=== PATIENT | female | born 1940 | race Caucasian/White ===

== ENCOUNTER 2019-10-03 13:39 | Inpatient (IN) | payer MEDICARE, OTHER, SELFPAY ==
--- NOTE | ~2019-10-03 | CT_ITS ---
EXAMINATION: CT brain wo con EXAM DATE: 10/03/2019 18:19 INDICATION: Hallucinations. TECHNIQUE: Spiral CT of the head was performed without contrast. Axial, coronal and sagittal images were reviewed. The dose-length product (DLP) for this examination was 605.33 mGy-cm. The exposure w as tailored according to patient size, and iterative reconstruction (ASIR) was used as additional dos e reduction technique. Comparison is made to prior examination from 09/13/2019. FINDINGS: There is no acute intraparenchymal hemorrhage. No evidence of intraparenchymal brain mass lesion. No evidence of acute infarction. Please note that initial head CT has limited sensitivity f or small or acute infarctions. There is mild to moderate periventricular and subcortical hypodensity, nonspecific but probably related to small vessel ischemic disease. There is moderate prominence of the sulci and ventricles related to cerebral atrophy. There is intracranial carotid arterioscleros is. There are no extra-axial collections. There is no mass effect or midline shift. Patient has squirse d bilateral ocular lens surgery. Soft tissue is unremarkable. The visualized sinuses and mastoid ai r cells are well aerated. There is no interval change. IMPRESSION: 1. No acute intracranial findings. 2. Chronic age related findings. Reviewed, dictated and finalized at location A. ICAL ASSISTANT PROFESSOR
--- NOTE | ~2019-10-03 | XR_ITS ---
XR chest 1V portable 10/09/2019 14:15 Indication: Worsening cough Procedure: AP portable chest Comparison: Comparison to multiple prior studies sequentially, with oldest reviewed study dated 05/06. Findings: Status post median sternotomy for CABG. Pacemaker leads are stable. Cardiomegaly. There is atherosclerosis of the aorta. Mild interstitial edema. Small pleural effusions. No pneumothorax. Jolene re degenerative changes of the glenohumeral joints. Right IJ large bore central venous catheter tip i n the right atrium. Impression: 1: Cardiomegaly with interstitial edema. Reviewed, dictated and finalized at location A. ECTION SPECIALIST Impression: 1: Cardiomegaly with interstitial edema.
--- NOTE | ~2019-10-03 | XR_ITS ---
EXAMINATION: XR chest 2V DATE: 10/03/2019 16:19 INDICATION: Shortness of breath TECHNIQUE: AP and lateral views of the chest are obtained. COMPARISON: 05/12/2019 FINDINGS: There is stable cardiomegaly. There are mild airspace opacities of the lung bases. Median s ternotomy wires and mediastinal surgical clips are seen, likely from prior coronary artery bypass gra fting. A dual-lead pacemaker of the left chest wall ends with its leads in expected positions. There is a right internal jugular dialysis catheter with its tip in the right atrium. No pleural effusion o r pneumothorax is identified. There is severe thoracic spondylosis. Advanced osteoarthritis is noted in the shoulders. IMPRESSION: 1. Minimal airspace opacities of the lung bases, likely atelectasis. 2. Cardiomegaly. Reviewed, dictated and finalized at location A. ER TUBE REAMER
--- NOTE | 2019-10-03 13:43 | ED.SOB ---
HPI - SOB/Dyspnea General Chief Complaint: Shortness of Breath/Dyspnea Stated Complaint: DIFFICULTY BREATHING Time Seen by Provider: 10/03/19 13:42 Source: patient and EMS Mode of arrival: EMS Limitations: no limitations History of Present Illness HPI Narrative: The pt is an 79 y/o female who presents to the ED, via EMS, c/o SOB onset today. Pt notes that she awoke experiencing this, and has had a productive cough and right sinus drainage for the past few days. She notes that she also has been experiencing occipital SAHNI, weakness, and her insides were jumping today. Per EMS, pt was discharged from this facility following a UTI, but she states that she has worsened since. EMS states that the pt was at [facility] dialysis today, and got 500 CCs out of the 1000 CCs she typically gets off before they stopped. EMS states that the pt does not normally wear oxygen except at [facility], where she is normally on 2 liters. EMS states that the pt had an oxygen saturation of high 80s to low 90s on 2 liters, but her SOB resolved when the oxygen was bumped up to 4 liters. Pt denies vomiting, CP, and fever. Pt notes that her presiding judge is Dr. Galindo. MD elicited complaint: shortness of breath Pertinent past history: COPD and congestive heart failure Timing: now resolved Relieving factors: oxygen Known history of: COPD and congestive heart failure Associated symptoms: cough (Productive, onset few days ago) and other (Right sinus drainage (Onset few days ago), insides were jumping, occipital SAHNI, weakness) Treatment prior to arrival: oxygen Related Data Home Medications Medication Instructions Recorded Confirmed allopurinol 100 mg PO TID 09/13/19 10/03/19 aspirin [Aspir-81] 81 mg PO DAILY 09/13/19 10/03/19 bumetanide 2 mg PO 3XW 09/13/19 10/03/19 cyanocobalamin (vitamin B-12) 1,000 mcg PO DAILY 09/13/19 10/03/19 [Vitamin B-12] diltiazem HCl [DILT-XR] 180 mg PO HS 09/13/19 10/03/19 docusate sodium [Colace] 100 mg PO DAILY 09/13/19 10/03/19 donepezil [Aricept] 10 mg PO DAILY 09/13/19 10/03/19 ferrous sulfate [Iron (ferrous 325 mg PO BIDWM 09/13/19 10/03/19 sulfate)] folic acid 1 mg PO DAILY 09/13/19 10/03/19 midodrine 10 mg PO BID 09/13/19 10/03/19 paroxetine HCl [Paxil] 40 mg PO DAILY 09/13/19 10/03/19 pravastatin [Pravachol] 40 mg PO HS 09/13/19 10/03/19 alendronate-vitamin D3 2,000 units BYMOUTH DAILY 10/03/19 10/03/19 amiodarone 100 mg PO DAILY 10/03/19 10/03/19 cholecalciferol (vitamin D3) 2,000 unit PO DAILY 10/03/19 10/03/19 levothyroxine 150 mcg PO DAILY 10/03/19 10/03/19 quetiapine 50 mg PO HS 10/03/19 10/03/19 sucroferric oxyhydroxide [Velphoro] 500 mg PO TIDWM 10/03/19 10/03/19 venlafaxine 225 mg PO DAILY 10/03/19 10/03/19 Allergies Allergy/AdvReac Type Severity Reaction Status Date / Time lisinopril AdvReac Cough Verified 10/03/19 19:04 Review of Systems Review of Systems: All systems reviewed & are unremarkable except as noted in HPI and below Constitutional: Constitutional: Denies fever(s) ENT: Reports other (Right sinus drainage (Onset few days ago)) Cardiovascular: Cardiovascular: Denies chest pain Respiratory: Respiratory: Reports cough (Productive, onset a few days ago) and Reports dyspnea (Resolved) Gastrointestinal: Gastrointestinal: Denies vomiting and Reports other ( Insides were jumping ) Neurologic: Reports headache(s) (Occipital ) and Reports weakness PMFSH Past Medical History Medical History AA (aortic aneurysm) Anemia due to chronic kidney disease, on chronic dialysis Angina at rest Anxiety Arthritis AV fistula CAD (coronary artery disease) of artery bypass graft Cataract CHF (congestive heart failure) Compression fracture of L1 lumbar vertebra COPD (chronic obstructive pulmonary disease) Depression End stage renal disease on dialysis Gout Hypercholesterolemia Hypertension Hypothyroidism Parkinson's disease Pneumonia Renal disease Urinar
--- NOTE | 2019-10-03 13:51 | ECG_ITS ---
Measurements Intervals [place] Rate: 80 P: 59 AL: 228 QRS: 144 QRSD: 166 T: 72 QT: 471 QTc: 544 Interpretive Statements ELECTRONIC ATRIAL PACEMAKER WITH INHIBITON ELECTRONIC VENTRICULAR PACEMAKER NO FURTHER INTERPRETATION IS POSSIBLE ATYPICAL ECG Electronically Signed On 10-03-2019 16:03:23 POSTAL SORTING OFFICER by Tacho Moeller D.O.
[2019-10-03 13:56] VITALS: BP 114/77; PULSE 80; RESP 18; TEMP 36.4; O2SAT 99
[2019-10-03 14:11] LABS: Base Excess ABG 6.3 mEq/l (+/-2.0); Carboxyhemoglobin 1.2 % THb (0-2.0); Fractional Inspired Oxygen 21 %; HCO3 ABG 29.2 mEq/l (22.0-26.0); Methemoglobin ABG 0.3 %THb (0-1.5); Oxygen Saturation ABG 93.3 % (95.0-100.0); Oxyhemoglobin 90.3 % THb (90.0-100.0); PCO2 ABG 35.8 mmHg (35.0-45.0); PO2 ABG 58.9 mmHg (80.0-100.0); Reduced Hemoglobin 8.2 %THb (0-5.0); Total Hemoglobin 11.8 g/dL (12.0-18.0)
[2019-10-03 14:12] LABS: pH ABG 7.529 (7.350-7.450)
[2019-10-03 14:13] LABS: Device ROOM AIR; Modified Allen's Test Pass; Site Drawn RIGHT RADIAL
[2019-10-03 14:25] LABS: Basophils Absolute Auto 0.1 K/mm3 (0.0-0.1); Basophils Percent Auto 0.9 % (0.2-1.2); Eosinophils Absolute Auto 0.2 K/mm3 (0-0.3); Eosinophils Percent Auto 2.5 % (0-4.4); Hematocrit 35.5 % (37.0-47.0); Immature Granulocyte Absolute 0.07 K/mm3 (0.00-0.031); Immature Granulocyte Percent A 0.9 % (0-0.5); Immature Platelet Fraction Pct 7.9 % (0.9-11.2); Lymphocytes Absolute Auto 0.56 K/mm3 (0.9-3.2); Lymphocytes Percent Auto 7.4 % (18.3-44.2); Mean Corpuscular Volume 103.2 fl (80-100); Mean Platelet Volume 13.2 fl (7.4-10.4); Monocytes Absolute Auto 0.7 K/mm3 (0.1-0.6); Monocytes Percent Auto 9.8 % (2.6-8.5); Neutrophils Absolute Auto 5.9 K/mm3 (1.3-6.7); Neutrophils Percent Auto 78.5 % (45.5-73.1); Platelet Count Result 74 k/mm3 (150-375); Red Blood Count 3.44 M/mm3 (4.2-5.4); Red Cell Distribution Width 17.2 % (11.5-14.5); White Blood Count 7.6 K/mm3 (4.5-10.0)
[2019-10-03 14:30] VITALS: O2SAT 96
[2019-10-03 14:32] LABS: INR 1.1; Prothrombin Time 13.7 Seconds (11.1-14.7)
[2019-10-03 14:33] LABS: Partial Thromboplastin Time 27.7 SECONDS (22.3-36.8)
[2019-10-03 14:34] LABS: Alanine Aminotransferase 38 U/L (4-35); Albumin Level 3.7 g/dL (3.5-5.1); Alkaline Phosphatase 198 U/L (38-126); Aspartate Amino Transferase 51 U/L (14-36); Bilirubin,Total 0.9 mg/dL (0.2-1.3); Blood Urea Nitrogen 23 mg/dL (7-17); Carbon Dioxide 31 mmol/L (22-30); Chloride 94 mmol/L (98-107); Estimated CRCL calculation 15 ml/min; Estimated Glomerular Filt Rate 19; Glucose 73 mg/dL (65-105); Magnesium 2.3 mg/dL (1.6-2.3); Potassium 3.5 mmol/L (3.4-5.0); Sodium 135 mmol/L (137-145)
[2019-10-03 14:59] VITALS: BP 107/76; PULSE 80; RESP 16; O2SAT 100
[2019-10-03 18:52] LABS: Add Urine Microscopic? YES; Appearance Urine Cloudy (Clear); Bacteria Urine 4+ /hpf; Bilirubin Urine 2+ (Negative); Blood Urine 1+ (Negative); Color Urine Amber (Yellow); Glucose Urine UA Negative (Negative); Hyaline Casts Urine 20-29 /lpf; Ketones Urine Negative (Negative); Leukocyte Esterase Ur 2+ LEU/UL (Negative); Mucus Urine Rare /lpf; Nitrate Urine Negative (Negative); Protein Urine 2+ mg/dL (Negative); Specific Grav Ur 1.021 (1.001-1.035); Squamous Epithelial Cell Urine Rare /hpf (Few); WBC Urine 31-50 /hpf
[2019-10-03] MEDS: ONDANSETRON HCL ODT 4 MG TABLET 8 MG PO (18:52)
[2019-10-03 19:28] VITALS: BP 129/80; PULSE 80; RESP 23; O2SAT 92
--- NOTE | 2019-10-03 19:28 | PC.NURSE ---
assumed care of patient.
--- NOTE | 2019-10-03 20:43 | ADMGEN ---
This patient, February, was admitted to Medical Room 251-01. Patient/family oriented to hospital policies and general routines including ID bracelet, bed and alarms, visiting hours, pain management, procedures, bathroom and other care routines, personal items, smoking policy, room service/diet, and visiting hours. Valuables list has been completed. Information on how to activate the Rapid Response Team has been discussed. Patient/Family are encouraged to report perceived risks to care and to ask questions if they do not understand what they are told or what they should do.
[2019-10-03 20:50] VITALS: PULSE 82
[2019-10-03 22:00] VITALS: BP 110/64; PULSE 80; RESP 16; TEMP 37.1; O2SAT 95
--- NOTE | 2019-10-03 23:22 | PCRCNOTE ---
PCS NOTIFICATION SENT TO FOR HOME CPAP. SPOKE WITH RN AMADOR SOTO. PT DOES NOT ACTUALLY HAVE A HOME CPAP BUT HAS TROUBLE BREATHING AT NIGHT. DISCUSSED WITH RN THE NEED FOR A PHYSICIAN ORDER TO INITIATE CPAP.
[2019-10-03 23:50] VITALS: BMI 24.3
[2019-10-04] VITALS (15 sets, daily range): BP systolic 107–133; BP diastolic 67–76; PULSE 78–88; RESP 16–18; TEMP 36.3–37; O2SAT 92–98
[2019-10-04] MEDS: LEVOTHYROXINE SODIUM 150 MCG TABLET PO (05:16)
[2019-10-04 05:45] LABS: Basophils Absolute Auto 0.1 K/mm3 (0.0-0.1); Basophils Percent Auto 0.5 % (0.2-1.2); Eosinophils Absolute Auto 0.1 K/mm3 (0-0.3); Eosinophils Percent Auto 1.2 % (0-4.4); Hematocrit 34.8 % (37.0-47.0); Hemoglobin 11.1 g/dL (12.0-15.0); Immature Granulocyte Absolute 0.09 K/mm3 (0.00-0.031); Immature Granulocyte Percent A 0.9 % (0-0.5); Immature Platelet Fraction Pct 8.9 % (0.9-11.2); Lymphocytes Absolute Auto 0.73 K/mm3 (0.9-3.2); Lymphocytes Percent Auto 7.5 % (18.3-44.2); Mean Corpuscular HGB Conc 31.9 g/dl (32-36); Mean Corpuscular Hemoglobin 32.4 pg (26-34); Mean Corpuscular Volume 101.5 fl (80-100); Monocytes Absolute Auto 1.2 K/mm3 (0.1-0.6); Monocytes Percent Auto 12.5 % (2.6-8.5); Neutrophils Absolute Auto 7.6 K/mm3 (1.3-6.7); Neutrophils Percent Auto 77.4 % (45.5-73.1); Platelet Count Result 73 k/mm3 (150-375); Red Blood Count 3.43 M/mm3 (4.2-5.4); Red Cell Distribution Width 17.1 % (11.5-14.5); White Blood Count 9.8 K/mm3 (4.5-10.0)
[2019-10-04 05:56] LABS: Alanine Aminotransferase 144 U/L (4-35); Albumin Level 3.6 g/dL (3.5-5.1); Alkaline Phosphatase 169 U/L (38-126); Aspartate Amino Transferase 286 U/L (14-36); Bilirubin,Total 1.2 mg/dL (0.2-1.3); Blood Urea Nitrogen 33 mg/dL (7-17); Calcium 8.9 mg/dL (8.4-10.2); Carbon Dioxide 26 mmol/L (22-30); Chloride 96 mmol/L (98-107); Estimated CRCL calculation 11 ml/min; Estimated Glomerular Filt Rate 13; Glucose 62 mg/dL (65-105); Potassium 4.3 mmol/L (3.4-5.0); Sodium 137 mmol/L (137-145)
[2019-10-04] MEDS: DONEPEZIL HCL 10 MG TABLET PO (09:16)
[2019-10-04] MEDS: BUMETANIDE 1 MG TABLET 2 MG PO (09:16)
[2019-10-04] MEDS: ASPIRIN 81 MG ENTERIC TABLET PO (09:16)
[2019-10-04] MEDS: FERROUS SULFATE 324 MG TABLET PO (09:17)
[2019-10-04] MEDS: AMIODARONE HCL 100 MG TABLET PO (09:17)
[2019-10-04] MEDS: PAROXETINE 20 MG TABLET 40 MG PO (09:17)
[2019-10-04] MEDS: VENLAFAXINE HCL XR 75 MG CAP.ER.24H 225 MG PO (09:17)
[2019-10-04] MEDS: FOLIC ACID 1 MG TABLET PO (09:17)
[2019-10-04] MEDS: CHOLECALCIFEROL 1,000 UNIT TABLET 2000 UNITS PO (09:17)
[2019-10-04] MEDS: MIDODRINE HCL 10 MG TABLET PO ×2 (09:18→12:43)
[2019-10-04] MEDS: CYANOCOBALAMIN 1,000 MCG TABLET 1000 MCG PO (09:18)
[2019-10-04] MEDS: DOCUSATE SODIUM 100 MG CAPSULE PO ×2 (09:31→17:34)
--- NOTE | 2019-10-04 10:19 | PM.IMHP ---
H&P: HPI History of Present Illness Chief complaint: weakness, UTI Narrative: Rachelle Herbert is a 79 year old female with past medical history of end-stage renal disease on hemodialysis, atrial fibrillation, hypertension patient was at the dialysis center was having dialysis and had complaint of being fatigued and tired and hypoxia patient was brought to the emergency department for further evaluation is found to have UTI, patient was seen by Dr. Arceo patient was recently started on dialysis and her blood pressure is running soft patient is on diltiazem and amiodarone Dr. Arceo recommended to hold diltiazem and monitor the patient, present patient still complains being tired and fatigue however main complaint is constipation see has not had a BM in 3 days, denies any fever or chills Review of Systems Review of Systems: All systems reviewed & are unremarkable except as noted in HPI and below PMFSH Past Medical History Medical History (Updated 10/04/19 @ 14:12 by Davian Arceo MD) AA (aortic aneurysm) Anemia due to chronic kidney disease, on chronic dialysis Angina at rest Anxiety Arthritis AV fistula CAD (coronary artery disease) of artery bypass graft Cataract CHF (congestive heart failure) Compression fracture of L1 lumbar vertebra COPD (chronic obstructive pulmonary disease) Depression End stage renal disease on dialysis Gout Hypercholesterolemia Hypertension Hypothyroidism Parkinson's disease Pneumonia Pyuria Renal disease Urinary tract infection due to ESBL Klebsiella UTI (urinary tract infection) Valvular heart disease Surgical History Surgical History H/O aortic valve replacement She thinks is mechanical. 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 She has had 5 children.She desires to be a full code. Smoking status: Never smoker Second hand tobacco smoke exposure: No Alcohol intake: never Substance use: never Additional living arrangements comments: who is hemiparesis Gender identity (if verbalized by the patient): Female Spiritual care concerns: No Agree to blood products: Yes Meds Home Medications and Allergies Home Medications Medication Instructions Recorded Confirmed Type allopurinol 100 mg PO TID 09/13/19 10/03/19 History aspirin [Aspir-81] 81 mg PO DAILY 09/13/19 10/03/19 History bumetanide 2 mg PO 3XW 09/13/19 10/03/19 History cyanocobalamin (vitamin B-12) 1,000 mcg PO DAILY 09/13/19 10/03/19 History [Vitamin B-12] diltiazem HCl [DILT-XR] 180 mg PO HS 09/13/19 10/03/19 History docusate sodium [Colace] 100 mg PO DAILY 09/13/19 10/03/19 History donepezil [Aricept] 10 mg PO DAILY 09/13/19 10/03/19 History ferrous sulfate [Iron (ferrous 325 mg PO BIDWM 09/13/19 10/03/19 History sulfate)] folic acid 1 mg PO DAILY 09/13/19 10/03/19 History midodrine 10 mg PO BID 09/13/19 10/03/19 History paroxetine HCl [Paxil] 40 mg PO DAILY 09/13/19 10/03/19 History pravastatin [Pravachol] 40 mg PO HS 09/13/19 10/03/19 History alendronate-vitamin D3 2,000 units BYMOUTH DAILY 10/03/19 10/03/19 History amiodarone 100 mg PO DAILY 10/03/19 10/03/19 History cholecalciferol (vitamin D3) 2,000 un
[2019-10-04] MEDS: polyethylene glycoL 3350 17 GM POWD.PACK PO (12:43)
--- NOTE | 2019-10-04 14:06 | PM.CNNEP ---
Assessment and Plan Assessment and plan (1) Weakness: Code(s): R53.1 - Weakness Status: Acute Assessment and Plan: The patient has been weak. She does have pyuria and so could have a bladder infection. And her white cell count is okay and her temperature is not elevated. Another possibility is over control of her blood pressure. She has noted that she is much less swollen now that she is on dialysis and so she probably needs less blood pressure medications. Her only blood pressure medication that she is on is diltiazem. She might be on that only because of rate control however she is also on amiodarone. Perhaps we can hold the diltiazem for now. She is on midodrine to help prevent problems with fluid removal on dialysis, and also gets it on non dialysis days. We can also get orthostatic blood pressure readings. (2) Pyuria: Code(s): R82.81 - Pyuria Status: Acute Assessment and Plan: The patient has pyuria. She has a history of bladder infections in the past. Cultures are pending and she is on antibiotics. (3) Atrial fibrillation: Qualifiers: Atrial fibrillation type: unspecified Qualified Code(s): I48.91 - Unspecified atrial fibrillation Code(s): I48.91 - Unspecified atrial fibrillation Status: Acute Assessment and Plan: She has a pacemaker in her pulse is regular. Heart rate is well controlled. (4) Hypertension: Qualifiers: Hypertension type: essential hypertension Qualified Code(s): I10 - Essential (primary) hypertension Code(s): I10 - Essential (primary) hypertension Status: Chronic Assessment and Plan: Blood pressure has not been a major issue lately since her fluid has been removed. We will see how she does off the diltiazem (5) CHF (congestive heart failure): Code(s): I50.9 - Heart failure, unspecified Status: Acute Assessment and Plan: She has no edema. Chest x-ray is clear. (6) End stage renal disease on dialysis: Code(s): N18.6 - End stage renal disease; Z99.2 - Dependence on renal dialysis Status: Chronic Assessment and Plan: The patient had dialysis yesterday. It was not complete however the patient's volume status looks okay and her electrolytes are fine. We will continue dialysis on Sunday History of Present Illness Reason for Consult Consult date: 10/04/19 Chief Complaint Chief complaint: weakness, UTI History of Present Illness Narrative: Rachelle is a very pleasant 79-year-old female who has multiple medical problems including end-stage renal disease on dialysis for the last 3 months, anemia, CKD MBD, coronary disease status post bypass, congestive heart failure, COPD, depression, gout, hyperlipidemia, hypertension, hypothyroidism, urinary tract infection. The patient came into the hospital because for the last couple of days she has been feeling weak and shaky. She went to dialysis yesterday and after couple of hours felt poorly and so was sent to the emergency room. The patient also had some shortness of breath, cough, sinus drainage, occipital headaches, and anxiety. The patient went to the emergency room. There she was evaluated and found to have pyuria. Her blood pressure and other vital signs were under good control. The patient says that she has been constipated as well. She takes docusate and occasional suppository but has not had very much success. Her dialysis has been going fairly well. She does not gain a lot of weight between treatments. She still makes some urine. Her blood pressure does not drop with dialysis. She does occasionally get a little dizzy when she stands up. Review of Systems Constitutional: Constitutional: Reports no additional constitutional complaints Eyes: Eyes: Reports no additional eye complaints ENT: Reports system reviewed and no additional complaints, except as documented Cardiovascular: Cardiovascular: Reports no ad
--- NOTE | 2019-10-04 15:21 | PC.NURSE ---
Patient's daughter states she can bring in patient's Velphoro from home later today to be used during hospitalization.
[2019-10-04] MEDS: QUEtiapine FUMARATE 25 MG TABLET 50 MG PO (20:35)
[2019-10-04] MEDS: PRAVASTATIN SODIUM 20 MG TABLET 40 MG PO (20:35)
[2019-10-05] VITALS (10 sets, daily range): BP systolic 97–113; BP diastolic 55–73; PULSE 79–84; RESP 16–20; TEMP 36.3–36.9; O2SAT 94–98
[2019-10-05] MEDS: LEVOTHYROXINE SODIUM 150 MCG TABLET PO (05:57)
[2019-10-05 07:46] LABS: Hematocrit 35.5 % (37.0-47.0); Hemoglobin 11.2 g/dL (12.0-15.0); Immature Platelet Fraction Pct 9.5 % (0.9-11.2); Mean Corpuscular HGB Conc 31.5 g/dl (32-36); Mean Corpuscular Hemoglobin 32.7 pg (26-34); Mean Corpuscular Volume 103.5 fl (80-100); Mean Platelet Volume 12.6 fl (7.4-10.4); Platelet Count Result 69 k/mm3 (150-375); Red Blood Count 3.43 M/mm3 (4.2-5.4); Red Cell Distribution Width 17.4 % (11.5-14.5); White Blood Count 10.9 K/mm3 (4.5-10.0)
[2019-10-05 08:12] LABS: Albumin Level 3.5 g/dL (3.5-5.1); Blood Urea Nitrogen 50 mg/dL (7-17); Calcium 9.2 mg/dL (8.4-10.2); Carbon Dioxide 25 mmol/L (22-30); Chloride 92 mmol/L (98-107); Estimated CRCL calculation 8 ml/min; Estimated Glomerular Filt Rate 9; Glucose 50 mg/dL (65-105); Phosphorus 6.3 mg/dL (2.5-4.5); Potassium 4.5 mmol/L (3.4-5.0); Sodium 134 mmol/L (137-145)
--- NOTE | 2019-10-05 08:18 | PC.NURSE ---
Patient given 4 ounces of apple juice for blood glucose of 54.
[2019-10-05 08:56] LABS: Glucose Point of Care 86 (65-105)
[2019-10-05 08:56] LABS: Glucose Point of Care 56 (65-105)
[2019-10-05] MEDS: MIDODRINE HCL 10 MG TABLET PO ×2 (10:31→12:35)
[2019-10-05] MEDS: AMIODARONE HCL 100 MG TABLET PO (10:31)
[2019-10-05] MEDS: PAROXETINE 20 MG TABLET 40 MG PO (10:31)
[2019-10-05] MEDS: CYANOCOBALAMIN 1,000 MCG TABLET 1000 MCG PO (10:32)
[2019-10-05] MEDS: FOLIC ACID 1 MG TABLET PO (10:32)
[2019-10-05] MEDS: ASPIRIN 81 MG ENTERIC TABLET PO (10:32)
[2019-10-05] MEDS: CHOLECALCIFEROL 1,000 UNIT TABLET 2000 UNITS PO (10:32)
[2019-10-05] MEDS: VENLAFAXINE HCL XR 75 MG CAP.ER.24H 225 MG PO (10:32)
[2019-10-05] MEDS: DONEPEZIL HCL 10 MG TABLET PO (10:32)
[2019-10-05] MEDS: DOCUSATE SODIUM 100 MG CAPSULE PO ×2 (10:35→10:41)
[2019-10-05] MEDS: polyethylene glycoL 3350 17 GM POWD.PACK PO (10:35)
[2019-10-05 10:50] LABS: Glucose Point of Care 116 (65-105)
[2019-10-05 10:50] LABS: Glucose Point of Care 54 (65-105)
--- NOTE | 2019-10-05 12:15 | PM.IMPN ---
Progress Note: A&P Assessment and Plan (1) Weakness: Code(s): R53.1 - Weakness Status: Acute Assessment and Plan: 10/05/19 12:15Rachelle Herbert is a 79 year old female with past medical history of end-stage renal disease on hemodialysis, atrial fibrillation, hypertension patient was at the dialysis center was having dialysis and had complaint of being fatigued and tired and hypoxia patient was brought to the emergency department for further evaluation is found to have UTI, patient was seen by Dr. Arceo patient was recently started on dialysis and her blood pressure is running soft patient is on diltiazem and amiodarone Dr. Arceo recommended to hold diltiazem and monitor the patient, present patient still complains being tired and fatigue however main complaint is constipation see has not had a BM in 3 days, most likely her weakness and multifactorial recent start of end-stage renal disease and hemodialysis, bacteriuria and UTI patient is being treated with Rocephin today patient urine culture is growing gram-negative bacilli will follow up on culture and sensitivity will have a PT OT evaluate the patient patient will benefit from going to to acute rehab (2) Pyuria: Code(s): R82.81 - Pyuria Status: Acute Assessment and Plan: Plan is above (3) Asymptomatic bacteriuria: Code(s): R82.71 - Bacteriuria Status: Acute Assessment and Plan: Patient being treated with Rocephin will follow up on culture and sensitivity (4) CHF (congestive heart failure): Code(s): I50.9 - Heart failure, unspecified Status: Acute Assessment and Plan: Patient does not appear to be volume overloaded other dry patient is on dialysis (5) End stage renal disease: Code(s): N18.6 - End stage renal disease Status: Chronic Assessment and Plan: Patient is seen by Dr. Arceo will have scheduled dialysis (6) Atrial fibrillation: Qualifiers: Atrial fibrillation type: unspecified Qualified Code(s): I48.91 - Unspecified atrial fibrillation Code(s): I48.91 - Unspecified atrial fibrillation Status: Acute Assessment and Plan: Patient being treated with diltiazem and amiodarone patient is and has a pacemaker rate is controlled, seen by Dr. Arceo and held diltiazem as patient blood pressure is running soft will continue to monitor patient is not anticoagulated (7) Hypertension: Qualifiers: Hypertension type: essential hypertension Qualified Code(s): I10 - Essential (primary) hypertension Code(s): I10 - Essential (primary) hypertension Status: Chronic Assessment and Plan: Patient is on midodrine to prevent hypotension after dialysis, diltiazem on hold as her blood pressure is soft Subjective Date/time seen: 10/05/19 12:15Rachelle Herbert is a 79 year old female with past medical history of end-stage renal disease on hemodialysis, atrial fibrillation, hypertension patient was at the dialysis center was having dialysis and had complaint of being fatigued and tired and hypoxia patient was brought to the emergency department for further evaluation is found to have UTI, patient was seen by Dr. Arceo patient was recently started on dialysis and her blood pressure is running soft patient is on diltiazem and amiodarone Dr. Arceo recommended to hold diltiazem and monitor the patient, present patient still complains being tired and fatigue however main complaint is constipation see has not had a BM in 3 days, most likely her weakness and multifactorial recent start of end-stage renal disease and hemodialysis, bacteriuria and UTI patient is being treated with Rocephin today patient urine culture is growing gram-negative bacilli will follow up on culture and sensitivity will have a PT OT evaluate the patient patient will benefit from going to to acute rehab Review of Systems Review of Systems: All systems reviewed & are unremarkable except as
[2019-10-05 12:43] LABS: Glucose Point of Care 113 (65-105)
--- NOTE | 2019-10-05 13:15 | PM.PNNEP ---
Progress Note: A&P Assessment and Plan (1) Weakness: Code(s): R53.1 - Weakness Status: Acute Assessment and Plan: The patient has been weak. The patient has a UTI. Gram-negative rods are growing. She is on antibiotics. Her blood pressure is somewhat soft. She is on midodrine. She is off diltiazem. She is on midodrine to help prevent problems with fluid removal on dialysis, and also gets it on non dialysis days. Her blood pressure does not seem to drop appreciably with standing. (2) Pyuria: Code(s): R82.81 - Pyuria Status: Acute Assessment and Plan: The patient has pyuria. Gram-negative rods present. She is on antibiotics. (3) Atrial fibrillation: Qualifiers: Atrial fibrillation type: unspecified Qualified Code(s): I48.91 - Unspecified atrial fibrillation Code(s): I48.91 - Unspecified atrial fibrillation Status: Acute Assessment and Plan: She has a pacemaker in her pulse is regular. Heart rate is well controlled. (4) Hypertension: Qualifiers: Hypertension type: essential hypertension Qualified Code(s): I10 - Essential (primary) hypertension Code(s): I10 - Essential (primary) hypertension Status: Chronic Assessment and Plan: Blood pressure is not high. (5) CHF (congestive heart failure): Code(s): I50.9 - Heart failure, unspecified Status: Acute Assessment and Plan: She has no edema. Chest x-ray is clear. (6) End stage renal disease on dialysis: Code(s): N18.6 - End stage renal disease; Z99.2 - Dependence on renal dialysis Status: Chronic Assessment and Plan: The patient is due for dialysis tomorrow. Subjective Date/time seen: 10/05/19 13:15 Interval history: The patient is feeling about the same today. She is still somewhat weak. She had MiraLax x2 and only had a very small bowel movement this morning. She has no fevers or chills. No shortness of breath. Her belly feels full because of the constipation Review of Systems Cardiovascular: Cardiovascular: Reports no additional cardiovascular complaints Respiratory: Respiratory: Reports no additional respiratory complaints Gastrointestinal: Gastrointestinal: Reports no additional gastrointestinal complaints Genitourinary: Genitourinary: Reports no additional female genitourinary complaints Exam Narrative: Exam Narrative: Well developed well-nourished in no acute distress Lungs clear Heart regular without rub Abdomen bowel sounds positive soft nontender Extremities no edema Skin no rash Objective Data Vital Signs Vital Signs: Vital Signs - 24 hr 10/04/19 14:00 10/04/19 16:00 10/04/19 20:00 Temperature 36.6 C Pulse Rate 80 80 88 Respiratory Rate 16 Blood Pressure 117/76 Pulse Oximetry 98 10/04/19 20:37 10/04/19 21:06 10/05/19 00:00 Temperature 36.3 C L Pulse Rate 80 80 80 Respiratory Rate 16 16 Blood Pressure 107/68 Pulse Oximetry 98 93 10/05/19 04:00 10/05/19 06:00 10/05/19 08:00 Temperature 36.3 C L Pulse Rate 80 84 80 Respiratory Rate 18 Blood Pressure 109/73 97/55 L Pulse Oximetry 94 10/05/19 10:31 10/05/19 12:00 Temperature Pulse Rate 80 80 Respiratory Rate Blood Pressure Pulse Oximetry Intake/Output Intake/Output: Intake & Output 10/02/19 10/03/19 10/04/19 10/05/19 23:59 23:59 23:59 23:59 Intake Total 50 1150 390 Output Total 700 250 Balance 50 450 140 Meds/Results Medications: Active Medications Generic Name Dose Route Start Last Admin Trade Name George PRN Reason Stop Dose Admin Amiodarone HCl 100 mg 10/04/19 08:00 10/05/19 10:31 Pacerone PO 100 mg DAILY@0800 [facility] Administration Aspirin 81 mg 10/04/19 09:00 10/05/19 10:32 Aspirin Ec PO 81 mg DAILY KATIE Administration Bumetanide 2 mg 10/04/19 09:00 10/04/19 09:16 Bumex Po PO 2 mg TuThSa@0900 [facility] Administration Cyanocobala
--- NOTE | 2019-10-05 14:19 | PHAR ---
The patient's home med of Sucroferric Oxyhydroxide [Velphoro] 500 MG has been verified.
[2019-10-05] MEDS: LACTULOSE 20 GM/30 ML UDC PO (14:48)
[2019-10-05 19:43] LABS: Glucose Point of Care 116 (65-105)
[2019-10-05] MEDS: PRAVASTATIN SODIUM 20 MG TABLET 40 MG PO (21:07)
[2019-10-05] MEDS: QUEtiapine FUMARATE 25 MG TABLET 50 MG PO (21:07)
[2019-10-05 23:42] LABS: Glucose Point of Care 82 (65-105)
[2019-10-06] VITALS (29 sets, daily range): BP systolic 89–151; BP diastolic 40–76; PULSE 74–97; RESP 16–20; TEMP 36.3–37.4; O2SAT 94–98; BMI 24.3
--- NOTE | 2019-10-06 05:23 | PC.NURSE ---
pt. ambulated with assistance from bed to chair
[2019-10-06 05:48] LABS: Hematocrit 34.1 % (37.0-47.0); Hemoglobin 11.1 g/dL (12.0-15.0); Immature Platelet Fraction Pct 11.1 % (0.9-11.2); Mean Corpuscular HGB Conc 32.6 g/dl (32-36); Mean Corpuscular Hemoglobin 32.5 pg (26-34); Mean Corpuscular Volume 99.7 fl (80-100); Platelet Count Result 55 k/mm3 (150-375); Red Blood Count 3.42 M/mm3 (4.2-5.4); White Blood Count 10.6 K/mm3 (4.5-10.0)
[2019-10-06] MEDS: LEVOTHYROXINE SODIUM 150 MCG TABLET PO (05:59)
--- NOTE | 2019-10-06 07:50 | PC.NURSE ---
Patient blood sugar this morning 61. She refused oral glucose gel and was given apple juice. Currently sitting up in the chair eating breakfast. Will recheck blood glucose in 15 minutes.
[2019-10-06 07:52] LABS: Albumin Level 3.5 g/dL (3.5-5.1); Blood Urea Nitrogen 60 mg/dL (7-17); Calcium 9.1 mg/dL (8.4-10.2); Carbon Dioxide 23 mmol/L (22-30); Chloride 91 mmol/L (98-107); Estimated CRCL calculation 6 ml/min; Estimated Glomerular Filt Rate 6; Glucose 61 mg/dL (65-105); Phosphorus 6.4 mg/dL (2.5-4.5); Potassium 4.6 mmol/L (3.4-5.0); Sodium 133 mmol/L (137-145)
[2019-10-06] MEDS: CHOLECALCIFEROL 1,000 UNIT TABLET 2000 UNITS PO (08:17)
[2019-10-06] MEDS: ASPIRIN 81 MG ENTERIC TABLET PO (08:18)
[2019-10-06] MEDS: MIDODRINE HCL 10 MG TABLET PO ×2 (08:18→12:52)
[2019-10-06] MEDS: AMIODARONE HCL 100 MG TABLET PO (08:18)
[2019-10-06] MEDS: CYANOCOBALAMIN 1,000 MCG TABLET 1000 MCG PO (08:18)
[2019-10-06] MEDS: DONEPEZIL HCL 10 MG TABLET PO (08:18)
[2019-10-06] MEDS: FOLIC ACID 1 MG TABLET PO (08:18)
[2019-10-06] MEDS: VENLAFAXINE HCL XR 75 MG CAP.ER.24H 225 MG PO (08:18)
[2019-10-06] MEDS: PAROXETINE 20 MG TABLET 40 MG PO (08:19)
[2019-10-06 08:31] LABS: Glucose Point of Care 61 (65-105)
[2019-10-06 08:31] LABS: Glucose Point of Care 116 (65-105)
--- NOTE | 2019-10-06 08:41 | PCHDNOTE ---
Patient to dialysis per bed. Report given to MEGAN Willis.
--- NOTE | 2019-10-06 11:00 | PM.IMPN ---
Progress Note: A&P Assessment and Plan (1) Weakness: Code(s): R53.1 - Weakness Status: Acute Assessment and Plan: 10/06/19 11:00 February Mayi Herbert is a 79 year old female with past medical history of end-stage renal disease on hemodialysis, atrial fibrillation, hypertension patient was at the dialysis center was having dialysis and had complaint of being fatigued and tired and hypoxia patient was brought to the emergency department for further evaluation is found to have UTI, patient was seen by Dr. Arceo patient was recently started on dialysis and her blood pressure is running soft patient is on diltiazem and amiodarone Dr. Arceo recommended to hold diltiazem and monitor the patient, present patient still complains being tired and fatigue however main complaint is constipation see has not had a BM in 3 days, most likely her weakness and multifactorial recent start of end-stage renal disease and hemodialysis, bacteriuria and UTI patient is being treated with Rocephin, patient urine culture is growing Klebsiella pneumonia cochran resistant patient with end-stage renal disease on hemodialysis patient's urinates 3 times a day patient denies any complaints of dysuria frequency of urination most likely patient has asymptomatic bacteriuria patient had a similar presentation on last admission was seen by Dr. esquivel and no antibiotics recommended we have consulted Dr. esquivel again for his a recommendation, patient did have a small bowel movement today, will have a PT OT evaluate the patient patient will benefit from going to to acute rehab (2) Pyuria: Code(s): R82.81 - Pyuria Status: Acute Assessment and Plan: Plan is above (3) Asymptomatic bacteriuria: Code(s): R82.71 - Bacteriuria Status: Acute Assessment and Plan: Plan is above (4) CHF (congestive heart failure): Code(s): I50.9 - Heart failure, unspecified Status: Acute Assessment and Plan: Patient does not appear to be volume overloaded other dry patient is on dialysis (5) End stage renal disease: Code(s): N18.6 - End stage renal disease Status: Chronic Assessment and Plan: Patient is seen by Dr. Arceo will have scheduled dialysis (6) Atrial fibrillation: Qualifiers: Atrial fibrillation type: unspecified Qualified Code(s): I48.91 - Unspecified atrial fibrillation Code(s): I48.91 - Unspecified atrial fibrillation Status: Acute Assessment and Plan: Patient being treated with diltiazem and amiodarone patient is and has a pacemaker rate is controlled, seen by Dr. Arceo and held diltiazem as patient blood pressure is running soft will continue to monitor patient is not anticoagulated (7) Hypertension: Qualifiers: Hypertension type: essential hypertension Qualified Code(s): I10 - Essential (primary) hypertension Code(s): I10 - Essential (primary) hypertension Status: Chronic Assessment and Plan: Patient is on midodrine to prevent hypotension after dialysis, diltiazem on hold as her blood pressure is soft Subjective Date/time seen: 10/06/19 11:00 February Mayi Herbert is a 79 year old female with past medical history of end-stage renal disease on hemodialysis, atrial fibrillation, hypertension patient was at the dialysis center was having dialysis and had complaint of being fatigued and tired and hypoxia patient was brought to the emergency department for further evaluation is found to have UTI, patient was seen by Dr. Arceo patient was recently started on dialysis and her blood pressure is running soft patient is on diltiazem and amiodarone Dr. Arceo recommended to hold diltiazem and monitor the patient, present patient still complains being tired and fatigue however main complaint is constipation see has not had a BM in 3 days, most likely her weakness and multifactorial recent start of end-stage renal disease and hemodialysis, bacteriuria and UTI patie
--- NOTE | 2019-10-06 11:44 | PCPTNOTE ---
Attempted to see patient for PT, however patient was out of room for dialysis.
--- NOTE | 2019-10-06 12:10 | PM.PNNEP ---
Progress Note: A&P Assessment and Plan (1) End stage renal disease: Code(s): N18.6 - End stage renal disease Status: Chronic Assessment and Plan: HD today and continue M/W/F schedule while hospitalized electrolytes, volume status, and clearance acceptable (2) Weakness: Code(s): R53.1 - Weakness Status: Acute Assessment and Plan: suspect multifactorial -- ESRD, age, recent hospitalizations and questionable UTI PT/OT need for rehab? (3) Atrial fibrillation: Qualifiers: Atrial fibrillation type: unspecified Qualified Code(s): I48.91 - Unspecified atrial fibrillation Code(s): I48.91 - Unspecified atrial fibrillation Status: Acute Assessment and Plan: continue rate control strategy this is complicated by her known hypotension issues on amiodarone but diltiazem on hold (4) Asymptomatic bacteriuria: Code(s): R82.71 - Bacteriuria Status: Acute Assessment and Plan: as noted on last hospitalization as well likely colonization no antibiotics at this time Will continue to follow Subjective Date/time seen: 10/06/19 12:10 Tolerating dialysis at the time of my visit (seen on HD at ~ 12:00PM); no apparent distress voiced currently; breathing/respiratory status stable; no acute issues to report this time Exam Narrative: Exam Narrative: General: WD/WN female in NAD Heart: normal S1 and S2; no rub Lungs: decreasedat bases Abdomen: soft, nontender, nondistended, positive bowel sounds Extremities: no cyanosis or clubbing; no edema Skin: warm and dry Objective Data Vital Signs Vital Signs: Vital Signs Temp Pulse Resp BP Pulse Ox 10/06/19 12:00 82 144/73 H 10/06/19 11:47 97 127/47 L 10/06/19 11:30 80 130/56 L 10/06/19 11:15 80 128/68 10/06/19 11:00 79 135/68 10/06/19 10:45 80 139/67 10/06/19 10:30 78 126/72 10/06/19 10:15 80 136/60 10/06/19 10:00 74 150/66 H 10/06/19 09:45 78 127/65 10/06/19 09:30 78 142/70 H 10/06/19 09:15 78 118/43 L 10/06/19 09:00 81 134/43 L 10/06/19 08:45 37.3 C 80 16 134/63 10/06/19 08:18 80 10/06/19 08:00 80 10/06/19 06:01 37.3 C 80 16 102/53 L 94 10/06/19 04:00 80 10/06/19 00:00 80 10/05/19 22:39 36.9 C 81 16 113/63 98 10/05/19 20:00 79 10/05/19 16:00 80 10/05/19 14:00 36.4 C 79 20 104/60 96 Intake/Output Intake/Output: Intake & Output 10/03/19 10/04/19 10/05/19 10/06/19 23:59 23:59 23:59 23:59 Intake Total 50 1150 890 100 Output Total 700 250 200 Balance 50 450 640 -100 Meds/Results Medications: Active Medications Generic Name Dose Route Start Last Admin Trade Name Freq PRN Reason Stop Dose Admin Amiodarone HCl 100 mg 10/04/19 08:00 10/06/19 08:18 Pacerone PO 100 mg DAILY@0800 KATIE Administration Aspirin 81 mg 10/04/19 09:00 10/06/19 08:18 Aspirin Ec PO 81 mg DAILY KATIE Administration Bumetanide 2 mg 10/04/19 09:00 10/04/19 09:16 Bumex Po PO 2 mg TuThSa@0900 KATIE Administration Cyanocobalamin 1,000 mcg 10/04/19 09:00 10/06/19 08:18 Vitamin B-12 Tab PO 1,000 mcg DAILY KATIE Administration Dextrose 12.5 gm 10/05/19 08:17 Dextrose 50% Syringe IV PUSH PRN PRN Hypoglycemia Protocol Docusate Sodium 100 mg 10/04/19 09:00 10/06/19 08:22 Colace Cap PO Not Given DAILY KATIE Docusate Sodium 100 mg 10/04/19 10:17 10/05/19 10:35 Colace Cap PO 100 mg Q12H PRN Administration Constipation Donepezil HCl 10 mg 10/04/19 09:00 10/06/19 08:18 Aricept PO 10 mg DAILY KATIE Administration Folic Acid 1 mg 10/04/19 09:00 10/06/19 08:18 Folic Acid PO 1 mg DAILY KATIE Administration Glucagon 1 mg 10/05/19 08:17 Glucagon For Inj IM PRN PRN Hypoglycemia Protocol Glucose 15 gm 10/05/19 08:17 Glutose 15 PO P
[2019-10-06] MEDS: HEPARIN SODIUM 1,000 UNITS/ML VIAL 1000 UNITS IV PUSH (12:42)
--- NOTE | 2019-10-06 12:50 | PC.NURSE ---
Patient return from dialysis per bed.
[2019-10-06 13:48] LABS: Glucose Point of Care 81 (65-105)
[2019-10-06 13:48] LABS: Glucose Point of Care 63 (65-105)
[2019-10-06 13:48] LABS: Glucose Point of Care 49 (65-105)
--- NOTE | 2019-10-06 16:26 | PC.NURSE ---
At approx 1315, patient blood sugar 49. Patient refused oral glucose gel and was given apple juice. Rechecked sugar and it was 61. Administered apple juice again. Blood sugar rechecked 15 minutes later and had increased to 81. Unable to nonadmin oral glucose gel on the nov.
[2019-10-06 17:05] LABS: Glucose Point of Care 105 (65-105)
[2019-10-06] MEDS: QUEtiapine FUMARATE 25 MG TABLET 50 MG PO (21:35)
[2019-10-06] MEDS: PRAVASTATIN SODIUM 20 MG TABLET 40 MG PO (21:35)
[2019-10-06 22:55] LABS: Glucose Point of Care 82 (65-105)
[2019-10-07] VITALS (11 sets, daily range): BP systolic 94–123; BP diastolic 56–72; PULSE 80–84; RESP 16–21; TEMP 36.4–36.8; O2SAT 94–100
[2019-10-07] MEDS: LEVOTHYROXINE SODIUM 150 MCG TABLET PO (06:18)
[2019-10-07 06:27] LABS: Hematocrit 31.9 % (37.0-47.0); Hemoglobin 10.7 g/dL (12.0-15.0); Mean Corpuscular HGB Conc 33.5 g/dl (32-36); Mean Corpuscular Volume 98.5 fl (80-100); Mean Platelet Volume 12.4 fl (7.4-10.4); Platelet Count Result 41 k/mm3 (150-375); Red Blood Count 3.24 M/mm3 (4.2-5.4); Red Cell Distribution Width 16.9 % (11.5-14.5); White Blood Count 8.4 K/mm3 (4.5-10.0)
[2019-10-07 06:58] LABS: Albumin Level 2.8 g/dL (3.5-5.1); Blood Urea Nitrogen 28 mg/dL (7-17); Calcium 8.3 mg/dL (8.4-10.2); Carbon Dioxide 22 mmol/L (22-30); Chloride 94 mmol/L (98-107); Estimated CRCL calculation 12 ml/min; Estimated Glomerular Filt Rate 15; Glucose 66 mg/dL (65-105); Phosphorus 3.8 mg/dL (2.5-4.5); Potassium 4.6 mmol/L (3.4-5.0); Sodium 132 mmol/L (137-145)
--- NOTE | 2019-10-07 07:50 | PCDIET ---
Patient glucose 60 at 0745. Refused the oral glucose gel. Gave patient apple juice and she is currently eating breakfast. Will recheck blood sugar in 15 minutes.
[2019-10-07] MEDS: ASPIRIN 81 MG ENTERIC TABLET PO (08:11)
[2019-10-07] MEDS: CYANOCOBALAMIN 1,000 MCG TABLET 1000 MCG PO (08:12)
[2019-10-07] MEDS: VENLAFAXINE HCL XR 75 MG CAP.ER.24H 225 MG PO (08:12)
[2019-10-07] MEDS: MIDODRINE HCL 10 MG TABLET PO ×2 (08:12→12:45)
[2019-10-07] MEDS: PAROXETINE 20 MG TABLET 40 MG PO (08:13)
[2019-10-07] MEDS: AMIODARONE HCL 100 MG TABLET PO (08:13)
[2019-10-07] MEDS: FOLIC ACID 1 MG TABLET PO (08:15)
[2019-10-07] MEDS: BUMETANIDE 1 MG TABLET 2 MG PO (08:15)
[2019-10-07] MEDS: CHOLECALCIFEROL 1,000 UNIT TABLET 2000 UNITS PO (08:15)
[2019-10-07] MEDS: DONEPEZIL HCL 10 MG TABLET PO (08:15)
--- NOTE | 2019-10-07 08:22 | PC.NURSE ---
Patient blood sugar this morning was 61. She refused the oral glucose gel and I gave her apple juice. She is sitting up eating breakfast at this time. Rechecked her sugar approx 15-20 minutes later and glucose has increased to 85.
[2019-10-07 09:11] LABS: Glucose Point of Care 85 (65-105)
[2019-10-07 09:11] LABS: Glucose Point of Care 60 (65-105)
--- NOTE | 2019-10-07 10:23 | PM.PNNEP ---
Progress Note: A&P Assessment and Plan (1) End stage renal disease: Code(s): N18.6 - End stage renal disease Status: Chronic Assessment and Plan: HD tomorrow and continue M/W/F schedule while hospitalized electrolytes, volume status, and clearance acceptable (2) Weakness: Code(s): R53.1 - Weakness Status: Acute Assessment and Plan: suspect multifactorial -- ESRD, age, recent hospitalizations and questionable UTI PT/OT needfor rehab/SNF? case management working on this (3) Atrial fibrillation: Qualifiers: Atrial fibrillation type: unspecified Qualified Code(s): I48.91 - Unspecified atrial fibrillation Code(s): I48.91 - Unspecified atrial fibrillation Status: Acute Assessment and Plan: continue rate control strategy this is complicated by her known hypotension issues on amiodarone but diltiazem on hold (4) Asymptomatic bacteriuria: Code(s): R82.71 - Bacteriuria Status: Acute Assessment and Plan: as noted on last hospitalization as well likely colonization on IV ceftriaxone - HOWEVER, no antibiotics recommended by Infectious Disease on last hospitalization Will continue to follow Subjective Date/time seen: 10/07/19 10:23 Tolerated dialysis yesterday without any issue or problems; no other acute issues or problems noted; hypoglycemic this AM but improved with apple juice and eating breakfast; no apparent distress voiced other than generalized weakness. Exam Narrative: Exam Narrative: General: WD/WN female in NAD Heart: normal S1 and S2; no rub Lungs: decreasedat bases Abdomen: soft, nontender, nondistended, positive bowel sounds Extremities: no cyanosis or clubbing; no edema Skin: warm and intact Objective Data Vital Signs Vital Signs: Vital Signs Temp Pulse Resp BP Pulse Ox 10/07/19 08:13 84 10/07/19 06:00 36.6 C 80 21 H 108/58 L 100 10/07/19 04:00 81 10/07/19 00:00 80 10/06/19 22:00 37.4 C 81 20 118/71 98 10/06/19 20:00 80 10/06/19 16:10 90/40 L 10/06/19 16:05 89/70 L 10/06/19 16:00 82 107/63 10/06/19 14:00 36.3 C L 80 20 106/63 94 10/06/19 12:35 37.2 C 81 16 150/50 H 10/06/19 12:30 79 133/68 10/06/19 12:15 78 151/76 H 10/06/19 12:00 80 144/73 H 10/06/19 11:47 97 127/47 L 10/06/19 11:30 80 130/56 L 10/06/19 11:15 80 128/68 10/06/19 11:00 79 135/68 10/06/19 10:45 80 139/67 10/06/19 10:30 78 126/72 Intake/Output Intake/Output: Intake & Output 10/04/19 10/05/19 10/06/19 10/07/19 23:59 23:59 23:59 23:59 Intake Total 1150 890 930 420 Output Total 700 250 200 Balance 450 640 730 420 Meds/Results Medications: Active Medications Generic Name Dose Route Start Last Admin Trade Name Freq PRN Reason Stop Dose Admin Amiodarone HCl 100 mg 10/04/19 08:00 10/07/19 08:13 Pacerone PO 100 mg DAILY@0800 KATIE Administration Aspirin 81 mg 10/04/19 09:00 10/07/19 08:11 Aspirin Ec PO 81 mg DAILY KATIE Administration Bumetanide 2 mg 10/04/19 09:00 10/07/19 08:15 Bumex Po PO 2 mg TuThSa@0900 KATIE Administration Cyanocobalamin 1,000 mcg 10/04/19 09:00 10/07/19 08:12 Vitamin B-12 Tab PO 1,000 mcg DAILY KATIE Administration Dextrose 12.5 gm 10/05/19 08:17 Dextrose 50% Syringe IV PUSH PRN PRN Hypoglycemia Protocol Docusate Sodium 100 mg 10/04/19 09:00 10/07/19 08:16 Colace Cap PO Not Given DAILY KATIE Docusate Sodium 100 mg 10/04/19 10:17 10/05/19 10:35 Colace Cap PO 100 mg Q12H PRN Administration Constipation Donepezil HCl 10 mg 10/04/19 09:00 10/07/19 08:15 Aricept PO 10 mg DAILY KATIE Administration Folic Acid 1 mg 10/04/19 09:00 10/07/19 08:15 Folic Acid PO 1 mg DAILY KATIE Administration Glucagon 1 mg 10/05/19 08:17 Glucagon For Inj IM PRN PRN
--- NOTE | 2019-10-07 10:48 | PM.IMPN ---
Progress Note: A&P Assessment and Plan (1) Weakness: Code(s): R53.1 - Weakness Status: Acute Assessment and Plan: Pt is still very weak, lives alone. Pt is currently treated for Klebsiella pneumonia cochran resistant UTI with iv rocephin, pt has been having hypoglycemia today. low blood sugars. ? secondary to infection and lack of appetite. Pt to continue PT/OT may need Rehab for immobility. (2) Pyuria: Code(s): R82.81 - Pyuria Status: Acute Assessment and Plan: Plan is above (3) Asymptomatic bacteriuria: Code(s): R82.71 - Bacteriuria Status: Acute Assessment and Plan: Plan is above (4) CHF (congestive heart failure): Code(s): I50.9 - Heart failure, unspecified Status: Acute Assessment and Plan: Patient does not appear to be volume overloaded other dry patient is on dialysis (5) End stage renal disease: Code(s): N18.6 - End stage renal disease Status: Chronic Assessment and Plan: Patient is seen by Dr. Arceo will have scheduled dialysis (6) Atrial fibrillation: Qualifiers: Atrial fibrillation type: unspecified Qualified Code(s): I48.91 - Unspecified atrial fibrillation Code(s): I48.91 - Unspecified atrial fibrillation Status: Acute Assessment and Plan: Patient being treated with diltiazem and amiodarone patient is and has a pacemaker rate is controlled, seen by Dr. Arceo. Bp is soft continue to watch. (7) Hypertension: Qualifiers: Hypertension type: essential hypertension Qualified Code(s): I10 - Essential (primary) hypertension Code(s): I10 - Essential (primary) hypertension Status: Chronic Assessment and Plan: Patient is on midodrine to prevent hypotension after dialysis, diltiazem on hold as her blood pressure is soft (8) Hypoglycemia: Code(s): E16.2 - Hypoglycemia, unspecified Status: Acute Assessment and Plan: Pt is not eating much also is being treated for infection order rpt UC and BC. Treat hypoglycemia with D51/2 ns slow infusion. Pt to have further PT/OT today. May benefit from rehab placement. Subjective Date/time seen: 10/07/19 10:48 Interval history: February Piedad is a 79 year old female with past medical history of end-stage renal disease on hemodialysis, atrial fibrillation, hypertension patient was at the dialysis center was having dialysis and had complaint of being fatigued and tired and hypoxia patient was brought to the emergency department for further evaluation is found to have UTI, patient was seen by Dr. Arceo patient was recently started on dialysis and her blood pressure is running soft patient is on diltiazem and amiodarone Dr. Arceo recommended to hold diltiazem and monitor the patient, present patient still complains being tired and fatigue however main complaint is constipation see has not had a BM in 3 days, most likely her weakness and multifactorial recent start of end-stage renal disease and hemodialysis, bacteriuria and UTI patient is being treated with Rocephin, patient urine culture is growing Klebsiella pneumonia cochran resistant patient with end-stage renal disease on hemodialysis patient's urinates 3 times a day patient denies any complaints of dysuria frequency of urination most likely patient has asymptomatic bacteriuria patient had a similar presentation on last admission was seen by Dr. Covarrubias and no antibiotics recommended we have consulted Dr. Covarrubias again for his a recommendation.As per previous note. Pt is still very weak, lives alone. Pt is currently treated for Klebsiella pneumonia cochran resistant UTI with iv rocephin, pt has been having hypoglycemia today. low blood sugars. ? secondary to infection and lack of appetite. Pt to continue PT/OT may need Rehab for immobility. Review of Systems Review of Systems: All systems reviewed & are unremarkable except as noted in HPI and below Exam Narrative
[2019-10-07] MEDS: DEXTROSE 5%/0.45% SOD CHL 1,000 ML 50 ML IV CONT (11:31)
[2019-10-07 12:14] LABS: Glucose Point of Care 90 (65-105)
--- NOTE | 2019-10-07 15:24 | PC.NURSE ---
Set of blood cultures ordered by Dr. Lindsay. Phlebotomists unable to obtain blood cultures d/t patient condition. Notified TEXTILE CONVERTERMEGAN Mathis. She was able to obtain 1 set of blood cultures from patient. Called and notified Dr. Lindsay. No new orders received.
[2019-10-07 16:38] LABS: Glucose Point of Care 107 (65-105)
[2019-10-07] MEDS: QUEtiapine FUMARATE 25 MG TABLET 50 MG PO (20:32)
[2019-10-07] MEDS: PRAVASTATIN SODIUM 20 MG TABLET 40 MG PO (20:32)
[2019-10-07 20:38] LABS: Glucose Point of Care 101 (65-105)
[2019-10-08] VITALS (28 sets, daily range): BP systolic 99–125; BP diastolic 45–78; PULSE 78–83; RESP 16–20; TEMP 36–37.2; O2SAT 93–100
[2019-10-08] MEDS: LEVOTHYROXINE SODIUM 150 MCG TABLET PO (05:16)
[2019-10-08] MEDS: DEXTROSE 5%/0.45% SOD CHL 1,000 ML 50 ML IV CONT (05:16)
[2019-10-08 05:40] LABS: Hematocrit 33.9 % (37.0-47.0); Hemoglobin 10.8 g/dL (12.0-15.0); Immature Platelet Fraction Pct 11.3 % (0.9-11.2); Mean Corpuscular HGB Conc 31.9 g/dl (32-36); Mean Corpuscular Hemoglobin 32.2 pg (26-34); Mean Corpuscular Volume 101.2 fl (80-100); Platelet Count Result 35 k/mm3 (150-375); Red Blood Count 3.35 M/mm3 (4.2-5.4); Red Cell Distribution Width 17.4 % (11.5-14.5); White Blood Count 6.3 K/mm3 (4.5-10.0)
[2019-10-08 05:57] LABS: Blood Urea Nitrogen 40 mg/dL (7-17); Calcium 8.3 mg/dL (8.4-10.2); Carbon Dioxide 29 mmol/L (22-30); Chloride 91 mmol/L (98-107); Estimated CRCL calculation 8 ml/min; Estimated Glomerular Filt Rate 10; Glucose 75 mg/dL (65-105); Phosphorus 3.4 mg/dL (2.5-4.5); Potassium 3.8 mmol/L (3.4-5.0); Sodium 132 mmol/L (137-145)
[2019-10-08 06:22] LABS: Glucose Point of Care 82 (65-105)
[2019-10-08 08:11] LABS: Glucose Point of Care 72 (65-105)
[2019-10-08 08:12] LABS: Glucose Point of Care 68 (65-105)
--- NOTE | 2019-10-08 11:39 | PM.IMPN ---
Progress Note: A&P Assessment and Plan (1) Weakness: Code(s): R53.1 - Weakness Status: Acute Assessment and Plan: Pt is still very weak, lives alone. Pt is currently treated for Klebsiella pneumonia/ESBL with iv rocephin. Pt to continue PT/OT may need Rehab for immobility. (2) Pyuria: Code(s): R82.81 - Pyuria Status: Acute Assessment and Plan: Plan is above (3) Asymptomatic bacteriuria: Code(s): R82.71 - Bacteriuria Status: Acute Assessment and Plan: Plan is above (4) CHF (congestive heart failure): Code(s): I50.9 - Heart failure, unspecified Status: Acute Assessment and Plan: Patient does not appear to be volume overloaded other dry patient is on dialysis (5) End stage renal disease: Code(s): N18.6 - End stage renal disease Status: Chronic Assessment and Plan: Patient is seen by Dr. Arceo will have scheduled dialysis (6) Atrial fibrillation: Qualifiers: Atrial fibrillation type: unspecified Qualified Code(s): I48.91 - Unspecified atrial fibrillation Code(s): I48.91 - Unspecified atrial fibrillation Status: Acute Assessment and Plan: Patient being treated with diltiazem and amiodarone patient is and has a pacemaker rate is controlled, seen by Dr. Arceo. Bp is soft continue to watch. (7) Hypertension: Qualifiers: Hypertension type: essential hypertension Qualified Code(s): I10 - Essential (primary) hypertension Code(s): I10 - Essential (primary) hypertension Status: Chronic Assessment and Plan: Patient is on midodrine to prevent hypotension after dialysis, diltiazem on hold as her blood pressure is soft (8) Hypoglycemia: Code(s): E16.2 - Hypoglycemia, unspecified Status: Resolved Assessment and Plan: Pt is not eating much also, encourage diet, add dietary supplements. Pt to have further PT/OT today. May benefit from rehab placement. Subjective Date/time seen: 10/08/19 11:39 Interval history: Rachelle Mayi Herbert is a 79 year old female with past medical history of end-stage renal disease on hemodialysis, atrial fibrillation, hypertension patient was at the dialysis center was having dialysis and had complaint of being fatigued and tired and hypoxia patient was brought to the emergency department for further evaluation is found to have UTI, patient was seen by Dr. Arceo patient was recently started on dialysis and her blood pressure is running soft patient is on diltiazem and amiodarone Dr. Arceo recommended to hold diltiazem and monitor the patient, present patient still complains being tired and fatigue however main complaint is constipation see has not had a BM in 3 days, most likely her weakness and multifactorial recent start of end-stage renal disease and hemodialysis, bacteriuria and UTI patient is being treated with Rocephin, patient urine culture is growing Klebsiella pneumonia cochran resistant patient with end-stage renal disease on hemodialysis patient's urinates 3 times a day patient denies any complaints of dysuria frequency of urination most likely patient has asymptomatic bacteriuria patient had a similar presentation on last admission was seen by Dr. Covarrubias and no antibiotics recommended we have consulted Dr. Covarrubias again for his a recommendation.As per previous note. Pt is still very weak, lives alone. Pt is currently treated for Klebsiella pneumonia /ESBL UTI with iv rocephin, pt is feeling more stronger today. Rpt BC and UC is pending. Pt to continue PT/OT may need Rehab for immobility. Continue to treat, hopeful discharge tomorrow. Review of Systems Review of Systems: All systems reviewed & are unremarkable except as noted in HPI and below Exam Narrative: Exam Narrative: Patient is elderly frail Const: General: no acute distress and uncomfortable HENMT: General nose exam: Normal nares present Mouth: Yes moist mucous membr
--- NOTE | 2019-10-08 12:20 | PM.PNNEP ---
Progress Note: A&P Assessment and Plan (1) End stage renal disease: Code(s): N18.6 - End stage renal disease Status: Chronic Assessment and Plan: HD today and continue M/W/F schedule while hospitalized electrolytes, volume status, and clearance acceptable (2) Weakness: Code(s): R53.1 - Weakness Status: Acute Assessment and Plan: suspect multifactorial -- ESRD, age, recent hospitalizations and questionable UTI PT/OT need for rehab/SNF? case management working on this (3) Atrial fibrillation: Qualifiers: Atrial fibrillation type: unspecified Qualified Code(s): I48.91 - Unspecified atrial fibrillation Code(s): I48.91 - Unspecified atrial fibrillation Status: Acute Assessment and Plan: continue rate control strategy this is complicated by her known hypotension issues on amiodarone but diltiazem on hold (4) Asymptomatic bacteriuria: Code(s): R82.71 - Bacteriuria Status: Acute Assessment and Plan: as noted on last hospitalization as well likely colonization on IV ceftriaxone - HOWEVER, no antibiotics recommended by Infectious Disease on last hospitalization Will continue to follow Subjective Date/time seen: 10/08/19 12:20 Tolerating dialysis at the time of my visit (seen on HD at ~ 12:10PM); no acute complaints voiced; no issues or problems overnight; issues with hypoglycemia noted (presumably due to poor oral intake?); no apparent distress at this time. Exam Narrative: Exam Narrative: General: WD/WN female in NAD Heart: normal S1 and S2; no rub Lungs: decreased at bases Abdomen: soft, nontender, nondistended, positive bowel sounds Extremities: no cyanosis or clubbing; no edema Skin: warm and intact Objective Data Vital Signs Vital Signs: Vital Signs Temp Pulse Resp BP Pulse Ox 10/08/19 12:00 82 10/08/19 11:45 80 110/62 10/08/19 11:30 80 107/64 10/08/19 11:15 80 125/73 10/08/19 11:00 81 114/78 10/08/19 10:45 78 115/67 10/08/19 10:30 80 120/45 L 10/08/19 10:15 80 111/71 10/08/19 10:00 80 104/72 10/08/19 09:45 80 105/62 10/08/19 09:30 81 114/66 10/08/19 09:09 36.6 C 80 16 99/62 L 10/08/19 08:05 110/60 10/08/19 08:02 101/60 10/08/19 08:00 83 16 105/64 97 10/08/19 07:14 78 109/68 10/08/19 06:26 36.8 C 83 16 108/65 97 10/08/19 04:00 80 10/08/19 00:00 80 10/07/19 22:16 36.8 C 80 16 123/72 100 10/07/19 20:00 80 10/07/19 19:08 94 10/07/19 16:00 80 94/56 L 10/07/19 14:00 36.4 C 82 16 115/61 96 Intake/Output Intake/Output: Intake & Output 10/05/19 10/06/19 10/07/19 10/08/19 23:59 23:59 23:59 23:59 Intake Total 567 394 7268 1270 Output Total 250 200 300 200 Balance 640 349 628 1503 Meds/Results Medications: Active Medications Generic Name Dose Route Start Last Admin Trade Name Freq PRN Reason Stop Dose Admin Amiodarone HCl 100 mg 10/04/19 08:00 10/07/19 08:13 Pacerone PO 100 mg DAILY@0800 KATIE Administration Aspirin 81 mg 10/04/19 09:00 10/07/19 08:11 Aspirin Ec PO 81 mg DAILY KATIE Administration Bumetanide 2 mg 10/04/19 09:00 10/07/19 08:15 Bumex Po PO 2 mg TuThSa@0900 KATIE Administration Cyanocobalamin 1,000 mcg 10/04/19 09:00 10/07/19 08:12 Vitamin B-12 Tab PO 1,000 mcg DAILY KATIE Administration Dextrose 12.5 gm 10/05/19 08:17 Dextrose 50% Syringe IV PUSH PRN PRN Hypoglycemia Protocol Diltiazem HCl 180 mg 10/09/19 09:00 Cardizem Cd PO QAM KATIE Docusate Sodium 100 mg 10/04/19 09:00 10/07/19 08:16 Colace Cap PO Not Given DAILY KATIE Docusate Sodium 100 mg 10/04/19 10:17 01/26/20 10:35 Colace Cap PO 100 mg Q12H PRN Administration Constipation Donepezil HCl 10 mg 10/04/19 09:00 10/07/19 08:15 Aricept PO 10 mg DAILY SC
[2019-10-08] MEDS: AMIODARONE HCL 100 MG TABLET PO (13:40)
[2019-10-08] MEDS: VENLAFAXINE HCL XR 75 MG CAP.ER.24H 225 MG PO (13:41)
[2019-10-08] MEDS: CHOLECALCIFEROL 1,000 UNIT TABLET 2000 UNITS PO (13:41)
[2019-10-08] MEDS: DONEPEZIL HCL 10 MG TABLET PO (13:42)
[2019-10-08] MEDS: CYANOCOBALAMIN 1,000 MCG TABLET 1000 MCG PO (13:42)
[2019-10-08] MEDS: PAROXETINE 20 MG TABLET 40 MG PO (13:42)
[2019-10-08] MEDS: FOLIC ACID 1 MG TABLET PO (13:42)
[2019-10-08] MEDS: ASPIRIN 81 MG ENTERIC TABLET PO (13:42)
--- NOTE | 2019-10-08 13:42 | WPDCDIQUERY2 ---
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 -Pyyria and bacteriuria both documented on problem list as well as, found to have UTI in the subjective portion of progress note. Please clarify if UTI has been ruled in or ruled out.
[2019-10-08] MEDS: MIDODRINE HCL 10 MG TABLET PO (13:44)
[2019-10-08] MEDS: DOCUSATE SODIUM 100 MG CAPSULE PO (13:51)
[2019-10-08 13:59] LABS: Glucose Point of Care 91 (65-105)
[2019-10-08 13:59] LABS: Glucose Point of Care 56 (65-105)
[2019-10-08 17:03] LABS: Glucose Point of Care 112 (65-105)
[2019-10-08] MEDS: PRAVASTATIN SODIUM 20 MG TABLET 40 MG PO (20:50)
[2019-10-08] MEDS: QUEtiapine FUMARATE 25 MG TABLET 50 MG PO (20:50)
[2019-10-08 22:01] LABS: Glucose Point of Care 102 (65-105)
[2019-10-09] VITALS (12 sets, daily range): BP systolic 102–115; BP diastolic 65–76; PULSE 75–82; RESP 16–18; TEMP 36–36.7; O2SAT 96–100
[2019-10-09 05:59] LABS: Hematocrit 34.3 % (37.0-47.0); Hemoglobin 10.9 g/dL (12.0-15.0); Immature Platelet Fraction Pct 12.7 % (0.9-11.2); Mean Corpuscular HGB Conc 31.8 g/dl (32-36); Mean Corpuscular Hemoglobin 32.3 pg (26-34); Mean Corpuscular Volume 101.8 fl (80-100); Platelet Count Result 33 k/mm3 (150-375); Red Blood Count 3.37 M/mm3 (4.2-5.4); Red Cell Distribution Width 17.5 % (11.5-14.5); White Blood Count 7.2 K/mm3 (4.5-10.0)
[2019-10-09 06:06] LABS: Albumin Level 3.1 g/dL (3.5-5.1); Blood Urea Nitrogen 28 mg/dL (7-17); Calcium 8.3 mg/dL (8.4-10.2); Carbon Dioxide 26 mmol/L (22-30); Chloride 96 mmol/L (98-107); Estimated CRCL calculation 11 ml/min; Estimated Glomerular Filt Rate 13; Glucose 71 mg/dL (65-105); Potassium 4.1 mmol/L (3.4-5.0); Sodium 134 mmol/L (137-145)
[2019-10-09] MEDS: LEVOTHYROXINE SODIUM 150 MCG TABLET PO (06:24)
[2019-10-09 07:53] LABS: Glucose Point of Care 55 (65-105)
[2019-10-09] MEDS: GLUCOSE ORAL GEL 15 GM OF GLUCSE IN 37.5 GM TUBE PO ×2 (07:53→11:57)
[2019-10-09] MEDS: CHOLECALCIFEROL 1,000 UNIT TABLET 2000 UNITS PO (08:10)
[2019-10-09] MEDS: ASPIRIN 81 MG ENTERIC TABLET PO (08:10)
[2019-10-09] MEDS: PAROXETINE 20 MG TABLET 40 MG PO (08:10)
[2019-10-09] MEDS: BUMETANIDE 1 MG TABLET 2 MG PO (08:10)
[2019-10-09] MEDS: CYANOCOBALAMIN 1,000 MCG TABLET 1000 MCG PO (08:11)
[2019-10-09] MEDS: VENLAFAXINE HCL XR 75 MG CAP.ER.24H 225 MG PO (08:11)
[2019-10-09] MEDS: DONEPEZIL HCL 10 MG TABLET PO (08:11)
[2019-10-09] MEDS: FOLIC ACID 1 MG TABLET PO (08:11)
[2019-10-09] MEDS: MIDODRINE HCL 10 MG TABLET PO ×2 (08:11→12:02)
[2019-10-09] MEDS: AMIODARONE HCL 100 MG TABLET PO (08:15)
[2019-10-09] MEDS: DOCUSATE SODIUM 100 MG CAPSULE PO (08:19)
[2019-10-09 08:29] LABS: Glucose Point of Care 102 (65-105)
[2019-10-09 11:57] LABS: Glucose Point of Care 58 (65-105)
[2019-10-09 12:38] LABS: Glucose Point of Care 188 (65-105)
--- NOTE | 2019-10-09 13:44 | PM.IMPN ---
Progress Note: A&P Assessment and Plan (1) Weakness: Code(s): R53.1 - Weakness Status: Acute Assessment and Plan: Pt is still very weak, lives alone. Pt is currently treated for Klebsiella pneumonia/ESBL with iv rocephin. Nephrology rounding, will continue ID for ongoing Klebsiella pneumonia UTI. Pt to continue PT/OT may need Rehab for immobility. (2) Pyuria: Code(s): R82.81 - Pyuria Status: Acute Assessment and Plan: Plan is above (3) Asymptomatic bacteriuria: Code(s): R82.71 - Bacteriuria Status: Acute Assessment and Plan: Plan is above (4) CHF (congestive heart failure): Code(s): I50.9 - Heart failure, unspecified Status: Acute Assessment and Plan: Patient does not appear to be volume overloaded other dry patient is on dialysis (5) End stage renal disease: Code(s): N18.6 - End stage renal disease Status: Chronic Assessment and Plan: Patient is seen by Dr. Arceo will have scheduled dialysis (6) Atrial fibrillation: Qualifiers: Atrial fibrillation type: unspecified Qualified Code(s): I48.91 - Unspecified atrial fibrillation Code(s): I48.91 - Unspecified atrial fibrillation Status: Acute Assessment and Plan: Patient being treated with diltiazem and amiodarone patient is and has a pacemaker rate is controlled, seen by Dr. Arceo. Bp is soft continue to watch. (7) Hypertension: Qualifiers: Hypertension type: essential hypertension Qualified Code(s): I10 - Essential (primary) hypertension Code(s): I10 - Essential (primary) hypertension Status: Chronic Assessment and Plan: Patient is on midodrine to prevent hypotension after dialysis, diltiazem on hold as her blood pressure is soft (8) Hypoglycemia: Code(s): E16.2 - Hypoglycemia, unspecified Status: Resolved Assessment and Plan: Pt is not eating much also, encourage diet, add dietary supplements. Pt to have further PT/OT today. May benefit from rehab placement. Subjective Date/time seen: 10/09/19 13:44 Interval history: Rachelle Herbert is a 79 year old female with past medical history of end-stage renal disease on hemodialysis, atrial fibrillation, hypertension patient was at the dialysis center was having dialysis and had complaint of being fatigued and tired and hypoxia patient was brought to the emergency department for further evaluation is found to have UTI, patient was seen by Dr. Arceo patient was recently started on dialysis and her blood pressure is running soft patient is on diltiazem and amiodarone Dr. Arceo recommended to hold diltiazem and monitor the patient, present patient still complains being tired and fatigue however main complaint is constipation see has not had a BM in 3 days, most likely her weakness and multifactorial recent start of end-stage renal disease and hemodialysis, bacteriuria and UTI patient is being treated with Rocephin, patient urine culture is growing Klebsiella pneumonia cocrhan resistant patient with end-stage renal disease on hemodialysis patient's urinates 3 times a day patient denies any complaints of dysuria frequency of urination most likely patient has asymptomatic bacteriuria patient had a similar presentation on last admission was seen by Dr. Covarrubias and no antibiotics recommended we have consulted Dr. Covarrubias again for his a recommendation.As per previous note. Pt is still very weak, lives alone. Pt is currently treated for Klebsiella UTI with iv rocephin, pt is feeling more stronger today. Pt to continue PT/OT may need Rehab for immobility. Continue to treat, hopeful discharge tomorrow. I may consult ID again to get recommendations Pt still running low with hypoglycemia as she is not eating much Review of Systems Review of Systems: All systems reviewed & are unremarkable except as noted in HPI and below Exam Narrative: Exam Narrative: Patient is e
--- NOTE | 2019-10-09 15:48 | PM.PNNEP ---
Progress Note: A&P Assessment and Plan (1) End stage renal disease: Code(s): N18.6 - End stage renal disease Status: Chronic Assessment and Plan: HD tomorrow and continue M/W/F schedule while hospitalized electrolytes, volume status, and clearance acceptable (2) Weakness: Code(s): R53.1 - Weakness Status: Acute Assessment and Plan: suspect multifactorial -- ESRD, age, recent hospitalizations and questionable UTI PT/OT need for rehab/SNF case management working on this (3) Atrial fibrillation: Qualifiers: Atrial fibrillation type: unspecified Qualified Code(s): I48.91 - Unspecified atrial fibrillation Code(s): I48.91 - Unspecified atrial fibrillation Status: Acute Assessment and Plan: continue rate control strategy this is complicated by her known hypotension issues on amiodarone but diltiazem on hold (4) Asymptomatic bacteriuria: Code(s): R82.71 - Bacteriuria Status: Acute Assessment and Plan: as noted on last hospitalization as well on IV ceftriaxone - HOWEVER, no antibiotics recommended by Infectious Disease on last hospitalization - re-consult Infectious Disease? Will continue to follow Subjective Date/time seen: 10/09/19 15:48 Tolerated dialysis yesterday without any issues or problems; feels reasonably well; no events overnight or this AM; no apparent distress voiced at the time of my visit. Exam Narrative: Exam Narrative: General: WD/WN female in NAD Heart: normal S1 and S2; no rub Lungs: decreased at bases Abdomen: soft, nontender, nondistended, positive bowel sounds Extremities: no cyanosis or clubbing; no edema Skin: No rash Objective Data Vital Signs Vital Signs: Vital Signs Temp Pulse Resp BP Pulse Ox 10/09/19 14:00 36.7 C 75 18 115/68 100 10/09/19 12:00 81 10/09/19 11:08 102/68 10/09/19 08:15 81 10/09/19 08:03 112/67 10/09/19 08:00 79 110/76 10/09/19 06:12 36.2 C L 81 16 103/65 96 10/09/19 04:00 80 10/09/19 00:00 80 10/08/19 22:03 36.3 C L 80 16 118/72 93 10/08/19 20:00 80 10/08/19 16:00 80 Intake/Output Intake/Output: Intake & Output 10/06/19 10/07/19 10/08/19 10/09/19 23:59 23:59 23:59 23:59 Intake Total 930 1200 2020 760 Output Total 848 935 7351 300 Balance 730 900 719 460 Meds/Results Medications: Active Medications Generic Name Dose Route Start Last Admin Trade Name Freq PRN Reason Stop Dose Admin Amiodarone HCl 100 mg 10/04/19 08:00 10/09/19 08:15 Pacerone PO 100 mg DAILY@0800 KATIE Administration Aspirin 81 mg 10/04/19 09:00 10/09/19 08:10 Aspirin Ec PO 81 mg DAILY KATIE Administration Bumetanide 2 mg 10/04/19 09:00 10/09/19 08:10 Bumex Po PO 2 mg TuThSa@0900 KATIE Administration Cyanocobalamin 1,000 mcg 10/04/19 09:00 10/09/19 08:11 Vitamin B-12 Tab PO 1,000 mcg DAILY KATIE Administration Dextrose 12.5 gm 10/05/19 08:17 Dextrose 50% Syringe IV PUSH PRN PRN Hypoglycemia Protocol Diltiazem HCl 180 mg 10/09/19 09:00 10/09/19 09:52 Cardizem Cd PO 180 mg QAM KATIE Administration Docusate Sodium 100 mg 10/04/19 09:00 10/09/19 08:19 Colace Cap PO 100 mg DAILY KATIE Administration Docusate Sodium 100 mg 10/04/19 10:17 10/05/19 10:35 Colace Cap PO 100 mg Q12H PRN Administration Constipation Donepezil HCl 10 mg 10/04/19 09:00 10/09/19 08:11 Aricept PO 10 mg DAILY KATIE Administration Folic Acid 1 mg 10/04/19 09:00 10/09/19 08:11 Folic Acid PO 1 mg DAILY KATIE Administration Glucagon 1 mg 10/05/19 08:17 Glucagon For Inj IM PRN PRN Hypoglycemia Protocol Glucose 15 gm 10/05/19 08:17 10/09/19 11:57 Glutose 15 PO 15 gm PRN PRN Administration Hypoglycemia Protocol Guaifenesin 600 mg 10/08/19 21:00 10/09/19 08:09
[2019-10-09 17:38] LABS: Glucose Point of Care 104 (65-105)
[2019-10-09] MEDS: QUEtiapine FUMARATE 25 MG TABLET 50 MG PO (20:27)
[2019-10-09] MEDS: PRAVASTATIN SODIUM 20 MG TABLET 40 MG PO (20:27)
[2019-10-10] VITALS (28 sets, daily range): BP systolic 99–129; BP diastolic 52–76; PULSE 63–100; RESP 16–20; TEMP 36–37; O2SAT 92–100
[2019-10-10 02:48] LABS: Glucose Point of Care 85 (65-105)
[2019-10-10] MEDS: LEVOTHYROXINE SODIUM 150 MCG TABLET PO (06:52)
[2019-10-10 07:36] LABS: Glucose Point of Care 65 (65-105)
[2019-10-10 07:49] LABS: Hematocrit 33.2 % (37.0-47.0); Hemoglobin 10.9 g/dL (12.0-15.0); Immature Platelet Fraction Pct 11.8 % (0.9-11.2); Mean Corpuscular HGB Conc 32.8 g/dl (32-36); Mean Corpuscular Hemoglobin 32.7 pg (26-34); Mean Corpuscular Volume 99.7 fl (80-100); Platelet Count Result 33 k/mm3 (150-375); Red Blood Count 3.33 M/mm3 (4.2-5.4); Red Cell Distribution Width 17.7 % (11.5-14.5); White Blood Count 7.8 K/mm3 (4.5-10.0)
[2019-10-10] MEDS: GLUCOSE ORAL GEL 15 GM OF GLUCSE IN 37.5 GM TUBE PO (08:07)
[2019-10-10 08:24] LABS: Blood Urea Nitrogen 42 mg/dL (7-17); Calcium 8.6 mg/dL (8.4-10.2); Carbon Dioxide 24 mmol/L (22-30); Chloride 98 mmol/L (98-107); Estimated CRCL calculation 9 ml/min; Estimated Glomerular Filt Rate 10; Glucose 65 mg/dL (65-105); Phosphorus 3.2 mg/dL (2.5-4.5); Potassium 4.2 mmol/L (3.4-5.0); Sodium 135 mmol/L (137-145)
[2019-10-10 08:37] LABS: Glucose Point of Care 68 (65-105)
[2019-10-10 08:37] LABS: Glucose Point of Care 60 (65-105)
[2019-10-10 08:37] LABS: Glucose Point of Care 142 (65-105)
[2019-10-10] MEDS: VENLAFAXINE HCL XR 75 MG CAP.ER.24H 225 MG PO (09:21)
[2019-10-10] MEDS: CYANOCOBALAMIN 1,000 MCG TABLET 1000 MCG PO (09:21)
[2019-10-10] MEDS: DONEPEZIL HCL 10 MG TABLET PO (09:21)
[2019-10-10] MEDS: FOLIC ACID 1 MG TABLET PO (09:21)
[2019-10-10] MEDS: ASPIRIN 81 MG ENTERIC TABLET PO (09:22)
[2019-10-10] MEDS: MIDODRINE HCL 10 MG TABLET PO ×2 (09:22→12:25)
[2019-10-10] MEDS: CHOLECALCIFEROL 1,000 UNIT TABLET 2000 UNITS PO (09:22)
[2019-10-10] MEDS: PAROXETINE 20 MG TABLET 40 MG PO (09:22)
[2019-10-10] MEDS: AMIODARONE HCL 100 MG TABLET PO (09:23)
[2019-10-10] MEDS: DOCUSATE SODIUM 100 MG CAPSULE PO (09:32)
--- NOTE | 2019-10-10 11:44 | PCNFU ---
Nutrition Follow-Up Complete: Inadequate Oral Intake as related to UTI as evidenced by reported poor po intake. Adequate Intake of at least 75% of meals/supplements Goal:prgressing towards goal. Pt current nutrition is Renal Dialysis. Nutrition recommendation: Agree Last recorded weight is 70.6 kg. Bowel Motility:+BM 10/09 Labs Reviewed:BUN 42,Cr 4.3,GFR 10,Na 135 Meds Noted:Synthyroid,VitB12,Bumex Additional Notes: State 2 PU noted on coccyx. Patient is also receiving Nepro Shakes BID for an additional 425 kcals and 19 gms protein. Appetite has been poor, 10,25,25%. I encouraged PO intake. Monitoring: RD will monitor every 5 days.
[2019-10-10 12:30] LABS: Glucose Point of Care 53 (65-105)
[2019-10-10 12:30] LABS: Glucose Point of Care 75 (65-105)
[2019-10-10] MEDS: DEXTROSE 5%/0.45% SOD CHL 1,000 ML 50 ML IV CONT (12:30)
--- NOTE | 2019-10-10 13:19 | WPDINFPN2 ---
Progress Note: A&P Assessment and Plan (1) Asymptomatic bacteriuria: Code(s): R82.71 - Bacteriuria Status: Acute Assessment and Plan: 1. ASB 2. Non infectious weakness (her CC) , consider instead hypoglycemia 3. Chronic cough REC No further rx. Call if Qs Subjective Date/time seen: 10/10/19 13:19 Objective Data Vital Signs Vital Signs: Vital Signs - 24 hr 10/09/19 14:00 10/09/19 16:00 10/09/19 20:00 Temperature 36.7 C Pulse Rate 75 82 80 Respiratory Rate 18 Blood Pressure 115/68 Pulse Oximetry 100 10/09/19 22:00 10/10/19 00:00 10/10/19 04:00 Temperature 36.0 C L Pulse Rate 80 79 82 Respiratory Rate 16 Blood Pressure 115/70 Pulse Oximetry 100 10/10/19 06:00 10/10/19 08:00 10/10/19 08:02 Temperature 36.0 C L Pulse Rate 74 80 Respiratory Rate 16 Blood Pressure 99/55 L 101/65 104/65 Pulse Oximetry 100 92 10/10/19 08:05 10/10/19 09:23 10/10/19 10:04 Temperature Pulse Rate 63 Respiratory Rate Blood Pressure 110/60 Pulse Oximetry 92 10/10/19 12:00 Temperature Pulse Rate 80 Respiratory Rate Blood Pressure Pulse Oximetry Intake/Output Intake/Output: Intake & Output 10/07/19 10/08/19 10/09/19 10/10/19 23:59 23:59 23:59 23:59 Intake Total 1200 2020 1390 220 Output Total 300 1301 300 Balance 557 031 6637 220 Meds/Results Medications: Active Medications Generic Name Dose Route Start Last Admin Trade Name Freq PRN Reason Stop Dose Admin Amiodarone HCl 100 mg 10/04/19 08:00 10/10/19 09:23 Pacerone PO 100 mg DAILY@0800 KATIE Administration Aspirin 81 mg 10/04/19 09:00 10/10/19 09:22 Aspirin Ec PO 81 mg DAILY KATIE Administration Bumetanide 2 mg 10/04/19 09:00 10/09/19 08:10 Bumex Po PO 2 mg TuThSa@0900 KATIE Administration Cyanocobalamin 1,000 mcg 10/04/19 09:00 01/31/20 09:21 Vitamin B-12 Tab PO 1,000 mcg DAILY KATIE Administration Dextrose 12.5 gm 10/05/19 08:17 Dextrose 50% Syringe IV PUSH PRN PRN Hypoglycemia Protocol Diltiazem HCl 180 mg 10/09/19 09:00 10/10/19 09:24 Cardizem Cd PO 180 mg QAM KATIE Administration Docusate Sodium 100 mg 10/04/19 09:00 10/10/19 09:32 Colace Cap PO 100 mg DAILY KATIE Administration Docusate Sodium 100 mg 10/04/19 10:17 10/05/19 10:35 Colace Cap PO 100 mg Q12H PRN Administration Constipation Donepezil HCl 10 mg 10/04/19 09:00 10/10/19 09:21 Aricept PO 10 mg DAILY KATIE Administration Folic Acid 1 mg 10/04/19 09:00 10/10/19 09:21 Folic Acid PO 1 mg DAILY KATIE Administration Glucagon 1 mg 10/05/19 08:17 Glucagon For Inj IM PRN PRN Hypoglycemia Protocol Glucose 15 gm 10/05/19 08:17 10/10/19 08:07 Glutose 15 PO 15 gm PRN PRN Administration Hypoglycemia Protocol Guaifenesin 600 mg 10/08/19 21:00 10/10/19 09:22 Mucinex 12 Hr Tab PO 600 mg Q12HR KATIE Administration Dextrose 1,000 mls @ 100 mls/hr 10/05/19 08:17 Dextrose 5% 1,000 Ml IVPB PRN PRN Hypoglycemia Protocol Albumin Human 50 mls @ 999 mls/hr 10/08/19 07:14 Albutein IVPB 11/07/19 07:15 Q10M PRN HYPOTENSION Dextrose/Sodium Chloride 1,000 mls @ 50 mls/hr 10/10/19 12:15 Dextrose 5% Sodium Chloride 0.45% IV CONT .Q20H KATIE Levothyroxine Sodium 150 mcg 10/04/19 06:30 10/10/19 06:52 Synthroid PO 150 mcg DAILY@0630 KATIE Administration Miconazole Nitrate 1 applic 10/06/19 21:00 10/10/19 07:48 Aloe Capron TOPICAL 1 applic Q12HR KATIE Administration Midodrine 10 mg 10/04/19 09:00 10/10/19 12:25 Midodrine Hcl PO 10 mg 0900,1300 KATIE Administration Paroxetine HCl 40 mg 10/04/19 09:00 10/10/19 09:22 Paxil PO 40 mg DAILY KATIE Administration Polyethylene Glycol 17 gm 10/04/19 10:17 10/05/19 10:35 Miralax PO 17 gm QAM PRN Administration Constipation Pravastatin Sod
--- NOTE | 2019-10-10 13:37 | PM.IMPN ---
Progress Note: A&P Assessment and Plan (1) Weakness: Code(s): R53.1 - Weakness Status: Acute Assessment and Plan: Pt is still very weak, lives alone. Pt is currently treated for Klebsiella pneumonia/ESBL with iv rocephin. Nephrology rounding, will continue ID for ongoing uti, asymptomatc bactermia, no need for further abx Pt to continue PT/OT may need Rehab for immobility. (2) Pyuria: Code(s): R82.81 - Pyuria Status: Acute Assessment and Plan: Plan is above (3) Asymptomatic bacteriuria: Code(s): R82.71 - Bacteriuria Status: Acute Assessment and Plan: Plan is above (4) CHF (congestive heart failure): Code(s): I50.9 - Heart failure, unspecified Status: Acute Assessment and Plan: Patient does not appear to be volume overloaded other dry patient is on dialysis (5) End stage renal disease: Code(s): N18.6 - End stage renal disease Status: Chronic Assessment and Plan: Patient is seen by Dr. Arceo will have scheduled dialysis (6) Atrial fibrillation: Qualifiers: Atrial fibrillation type: unspecified Qualified Code(s): I48.91 - Unspecified atrial fibrillation Code(s): I48.91 - Unspecified atrial fibrillation Status: Acute Assessment and Plan: Patient being treated with diltiazem and amiodarone patient is and has a pacemaker rate is controlled, seen by Dr. Arceo. Bp is soft continue to watch. (7) Hypertension: Qualifiers: Hypertension type: essential hypertension Qualified Code(s): I10 - Essential (primary) hypertension Code(s): I10 - Essential (primary) hypertension Status: Chronic Assessment and Plan: Patient is on midodrine to prevent hypotension after dialysis, diltiazem on hold as her blood pressure is soft (8) Hypoglycemia: Code(s): E16.2 - Hypoglycemia, unspecified Status: Resolved Assessment and Plan: Pt is not eating much also, encourage diet, add dietary supplements. pt started on d51/2 ns for hypoglycemia. ? recurrent hypoglycemia unsure why will need to see endocrinology later. will order cpeptide, hbaic Subjective Date/time seen: 10/10/19 13:37 Interval history: February Piedad is a 79 year old female with past medical history of end-stage renal disease on hemodialysis, atrial fibrillation, hypertension patient was at the dialysis center was having dialysis and had complaint of being fatigued and tired and hypoxia patient was brought to the emergency department for further evaluation is found to have UTI, patient was seen by Dr. Arceo patient was recently started on dialysis and her blood pressure is running soft patient is on diltiazem and amiodarone Dr. Arceo recommended to hold diltiazem and monitor the patient, present patient still complains being tired and fatigue however main complaint is constipation see has not had a BM in 3 days, most likely her weakness and multifactorial recent start of end-stage renal disease and hemodialysis, bacteriuria and UTI patient is being treated with Rocephin, patient urine culture is growing Klebsiella pneumonia cochran resistant patient with end-stage renal disease on hemodialysis patient's urinates 3 times a day patient denies any complaints of dysuria frequency of urination most likely patient has asymptomatic bacteriuria patient had a similar presentation on last admission was seen by Dr. Covarrubias and no antibiotics recommended we have consulted Dr. Covarrubias again for his a recommendation.As per previous note. Pt is still very weak, lives alone. Pt is currently treated for Klebsiella UTI with iv rocephin, pt is feeling more stronger today. Pt to continue PT/OT may need Rehab for immobility. ID states no need for antibiotics. Pt still running low with hypoglycemia as she is not eating much Review of Systems Review of Systems: All systems reviewed & are unremarkable except as noted in HPI and below
[2019-10-10 13:50] LABS: Glucose Point of Care 110 (65-105)
--- NOTE | 2019-10-10 15:07 | P.PNNP_ITS ---
Progress Note: A&P Assessment and Plan (1) End stage renal disease: Code(s): N18.6 - End stage renal disease Status: Chronic Assessment and Plan: * HD today and continue M/W/F schedule while hospitalized * electrolytes, volume status, and clearance acceptable (2) Weakness: Code(s): R53.1 - Weakness Status: Acute Assessment and Plan: * suspect multifactorial -- ESRD, age, recent hospitalizations and possibly recurrent hypoglycemia * PT/OT * need for rehab/SNF * case management working on this (3) Atrial fibrillation: Qualifiers: Atrial fibrillation type: unspecified Qualified Code(s): I48.91 - Unspecified atrial fibrillation Code(s): I48.91 - Unspecified atrial fibrillation Status: Acute Assessment and Plan: * continue rate control strategy * this is complicated by her known hypotension issues * on amiodarone but diltiazem on hold (4) Hypoglycemia: Code(s): E16.2 - Hypoglycemia, unspecified Status: Resolved Assessment and Plan: * due to poor oral intake? * on D5 IVF to help maintain blood sugars * follow for now (5) Asymptomatic bacteriuria: Code(s): R82.71 - Bacteriuria Status: Acute Assessment and Plan: * as noted on last hospitalization as well * no antibiotics as recommended by Infectious Disease Will continue to follow Subjective Date/time seen: 10/10/19 15:07 Tolerating dialysis at the time of my visit (seen on HD at ~ 2:50PM); ongoing issues and problems with hypoglycemia requiring D5 IVFs to maintain blood sugars; still with poor appetite (reason of hypoglycemia?); no apparent distress. Exam Narrative: Exam Narrative: General: WD/WN female in NAD Heart: normal S1 and S2; no rub Lungs: decreased at bases Abdomen: soft, nontender, nondistended, positive bowel sounds Extremities: no cyanosis or clubbing; no edema Skin: No nodules Objective Data Vital Signs Vital Signs: Vital Signs Temp Pulse Resp BP Pulse Ox 10/10/19 12:00 80 10/10/19 10:04 92 10/10/19 09:23 63 10/10/19 08:05 110/60 10/10/19 08:02 104/65 10/10/19 08:00 80 101/65 92 10/10/19 06:00 36.0 C L 74 16 99/55 L 100 10/10/19 04:00 82 10/10/19 00:00 79 10/09/19 22:00 36.0 C L 80 16 115/70 100 10/09/19 20:00 80 10/09/19 16:00 82 Intake/Output Intake/Output: Intake & Output 10/07/19 10/08/19 10/09/19 10/10/19 23:59 23:59 23:59 23:59 Intake Total 1200 2020 1390 220 Output Total 300 1301 300 Balance 481 080 5452 220 Meds/Results Medications: Active Medications Generic Name Dose Route Start Last Admin Trade Name Freq PRN Reason Stop Dose Admin Amiodarone HCl 100 mg 10/04/19 08:00 10/10/19 09:23 Pacerone PO 100 mg DAILY@0800 [facility] Administration Aspirin 81 mg 10/04/19 09:00 10/10/19 09:22 Aspirin Ec PO 81 mg DAILY [facility] Administration Bumetanide 2 mg 10/04/19 09:00 10/09/19 08:10 Bumex Po PO 2 mg TuThSa@0900 [facility] Administration Cyanocobalamin 1,000 mcg 10/04/19 09:00 10/10/19 09:21 Vitamin B-12 Tab PO 1,000 mcg DAILY [facility]
--- NOTE | 2019-10-10 15:07 | PM.PNNEP ---
Progress Note: A&P Assessment and Plan (1) End stage renal disease: Code(s): N18.6 - End stage renal disease Status: Chronic Assessment and Plan: HD today and continue M/W/F schedule while hospitalized electrolytes, volume status, and clearance acceptable (2) Weakness: Code(s): R53.1 - Weakness Status: Acute Assessment and Plan: suspect multifactorial -- ESRD, age, recent hospitalizations and possibly recurrent hypoglycemia PT/OT need for rehab/SNF case management working on this (3) Atrial fibrillation: Qualifiers: Atrial fibrillation type: unspecified Qualified Code(s): I48.91 - Unspecified atrial fibrillation Code(s): I48.91 - Unspecified atrial fibrillation Status: Acute Assessment and Plan: continue rate control strategy this is complicated by her known hypotension issues on amiodarone but diltiazem on hold (4) Hypoglycemia: Code(s): E16.2 - Hypoglycemia, unspecified Status: Resolved Assessment and Plan: due to poor oral intake? on D5 IVF to help maintain blood sugars follow for now (5) Asymptomatic bacteriuria: Code(s): R82.71 - Bacteriuria Status: Acute Assessment and Plan: as noted on last hospitalization as well no antibiotics as recommended by Infectious Disease Will continue to follow Subjective Date/time seen: 10/10/19 15:07 Tolerating dialysis at the time of my visit (seen on HD at ~ 2:50PM); ongoing issues and problems with hypoglycemia requiring D5 IVFs to maintain blood sugars; still with poor appetite (reason of hypoglycemia?); no apparent distress. Exam Narrative: Exam Narrative: General: WD/WN female in NAD Heart: normal S1 and S2; no rub Lungs: decreased at bases Abdomen: soft, nontender, nondistended, positive bowel sounds Extremities: no cyanosis or clubbing; no edema Skin: No nodules Objective Data Vital Signs Vital Signs: Vital Signs Temp Pulse Resp BP Pulse Ox 10/10/19 12:00 80 10/10/19 10:04 92 10/10/19 09:23 63 10/10/19 08:05 110/60 10/10/19 08:02 104/65 10/10/19 08:00 80 101/65 92 10/10/19 06:00 36.0 C L 74 16 99/55 L 100 10/10/19 04:00 82 10/10/19 00:00 79 10/09/19 22:00 36.0 C L 80 16 115/70 100 10/09/19 20:00 80 10/09/19 16:00 82 Intake/Output Intake/Output: Intake & Output 10/07/19 10/08/19 10/09/19 10/10/19 23:59 23:59 23:59 23:59 Intake Total 1200 2020 1390 220 Output Total 300 1301 300 Balance 309 519 2842 220 Meds/Results Medications: Active Medications Generic Name Dose Route Start Last Admin Trade Name Freq PRN Reason Stop Dose Admin Amiodarone HCl 100 mg 10/04/19 08:00 10/10/19 09:23 Pacerone PO 100 mg DAILY@0800 KATIE Administration Aspirin 81 mg 10/04/19 09:00 10/10/19 09:22 Aspirin Ec PO 81 mg DAILY KATIE Administration Bumetanide 2 mg 10/04/19 09:00 10/09/19 08:10 Bumex Po PO 2 mg TuThSa@0900 KATIE Administration Cyanocobalamin 1,000 mcg 10/04/19 09:00 10/10/19 09:21 Vitamin B-12 Tab PO 1,000 mcg DAILY KATIE Administration Dextrose 12.5 gm 10/05/19 08:17 Dextrose 50% Syringe IV PUSH PRN PRN Hypoglycemia Protocol Diltiazem HCl 180 mg 10/09/19 09:00 10/10/19 09:24 Cardizem Cd PO 180 mg QAM KATIE Administration Docusate Sodium 100 mg 10/04/19 09:00 10/10/19 09:32 Colace Cap PO 100 mg DAILY KATIE Administration Docusate Sodium 100 mg 10/04/19 10:17 10/05/19 10:35 Colace Cap PO 100 mg Q12H PRN Administration Constipation Donepezil HCl 10 mg 10/04/19 09:00 10/10/19 09:21 Aricept PO 10 mg DAILY KATIE Administration Folic Acid 1 mg 10/04/19 09:00 10/10/19 09:21 Folic Acid PO 1 mg DAILY KATIE Administration Glucagon 1 mg 10/05/19 08:17 Glucagon For Inj IM PRN PRN Hypoglycemia Protocol Glucose
[2019-10-10 16:11] LABS: Hemoglobin A1C 4.7 % (<5.7)
[2019-10-10 17:45] LABS: Hepatitis B Surface Antigen Negative (Negative)
[2019-10-10 17:50] LABS: Hepatitis B Core IgM Result Negative (Negative)
[2019-10-10 18:03] LABS: Hepatitis B Surface Anti Res Negative
--- NOTE | 2019-10-10 18:41 | CONS_ITS ---
DATE OF CONSULTATION: 10/10/2019 REASON FOR CONSULTATION: Abnormal UA. HISTORY OF PRESENT ILLNESS: The patient is an 79-year-old female with chronic renal failure on dialysis. She has known asymptomatic bacteriuria. She presented to the hospital on October 03 with generalized weakness, chronic cough, headache and dyspnea. She reportedly was at dialysis at the time of evaluation. She had no voiding difficulties whatsoever. For undocumented reasons, urinalysis was obtained on admission. The patient was started on ceftriaxone. Six days later, consultation was requested on my end. The patient has no complaints today other than weakness. She has not yet had dialysis today. ALLERGIES: SEE RECORD. HABITS: Never smoked. No alcohol. PRESENT MEDICATIONS: Ceftriaxone. No immunosuppressants. PAST MEDICAL HISTORY: Aortic valve, cataract extractions, cardiac cath, hysterectomy, left knee arthroplasty, CABG, tonsillectomy, aneurysm repair, past pneumonia, Parkinson's, hypothyroidism, hypertension, hyperlipidemia, previous gout, depression, COPD, L1 compression fracture, fistula in the arm, anemia of chronic inflammation, aneurysm. REVIEW OF SYSTEMS: 14-point review otherwise negative. FAMILY HISTORY: Not pertinent to her present illness. SOCIAL HISTORY: She is retired. Lives locally. Five children. No one is at bedside currently. PHYSICAL EXAMINATION: GENERAL: This is an elderly female, who appears her actual age, in no distress. VITAL SIGNS: Afebrile since arrival, 110/60, 63, 92%. SKIN: Multiple ecchymoses and skin tears. Warm and dry. No rashes. EENT: Conjunctivae are normal. Pupils minimally reactive and arcus senilis is present. The oropharynx and oral mucosa normal. NECK: No masses. No thyromegaly. LUNGS: Clear to auscultation and percussion. CARDIAC: Regular rate and rhythm. No murmurs or gallops. ABDOMEN: Protuberant, but not distended. Normal bowel sounds. No organomegaly. No masses. EXTREMITIES: Muscle wasting. No clubbing, cyanosis, or edema. LABORATORY DATA: Urine culture from the and again from the , Klebsiella pneumoniae. Blood cultures, no growth so far. White count consistently normal. Hemoglobin 10.9, platelets are 33. No differential done today. She has a BUN 42, creatinine 4.3. She has persistent hypoglycemia intermittently. Albumin 3.0. Urinalysis reviewed. RADIOLOGY: Chest x-ray from yesterday, cardiomegaly and interstitial edema. ASSESSMENT: 1. Asymptomatic bacteriuria. 2. Weakness due to hypoglycemia or other noninfectious etiologies. 3. Chronic cough, perhaps due to fluid overload versus other causes. She has no respiratory tract infection. RECOMMENDATIONS: 1. No further antibiotics. 2. no further evaluation and treatment. Thank you very much for asking me to see her. NEGRO CHILDERS M.D. BUSINESS EXECUTIVE BUSINESS EXECUTIVE D I MT: Miriam MONTEIRO
[2019-10-10 19:59] LABS: Glucose Point of Care 97 (65-105)
[2019-10-10] MEDS: PRAVASTATIN SODIUM 20 MG TABLET 40 MG PO (21:43)
[2019-10-10] MEDS: QUEtiapine FUMARATE 25 MG TABLET 50 MG PO (21:44)
[2019-10-10 21:50] LABS: Glucose Point of Care 119 (65-105)
[2019-10-11] VITALS (12 sets, daily range): BP systolic 97–114; BP diastolic 59–66; PULSE 80–103; RESP 18–20; TEMP 36.1–36.5; O2SAT 92–100
[2019-10-11] MEDS: LEVOTHYROXINE SODIUM 150 MCG TABLET PO (05:36)
[2019-10-11 06:05] LABS: Glucose Point of Care 75 (65-105)
[2019-10-11 06:09] LABS: Hematocrit 35.1 % (37.0-47.0); Hemoglobin 10.7 g/dL (12.0-15.0); Immature Platelet Fraction Pct 4.6 % (0.9-11.2); Mean Corpuscular HGB Conc 30.5 g/dl (32-36); Mean Corpuscular Volume 108.3 fl (80-100); Platelet Count Result 50 k/mm3 (150-375); Red Blood Count 3.24 M/mm3 (4.2-5.4); Red Cell Distribution Width 19.3 % (11.5-14.5); White Blood Count 7.1 K/mm3 (4.5-10.0)
[2019-10-11] MEDS: DEXTROSE 5%/0.45% SOD CHL 1,000 ML 50 ML IV CONT (06:16)
[2019-10-11 07:06] LABS: Blood Urea Nitrogen 26 mg/dL (7-17); Calcium 8.2 mg/dL (8.4-10.2); Carbon Dioxide 21 mmol/L (22-30); Chloride 100 mmol/L (98-107); Estimated CRCL calculation 14 ml/min; Estimated Glomerular Filt Rate 17; Glucose 62 mg/dL (65-105); Potassium 4.7 mmol/L (3.4-5.0); Sodium 134 mmol/L (137-145)
[2019-10-11 07:43] LABS: Glucose Point of Care 70 (65-105)
--- NOTE | 2019-10-11 07:53 | PC.NURSE ---
Blood glucose check 70. Patient denies symptoms of hypoglycemia. Gave apple juice x 1. Breakfast has been ordered. Will monitor.
[2019-10-11 07:59] LABS: Phosphorus 2.9 mg/dL (2.5-4.5)
[2019-10-11] MEDS: VENLAFAXINE HCL XR 75 MG CAP.ER.24H 225 MG PO (08:38)
[2019-10-11] MEDS: AMIODARONE HCL 100 MG TABLET PO (08:38)
[2019-10-11] MEDS: BUMETANIDE 1 MG TABLET 2 MG PO (08:39)
[2019-10-11] MEDS: ASPIRIN 81 MG ENTERIC TABLET PO (08:39)
[2019-10-11] MEDS: DOCUSATE SODIUM 100 MG CAPSULE PO (08:40)
[2019-10-11] MEDS: CYANOCOBALAMIN 1,000 MCG TABLET 1000 MCG PO (08:40)
[2019-10-11] MEDS: CHOLECALCIFEROL 1,000 UNIT TABLET 2000 UNITS PO (08:40)
[2019-10-11] MEDS: DONEPEZIL HCL 10 MG TABLET PO (08:40)
[2019-10-11] MEDS: MIDODRINE HCL 10 MG TABLET PO ×2 (08:41→12:27)
[2019-10-11] MEDS: FOLIC ACID 1 MG TABLET PO (08:41)
[2019-10-11] MEDS: PAROXETINE 20 MG TABLET 40 MG PO (08:41)
--- NOTE | 2019-10-11 08:47 | PM.DS ---
DS: Diagnosis Admitting Diagnosis Admitting Diagnosis: Weakness Discharge Diagnosis (1) Weakness: Code(s): R53.1 - Weakness Status: Acute Assessment and Plan: Pt is still very weak, lives alone. Pt is currently treated for Klebsiella pneumonia/ESBL with iv rocephin. Nephrology rounding, will continue ID for ongoing uti, asymptomatc bactermia, no need for further abx Pt to continue PT/OT, safe to discharge to [facility] unit. (2) Pyuria: Code(s): R82.81 - Pyuria Status: Acute Assessment and Plan: Plan is above (3) Asymptomatic bacteriuria: Code(s): R82.71 - Bacteriuria Status: Acute Assessment and Plan: Plan is above (4) CHF (congestive heart failure): Code(s): I50.9 - Heart failure, unspecified Status: Acute Assessment and Plan: Patient does not appear to be volume overloaded other dry patient is on dialysis (5) End stage renal disease: Code(s): N18.6 - End stage renal disease Status: Chronic Assessment and Plan: Patient is seen by Dr. Arceo will have scheduled dialysis (6) Atrial fibrillation: Qualifiers: Atrial fibrillation type: unspecified Qualified Code(s): I48.91 - Unspecified atrial fibrillation Code(s): I48.91 - Unspecified atrial fibrillation Status: Acute Assessment and Plan: Patient being treated with diltiazem and amiodarone patient is and has a pacemaker rate is controlled, seen by Dr. Arceo. Bp is soft continue to watch. (7) Hypertension: Qualifiers: Hypertension type: essential hypertension Qualified Code(s): I10 - Essential (primary) hypertension Code(s): I10 - Essential (primary) hypertension Status: Chronic Assessment and Plan: Patient is on midodrine to prevent hypotension after dialysis, diltiazem on hold as her blood pressure is soft (8) Hypoglycemia: Code(s): E16.2 - Hypoglycemia, unspecified Status: Resolved Assessment and Plan: Pt is not eating much also, encourage diet, add dietary neupogen supplements. Started on regular diet Hypoglycemia may be related to her ESRD, but she can follow with air vice marshal on discharge. ? recurrent hypoglycemia unsure why will need to see endocrinology later. will order cpeptide, hbaic DS: Summary Time Spent with Patient Time attestation: Total time spent providing and/or coordinating discharge services:40 minutes on day of discharge Exam Narrative: Exam Narrative: Patient is elderly frail Const: General: no acute distress and uncomfortable HENMT: General nose exam: Normal nares present Mouth: Yes moist mucous membranes Eyes: General: appearance normal, both eyes and all related structures Sclera: sclerae normal Neck: Neck: supple Resp: Effort & Inspection: normal respiratory effort Auscultation: clear to auscultation bilaterally Cardio: Rate: regular rate Rhythm: regular rhythm Skin: General skin exam: normal color and no rashes or lesions noted Neuro: Speech: normal speech Sensory Exam: normal sensation Extrem: General: normal to inspection Psych: Affect: Anxious affect present DS: Data Data Completed and Pending Labs on day of discharge: Labs from last 24 hours 10/11/19 10/11/19 10/11/19 07:40 05:33 05:30 WBC RBC Hgb Hct MCV MCH MCHC RDW Plt Count MPV % Immature Plt Fraction Sodium Cancelled Potassium Cancelled Chloride Cancelled Carbon Dioxide Cancelled BUN Cancelled Creatinine Cancelled Estim Creat Clear Calc Cancelled Estimated GFR Cancelled Glucose Cancelled POC Capillary Glucose 70 75 Hemoglobin A1c C-Peptide Calcium Cancelled Phosphorus Albumin TSH Random Cortisol Hep Bs Antigen Hep Bs Antibody Hep B Core IgM Ab 10/11/19 10/11/19 10/11/19 05:30 05:30 05:30 WBC 7.1 RBC 3.24 L Hgb 10.7 L Hct 35.1 L MCV
[2019-10-11 12:35] LABS: Glucose Point of Care 75 (65-105)
--- NOTE | 2019-10-11 14:22 | PCOTNOTE ---
The patient treatment was not completed on this date d/t nursing suggestion based on [facility] at [facility].
[2019-10-15 04:58] LABS: C-Peptide 5.96 ng/mL (0.80-3.85)
== END 2019-10-11 14:45 | DRG 640 ==
LOC: ANHED 20:00 → ANH2MED 20:23
PROVIDERS: Family Medicine; Internal Medicine Nephrology; Admitting Provider Internal Medicine; Emergency Provider General Practice; PCP Internal Medicine; Visit Provider Family Medicine
DX: E16.2 Hypoglycemia, unspecified (principal); N18.6 End stage renal disease; I13.2 Hypertensive heart and chronic kidney disease with heart failure and with stage 5 chronic kidney disease, or end stage renal disease; I38 Endocarditis, valve unspecified; Z99.2 Dependence on renal dialysis; I48.91 Unspecified atrial fibrillation; R09.02 Hypoxemia; I50.9 Heart failure, unspecified; Z95.0 Presence of cardiac pacemaker; J44.9 Chronic obstructive pulmonary disease, unspecified; R82.71 Bacteriuria; I71.9 Aortic aneurysm of unspecified site, without rupture; D63.1 Anemia in chronic kidney disease; F41.8 Other specified anxiety disorders; M19.90 Unspecified osteoarthritis, unspecified site; Z98.41 Cataract extraction status, right eye; Z98.42 Cataract extraction status, left eye; M10.9 Gout, unspecified; E78.00 Pure hypercholesterolemia, unspecified; E03.9 Hypothyroidism, unspecified; G20 Parkinson's disease; Z90.710 Acquired absence of both cervix and uterus; Z96.652 Presence of left artificial knee joint; K59.00 Constipation, unspecified
CPT/HCPCS: 36415; 36600; 51701; 70450; 71045; 71046; 80048; 80053; 80069; 81001; 82040; 82375; 82533; 82805; 83036; 83050; 83735; 84100; 84443; 84681; 85025; 85027; 85055; 85610; 85730; 86705; 86706; 87040; 87077; 87086; 87088; 87186; 87340; 93005; 94762; 96365; 97110; 97116; 97162; 97165; 97530; 97535; 99285; A9270; G0257; G0378; J0131; J0696; J1644; J7030

== ENCOUNTER 2019-10-11 14:51 | IRF | payer MEDICARE, OTHER, SELFPAY ==
--- NOTE | ~2019-10-11 | XR_ITS ---
XR chest 1V portable DATE: 10/19/2019 13:42 INDICATION: Shortness of breath. History of congestive heart failure. TECHNIQUE: Portable upright AP view on 10/19/2019 at 1334 hours COMPARISON: 10/09/2019 portable AP chest FINDINGS: A large bore right internal jugular central venous catheter tip overlies the right atrium. Left-sided pacemaker device with leads overlying right atrium and right ventricle. Cardiac megaly. Aortic calcification and unfolding. There is diminished pulmonary vascular congestion and redistribution compared to 10/09/2019. No pulmon olga consolidation. There is mild discoid atelectasis or scarring in the left midlung field. There is minimal if any right pleural effusion. No left pleural effusion. No pneumothorax is evident. Diffuse osteopenia. Prominent osteoarthritic change at the glenohumeral joints. IMPRESSION: Virtual resolution of congestive changes since 10/09/2019 Reviewed, dictated and finalized at location A. LIFTER BACON
--- NOTE | ~2019-10-11 | XR_ITS ---
EXAMINATION: XR chest 2V DATE: 10/22/2019 08:57 INDICATION: Lethargy. Confusion. TECHNIQUE: Frontal and lateral views of the chest were obtained. COMPARISON: Chest single view 10/19/2019, chest CT 04/27/2019 FINDINGS: There is a diffuse interstitial pattern in the lungs. There are mild airspace opacities in right lower lung zone and left midlung zone. There are small pleural effusions. No pneumothorax. Card iomegaly is noted. Median sternotomy wires and mediastinal surgical clips are seen, likely from prior coronary artery bypass grafting. There is a left chest wall pacer with leads in the right atrium and right ventricle. A right internal jugular central venous catheter is seen with tip in the right atri um. IMPRESSION: 1. Worsened diffuse lung disease, likely mild pulmonary edema and atelectasis. Pneumonia cannot be ex cluded. 2. Small pleural effusions. 3. Cardiomegaly. Reviewed, dictated and finalized at location A. K MACHINE OPERATOR IMPRESSION: 1. Worsened diffuse lung disease, likely mild pulmonary edema and atelectasis. Pneumonia cannot be excluded. 2. Small pleural effusions. 3. Cardiomegaly.
--- NOTE | 2019-10-11 14:59 | ADMGEN ---
This patient, February, was admitted to [facility] Room 219-01. Patient/family oriented to hospital policies and general routines including ID bracelet, bed and alarms, visiting hours, pain management, procedures, bathroom and other care routines, personal items, smoking policy, room service/diet, and visiting hours. Valuables list has been completed. Information on how to activate the Rapid Response Team has been discussed. Patient/Family are encouraged to report perceived risks to care and to ask questions if they do not understand what they are told or what they should do.
[2019-10-11 15:16] VITALS: BP 114/66; PULSE 79; RESP 22; TEMP 36.6; O2SAT 100; BMI 25.4
[2019-10-11 17:13] LABS: Glucose Point of Care 113 (65-105)
[2019-10-11] MEDS: MIDODRINE HCL 10 MG TABLET PO (17:46)
[2019-10-11] MEDS: allopurinoL 100 MG TABLET PO (17:58)
[2019-10-11] MEDS: QUEtiapine FUMARATE 25 MG TABLET 50 MG PO (20:39)
[2019-10-11] MEDS: PRAVASTATIN SODIUM 20 MG TABLET 40 MG PO (20:39)
[2019-10-11 20:40] LABS: Glucose Point of Care 111 (65-105)
[2019-10-11 22:00] VITALS: BP 141/61; PULSE 60; RESP 18; TEMP 36.4; O2SAT 93
[2019-10-12 04:41] LABS: Basophils Absolute Auto 0.1 K/mm3 (0.0-0.1); Basophils Percent Auto 0.7 % (0.2-1.2); Eosinophils Absolute Auto 0.2 K/mm3 (0-0.3); Hematocrit 32.6 % (37.0-47.0); Hemoglobin 10.2 g/dL (12.0-15.0); Immature Granulocyte Absolute 0.06 K/mm3 (0.00-0.031); Immature Granulocyte Percent A 0.9 % (0-0.5); Lymphocytes Absolute Auto 0.57 K/mm3 (0.9-3.2); Lymphocytes Percent Auto 8.3 % (18.3-44.2); Mean Corpuscular HGB Conc 31.3 g/dl (32-36); Mean Corpuscular Hemoglobin 32.1 pg (26-34); Mean Corpuscular Volume 102.5 fl (80-100); Mean Platelet Volume 12.8 fl (7.4-10.4); Monocytes Absolute Auto 0.8 K/mm3 (0.1-0.6); Neutrophils Absolute Auto 5.2 K/mm3 (1.3-6.7); Neutrophils Percent Auto 76.1 % (45.5-73.1); Platelet Count Result 30 k/mm3 (150-375); Red Blood Count 3.18 M/mm3 (4.2-5.4); White Blood Count 6.9 K/mm3 (4.5-10.0)
[2019-10-12 05:04] LABS: Blood Urea Nitrogen 37 mg/dL (7-17); Calcium 8.2 mg/dL (8.4-10.2); Carbon Dioxide 23 mmol/L (22-30); Chloride 99 mmol/L (98-107); Estimated CRCL calculation 11 ml/min; Estimated Glomerular Filt Rate 13; Glucose 55 mg/dL (65-105); Potassium 3.8 mmol/L (3.4-5.0); Sodium 136 mmol/L (137-145)
[2019-10-12 05:06] LABS: Platelet Estimate Decreased (Adequate)
[2019-10-12 05:07] LABS: Hemoglobin A1C 4.8 % (<5.7); Macrocytosis 1+ (NORMAL)
[2019-10-12 05:08] LABS: Ovalocytes 1+ (NORMAL)
[2019-10-12] MEDS: LEVOTHYROXINE SODIUM 150 MCG TABLET PO (05:16)
[2019-10-12 06:00] VITALS: BP 108/60; PULSE 73; RESP 18; TEMP 36.7; O2SAT 90
[2019-10-12 06:37] LABS: Glucose Point of Care 101 (65-105)
[2019-10-12] MEDS: allopurinoL 100 MG TABLET PO ×3 (08:31→17:30)
[2019-10-12] MEDS: PAROXETINE 20 MG TABLET 40 MG PO (08:32)
[2019-10-12 08:33] VITALS: PULSE 73
[2019-10-12] MEDS: CYANOCOBALAMIN 1,000 MCG TABLET 1000 MCG PO (08:33)
[2019-10-12] MEDS: ASPIRIN 81 MG ENTERIC TABLET PO (08:33)
[2019-10-12] MEDS: AMIODARONE HCL 100 MG TABLET PO (08:33)
[2019-10-12] MEDS: DOCUSATE SODIUM 100 MG CAPSULE PO (08:33)
[2019-10-12] MEDS: CHOLECALCIFEROL 1,000 UNIT TABLET 2000 UNITS PO (08:33)
[2019-10-12] MEDS: VENLAFAXINE HCL XR 75 MG CAP.ER.24H 225 MG PO (08:34)
[2019-10-12] MEDS: polyethylene glycoL 3350 17 GM POWD.PACK PO (08:34)
[2019-10-12] MEDS: MIDODRINE HCL 10 MG TABLET PO ×2 (08:34→17:31)
[2019-10-12] MEDS: DONEPEZIL HCL 10 MG TABLET PO (08:34)
[2019-10-12] MEDS: FOLIC ACID 1 MG TABLET PO (08:34)
[2019-10-12 12:11] LABS: Glucose Point of Care 68 (65-105)
[2019-10-12 14:00] VITALS: BP 99/66; PULSE 80; RESP 20; TEMP 36.5; O2SAT 99
[2019-10-12 17:07] LABS: Glucose Point of Care 107 (65-105)
--- NOTE | 2019-10-12 18:00 | REHAB_ITS ---
DATE OF SERVICE: 10/12/2019 The patient was examined [id number] on 10/12/2019 at 11:30 a.m. The primary's rehab impairment category is cardiac with etiological diagnosis of atrial fibrillation. HISTORY OF PRESENT ILLNESS: The patient is an 79-year-old female presented to [facility] on 10/04/2019, with hypoxia and fatigue from her dialysis center. She has a past medical history of: 1. New ESRD, on dialysis. 2. Atrial fibrillation. 3. Hypertension. The patient is on midodrine to prevent hypotension after dialysis. Nephrology was consulted in the emergency room due to the patient's soft blood pressure and recommended to hold her diltiazem and monitor the patient. UA revealed Klebsiella pneumoniae, cochran-resistant UTI and she is currently being treated with IV Rocephin. Head CT scan revealed no acute intracranial finding. Chest x-ray revealed minimal airspace opacities of the lung bases, likely atelectasis and cardiomegaly. The patient has been having hypoglycemia, which is noted secondary to infection and lack of appetite. Her diltiazem was restarted, 10/09/2019. She was treated with D5 and half-normal saline infusion for hypoglycemia and now it is given as needed. She receives hemodialysis on Sunday, Sunday, and Sunday. She is awake, alert, and oriented x3. Medical complications include infection, hypoglycemia, hypotension, anemia, thrombocytopenia, hyponatremia, hypocalcemia, and hypoalbuminemia. Electrolytes have normalized. White blood cells are within normal limit at 7.8. She is currently normotensive and blood glucose levels are also stable. Therapy was initiated at the acute care facility and the patient was transferred to us from [facility] on 10/11/2019. The patient has no major surgeries in the last 100 days prior to admission. They had no falls in the past year and had no fall with the injury in the last year as well. PAST MEDICAL HISTORY: Anemia, AA, angina, anxiety, arthritis, AV fistula, coronary artery disease, cataract, congestive heart failure, L1 compression fracture, COPD, depression, ESRD on dialysis, gout, hyperlipidemia, hypertension, hypothyroidism, Parkinson's disease, pneumonia, pyuria, UTI, valvular heart disease, and frequent falls. PAST SURGICAL HISTORY: Aortic valve replacement, bilateral cataract extraction, cardiac catheterization, hysterectomy, left knee replacement, CABG, tonsillectomy, aneurysm repair, dialysis catheter insertion. SOCIAL HISTORY: The patient lives with and is the primary caregiver for her . They live in a single-level home with ramp at baseline. She is independent with ADLs and uses a Rollator for mobility. Family assists with cooking, cleaning, laundry, shopping, and transportation. FAMILY HISTORY: Father is and had history of CVA. Mother is and had history of CVA and hypertension. Sibling had acute myocardial infarction and CVA. PRIOR LEVEL OF FUNCTION: Independent for eating, oral care, toileting, shower, bathing, upper body, lower body, footwear, rolling left and right, sit to lying, lying to sitting, sit to stand, bed to chair, transfer, toilet transfer, the patient was previously ambulating 350 feet with a walker and she was able to complete 4 stairs independently. CURRENT LEVEL OF FUNCTION: Eating is setup or cleanup periodontal assistant. Oral care supervision or touching assistance. Toileting hygiene is substantial maximal assistance. Shower, bathing substantial maximal assistance. Upper body is partial moderate assistance. Lower body substantial maximal assistance. Footwear is substantial maximal assistance. Rolling left and right partial moderate assistance. Sit to lying partial moderate assistance. Lying to sitting partial and moderate assistance. Sit to stand partial moderate assistance
[2019-10-12] MEDS: PRAVASTATIN SODIUM 20 MG TABLET 40 MG PO (20:15)
[2019-10-12] MEDS: QUEtiapine FUMARATE 25 MG TABLET 50 MG PO (20:15)
[2019-10-12 21:25] LABS: Glucose Point of Care 105 (65-105)
[2019-10-12 22:00] VITALS: BP 106/67; PULSE 83; RESP 18; TEMP 36.6; O2SAT 93
[2019-10-13] VITALS (19 sets, daily range): BP systolic 102–169; BP diastolic 54–90; PULSE 78–95; RESP 16–18; TEMP 36–36.6; O2SAT 91–100; BMI 25.4
[2019-10-13] MEDS: LEVOTHYROXINE SODIUM 150 MCG TABLET PO (06:39)
[2019-10-13 07:42] LABS: Glucose Point of Care 49 (65-105)
[2019-10-13] MEDS: allopurinoL 100 MG TABLET PO ×3 (08:31→19:18)
[2019-10-13] MEDS: ASPIRIN 81 MG ENTERIC TABLET PO (08:32)
[2019-10-13] MEDS: CHOLECALCIFEROL 1,000 UNIT TABLET 2000 UNITS PO (08:32)
[2019-10-13] MEDS: DOCUSATE SODIUM 100 MG CAPSULE PO (08:32)
[2019-10-13] MEDS: CYANOCOBALAMIN 1,000 MCG TABLET 1000 MCG PO (08:32)
[2019-10-13] MEDS: PAROXETINE 20 MG TABLET 40 MG PO (08:33)
[2019-10-13] MEDS: MIDODRINE HCL 10 MG TABLET PO ×2 (08:33→19:19)
[2019-10-13] MEDS: polyethylene glycoL 3350 17 GM POWD.PACK PO (08:33)
[2019-10-13] MEDS: VENLAFAXINE HCL XR 75 MG CAP.ER.24H 225 MG PO (08:33)
[2019-10-13] MEDS: FOLIC ACID 1 MG TABLET PO (08:33)
[2019-10-13] MEDS: DONEPEZIL HCL 10 MG TABLET PO (08:33)
[2019-10-13] MEDS: AMIODARONE HCL 100 MG TABLET PO (08:35)
[2019-10-13 09:24] LABS: Glucose Point of Care 90 (65-105)
[2019-10-13 12:24] LABS: Glucose Point of Care 73 (65-105)
--- NOTE | 2019-10-13 13:19 | RPD ---
INDIVIDUALIZED PLAN OF CARE FOR Rachelle Herbert Brief Synthesis of Pre-Admission Screen, Post-Admission Evaluation and Therapy Evaluations: The patient presents to rehab with atrial fibrillation. Comorbidities include Pyuria, bacteriuria, CHF, ESRD on dialysis, a-fib, HTN, cardiomegaly, hypoxia, constipation, s/p pacemaker, Klebsiella pnemoniae cochran resistant UTI, anxiety, arthritis, hyponatremia, anemia, pain. The patient needs physician monitoring and treatment of hypoglycemia, hypotension, anemia, thrombocytopenia, hyponatremia, hypocalcemia, hypoalbuminemia, hemodialysis, monitoring for adverse reactions to new medications, monitoring of infection, and pain control. The patient requires nursing services for frequent neuro checks, medication management and education, pressure relief and skin care management, monitoring of labs, bowel and bladder training, IV administration, and fall/safety precautions. Deficits include:ADLs, Balance, Cognition, Endurance, Mobility, Pain Management, ROM, Safety, Strength, Transfers Salmon Troll Fisher/Case Management for: Discharge Planning and Patient/Family Counseling Physical Therapy: 5 days per week for 90 minutes. Treatments may include: Therapeutic Exercise, Gait Training, Neuromuscular Re-education, Transfer Training, Community Reintegration, Bed Mobility, Patient/Family Education, Wheelchair Mobility Group Therapy/Concurrent Therapy Rationales: -Improve attention span during functional activities in a distracted environment. -Enhance problem solving and/or adequate judgment skills during functional activities in a distracted environment. -Promote increased safety awareness in a distracted environment to reduce fall risk with functional tasks, transfers, and ambulation to allow a more safe, self-sufficient return to the home environment. -Improve dynamic balance skills to promote safety and independence with functional activities in a distracted environment for maximum gain. Occupational Therapy: 5 days per week for 90 minutes. Treatments may include: Therapeutic Exercise, Therapeutic Activity, Cognitive Training, Self-Care Transfer Training, Community Reintegration, Home Management, Patient/Family Education, Wheelchair Mobility Training, Energy Conservation Training Group Therapy/Concurrent Therapy Rationales: -Allow therapist to observe and teach generalization and carry-over of skills learned in individual therapy. -Enhance problem solving and sequencing skills during therapeutic activities in a distracted environment. -Promote increased safety awareness in a realistic setting to reduce fall risk with functional tasks due to visual and verbal distractions. -Increase functional level with ADLs, ADL transfers and use of adaptive equipment through therapeutic activities with others while promoting safety to allow a more safe, self-sufficient return home. Medical Prognosis: Good Anticipated Length of Stay: 10 days Rehab Goals: Eating Goal: 06-Independent Oral Hygiene Goal: 06-Independent Toileting Hygiene Goal: 06-Independent Shower/Bathe Self Goal: 06-Independent Upper Body Dressing Goal: 06-Independent Lower Body Dressing Goal: 06-Independent Putting On/Taking Off Footwear Goal: 06-Independent Rolling Left and Right Goal: 06-Independent Sit to Lying Goal: 06-Independent Lying to Sitting on Side of Bed Goal: 06-Independent Sit to Stand Goal: 06-Independent Chair/[id number] Transfer Goal: 06-Independent Toilet Transfer Goal: 06-Independent Car Transfer Goal: 06-Independent Walk 10' Goal: 06-Independent Walk 50' with Two Turns Goal: 06-Independent Walk 150' Goal: 06-Independent Walk 10' on Uneven Surface Goal: 06-Independent 1 Step (Curb) Goal: 04-Supervision or Touching Assistance 4 Steps Goal: 04-Supervision or Touching Assistance 12 Steps Goal Score: 04-Supervision or Touching Assistance Picking Up Object Goal: 06-Independent Anticipated discharge destination: Home
[2019-10-13] MEDS: HEPARIN SODIUM 1,000 UNITS/ML VIAL 1000 UNITS IV PUSH (15:00)
--- NOTE | 2019-10-13 16:10 | PM.PNNEP ---
Progress Note: A&P Assessment and Plan (1) End stage renal disease on dialysis: Code(s): N18.6 - End stage renal disease; Z99.2 - Dependence on renal dialysis Status: Chronic Assessment and Plan: Getting dialysis now. Subjective Date/time seen: 10/13/19 16:10 Interval history: Alert and feels better. Stronger. Patient is on hemodialysis. We are removing some fluid. She was seen at 3:45 p.m. Review of Systems Cardiovascular: Cardiovascular: Reports no additional cardiovascular complaints Respiratory: Respiratory: Reports no additional respiratory complaints Gastrointestinal: Gastrointestinal: Reports no additional gastrointestinal complaints Genitourinary: Genitourinary: Reports no additional female genitourinary complaints Exam Narrative: Exam Narrative: Well developed well-nourished in no acute distress Lungs clear Heart regular without rub Abdomen bowel sounds positive soft nontender Extremities no edema Skin no rash Objective Data Vital Signs Vital Signs: Vital Signs - 24 hr 10/12/19 22:00 10/13/19 06:00 10/13/19 08:35 Temperature 36.6 C 36.6 C Pulse Rate 83 85 85 Pulse Rate [Apical] Respiratory Rate 18 18 Blood Pressure 106/67 111/68 Pulse Oximetry 93 95 10/13/19 14:00 10/13/19 14:51 10/13/19 15:00 Temperature 36.4 C 36.4 C Pulse Rate 95 84 Pulse Rate [Apical] 84 Respiratory Rate 18 Blood Pressure 116/74 148/84 H Pulse Oximetry 91 100 10/13/19 15:15 10/13/19 15:30 10/13/19 15:45 Temperature Pulse Rate 81 84 80 Pulse Rate [Apical] Respiratory Rate Blood Pressure 147/87 H 124/68 139/85 Pulse Oximetry 10/13/19 16:00 Temperature Pulse Rate 80 Pulse Rate [Apical] Respiratory Rate Blood Pressure 126/68 Pulse Oximetry Intake/Output Intake/Output: Intake & Output 10/10/19 10/11/19 10/12/19 10/13/19 23:59 23:59 23:59 23:59 Intake Total 500 480 Balance 500 480 Meds/Results Medications: Active Medications Generic Name Dose Route Start Last Admin Trade Name Freq PRN Reason Stop Dose Admin Allopurinol 100 mg 10/11/19 17:00 10/13/19 12:48 Zyloprim PO 100 mg TID KATIE Administration Amiodarone HCl 100 mg 10/12/19 09:00 10/13/19 08:35 Pacerone PO 100 mg DAILY KATIE Administration Aspirin 81 mg 10/12/19 09:00 10/13/19 08:32 Aspirin Ec PO 81 mg DAILY KATIE Administration Bumetanide 2 mg 10/14/19 09:00 Bumex Po PO TuThSa@0900 [facility] Cyanocobalamin 1,000 mcg 10/12/19 09:00 10/13/19 08:32 Vitamin B-12 Tab PO 1,000 mcg DAILY KATIE Administration Dextrose 12.5 gm 10/11/19 15:20 Dextrose 50% Syringe IV PUSH PRN PRN Hypoglycemia Protocol Diltiazem HCl 180 mg 10/12/19 09:00 10/13/19 08:32 Cardizem Cd PO 180 mg QAM KATIE Administration Docusate Sodium 100 mg 10/12/19 09:00 10/13/19 08:32 Colace Capsule PO 100 mg DAILY KATIE Administration Docusate Sodium 100 mg 10/11/19 16:00 Colace Capsule PO Q12H PRN Constipation Donepezil HCl 10 mg 10/12/19 09:00 10/13/19 08:33 Aricept PO 10 mg DAILY KATIE Administration Folic Acid 1 mg 10/12/19 09:00 10/13/19 08:33 Folic Acid PO 1 mg DAILY KATIE Administration Glucagon 1 mg 10/11/19 15:20 Glucagon For Inj IM PRN PRN Hypoglycemia Protocol Glucose 15 gm 10/11/19 15:20 Glutose 15 PO PRN PRN Hypoglycemia Protocol Dextrose 1,000 mls @ 100 mls/hr 10/11/19 15:20 Dextrose 5% 1,000 Ml IVPB PRN PRN Hypoglycemia Protocol Albumin Human 50 mls @ 999 mls/hr 10/13/19 07:50 Albutein IVPB 10/14/19 07:51 Q10M PRN HYPOTENSION Levothyroxine Sodium 150 mcg 10/12/19 06:30 10/13/19 06:39 Synthroid PO 150 mcg DAILY@0630 KATIE Administration Miconazole Nitrate 1 applic 10/11/19 21:00 10/13/19 08:45 Aloe Henderson TOPICAL 1 applic Q12HR KATIE Administration Midodrine 10 mg 02
[2019-10-13] MEDS: EPOETIN ALFA 10,000 UNITS/ML VIAL 10000 UNITS IV PUSH (17:08)
[2019-10-13 19:23] LABS: Glucose Point of Care 83 (65-105)
[2019-10-13] MEDS: PRAVASTATIN SODIUM 20 MG TABLET 40 MG PO (20:44)
[2019-10-13] MEDS: QUEtiapine FUMARATE 25 MG TABLET 50 MG PO (20:44)
[2019-10-13 21:26] LABS: Glucose Point of Care 100 (65-105)
[2019-10-14] VITALS (8 sets, daily range): BP systolic 107–119; BP diastolic 67–72; PULSE 79–87; RESP 18–20; TEMP 36.3–36.6; O2SAT 87–100
[2019-10-14] MEDS: LEVOTHYROXINE SODIUM 150 MCG TABLET PO (05:45)
[2019-10-14 07:07] LABS: Glucose Point of Care 70 (65-105)
[2019-10-14] MEDS: ASPIRIN 81 MG ENTERIC TABLET PO (07:54)
[2019-10-14] MEDS: allopurinoL 100 MG TABLET PO ×3 (07:54→17:28)
[2019-10-14] MEDS: CHOLECALCIFEROL 1,000 UNIT TABLET 2000 UNITS PO (07:55)
[2019-10-14] MEDS: BUMETANIDE 1 MG TABLET 2 MG PO (07:55)
[2019-10-14] MEDS: MIDODRINE HCL 10 MG TABLET PO ×2 (07:56→17:27)
[2019-10-14] MEDS: FOLIC ACID 1 MG TABLET PO (07:56)
[2019-10-14] MEDS: CYANOCOBALAMIN 1,000 MCG TABLET 1000 MCG PO (07:56)
[2019-10-14] MEDS: DONEPEZIL HCL 10 MG TABLET PO (07:56)
[2019-10-14] MEDS: DOCUSATE SODIUM 100 MG CAPSULE PO (07:56)
[2019-10-14] MEDS: VENLAFAXINE HCL XR 75 MG CAP.ER.24H 225 MG PO (07:57)
[2019-10-14] MEDS: PAROXETINE 20 MG TABLET 40 MG PO (07:57)
[2019-10-14] MEDS: AMIODARONE HCL 100 MG TABLET PO (07:59)
[2019-10-14] MEDS: polyethylene glycoL 3350 17 GM POWD.PACK PO (10:43)
--- NOTE | 2019-10-14 12:16 | WPDNEURORHBP ---
Subjective Date/time seen: 10/14/19 12:16 Interval history: this is a dialysis patient will is on the acute rehab because of debility decreased endurance and generalized weakness she was present in the team conference without any new specific complaints she has skin tears over the right forearm which is being addressed with Mepitel. Patient has some wheezing issues and she would benefit from nebulizer treatment along with Mucinex Review of Systems Constitutional: Constitutional: Reports no additional constitutional complaints Eyes: Eyes: Reports no additional eye complaints ENT: Reports system reviewed and no additional complaints, except as documented Cardiovascular: Cardiovascular: Reports no additional cardiovascular complaints Respiratory: Respiratory: Reports no additional respiratory complaints Gastrointestinal: Gastrointestinal: Reports no additional gastrointestinal complaints Genitourinary: Genitourinary: Reports no additional female genitourinary complaints Musculoskeletal: Musculoskeletal: Reports no additional musculoskeletal complaints Integumentary/Breasts: Skin/Breast: Reports system reviewed and no additional complaints, except as docu Neurologic: Reports system reviewed and no additional complaints, except as documented Psychiatric: Psychiatric: Reports no additional psychiatric complaints Functional Status Ambulation Ability Ability to Ambulate 10 Feet: Minimum Assistance X 1 Ambulation Assistive Devices: Walker, Rollator Transfers Ability Ability to Transfer In/Out of Chair: Minimum Assistance X 1 Exam Const: General: comfortable and no acute distress HENMT: General nose exam: Normal nares present Mouth: Yes moist mucous membranes Eyes: General: appearance normal, both eyes and all related structures Neck: Neck: no JVD Carotids: bruit Resp: Effort & Inspection: normal respiratory effort Other: patient has bilateral rhonchi Cardio: Rate: regular rate Rhythm: regular rhythm GI: GI Palp: Yes Soft to palpation Auscultation: normal bowel sounds Skin: Other: skin tears to the right forearm Neuro: Other: patient has mild memory deficit otherwise decent mental status examination likewise cranial nerve examination is also fairly decent she has generalized weakness of both upper lower extremities with decreased endurance and performance of the activities of daily living are affected The reflexes are diminished and there is a mild sensory deficit in the lower extremities Extrem: Other: right forearm is addressed with map it and bandage around it the AV fistula for dialysis is working fairly well Psych: Mental Status: mental status grossly normal Objective Data Vital Signs Vital Signs: Vital Signs - 24 hr 10/13/19 14:00 10/13/19 14:51 10/13/19 15:00 Temperature 36.4 C 36.4 C Pulse Rate 95 84 Pulse Rate [Apical] 84 Respiratory Rate 18 Blood Pressure 116/74 148/84 H Pulse Oximetry 91 100 10/13/19 15:15 10/13/19 15:30 10/13/19 15:45 Temperature Pulse Rate 81 84 80 Pulse Rate [Apical] Respiratory Rate Blood Pressure 147/87 H 124/68 139/85 Pulse Oximetry 10/13/19 16:00 10/13/19 16:15 10/13/19 16:30 Temperature Pulse Rate 80 78 80 Pulse Rate [Apical] Respiratory Rate Blood Pressure 126/68 143/54 H 137/82 Pulse Oximetry 10/13/19 16:45 10/13/19 17:00 10/13/19 17:15 Temperature Pulse Rate 79 80 83 Pulse Rate [Apical] Respiratory Rate Blood Pressure 169/88 H 141/83 H 169/88 H Pulse Oximetry 10/13/19 17:30 10/13/19 17:45 10/13/19 18:36 Temperature Pulse Rate 81 80 80 Pulse Rate [Apical] Respiratory Rate Blood Pressure 130/74 149/88 H 133/90 Pulse Oximetry 10/13/19 18:42 10/13/19 20:18 10/14/19 06:00 Temperature 36.6 C 36.0 C L 36.6 C Pulse Rate 80 80 Pulse Rate [Apical] 80 Respiratory Rate 16 17 20 Blood Pressure 102/62 107/67 Pulse Oximetry 99 97 10/14/19 07:59 10/14/19 08:53 Tem
[2019-10-14 12:47] LABS: Glucose Point of Care 122 (65-105)
[2019-10-14 17:47] LABS: Glucose Point of Care 99 (65-105)
[2019-10-14] MEDS: ALBUTEROL SULFATE NEB 2.5 MG/0.5 ML INH INHALATION (17:55)
[2019-10-14] MEDS: QUEtiapine FUMARATE 25 MG TABLET 50 MG PO (20:53)
[2019-10-14] MEDS: PRAVASTATIN SODIUM 20 MG TABLET 40 MG PO (20:53)
[2019-10-14 21:12] LABS: Glucose Point of Care 132 (65-105)
[2019-10-15] VITALS (25 sets, daily range): BP systolic 92–129; BP diastolic 56–74; PULSE 64–89; RESP 16–18; TEMP 36.1–37; O2SAT 96–100
[2019-10-15] MEDS: LEVOTHYROXINE SODIUM 150 MCG TABLET PO (05:14)
[2019-10-15 05:52] LABS: Glucose Point of Care 96 (65-105)
--- NOTE | 2019-10-15 08:08 | PCPTNOTE ---
Patient will require use of rollator at d/c for ambulation. Patient is utilizing her own rollator here on rehab.
--- NOTE | 2019-10-15 08:10 | PCPTNOTE ---
ANTHONY KENNEDY completed an inpatient rehab wheelchair evaluation on February on 10/15/2019. The patient is unable to safely and independently ambulate household distances due to their current impairments. Their diagnosis is debility and their impairments include decreased strength, decreased endurance,decreased balance, lower extremity weakness. weight bearing status is weight-bearing as tolerated on the bilateral lower legs. The patient demonstrates significant functional mobility limitations that impair their ability to participate in mobility-related activities of daily living (MRADLs), including toileting, feeding, dressing, grooming, and bathing in the customary locations in the home. These limitations cannot be sufficiently resolved by the use of an appropriately fitted cane or walker. It is recommended that the patient utilize a wheelchair for functional mobility within the home in order to facilitate optimal safety, independence and participation in all MRADL's and adequately access their home environment on a regular basis. The patient's home provides adequate access between rooms, maneuvering space, and surfaces to accommodate the recommended wheelchair. The use of a wheelchair for functional mobility is strongly recommended and the patient is receptive to using the wheelchair. The use of this wheelchair will significantly improve the patient's ability to participate in MRADLS and the patient will use it on a regular basis in the home. This will facilitate optimal safety, independence, and participation. The patient has demonstrated sufficient physical and mental capabilities needed to safely propel a manual wheelchair that is provided in the home during a typical day. Recommended Wheelchair Size: 18 by 18 Wheelchair Leg Recommendations: elevating removable leg rests. Elevating legrests are recommended because the patient has a musculoskeletal condition or the presence of a cast or brace which prevents 90 degree flexion at the knee. Elevating legrests are recommended because the patient has significant edema of the lower extremities that requires an elevating legrest. Elevating legrests are recommended is recommended because the patient's wheelchair is also recommended to have a reclining back. Evaluating Therapist Date I agree with and certify that the above recommendation is medically necessary. Referring Physician Date I agree with and certify that the above recommendation is medically necessary. Referring Physician Date
[2019-10-15] MEDS: VENLAFAXINE HCL XR 75 MG CAP.ER.24H 225 MG PO (08:16)
[2019-10-15] MEDS: AMIODARONE HCL 100 MG TABLET PO (08:17)
[2019-10-15] MEDS: DOCUSATE SODIUM 100 MG CAPSULE PO (08:19)
[2019-10-15] MEDS: CHOLECALCIFEROL 1,000 UNIT TABLET 2000 UNITS PO (08:19)
[2019-10-15] MEDS: CYANOCOBALAMIN 1,000 MCG TABLET 1000 MCG PO (08:19)
[2019-10-15] MEDS: DONEPEZIL HCL 10 MG TABLET PO (08:20)
[2019-10-15] MEDS: MIDODRINE HCL 10 MG TABLET PO ×2 (08:20→19:07)
[2019-10-15] MEDS: PAROXETINE 20 MG TABLET 40 MG PO (08:20)
[2019-10-15] MEDS: allopurinoL 100 MG TABLET PO ×3 (08:20→19:07)
[2019-10-15] MEDS: polyethylene glycoL 3350 17 GM POWD.PACK PO (08:21)
[2019-10-15] MEDS: ASPIRIN 81 MG ENTERIC TABLET PO (08:21)
[2019-10-15] MEDS: FOLIC ACID 1 MG TABLET PO (08:21)
--- NOTE | 2019-10-15 10:00 | WPDNEURORHBP ---
Subjective Date/time seen: 10/15/19 11:44 Interval history: This patient is here for debility and weakness with multiple medical issues which has been summarized in my history and physical examination Today the patient in fact does not have much of complaints however the physical therapist mentioned that she has been having coughing however the patient is comfortable she does drop oxygen doing therapy but was back on its own Review of Systems Constitutional: Constitutional: Reports no additional constitutional complaints Eyes: Eyes: Reports no additional eye complaints ENT: Reports system reviewed and no additional complaints, except as documented Cardiovascular: Cardiovascular: Reports no additional cardiovascular complaints Respiratory: Respiratory: Reports no additional respiratory complaints Gastrointestinal: Gastrointestinal: Reports no additional gastrointestinal complaints Genitourinary: Genitourinary: Reports no additional female genitourinary complaints Musculoskeletal: Musculoskeletal: Reports no additional musculoskeletal complaints Integumentary/Breasts: Skin/Breast: Reports system reviewed and no additional complaints, except as docu Neurologic: Reports system reviewed and no additional complaints, except as documented Functional Status Ambulation Ability Ability to Ambulate 10 Feet: Minimum Assistance X 1 Ability to Ambulate 50 Feet With 2 Turns: Minimum Assistance X 1 Ambulation Assistive Devices: Walker, Wheeled Transfers Ability Ability to Transfer In/Out of Chair: Moderate Assistance X 1 Exam Const: General: comfortable and no acute distress HENMT: General nose exam: Normal nares present Mouth: Yes moist mucous membranes Eyes: General: appearance normal, both eyes and all related structures Neck: Neck: supple and no JVD Resp: Other: patient does have some decreased breath sounds at the bases and also some rales which has been present throughout during the course of hospitalization Cardio: Rate: regular rate Rhythm: regular rhythm GI: GI Palp: Yes Soft to palpation Auscultation: normal bowel sounds Skin: Other: patient has some bruising in both upper lower extremities which has been present for some time it is most likely related to skin fragility as she is a dialysis patient Neuro: Other: patient is awake and alert oriented x3 follow simple commands the cranial nerve exam shows normal she is generally weak and fatigued and has upper extremity and lower extremity weakness in the range of 4+ over 5 reflexes remain depressed about 1+ with some decrement of sensation in the lower extremities this is long-standing finding Extrem: Other: patient has some bruising on both upper lower extremities the site for the dialysis in the right upper chest is clean and healthy no significant drainage or sign of infection is noted Psych: Mental Status: mental status grossly normal Objective Data Vital Signs Vital Signs: Vital Signs - 24 hr 10/14/19 14:00 10/14/19 17:55 10/14/19 18:04 Temperature 36.3 C L Pulse Rate 80 79 84 Respiratory Rate 18 18 18 Blood Pressure 112/70 Pulse Oximetry 100 10/14/19 22:00 10/14/19 23:20 10/15/19 06:00 Temperature 36.3 C L 36.8 C Pulse Rate 79 79 79 Respiratory Rate 20 20 18 Blood Pressure 119/72 98/60 L Pulse Oximetry 96 96 99 10/15/19 08:17 Temperature Pulse Rate 81 Respiratory Rate Blood Pressure Pulse Oximetry Intake/Output Intake/Output: Intake & Output 10/12/19 10/13/19 10/14/19 10/15/19 23:59 23:59 23:59 23:59 Intake Total 500 480 700 340 Balance 500 480 700 340 Meds/Results Medications: Active Medications Generic Name Dose Route Start Last Admin Trade Name Freq PRN Reason Stop Dose Admin Albuterol 2.5 mg 10/14/19 08:22 10/14/19 17:55 Albuterol Sulf Neb 2.5mg/0.5ml INHALATION 2.5 mg Q6HRT PRN Administration Shortness Of Breath Allopurinol 100 mg 10/11/19 17:00 10/15/19 08:20 Zyloprim PO
[2019-10-15 11:54] LABS: Glucose Point of Care 82 (65-105)
[2019-10-15] MEDS: HEPARIN SODIUM 1,000 UNITS/ML VIAL 6000 UNITS (18:30)
[2019-10-15 19:30] LABS: Glucose Point of Care 60 (65-105)
[2019-10-15] MEDS: PRAVASTATIN SODIUM 20 MG TABLET 40 MG PO (20:46)
[2019-10-15] MEDS: QUEtiapine FUMARATE 25 MG TABLET 50 MG PO (20:46)
[2019-10-15] MEDS: HYDROCORTISONE ACETATE 25 MG SUPPOSITORY RECTAL (20:49)
[2019-10-15 20:54] LABS: Glucose Point of Care 104 (65-105)
[2019-10-15] MEDS: ALBUTEROL SULFATE NEB 2.5 MG/0.5 ML INH INHALATION (23:29)
[2019-10-16 02:21] LABS: Glucose Point of Care 105 (65-105)
[2019-10-16 06:00] VITALS: BP 120/69; PULSE 81; RESP 18; TEMP 36.3; O2SAT 96
[2019-10-16] MEDS: LEVOTHYROXINE SODIUM 150 MCG TABLET PO (06:19)
[2019-10-16 06:58] LABS: Glucose Point of Care 70 (65-105)
[2019-10-16 08:23] VITALS: PULSE 81
[2019-10-16] MEDS: AMIODARONE HCL 100 MG TABLET PO (08:23)
[2019-10-16] MEDS: allopurinoL 100 MG TABLET PO ×3 (08:23→17:26)
[2019-10-16] MEDS: CHOLECALCIFEROL 1,000 UNIT TABLET 2000 UNITS PO (08:24)
[2019-10-16] MEDS: BUMETANIDE 1 MG TABLET 2 MG PO (08:24)
[2019-10-16] MEDS: CYANOCOBALAMIN 1,000 MCG TABLET 1000 MCG PO (08:24)
[2019-10-16] MEDS: ASPIRIN 81 MG ENTERIC TABLET PO (08:24)
[2019-10-16] MEDS: DONEPEZIL HCL 10 MG TABLET PO (08:25)
[2019-10-16] MEDS: DOCUSATE SODIUM 100 MG CAPSULE PO (08:25)
[2019-10-16] MEDS: FOLIC ACID 1 MG TABLET PO (08:25)
[2019-10-16] MEDS: polyethylene glycoL 3350 17 GM POWD.PACK PO (08:26)
[2019-10-16] MEDS: PAROXETINE 20 MG TABLET 40 MG PO (08:26)
[2019-10-16] MEDS: VENLAFAXINE HCL XR 75 MG CAP.ER.24H 225 MG PO (08:26)
[2019-10-16] MEDS: HYDROCORTISONE ACETATE 25 MG SUPPOSITORY RECTAL ×2 (08:26→20:10)
[2019-10-16] MEDS: MIDODRINE HCL 10 MG TABLET PO ×2 (08:26→17:27)
--- NOTE | 2019-10-16 10:33 | WPDNEURORHBP ---
Subjective Date/time seen: 10/16/19 10:33 Interval history: this patient is here because of debility generalize weakness and decreased endurance due to multiple medical issues including the end-stage renal disease and being on dialysis She had a dialysis done yesterday and doing fairly well she denies any headache chest pain shortness of breath nausea vomiting and feel comfortable in engaging therapy Review of Systems Constitutional: Constitutional: Reports no additional constitutional complaints Eyes: Eyes: Reports no additional eye complaints ENT: Reports system reviewed and no additional complaints, except as documented Cardiovascular: Cardiovascular: Reports no additional cardiovascular complaints Respiratory: Respiratory: Reports no additional respiratory complaints Gastrointestinal: Gastrointestinal: Reports no additional gastrointestinal complaints Genitourinary: Genitourinary: Reports no additional female genitourinary complaints Musculoskeletal: Musculoskeletal: Reports no additional musculoskeletal complaints Integumentary/Breasts: Skin/Breast: Reports system reviewed and no additional complaints, except as docu Neurologic: Reports system reviewed and no additional complaints, except as documented Psychiatric: Psychiatric: Reports no additional psychiatric complaints Functional Status Ambulation Ability Ability to Ambulate 10 Feet: Minimum Assistance X 1 Ability to Ambulate 50 Feet With 2 Turns: Minimum Assistance X 1 Ambulation Assistive Devices: Walker, Wheeled Transfers Ability Ability to Transfer In/Out of Chair: Moderate Assistance X 1 Exam Const: General: comfortable and no acute distress HENMT: General nose exam: Normal nares present Mouth: Yes moist mucous membranes Eyes: General: appearance normal, both eyes and all related structures Neck: Neck: supple and no JVD Resp: Effort & Inspection: normal respiratory effort Auscultation: clear to auscultation bilaterally Cardio: Rate: regular rate Rhythm: regular rhythm GI: GI Palp: Yes Soft to palpation Auscultation: normal bowel sounds Skin: Other: bruising and multiple sites due to fragility of the skin otherwise no problem with the dialysis catheter which is placed at her upper right chest Neuro: Other: she is well oriented time place and person with normal cranial examination and no lateralizing focal motor deficit however she does have generalized weakness of both upper lower extremities needing assistance in the activities of daily living along with the sensory deficit in the lower extremities more so than the upper extremities Patient however is progressing in over rehab Extrem: General: normal to inspection Objective Data Vital Signs Vital Signs: Vital Signs - 24 hr 10/15/19 14:00 10/15/19 14:48 10/15/19 15:01 Temperature 36.1 C L 36.3 C L Pulse Rate 82 81 81 Respiratory Rate 18 18 Blood Pressure 129/69 97/68 L 110/74 Pulse Oximetry 96 10/15/19 15:05 10/15/19 15:15 10/15/19 15:30 Temperature Pulse Rate 81 88 80 Respiratory Rate Blood Pressure 109/69 92/68 L 110/56 L Pulse Oximetry 10/15/19 15:45 10/15/19 16:00 10/15/19 16:15 Temperature Pulse Rate 80 80 80 Respiratory Rate Blood Pressure 114/72 123/63 120/71 Pulse Oximetry 10/15/19 16:30 10/15/19 16:45 10/15/19 17:00 Temperature Pulse Rate 81 85 89 Respiratory Rate Blood Pressure 95/66 L 116/59 L 125/60 Pulse Oximetry 10/15/19 17:15 10/15/19 17:30 10/15/19 17:49 Temperature Pulse Rate 80 80 80 Respiratory Rate Blood Pressure 114/67 118/69 110/67 Pulse Oximetry 10/15/19 18:00 10/15/19 18:08 10/15/19 18:20 Temperature 36.2 C L Pulse Rate 81 79 80 Respiratory Rate 16 Blood Pressure 121/64 106/65 114/63 Pulse Oximetry 10/15/19 21:25 10/15/19 23:29 10/15/19 23:38 Temperature 36.4 C L Pulse Rate 79 80 88 Respiratory Rate 18 18 Blood Pressure 116/68 Pulse Oximetry 100
[2019-10-16 11:01] VITALS: PULSE 77; O2SAT 94
[2019-10-16 11:49] LABS: Glucose Point of Care 116 (65-105)
[2019-10-16 12:12] LABS: Basophils Absolute Auto 0.1 K/mm3 (0.0-0.1); Basophils Percent Auto 0.6 % (0.2-1.2); Eosinophils Absolute Auto 0.1 K/mm3 (0-0.3); Hematocrit 34.4 % (37.0-47.0); Hemoglobin 10.6 g/dL (12.0-15.0); Immature Granulocyte Absolute 0.06 K/mm3 (0.00-0.031); Immature Granulocyte Percent A 0.7 % (0-0.5); Lymphocytes Absolute Auto 0.58 K/mm3 (0.9-3.2); Lymphocytes Percent Auto 6.7 % (18.3-44.2); Mean Corpuscular HGB Conc 30.8 g/dl (32-36); Mean Corpuscular Hemoglobin 32.2 pg (26-34); Mean Corpuscular Volume 104.6 fl (80-100); Monocytes Absolute Auto 0.9 K/mm3 (0.1-0.6); Monocytes Percent Auto 9.9 % (2.6-8.5); Neutrophils Percent Auto 81.1 % (45.5-73.1); Nucleated Red Blood Cells Perc 0.2 % (0.0-0.2); Platelet Count Result 91 k/mm3 (150-375); Red Blood Count 3.29 M/mm3 (4.2-5.4); Red Cell Distribution Width 18.3 % (11.5-14.5); White Blood Count 8.6 K/mm3 (4.5-10.0)
[2019-10-16 14:00] VITALS: BP 98/59; PULSE 80; RESP 16; TEMP 36.6; O2SAT 97
--- NOTE | 2019-10-16 14:58 | PCDIET ---
Nutrition Follow-Up Complete: Nutrition Diagnosis: Suboptimal oral intake related to decreased appetite as evidenced by patient statements, intake records. Nutrition Goals: Intakes greater than 50%, supplement acceptance. Goal not entirely met. Intakes average 58% of meals since 10/14/19 on regular diet. Patient is taking Ensure Compact which is being provided with meals TID. Last recorded weight is 68.1 kg. Bowel Motility: +BM on 10/15/19. Labs Reviewed: Glu (70) Meds Noted: Albuterol, Bumex, Vitamin B12, Colace, Folic Acid, Midodrine, Vitamin D, Miralax Additional Notes: Right arm skin tear. Buttocks macerated. Recommend continuing regular diet with Ensure Compact TID. Recommend obtaining BMP. Will continue to monitor with same goals. Nutrition Monitoring and Evaluation: Follow up in 5 days.
[2019-10-16 17:46] LABS: Glucose Point of Care 107 (65-105)
[2019-10-16] MEDS: PRAVASTATIN SODIUM 20 MG TABLET 40 MG PO (20:09)
[2019-10-16] MEDS: QUEtiapine FUMARATE 25 MG TABLET 50 MG PO (20:09)
[2019-10-16 20:14] LABS: Glucose Point of Care 92 (65-105)
[2019-10-16 22:00] VITALS: BP 109/69; PULSE 86; RESP 18; TEMP 36.4; O2SAT 92
[2019-10-17] VITALS (24 sets, daily range): BP systolic 100–129; BP diastolic 56–80; PULSE 60–84; RESP 16–18; TEMP 36.1–37; O2SAT 86–98
[2019-10-17] MEDS: LEVOTHYROXINE SODIUM 150 MCG TABLET PO (05:47)
[2019-10-17 07:09] LABS: Glucose Point of Care 68 (65-105)
[2019-10-17 08:59] LABS: Glucose Point of Care 71 (65-105)
[2019-10-17] MEDS: CHOLECALCIFEROL 1,000 UNIT TABLET 2000 UNITS PO (09:09)
[2019-10-17] MEDS: VENLAFAXINE HCL XR 75 MG CAP.ER.24H 225 MG PO (09:09)
[2019-10-17] MEDS: ASPIRIN 81 MG ENTERIC TABLET PO (09:09)
[2019-10-17] MEDS: allopurinoL 100 MG TABLET PO ×3 (09:10→20:54)
[2019-10-17] MEDS: PAROXETINE 20 MG TABLET 40 MG PO (09:10)
[2019-10-17] MEDS: CYANOCOBALAMIN 1,000 MCG TABLET 1000 MCG PO (09:10)
[2019-10-17] MEDS: MIDODRINE HCL 10 MG TABLET PO ×2 (09:10→20:53)
[2019-10-17] MEDS: FOLIC ACID 1 MG TABLET PO (09:10)
[2019-10-17] MEDS: DOCUSATE SODIUM 100 MG CAPSULE PO (09:11)
[2019-10-17] MEDS: DONEPEZIL HCL 10 MG TABLET PO (09:11)
[2019-10-17] MEDS: HYDROCORTISONE ACETATE 25 MG SUPPOSITORY RECTAL ×2 (09:12→20:53)
--- NOTE | 2019-10-17 10:52 | PCPTNOTE ---
Rachelle Herbert was evaluated for a wheeled walker on 10/17/2019 by this physical therapist pest controller assistant. The wheeled walker will resolve patient's mobility limitations and will be used for ADL's within the home. The patient can safely use the wheeled walker. ?The wheeled walker will resolve the patient?s mobility deficits, including decreased endurance, decreased dynamic standing balance and decreased lower extremity strength.
--- NOTE | 2019-10-17 11:22 | PM.PNNEP ---
Progress Note: A&P Assessment and Plan (1) End stage renal disease on dialysis: Code(s): N18.6 - End stage renal disease; Z99.2 - Dependence on renal dialysis Status: Chronic Assessment and Plan: Due for dialysis later today. Orders have been written. She will get some blood work done today. (2) CHF (congestive heart failure): Code(s): I50.9 - Heart failure, unspecified Status: Acute Assessment and Plan: The patient has right-sided heart failure with a severely enlarged right ventricle. Her LV is okay. Her swelling is not too bad. Her blood pressure is somewhat soft to times and she is a bit dizzy. We will not take any fluid off with dialysis today. (3) Hypertension: Qualifiers: Hypertension type: essential hypertension Qualified Code(s): I10 - Essential (primary) hypertension Code(s): I10 - Essential (primary) hypertension Status: Chronic Assessment and Plan: The patient is only on diltiazem. This is mostly for rate control I think. We can cut the dose down to 120 Subjective Date/time seen: 10/17/19 11:22 Interval history: Alert and feels better. Stronger. She is in physical therapy. She feels a little bit dizzy. Review of Systems Cardiovascular: Cardiovascular: Reports no additional cardiovascular complaints Respiratory: Respiratory: Reports no additional respiratory complaints Gastrointestinal: Gastrointestinal: Reports no additional gastrointestinal complaints Genitourinary: Genitourinary: Reports no additional female genitourinary complaints Exam Narrative: Exam Narrative: Well developed well-nourished in no acute distress Lungs clear Heart regular without rub Abdomen bowel sounds positive soft nontender Extremities no edema Skin no rash Objective Data Vital Signs Vital Signs: Vital Signs - 24 hr 10/16/19 14:00 10/16/19 22:00 10/17/19 06:00 Temperature 36.6 C 36.4 C 36.3 C L Pulse Rate 80 86 80 Respiratory Rate 16 18 18 Blood Pressure 98/59 L 109/69 110/72 Pulse Oximetry 97 92 98 10/17/19 08:00 Temperature Pulse Rate 80 Respiratory Rate 18 Blood Pressure Pulse Oximetry 98 Intake/Output Intake/Output: Intake & Output 10/14/19 10/15/19 10/16/19 10/17/19 23:59 23:59 23:59 23:59 Intake Total 700 560 840 Output Total 1000 Balance 700 -440 840 Meds/Results Medications: Active Medications Generic Name Dose Route Start Last Admin Trade Name Freq PRN Reason Stop Dose Admin Albuterol 2.5 mg 10/14/19 08:22 10/15/19 23:29 Albuterol Sulf Neb 2.5mg/0.5ml INHALATION 2.5 mg Q6HRT PRN Administration Shortness Of Breath Allopurinol 100 mg 10/11/19 17:00 10/17/19 09:10 Zyloprim PO 100 mg TID KATIE Administration Amiodarone HCl 100 mg 10/12/19 09:00 10/16/19 08:23 Pacerone PO 100 mg DAILY KATIE Administration Aspirin 81 mg 10/12/19 09:00 10/17/19 09:09 Aspirin Ec PO 81 mg DAILY KATIE Administration Bumetanide 2 mg 10/14/19 09:00 10/16/19 08:24 Bumex Po PO 2 mg TuThSa@0900 KATIE Administration Cyanocobalamin 1,000 mcg 10/12/19 09:00 10/17/19 09:10 Vitamin B-12 Tab PO 1,000 mcg DAILY KATIE Administration Dextrose 12.5 gm 10/11/19 15:20 Dextrose 50% Syringe IV PUSH PRN PRN Hypoglycemia Protocol Diltiazem HCl 180 mg 10/12/19 09:00 10/17/19 09:09 Cardizem Cd PO 180 mg QAM KATIE Administration Docusate Sodium 100 mg 10/12/19 09:00 10/17/19 09:11 Colace Capsule PO 100 mg DAILY KATIE Administration Docusate Sodium 100 mg 10/11/19 16:00 Colace Capsule PO Q12H PRN Constipation Donepezil HCl 10 mg 10/12/19 09:00 10/17/19 09:11 Aricept PO 10 mg DAILY KATIE Administration Folic Acid 1 mg 10/12/19 09:00 10/17/19 09:10 Folic Acid PO 1 mg DAILY KATIE Administration Glucagon 1 mg 10/11/19 15:20 Glucagon For Inj IM PRN PRN Hypoglycemia Protoco
--- NOTE | 2019-10-17 11:51 | WPDNEURORHBP ---
Subjective Date/time seen: 10/17/19 11:51 Interval history: patient is feeling better today and after the therapy will be going for dialysis her platelet count has come up to 91 K overall she is doing better engage in therapy motivated no chest pain no shortness of breath no fevers no extraordinary bruising no abdominal discomfort and diarrhea vomiting or chills or sore throat Review of Systems Constitutional: Constitutional: Reports no additional constitutional complaints Eyes: Eyes: Reports no additional eye complaints ENT: Reports system reviewed and no additional complaints, except as documented Cardiovascular: Cardiovascular: Reports no additional cardiovascular complaints Respiratory: Respiratory: Reports no additional respiratory complaints Gastrointestinal: Gastrointestinal: Reports no additional gastrointestinal complaints Genitourinary: Genitourinary: Reports no additional female genitourinary complaints Musculoskeletal: Musculoskeletal: Reports no additional musculoskeletal complaints Integumentary/Breasts: Skin/Breast: Reports system reviewed and no additional complaints, except as docu Neurologic: Reports system reviewed and no additional complaints, except as documented Psychiatric: Psychiatric: Reports no additional psychiatric complaints Functional Status Ambulation Ability Ability to Ambulate 10 Feet: Minimum Assistance X 1 Ability to Ambulate 50 Feet With 2 Turns: Minimum Assistance X 1 Ambulation Assistive Devices: Walker, Wheeled Transfers Ability Ability to Transfer In/Out of Chair: Minimum Assistance X 1 Exam Const: General: comfortable and no acute distress HENMT: General nose exam: Normal nares present Mouth: Yes moist mucous membranes Eyes: General: appearance normal, both eyes and all related structures Neck: Neck: no JVD Carotids: bruit Resp: Effort & Inspection: normal respiratory effort Auscultation: clear to auscultation bilaterally Cardio: Rate: regular rate Rhythm: regular rhythm GI: GI Palp: Yes Soft to palpation Auscultation: normal bowel sounds Skin: General skin exam: normal color and no rashes or lesions noted Neuro: Other: patient's strength is improving endurance is improving she does not have any neurological issues apart from generalized weakness and mild cognitive dysfunction Objective Data Vital Signs Vital Signs: Vital Signs - 24 hr 10/16/19 14:00 10/16/19 22:00 10/17/19 06:00 Temperature 36.6 C 36.4 C 36.3 C L Pulse Rate 80 86 80 Respiratory Rate 16 18 18 Blood Pressure 98/59 L 109/69 110/72 Pulse Oximetry 97 92 98 10/17/19 08:00 Temperature Pulse Rate 80 Respiratory Rate 18 Blood Pressure Pulse Oximetry 98 Intake/Output Intake/Output: Intake & Output 10/14/19 10/15/19 10/16/19 10/17/19 23:59 23:59 23:59 23:59 Intake Total 700 560 840 Output Total 1000 Balance 700 -440 840 Meds/Results Medications: Active Medications Generic Name Dose Route Start Last Admin Trade Name Freq PRN Reason Stop Dose Admin Albuterol 2.5 mg 10/14/19 08:22 10/15/19 23:29 Albuterol Sulf Neb 2.5mg/0.5ml INHALATION 2.5 mg Q6HRT PRN Administration Shortness Of Breath Allopurinol 100 mg 10/11/19 17:00 10/17/19 09:10 Zyloprim PO 100 mg TID KATIE Administration Amiodarone HCl 100 mg 10/12/19 09:00 10/16/19 08:23 Pacerone PO 100 mg DAILY KATIE Administration Aspirin 81 mg 10/12/19 09:00 10/17/19 09:09 Aspirin Ec PO 81 mg DAILY KATIE Administration Bumetanide 2 mg 10/14/19 09:00 10/16/19 08:24 Bumex Po PO 2 mg TuThSa@0900 KATIE Administration Cyanocobalamin 1,000 mcg 10/12/19 09:00 10/17/19 09:10 Vitamin B-12 Tab PO 1,000 mcg DAILY KATIE Administration Dextrose 12.5 gm 10/11/19 15:20 Dextrose 50% Syringe IV PUSH PRN PRN Hypoglycemia Protocol Diltiazem HCl 120 mg 10/18/19 09:00 Cardizem Cd PO QAM KATIE Docusate Sodium 100 mg 10/12/19 09:00 0
[2019-10-17 12:14] LABS: Glucose Point of Care 84 (65-105)
[2019-10-17] MEDS: polyethylene glycoL 3350 17 GM POWD.PACK PO (13:02)
[2019-10-17] MEDS: AMIODARONE HCL 100 MG TABLET PO (13:02)
[2019-10-17 13:38] LABS: Albumin Level 3.1 g/dL (3.5-5.1); Blood Urea Nitrogen 41 mg/dL (7-17); Calcium 8.6 mg/dL (8.4-10.2); Carbon Dioxide 26 mmol/L (22-30); Chloride 99 mmol/L (98-107); Estimated CRCL calculation 9 ml/min; Estimated Glomerular Filt Rate 11; Glucose 92 mg/dL (65-105); Phosphorus 3.8 mg/dL (2.5-4.5); Potassium 4.3 mmol/L (3.4-5.0); Sodium 140 mmol/L (137-145)
[2019-10-17 15:11] LABS: Folic Acid > 20.0 ng/mL (2.76->20); Vitamin B12 > 1000.0 pg/mL (239-931)
[2019-10-17] MEDS: HEPARIN SODIUM 1,000 UNITS/ML VIAL 6000 UNITS (19:05)
[2019-10-17] MEDS: PRAVASTATIN SODIUM 20 MG TABLET 40 MG PO (20:53)
[2019-10-17] MEDS: QUEtiapine FUMARATE 25 MG TABLET 50 MG PO (20:55)
[2019-10-17 22:19] LABS: Glucose Point of Care 85 (65-105)
[2019-10-17] MEDS: MELATONIN 3 MG TABLET PO (23:02)
[2019-10-18 06:00] VITALS: BP 107/67; PULSE 80; RESP 18; TEMP 36.4; O2SAT 96
[2019-10-18] MEDS: LEVOTHYROXINE SODIUM 150 MCG TABLET PO (06:13)
[2019-10-18 06:40] LABS: Glucose Point of Care 67 (65-105)
[2019-10-18 06:40] LABS: Glucose Point of Care 86 (65-105)
[2019-10-18] MEDS: allopurinoL 100 MG TABLET PO ×2 (08:52→12:47)
[2019-10-18] MEDS: AMIODARONE HCL 100 MG TABLET PO (08:53)
[2019-10-18] MEDS: DOCUSATE SODIUM 100 MG CAPSULE PO (08:53)
[2019-10-18] MEDS: ASPIRIN 81 MG ENTERIC TABLET PO (08:53)
[2019-10-18] MEDS: CYANOCOBALAMIN 1,000 MCG TABLET 1000 MCG PO (08:53)
[2019-10-18] MEDS: DONEPEZIL HCL 10 MG TABLET PO (08:54)
[2019-10-18] MEDS: VENLAFAXINE HCL XR 75 MG CAP.ER.24H 225 MG PO (08:54)
[2019-10-18] MEDS: FOLIC ACID 1 MG TABLET PO (08:54)
[2019-10-18] MEDS: PAROXETINE 20 MG TABLET 40 MG PO (08:54)
[2019-10-18] MEDS: BUMETANIDE 1 MG TABLET 2 MG PO (08:54)
[2019-10-18] MEDS: CHOLECALCIFEROL 1,000 UNIT TABLET 2000 UNITS PO (08:54)
[2019-10-18] MEDS: MIDODRINE HCL 10 MG TABLET PO ×2 (08:56→17:40)
[2019-10-18] MEDS: polyethylene glycoL 3350 17 GM POWD.PACK PO (08:56)
[2019-10-18 11:51] LABS: Glucose Point of Care 94 (65-105)
[2019-10-18 14:00] VITALS: BP 123/76; PULSE 84; RESP 18; TEMP 36.3; O2SAT 97
[2019-10-18 17:25] LABS: Glucose Point of Care 74 (65-105)
[2019-10-18 18:11] VITALS: PULSE 88; RESP 18
[2019-10-18] MEDS: ALBUTEROL SULFATE NEB 2.5 MG/0.5 ML INH INHALATION (18:11)
[2019-10-18 18:20] VITALS: PULSE 88; RESP 18
[2019-10-18 19:48] LABS: Glucose Point of Care 147 (65-105)
[2019-10-18] MEDS: QUEtiapine FUMARATE 25 MG TABLET 50 MG PO (19:54)
[2019-10-18] MEDS: HYDROCORTISONE ACETATE 25 MG SUPPOSITORY RECTAL (19:54)
[2019-10-18] MEDS: PRAVASTATIN SODIUM 20 MG TABLET 40 MG PO (19:56)
[2019-10-18] MEDS: MELATONIN 3 MG TABLET PO (19:59)
[2019-10-18 22:00] VITALS: BP 111/64; PULSE 78; RESP 18; TEMP 36.3; O2SAT 98
[2019-10-19] VITALS (13 sets, daily range): BP systolic 93–167; BP diastolic 57–84; PULSE 80–100; RESP 16–20; TEMP 36–36.6; O2SAT 96–100
[2019-10-19 05:14] LABS: Basophils Absolute Auto 0.1 K/mm3 (0.0-0.1); Basophils Percent Auto 0.6 % (0.2-1.2); Eosinophils Absolute Auto 0.1 K/mm3 (0-0.3); Eosinophils Percent Auto 1.4 % (0-4.4); Hematocrit 33.1 % (37.0-47.0); Hemoglobin 10.6 g/dL (12.0-15.0); Immature Granulocyte Percent A 1.1 % (0-0.5); Lymphocytes Absolute Auto 0.71 K/mm3 (0.9-3.2); Lymphocytes Percent Auto 8.2 % (18.3-44.2); Mean Corpuscular Hemoglobin 32.2 pg (26-34); Mean Corpuscular Volume 100.6 fl (80-100); Monocytes Absolute Auto 0.8 K/mm3 (0.1-0.6); Monocytes Percent Auto 9.2 % (2.6-8.5); Neutrophils Absolute Auto 6.9 K/mm3 (1.3-6.7); Neutrophils Percent Auto 79.5 % (45.5-73.1); Platelet Count Result 104 k/mm3 (150-375); Red Blood Count 3.29 M/mm3 (4.2-5.4); Red Cell Distribution Width 17.5 % (11.5-14.5); White Blood Count 8.7 K/mm3 (4.5-10.0)
[2019-10-19 05:27] LABS: Blood Urea Nitrogen 31 mg/dL (7-17); Calcium 8.6 mg/dL (8.4-10.2); Carbon Dioxide 31 mmol/L (22-30); Chloride 93 mmol/L (98-107); Estimated CRCL calculation 11 ml/min; Estimated Glomerular Filt Rate 13; Glucose 61 mg/dL (65-105); Potassium 4.1 mmol/L (3.4-5.0); Sodium 138 mmol/L (137-145)
[2019-10-19 06:55] LABS: Glucose Point of Care 65 (65-105)
[2019-10-19 07:16] LABS: Glucose Point of Care 111 (65-105)
[2019-10-19] MEDS: DOCUSATE SODIUM 100 MG CAPSULE PO (09:09)
[2019-10-19] MEDS: PAROXETINE 20 MG TABLET 40 MG PO (09:09)
[2019-10-19] MEDS: CYANOCOBALAMIN 1,000 MCG TABLET 1000 MCG PO (09:10)
[2019-10-19] MEDS: DONEPEZIL HCL 10 MG TABLET PO (09:10)
[2019-10-19] MEDS: CHOLECALCIFEROL 1,000 UNIT TABLET 2000 UNITS PO (09:10)
[2019-10-19] MEDS: MIDODRINE HCL 10 MG TABLET PO ×2 (09:10→16:43)
[2019-10-19] MEDS: VENLAFAXINE HCL XR 75 MG CAP.ER.24H 225 MG PO (09:10)
[2019-10-19] MEDS: FOLIC ACID 1 MG TABLET PO (09:10)
[2019-10-19 11:51] LABS: Glucose Point of Care 76 (65-105)
[2019-10-19] MEDS: allopurinoL 100 MG TABLET PO ×2 (11:55→16:43)
[2019-10-19] MEDS: ASPIRIN 81 MG ENTERIC TABLET PO (11:55)
[2019-10-19] MEDS: AMIODARONE HCL 100 MG TABLET PO (11:56)
[2019-10-19] MEDS: ALBUTEROL SULFATE NEB 2.5 MG/0.5 ML INH INHALATION ×3 (13:21→21:02)
--- NOTE | 2019-10-19 13:46 | WPDNEURORHBP ---
Subjective Date/time seen: 10/19/19 13:46 Interval history: this is a dialysis patient which is here for significant debility and weakness related to underlying multiple medical issues she really does not have much of complaints however the occupational therapist has noted that she is pocketing the food in her mouth and also the nursing personnel tells me that she has a skin tear on the left lower extremity which has been addressed with Tegaderm and active bleeding is not there person herself does not have any complaints denies any chest pain shortness of breath however does cough with the food and we will get the modified barium swallow Review of Systems Constitutional: Constitutional: Reports no additional constitutional complaints Eyes: Eyes: Reports no additional eye complaints ENT: Reports system reviewed and no additional complaints, except as documented Cardiovascular: Cardiovascular: Reports no additional cardiovascular complaints Respiratory: Respiratory: Reports no additional respiratory complaints Gastrointestinal: Gastrointestinal: Reports no additional gastrointestinal complaints Genitourinary: Genitourinary: Reports no additional female genitourinary complaints Musculoskeletal: Musculoskeletal: Reports no additional musculoskeletal complaints Integumentary/Breasts: Skin/Breast: Reports system reviewed and no additional complaints, except as docu Neurologic: Reports system reviewed and no additional complaints, except as documented Psychiatric: Psychiatric: Reports no additional psychiatric complaints Functional Status Ambulation Ability Ability to Ambulate 10 Feet: Contact Guard Ability to Ambulate 50 Feet With 2 Turns: Minimum Assistance X 1 Ambulation Assistive Devices: Walker, Wheeled Transfers Ability Ability to Transfer In/Out of Chair: Minimum Assistance X 1 Exam Const: General: comfortable and no acute distress HENMT: General nose exam: Normal nares present Mouth: Yes moist mucous membranes Eyes: General: appearance normal, both eyes and all related structures Neck: Neck: supple and no JVD Resp: Effort & Inspection: normal respiratory effort Auscultation: clear to auscultation bilaterally Cardio: Rate: regular rate Rhythm: regular rhythm GI: GI Palp: Yes Soft to palpation Auscultation: normal bowel sounds Skin: Other: patient has very fragile skin has bruising in both upper lower extremities and now fresh skin tear at the left tafoya which is dressed with Tegaderm and no active bleeding is noted Neuro: Other: apart from generalized weakness and debility she has a nonfocal examination particularly the speech and language functions are fairly decent and intact and no facial asymmetry is noted Extrem: Other: skin tear over the left leg along with the bruising of upper and lower extremities Psych: Mental Status: mental status grossly normal Objective Data Vital Signs Vital Signs: Vital Signs - 24 hr 10/18/19 14:00 10/18/19 18:11 10/18/19 18:20 Temperature 36.3 C L Pulse Rate 84 88 88 Respiratory Rate 18 18 18 Blood Pressure 123/76 Pulse Oximetry 97 10/18/19 22:00 10/19/19 06:00 10/19/19 09:00 Temperature 36.3 C L 36.3 C L Pulse Rate 78 100 83 Respiratory Rate 18 18 Blood Pressure 111/64 167/84 H 100/57 L Pulse Oximetry 98 98 10/19/19 13:22 10/19/19 13:32 Temperature Pulse Rate 80 85 Respiratory Rate 20 20 Blood Pressure Pulse Oximetry Intake/Output Intake/Output: Intake & Output 10/16/19 10/17/19 10/18/19 10/19/19 23:59 23:59 23:59 23:59 Intake Total 840 480 960 290 Output Total 0 Balance 840 480 960 290 Meds/Results Medications: Active Medications Generic Name Dose Route Start Last Admin Trade Name Freq PRN Reason Stop Dose Admin Albuterol 2.5 mg 10/19/19 20:00 Albuterol Sulf Neb 2.5mg/0.5ml INHALATION Q6HRT [facility] Allopurinol 100 mg 10/11/19 17:00 10/19/19 11:55 Zyloprim PO 100 mg TID [facility] Administra
--- NOTE | 2019-10-19 15:43 | PCPTNOTE ---
The patient treatment was not able to be completed on 10-19-2019. R.N advised not to see patient for therapy for the remainder of day due to change of medical status. Patient short 56 minutes of PT. Will plan to continue treatment per plan of care.
[2019-10-19] MEDS: IPRATROPIUM BR 0.02% INH SOLN 0.5 MG/2.5 ML VIAL INHALATION ×2 (16:06→21:02)
[2019-10-19] MEDS: PROMETHAZINE HCL 25 MG TABLET PO (16:18)
[2019-10-19 16:40] LABS: Influenza Control Positive
--- NOTE | 2019-10-19 17:06 | PM.IMCN ---
Assessment and Plan Assessment and plan (1) Shortness of breath: Code(s): R06.02 - Shortness of breath Status: Acute (2) End stage renal disease: Code(s): N18.6 - End stage renal disease Status: Chronic Assessment and Plan: Rachelle Herbert is a 79 year old female with history of CHF COPD end-stage renal disease on hemodialysis patient was recently admitted to the hospital with shortness breath and treated patient was transferred to [facility] for rehab today in the [facility] patient had developed shortness of breath chest x-ray was done patient essentially normal does not show any sign infiltrate and her pulmonary edema has resolved, currently patient is clinically stable speaks in full sentences her O2 saturation with 2 L and 96%, patient denies any fever or chills, see does complaint of indigestion feel like the foot is sitting on her chest is been going on for some time his speech evaluation is scheduled for tomorrow patient may need a modified swallow study, her daughter is present in the room, patient is clinically stable will get the patient updraft will continue to monitor (3) Atrial fibrillation: Qualifiers: Atrial fibrillation type: unspecified Qualified Code(s): I48.91 - Unspecified atrial fibrillation Code(s): I48.91 - Unspecified atrial fibrillation Status: Acute Assessment and Plan: Rate is controlled (4) Hypertension: Qualifiers: Hypertension type: essential hypertension Qualified Code(s): I10 - Essential (primary) hypertension Code(s): I10 - Essential (primary) hypertension Status: Chronic Assessment and Plan: Will continue home regimen and monitor Additional Plan Thank you for consulting us for medical management, will follow the patient with you, if you have any question please feel free to call us HPI Data of Consult Consult date: 10/19/19 Requesting Physician: Pankaj Neumann MD Primary Care Provider: Mayur HaddadMD Consult Narrative Narrative: Rachelle Herbert is a 79 year old female with history of CHF COPD end-stage renal disease on hemodialysis patient was recently admitted to the hospital with shortness breath and treated patient was transferred to [facility] for rehab today in the [facility] patient had developed shortness of breath chest x-ray was done patient essentially normal does not show any sign infiltrate and her pulmonary edema has resolved, currently patient is clinically stable speaks in full sentences her O2 saturation with 2 L and 96%, patient denies any fever or chills, see does complaint of indigestion feel like the foot is sitting on her chest is been going on for some time his speech evaluation is scheduled for tomorrow patient may need a modified swallow study, her daughter is present in the room Review of Systems Review of Systems: All systems reviewed & are unremarkable except as noted in HPI and below PMFSH Past Medical History Medical History (Updated 10/19/19 @ 17:11 by Shireen Cheng MD) AA (aortic aneurysm) Anemia due to chronic kidney disease, on chronic dialysis Angina at rest Anxiety Arthritis AV fistula CAD (coronary artery disease) of artery bypass graft Cataract CHF (congestive heart failure) Compression fracture of L1 lumbar vertebra COPD (chronic obstructive pulmonary disease) Depression End stage renal disease on dialysis Gout Hypercholesterolemia Hypertension Hypothyroidism Parkinson's disease Pneumonia Pyuria Renal disease Urinary tract infection due to ESBL Klebsiella UTI (urinary tract infection) Valvular heart disease Surgical History Surgical History H/O aortic valve replacement She thinks is mechanical. H/O bilateral cataract extraction H/O cardiac catheterization H/O: hysterectomy History of left knee replacement Hx of CABG She thinks it was 2 vessel Hx of tonsillectomy S/P aneurysm repair S/P dialysis catheter insertion
[2019-10-19 17:43] LABS: Glucose Point of Care 77 (65-105)
[2019-10-19] MEDS: QUEtiapine FUMARATE 25 MG TABLET 50 MG PO (21:12)
[2019-10-19] MEDS: PRAVASTATIN SODIUM 20 MG TABLET 40 MG PO (21:12)
[2019-10-19] MEDS: MELATONIN 3 MG TABLET PO (21:12)
[2019-10-19 21:28] LABS: Glucose Point of Care 78 (65-105)
[2019-10-20] VITALS (34 sets, daily range): BP systolic 97–146; BP diastolic 36–100; PULSE 63–89; RESP 14–20; TEMP 36.1–37; O2SAT 91–98
[2019-10-20] MEDS: IPRATROPIUM BR 0.02% INH SOLN 0.5 MG/2.5 ML VIAL INHALATION ×6 (00:46→21:25)
[2019-10-20] MEDS: ALBUTEROL SULFATE NEB 2.5 MG/0.5 ML INH INHALATION ×6 (00:47→21:25)
[2019-10-20] MEDS: LEVOTHYROXINE SODIUM 150 MCG TABLET PO (05:35)
--- NOTE | 2019-10-20 06:58 | PC.NURSE ---
0645 blood sugar 59 at 0643-refused glucose gel; apple juice and snack given. will continue to monitor.
[2019-10-20 07:06] LABS: Glucose Point of Care 59 (65-105)
[2019-10-20 07:22] LABS: Glucose Point of Care 99 (65-105)
[2019-10-20] MEDS: allopurinoL 100 MG TABLET PO ×3 (09:16→18:06)
[2019-10-20] MEDS: AMIODARONE HCL 100 MG TABLET PO (09:17)
[2019-10-20] MEDS: CYANOCOBALAMIN 1,000 MCG TABLET 1000 MCG PO (09:17)
[2019-10-20] MEDS: CHOLECALCIFEROL 1,000 UNIT TABLET 2000 UNITS PO (09:17)
[2019-10-20] MEDS: ASPIRIN 81 MG ENTERIC TABLET PO (09:17)
[2019-10-20] MEDS: DONEPEZIL HCL 10 MG TABLET PO (09:18)
[2019-10-20] MEDS: FOLIC ACID 1 MG TABLET PO (09:18)
[2019-10-20] MEDS: DOCUSATE SODIUM 100 MG CAPSULE PO (09:18)
[2019-10-20] MEDS: PAROXETINE 20 MG TABLET 40 MG PO (09:19)
[2019-10-20] MEDS: VENLAFAXINE HCL XR 75 MG CAP.ER.24H 225 MG PO (09:19)
[2019-10-20] MEDS: polyethylene glycoL 3350 17 GM POWD.PACK PO (09:19)
[2019-10-20] MEDS: MIDODRINE HCL 10 MG TABLET PO ×2 (09:19→18:07)
--- NOTE | 2019-10-20 09:42 | PCOTNOTE ---
Attempted to see Pt. for A.M. treatment session at this time. Pt. c/o increased difficulty breathing, feels like she has food stuck. Pt. refused to participate in any treatment at this time. Pt.'s RN was notified and aware. Will attempted again at a later time.
--- NOTE | 2019-10-20 11:34 | PCOTNOTE ---
Attempted again to perform Pt.'s A.M. treatment session. Pt.'s daughter present and encouraging Pt. to participate. Pt. declining, Pt.'s daughter started to attempt to wipe her mother down to try and clean up a bit, Pt. upset, stating it hurts my skin to be touched so bad, just leave me to rest . Pt.'s daughter and myself unable to get Pt. to motivate to participate in therapy services this A.M.
[2019-10-20 12:27] LABS: Glucose Point of Care 102 (65-105)
--- NOTE | 2019-10-20 12:52 | PCSTNOTE ---
Please refer to the Bedside Swallow Evaluation in the EMR.
--- NOTE | 2019-10-20 13:34 | PCOTNOTE ---
Attempted OT treatment, but unable to complete as patient leaving for dialysis. Patient did not receive full OT minutes this date.
--- NOTE | 2019-10-20 15:48 | PCPTNOTE ---
LIMITED PHYSICAL THERAPY TREATMENT THIS DATE DUE TO PATIENT NOT FEELING WELL AND ATTEMPTED TO SIT PATIENT ON SIDE OF BED THIS PM, HOWEVER PATIENT C/O SOB- PULSE OX 83% AND PATIENT PUT ON 2L 02. NURSE PRESENT.
--- NOTE | 2019-10-20 16:17 | PM.PNNEP ---
Progress Note: A&P Assessment and Plan (1) End stage renal disease on dialysis: Code(s): N18.6 - End stage renal disease; Z99.2 - Dependence on renal dialysis Status: Chronic Assessment and Plan: HD today and continue M/W/F schedule electrolytes, volume status, and clearance acceptable (2) CHF (congestive heart failure): Code(s): I50.9 - Heart failure, unspecified Status: Acute Assessment and Plan: appears compensated CXR results noted continue fluid removal PRN with dialysius (3) Hypertension: Qualifiers: Hypertension type: essential hypertension Qualified Code(s): I10 - Essential (primary) hypertension Code(s): I10 - Essential (primary) hypertension Status: Chronic Assessment and Plan: stable but has issues with hypotension noted on midodine as well Will continue to follow. Subjective Date/time seen: 10/20/19 16:17 Tolerating dialysis treatment at the time of my visit (seen on HD at ~ 4:00PM); apparently, hypoxic yesterday but in no apparent distress and CXR negative; no acute complaints today Exam Narrative: Exam Narrative: General: WD/WN female in NAD Heart: normal S1 and S2; no rub Lungs: coarse breath sounds at bases Abdomen: soft, nontender, nondistended, positive bowel sounds Extremities: no cyanosis or clubbing; no edema Skin: warm and dry Objective Data Vital Signs Vital Signs: Vital Signs Temp Pulse Resp BP Pulse Ox 10/20/19 16:15 83 100/65 10/20/19 16:00 80 122/64 10/20/19 15:45 80 109/62 10/20/19 15:30 80 118/50 L 10/20/19 15:15 80 107/63 10/20/19 15:00 78 118/44 L 10/20/19 14:45 80 118/68 10/20/19 14:30 84 146/36 H 10/20/19 14:15 79 127/58 L 10/20/19 14:00 89 115/57 L 10/20/19 13:49 80 113/50 L 10/20/19 13:31 36.6 C 80 18 107/60 10/20/19 11:40 81 20 10/20/19 11:24 80 20 10/20/19 09:17 63 10/20/19 07:41 63 20 10/20/19 07:34 80 20 91 10/20/19 06:00 36.4 C L 79 16 145/100 H 91 10/20/19 04:56 79 18 10/20/19 04:45 80 18 10/20/19 01:00 78 18 10/20/19 00:54 80 20 91 10/20/19 00:50 80 18 10/19/19 21:11 85 18 10/19/19 21:10 99 10/19/19 21:07 36.6 C 80 16 109/64 99 10/19/19 21:03 82 18 10/19/19 18:55 36.6 C 81 18 109/60 100 Intake/Output Intake/Output: Intake & Output 10/17/19 10/18/19 10/19/19 10/20/19 23:59 23:59 23:59 23:59 Intake Total 480 960 530 120 Output Total 0 Balance 480 960 530 120 Meds/Results Medications: Active Medications Generic Name Dose Route Start Last Admin Trade Name Freq PRN Reason Stop Dose Admin Albuterol 2.5 mg 10/19/19 16:00 10/20/19 11:23 Albuterol Sulf Neb 2.5mg/0.5ml INHALATION 2.5 mg Q4HRT KATIE Administration Allopurinol 100 mg 10/11/19 17:00 10/20/19 13:07 Zyloprim PO 100 mg TID KATIE Administration Amiodarone HCl 100 mg 10/12/19 09:00 10/20/19 09:17 Pacerone PO 100 mg DAILY KATIE Administration Aspirin 81 mg 10/12/19 09:00 10/20/19 09:17 Aspirin Ec PO 81 mg DAILY KATIE Administration Bumetanide 2 mg 10/14/19 09:00 10/18/19 08:54 Bumex Po PO 2 mg TuThSa@0900 KATIE Administration Cyanocobalamin 1,000 mcg 10/12/19 09:00 10/20/19 09:17 Vitamin B-12 Tab PO 1,000 mcg DAILY KATIE Administration Dextrose 12.5 gm 10/11/19 15:20 Dextrose 50% Syringe IV PUSH PRN PRN Hypoglycemia Protocol Diltiazem HCl 120 mg 10/18/19 09:00 10/20/19 09:18 Cardizem Cd PO 120 mg QAM KATIE Administration Docusate Sodium 100 mg 10/12/19 09:00 10/20/19 09:18 Colace Capsule PO 100 mg DAILY KATIE Administration Docusate Sodium 100 mg 10/11/19 16:00 Colace Capsule PO Q12H PRN Constipation Donepezil HCl 10 mg 10/12/19 09:00 10/20/19 09:18 Aricept PO 10 mg DAILY KATIE Administration Folic Acid
--- NOTE | 2019-10-20 16:20 | WPDGICN ---
Assessment and Plan Additional Plan This is an 79-year-old white female patient mass see because of ongoing nausea. Patient current we a resident of the rehab floor. Patient initially admitted to the hospital 09/13/2019 with a urinary tract infection. She has end-stage renal disease was in dialysis became somewhat short of breath. Upon presenting to the hospital was felt to have exacerbation of COPD congestive heart failure and was found to have a urinary tract infection. She ultimately was transferred to the rehab floor yesterday. She continues to feel bloating in the upper abdomen and a poor appetite. Apparently has been more confused over the last 2 days. Notes an intermittent cough. Patient has difficulty given a complete history and history is obtained with the assistance of her daughter. Past medical history is significant for an aortic aneurysm. Chronic anemia related to chronic kidney disease. She is on chronic dialysis. She has been treated for coronary artery disease. She is known to have congestive heart failure. She suffers with COPD. She has a history of gout hypercholesterolemia, depression, Parkinson's disease, as a recent urinary tract infection. Previous surgery includes aortic valve replacement. History heart catheterization, history of hysterectomy. History of coronary artery bypass grafting. History of knee replacement. Medications include a longer in 8. Allopurinol. Amiodarone. Bumex. Vitamin D3. B12. Diltiazem. Colace. Aricept. Folic acid. Levothyroxine. Midodrine. Paxil. MiraLax. Pravastatin. Venlafaxine. Allergies include lisinopril. Physical exam reveals her to be alert somewhat lethargic. She is anicteric. Lungs are clear to auscultation and percussion. Heart is without murmur abdominal exam bowel sounds are present soft nontender no organomegaly is appreciated is she is somewhat obese. Labs reveal WBC 8.7, hemoglobin 10.6, hematocrit 33, MCV 100.6. Platelets are 104. BUN 31 creatinine 3.4. Impression 1. Nausea. Appears to be multifactorial. Likely related to her azotemia and chronic kidney disease. Is possible this is related to some of her medications. Cannot exclude is related to her COPD and congestive heart failure. She is also status post recent urinary tract infection which could contribute to her nausea. At the present time would recommend conservative therapy and attention being treated towards correcting her multiple medical problems. Invasive testing is not felt warranted at this time. 2. End-stage renal disease. Patient is on dialysis. Elevated creatinine is noted. 3. Atrial fibrillation. 4. COPD. 5. Congestive heart failure. 6. Hypertension. 7. Resolving thrombocytopenia. Plan is to limit diet at this time. Elevate head of bed. Supportive care for now. Given her recent increasing confusion over the last 3 2 days suspect her nausea may be related we will follow with you. GI Consult Note Consult date/time: 10/20/19 16:20 HPI: February Mayi Herbert is a 79 year old female [facility] Past Medical History Medical History (Updated 10/19/19 @ 17:11 by Shireen Cheng MD) AA (aortic aneurysm) Anemia due to chronic kidney disease, on chronic dialysis Angina at rest Anxiety Arthritis AV fistula CAD (coronary artery disease) of artery bypass graft Cataract CHF (congestive heart failure) Compression fracture of L1 lumbar vertebra COPD (chronic obstructive pulmonary disease) Depression End stage renal disease on dialysis Gout Hypercholesterolemia Hypertension Hypothyroidism Parkinson's disease Pneumonia Pyuria Renal disease Urinary tract infection due to ESBL Klebsiella UTI (urinary tract infection) Valvular heart disease Surgical History Surgical History H/O aortic valve replacement She thinks is mechanical. H/O bilateral cataract extraction H/O cardiac catheterization H/O: hysterectomy History of left kn
[2019-10-20] MEDS: EPOETIN ALFA 2,000 UNITS/ML VIAL 2000 UNITS IV PUSH (16:31)
[2019-10-20] MEDS: HEPARIN SODIUM 1,000 UNITS/ML VIAL 1000 UNITS IV PUSH (18:07)
[2019-10-20 18:23] LABS: Glucose Point of Care 104 (65-105)
--- NOTE | 2019-10-20 19:12 | PM.IMPN ---
Progress Note: A&P Assessment and Plan (1) Shortness of breath: Code(s): R06.02 - Shortness of breath Status: Acute (2) End stage renal disease: Code(s): N18.6 - End stage renal disease Status: Chronic Assessment and Plan: Rachelle Herbert is a 79 year old female with history of CHF COPD end-stage renal disease on hemodialysis patient was recently admitted to the hospital with shortness breath and treated patient was transferred to [facility] for rehab today in the [facility] patient had developed shortness of breath chest x-ray was done patient essentially normal does not show any sign infiltrate and her pulmonary edema has resolved, currently patient is clinically stable speaks in full sentences her O2 saturation with 2 L and 96%, patient denies any fever or chills, see does complaint of indigestion feel like the foot is sitting on her chest is been going on for some time his speech evaluation is scheduled for tomorrow patient may need a modified swallow study, her daughter is present in the room, patient is clinically stable will get the patient updraft will continue to monitor today patient was seen in dialysis is feeling much better compared to yesterday not a short of breath, patient is seen by GI recommending conservative management with a close follow-up further recommendation to follow (3) Atrial fibrillation: Qualifiers: Atrial fibrillation type: unspecified Qualified Code(s): I48.91 - Unspecified atrial fibrillation Code(s): I48.91 - Unspecified atrial fibrillation Status: Acute Assessment and Plan: Rate is controlled (4) Hypertension: Qualifiers: Hypertension type: essential hypertension Qualified Code(s): I10 - Essential (primary) hypertension Code(s): I10 - Essential (primary) hypertension Status: Chronic Assessment and Plan: Will continue home regimen and monitor Additional Plan Thank you for consulting us for medical management, will follow the patient with you, if you have any question please feel free to call us Subjective Date/time seen: 10/20/19 19:12 Interval history: Rachelle Herbert is a 79 year old female with history of CHF COPD end-stage renal disease on hemodialysis patient was recently admitted to the hospital with shortness breath and treated patient was transferred to [facility] for rehab today in the [facility] patient had developed shortness of breath chest x-ray was done patient essentially normal does not show any sign infiltrate and her pulmonary edema has resolved, currently patient is clinically stable speaks in full sentences her O2 saturation with 2 L and 96%, patient denies any fever or chills, see does complaint of indigestion feel like the foot is sitting on her chest is been going on for some time his speech evaluation is scheduled for tomorrow patient may need a modified swallow study, her daughter is present in the room, patient is clinically stable will get the patient updraft will continue to monitor today patient was seen in dialysis is feeling much better compared to yesterday not a short of breath, patient is seen by GI recommending conservative management with a close follow-up further recommendation to follow Review of Systems Review of Systems: All systems reviewed & are unremarkable except as noted in HPI and below Exam Narrative: Exam Narrative: Patient is elderly frail Const: General: comfortable and no acute distress HENMT: General nose exam: Normal nares present Mouth: Yes moist mucous membranes Eyes: General: appearance normal, both eyes and all related structures Sclera: sclerae normal Neck: Neck: supple Resp: Other: Bilateral fair air entry with minimal rhonchi Cardio: Rate: regular rate Rhythm: regular rhythm GI: Auscultation: normal bowel sounds Skin: Other: Patient has some bruising on her upper arm, left lower extremity patient had a skin tear it was dressed and covered Neuro: Speech: normal speech
[2019-10-20] MEDS: MELATONIN 3 MG TABLET PO (20:14)
[2019-10-20] MEDS: PRAVASTATIN SODIUM 20 MG TABLET 40 MG PO (20:14)
[2019-10-20] MEDS: QUEtiapine FUMARATE 25 MG TABLET 50 MG PO (20:14)
[2019-10-20 21:29] LABS: Glucose Point of Care 98 (65-105)
[2019-10-20 22:36] LABS: Add Urine Microscopic? YES; Appearance Urine Cloudy (Clear); Bacteria Urine 3+ /hpf; Bilirubin Urine 2+ (Negative); Blood Urine 2+ (Negative); Color Urine Amber (Yellow); Glucose Urine UA Negative (Negative); Ketones Urine Negative (Negative); Leukocyte Esterase Ur 2+ LEU/UL (Negative); Mucus Urine Rare /lpf; Nitrate Urine Negative (Negative); Protein Urine 2+ mg/dL (Negative); Specific Grav Ur 1.023 (1.001-1.035); Squamous Epithelial Cell Urine Many /hpf (Few); WBC Clumps Urine Present /HPF; WBC Urine 51-75 /hpf
[2019-10-21] VITALS (13 sets, daily range): BP systolic 107–127; BP diastolic 60–83; PULSE 72–107; RESP 16–20; TEMP 36.4–36.5; O2SAT 90–98
--- NOTE | 2019-10-21 02:02 | PC.NURSE ---
paranoid, says we are trying to kick her out of here, she called both son and daughter and they came to bedside, no improvement in paranoia, doreen crnp notified, she will review chart
[2019-10-21] MEDS: ALBUTEROL SULFATE NEB 2.5 MG/0.5 ML INH INHALATION ×4 (02:51→21:16)
[2019-10-21] MEDS: IPRATROPIUM BR 0.02% INH SOLN 0.5 MG/2.5 ML VIAL INHALATION ×4 (02:52→21:16)
--- NOTE | 2019-10-21 04:03 | PC.NURSE ---
family still at bedside, pt still paranoid, calmer, has not been asleep, no distress noted
[2019-10-21] MEDS: LEVOTHYROXINE SODIUM 150 MCG TABLET PO (06:08)
[2019-10-21 07:00] LABS: Glucose Point of Care 70 (65-105)
[2019-10-21] MEDS: MIDODRINE HCL 10 MG TABLET PO ×2 (09:44→17:49)
[2019-10-21] MEDS: allopurinoL 100 MG TABLET PO ×3 (09:44→17:49)
[2019-10-21] MEDS: BUMETANIDE 1 MG TABLET 2 MG PO (09:46)
[2019-10-21] MEDS: AMIODARONE HCL 100 MG TABLET PO (09:46)
[2019-10-21] MEDS: CHOLECALCIFEROL 1,000 UNIT TABLET 2000 UNITS PO (09:46)
[2019-10-21] MEDS: ASPIRIN 81 MG ENTERIC TABLET PO (09:46)
[2019-10-21] MEDS: FOLIC ACID 1 MG TABLET PO (09:47)
[2019-10-21] MEDS: CYANOCOBALAMIN 1,000 MCG TABLET 1000 MCG PO (09:47)
[2019-10-21] MEDS: DOCUSATE SODIUM 100 MG CAPSULE PO (09:47)
[2019-10-21] MEDS: DONEPEZIL HCL 10 MG TABLET PO (09:47)
[2019-10-21] MEDS: VENLAFAXINE HCL XR 75 MG CAP.ER.24H 225 MG PO (09:48)
[2019-10-21] MEDS: PAROXETINE 20 MG TABLET 40 MG PO (09:48)
[2019-10-21] MEDS: polyethylene glycoL 3350 17 GM POWD.PACK PO (09:48)
--- NOTE | 2019-10-21 10:55 | PC.NURSE ---
Dr. Cheng spoke with family regarding code status, and family doos not want to chanhe at this time. Will continue Full Code.
--- NOTE | 2019-10-21 11:07 | WPDGIPROGNO ---
Progress Note: A&P Additional Plan Patient more alert today. Tolerating diet without nausea. She received dialysis last evening. Physical exam reveals her to be alert. She remains weak however at bedrest. Lungs reveal a few rales. Heart without murmur. Abdomen bowel sounds are present soft and nontender. Impression 1. Nausea and vomiting. Likely related azotemia. This has improved dramatically with dialysis. 2. End-stage renal disease on dialysis. 3. Confusion. Appears to have been related to azotemia. 4. Congestive heart failure. Improved with dialysis as well. 5. COPD. Plan is for continued therapy directed towards her azotemia and end-stage renal disease. No additional GI workup felt warranted at this time. Subjective Date/time seen: 10/21/19 11:07 Objective Data Vital Signs Vital Signs: Vital Signs - 24 hr 10/20/19 11:24 10/20/19 11:40 10/20/19 13:31 Temperature 36.6 C Pulse Rate 80 81 80 Respiratory Rate 20 20 18 Blood Pressure 107/60 Pulse Oximetry 10/20/19 13:49 10/20/19 14:00 10/20/19 14:15 Temperature Pulse Rate 80 89 79 Respiratory Rate Blood Pressure 113/50 L 115/57 L 127/58 L Pulse Oximetry 10/20/19 14:30 10/20/19 14:45 10/20/19 15:00 Temperature Pulse Rate 84 80 78 Respiratory Rate Blood Pressure 146/36 H 118/68 118/44 L Pulse Oximetry 10/20/19 15:15 10/20/19 15:30 10/20/19 15:45 Temperature Pulse Rate 80 80 80 Respiratory Rate Blood Pressure 107/63 118/50 L 109/62 Pulse Oximetry 10/20/19 16:00 10/20/19 16:15 10/20/19 16:30 Temperature Pulse Rate 80 83 81 Respiratory Rate Blood Pressure 122/64 100/65 103/64 Pulse Oximetry 10/20/19 16:44 10/20/19 16:45 10/20/19 16:52 Temperature Pulse Rate 82 84 80 Respiratory Rate 20 20 Blood Pressure 106/54 L Pulse Oximetry 10/20/19 17:00 10/20/19 17:15 10/20/19 17:20 Temperature Pulse Rate 84 84 80 Respiratory Rate Blood Pressure 108/58 L 112/69 115/64 Pulse Oximetry 10/20/19 17:25 10/20/19 21:25 10/20/19 21:35 Temperature 36.6 C Pulse Rate 88 79 79 Respiratory Rate 14 20 20 Blood Pressure 97/54 L Pulse Oximetry 92 10/20/19 22:00 10/21/19 02:45 10/21/19 02:55 Temperature 36.6 C Pulse Rate 79 83 85 Respiratory Rate 18 20 20 Blood Pressure 111/62 Pulse Oximetry 98 10/21/19 06:00 10/21/19 08:03 10/21/19 09:46 Temperature 36.5 C Pulse Rate 107 H 91 91 Respiratory Rate 18 20 Blood Pressure 127/83 Pulse Oximetry 97 98 Intake/Output Intake/Output: Intake & Output 10/18/19 10/19/19 10/20/19 10/21/19 23:59 23:59 23:59 23:59 Intake Total 960 530 240 Output Total 900 Balance 960 530 -660 Meds/Results Medications: Active Medications Generic Name Dose Route Start Last Admin Trade Name Freq PRN Reason Stop Dose Admin Albuterol 2.5 mg 10/20/19 20:00 10/21/19 08:03 Albuterol Sulf Neb 2.5mg/0.5ml INHALATION 2.5 mg Q6HRT KATIE Administration Allopurinol 100 mg 10/11/19 17:00 10/21/19 09:44 Zyloprim PO 100 mg TID KATIE Administration Amiodarone HCl 100 mg 10/12/19 09:00 10/21/19 09:46 Pacerone PO 100 mg DAILY KATIE Administration Aspirin 81 mg 10/12/19 09:00 10/21/19 09:46 Aspirin Ec PO 81 mg DAILY KATIE Administration Bumetanide 2 mg 10/14/19 09:00 10/21/19 09:46 Bumex Po PO 2 mg TuThSa@0900 KATIE Administration Cyanocobalamin 1,000 mcg 10/12/19 09:00 10/21/19 09:47 Vitamin B-12 Tab PO 1,000 mcg DAILY KATIE Administration Dextrose 12.5 gm 10/11/19 15:20 Dextrose 50% Syringe IV PUSH PRN PRN Hypoglycemia Protocol Diltiazem HCl 120 mg 10/18/19 09:00 10/21/19 09:47 Cardizem Cd PO 120 mg QAM KATIE Administration Docusate Sodium 100 mg 10/12/19 09:00 10/21/19 09:47 Colace Capsule PO 100 mg DAILY KATIE Administration Docusate Sodium 100 mg 10/11/19 16:00 Colace Capsule PO Q12H PRN Con
--- NOTE | 2019-10-21 12:05 | WPDNEURORHBP ---
Subjective Date/time seen: 10/21/19 12:05 Interval history: the patient is definitely better today comparing to previous couple of days when she has hypotension and needed a hospitalist consult followed by GI consult but they both recommended the conservative treatment and monitoring on the acute rehab floor patient remains awake and alert oriented x3 however generally weak fatigue and exhausted and needing more assist than the previous days but it does fluctuate day-to-day Patient denies any headache chest pain shortness of breath or lateralizing focal motor deficit Review of Systems Constitutional: Constitutional: Reports no additional constitutional complaints Eyes: Eyes: Reports no additional eye complaints ENT: Reports system reviewed and no additional complaints, except as documented Cardiovascular: Cardiovascular: Reports no additional cardiovascular complaints Respiratory: Respiratory: Reports no additional respiratory complaints Gastrointestinal: Gastrointestinal: Reports no additional gastrointestinal complaints Genitourinary: Genitourinary: Reports no additional female genitourinary complaints Musculoskeletal: Musculoskeletal: Reports no additional musculoskeletal complaints Integumentary/Breasts: Skin/Breast: Reports system reviewed and no additional complaints, except as docu Neurologic: Reports system reviewed and no additional complaints, except as documented Psychiatric: Psychiatric: Reports no additional psychiatric complaints Functional Status Ambulation Ability Ability to Ambulate 10 Feet: Contact Guard Ability to Ambulate 50 Feet With 2 Turns: Minimum Assistance X 1 Ambulation Assistive Devices: Walker, Wheeled Transfers Ability Ability to Transfer In/Out of Chair: Minimum Assistance X 1 Exam Const: General: comfortable and no acute distress HENMT: General nose exam: Normal nares present Mouth: Yes moist mucous membranes Eyes: General: appearance normal, both eyes and all related structures Neck: Neck: supple and no JVD Resp: Effort & Inspection: normal respiratory effort Auscultation: clear to auscultation bilaterally Cardio: Rate: regular rate Rhythm: regular rhythm GI: GI Palp: Yes Soft to palpation Auscultation: normal bowel sounds Skin: Other: bruising and skin tear as mentioned before Neuro: Other: patient's strength is definitely improved her mental status fluctuates and the myoclonic jerks she has had in the previous 24 to 48 hours gone Extrem: Other: bruising and tears as mentioned before Psych: Mental Status: mental status grossly normal Objective Data Vital Signs Vital Signs: Vital Signs - 24 hr 10/20/19 13:31 10/20/19 13:49 10/20/19 14:00 Temperature 36.6 C Pulse Rate 80 80 89 Respiratory Rate 18 Blood Pressure 107/60 113/50 L 115/57 L Pulse Oximetry 10/20/19 14:15 10/20/19 14:30 10/20/19 14:45 Temperature Pulse Rate 79 84 80 Respiratory Rate Blood Pressure 127/58 L 146/36 H 118/68 Pulse Oximetry 10/20/19 15:00 10/20/19 15:15 10/20/19 15:30 Temperature Pulse Rate 78 80 80 Respiratory Rate Blood Pressure 118/44 L 107/63 118/50 L Pulse Oximetry 10/20/19 15:45 10/20/19 16:00 10/20/19 16:15 Temperature Pulse Rate 80 80 83 Respiratory Rate Blood Pressure 109/62 122/64 100/65 Pulse Oximetry 10/20/19 16:30 10/20/19 16:44 10/20/19 16:45 Temperature Pulse Rate 81 82 84 Respiratory Rate 20 Blood Pressure 103/64 106/54 L Pulse Oximetry 10/20/19 16:52 10/20/19 17:00 10/20/19 17:15 Temperature Pulse Rate 80 84 84 Respiratory Rate 20 Blood Pressure 108/58 L 112/69 Pulse Oximetry 10/20/19 17:20 10/20/19 17:25 10/20/19 21:25 Temperature 36.6 C Pulse Rate 80 88 79 Respiratory Rate 14 20 Blood Pressure 115/64 97/54 L Pulse Oximetry 10/20/19 21:35 10/20/19 22:00 10/21/19 02:45 Temperature 36.6 C Pulse Rate 79 79 83 Respiratory Rate 20 18 20 Blood Pressure 11
[2019-10-21 12:07] LABS: Glucose Point of Care 85 (65-105)
--- NOTE | 2019-10-21 12:42 | PCDIET ---
Nutrition Follow-Up Complete: Suboptimal oral intake related to decreased appetite as evidenced by patient statements, intake records. Intakes greater than 50%, supplement acceptance. Goal:Pt's average meal consumption is 50% along with taking supplemental Ensure Compact TID. Nutrition recommendation: Continuation of Regular Diet and Supplemental drinks TID to provide adequate caloric and protein levels to meet pt's needs. Last recorded weight is 70.9 kg. Bowel Motility:+BM 10/21 Labs Reviewed: Na(138), K(4.1), GFR(13), BUN(31), Cr(3.40), Glu(61), Ca(8.6), Cl(93) Meds Noted:Vit D, B12, Colace, folic acid, bumex, miralax Additional Notes: Yesterday pt found hypoxic with nausea and feeling of fullness. GI consulted and issue resolved. Pt staes she feels much better and is not experiencing N/V, only slight nasal congestion. For breakfast 10/21: cereal, sausage, toast, orange juice and coffee. Follow up in 3 days.
--- NOTE | 2019-10-21 14:23 | PCNSR ---
On 10/21/19, the student, Bing Melvin, provided care and completed [facility] documentation on this patient. I have reviewed the student's documentation and agree with the findings.
[2019-10-21 17:14] LABS: Glucose Point of Care 90 (65-105)
--- NOTE | 2019-10-21 18:43 | PM.IMPN ---
Progress Note: A&P Assessment and Plan (1) Shortness of breath: Code(s): R06.02 - Shortness of breath Status: Acute (2) End stage renal disease: Code(s): N18.6 - End stage renal disease Status: Chronic Assessment and Plan: Rachelle Herbert is a 79 year old female with history of CHF COPD end-stage renal disease on hemodialysis patient was recently admitted to the hospital with shortness breath and treated patient was transferred to [facility] for rehab today in the [facility] patient had developed shortness of breath chest x-ray was done patient essentially normal does not show any sign infiltrate and her pulmonary edema has resolved, currently patient is clinically stable speaks in full sentences her O2 saturation with 2 L and 96%, patient denies any fever or chills, see does complaint of indigestion feel like the foot is sitting on her chest is been going on for some time his speech evaluation is scheduled for tomorrow patient may need a modified swallow study, her daughter is present in the room, patient is clinically stable will get the patient updraft will continue to monitor today patient was seen in dialysis is feeling much better compared to yesterday not a short of breath, patient is seen by GI recommending conservative management with a close follow-up further recommendation to follow, today patient is feeling much better and will participating in PT/OT patient daughter is present in the room (3) Atrial fibrillation: Qualifiers: Atrial fibrillation type: unspecified Qualified Code(s): I48.91 - Unspecified atrial fibrillation Code(s): I48.91 - Unspecified atrial fibrillation Status: Acute Assessment and Plan: Rate is controlled (4) Hypertension: Qualifiers: Hypertension type: essential hypertension Qualified Code(s): I10 - Essential (primary) hypertension Code(s): I10 - Essential (primary) hypertension Status: Chronic Assessment and Plan: Will continue home regimen and monitor Additional Plan Thank you for consulting us for medical management, will follow the patient with you, if you have any question please feel free to call us Subjective Date/time seen: 10/21/19 18:43 Interval history: Rachelle Herbert is a 79 year old female with history of CHF COPD end-stage renal disease on hemodialysis patient was recently admitted to the hospital with shortness breath and treated patient was transferred to [facility] for rehab today in the [facility] patient had developed shortness of breath chest x-ray was done patient essentially normal does not show any sign infiltrate and her pulmonary edema has resolved, currently patient is clinically stable speaks in full sentences her O2 saturation with 2 L and 96%, patient denies any fever or chills, see does complaint of indigestion feel like the foot is sitting on her chest is been going on for some time his speech evaluation is scheduled for tomorrow patient may need a modified swallow study, her daughter is present in the room, patient is clinically stable will get the patient updraft will continue to monitor today patient was seen in dialysis is feeling much better compared to yesterday not a short of breath, patient is seen by GI recommending conservative management with a close follow-up further recommendation to follow, today patient is feeling much better and will participating in PT/OT patient daughter is present in the room Review of Systems Review of Systems: All systems reviewed & are unremarkable except as noted in HPI and below Exam Narrative: Exam Narrative: Patient is elderly frail Const: General: comfortable and no acute distress HENMT: General nose exam: Normal nares present Mouth: Yes moist mucous membranes Eyes: General: appearance normal, both eyes and all related structures Sclera: sclerae normal Neck: Neck: supple Resp: Other: Bilateral fair air entry with minimal rhonchi Cardio: Rate: regular rate
[2019-10-21] MEDS: PRAVASTATIN SODIUM 20 MG TABLET 40 MG PO (21:15)
[2019-10-21] MEDS: MELATONIN 3 MG TABLET PO (21:23)
[2019-10-21] MEDS: QUEtiapine FUMARATE 25 MG TABLET 50 MG PO (21:24)
[2019-10-22] VITALS (8 sets, daily range): BP systolic 101; BP diastolic 68; PULSE 63–84; RESP 16–20; TEMP 36.3; O2SAT 81–95
[2019-10-22] MEDS: ALBUTEROL SULFATE NEB 2.5 MG/0.5 ML INH INHALATION ×2 (02:17→09:59)
[2019-10-22] MEDS: IPRATROPIUM BR 0.02% INH SOLN 0.5 MG/2.5 ML VIAL INHALATION ×2 (02:17→09:59)
[2019-10-22] MEDS: LEVOTHYROXINE SODIUM 150 MCG TABLET PO ×2 (06:16→06:18)
[2019-10-22 08:11] LABS: Glucose Point of Care 60 (65-105)
--- NOTE | 2019-10-22 08:20 | PCOTNOTE ---
Pt. scheduled for OT treatment session this A.M. Prior to Pt.'s scheduled session. Pt. having decreased blood sugar and Pt. requiring attention to correct with nursing. Therapist assisting nurse with Pt.'s condition due to decreased safety sitting up in chair. Pt. is unable to receive therapy services at this time. Pt. having tests and will follow up at a later time.
[2019-10-22 08:51] LABS: Glucose Point of Care 114 (65-105)
[2019-10-22 08:51] LABS: Glucose Point of Care 86 (65-105)
[2019-10-22 08:55] LABS: Hematocrit 34.6 % (37.0-47.0); Hemoglobin 10.9 g/dL (12.0-15.0); Mean Corpuscular HGB Conc 31.5 g/dl (32-36); Mean Corpuscular Hemoglobin 32.5 pg (26-34); Mean Corpuscular Volume 103.3 fl (80-100); Mean Platelet Volume 12.7 fl (7.4-10.4); Platelet Count Result 128 k/mm3 (150-375); Red Blood Count 3.35 M/mm3 (4.2-5.4); Red Cell Distribution Width 17.9 % (11.5-14.5); White Blood Count 12.7 K/mm3 (4.5-10.0)
[2019-10-22 09:09] LABS: Alanine Aminotransferase 54 U/L (4-35); Albumin Level 3.5 g/dL (3.5-5.1); Alkaline Phosphatase 224 U/L (38-126); Aspartate Amino Transferase 69 U/L (14-36); Bilirubin,Total 1.8 mg/dL (0.2-1.3); Blood Urea Nitrogen 31 mg/dL (7-17); Calcium 8.9 mg/dL (8.4-10.2); Carbon Dioxide 22 mmol/L (22-30); Chloride 91 mmol/L (98-107); Estimated CRCL calculation 10 ml/min; Estimated Glomerular Filt Rate 11; Glucose 95 mg/dL (65-105); Potassium 5.8 mmol/L (3.4-5.0); Sodium 131 mmol/L (137-145)
[2019-10-22] MEDS: MIDODRINE HCL 10 MG TABLET PO (10:09)
[2019-10-22] MEDS: FOLIC ACID 1 MG TABLET PO (10:10)
[2019-10-22] MEDS: DOCUSATE SODIUM 100 MG CAPSULE PO (10:10)
[2019-10-22] MEDS: VENLAFAXINE HCL XR 75 MG CAP.ER.24H 225 MG PO (10:10)
[2019-10-22] MEDS: PAROXETINE 20 MG TABLET 40 MG PO (10:11)
[2019-10-22] MEDS: polyethylene glycoL 3350 17 GM POWD.PACK PO (10:11)
[2019-10-22] MEDS: allopurinoL 100 MG TABLET PO (10:12)
[2019-10-22] MEDS: ASPIRIN 81 MG ENTERIC TABLET PO (10:12)
[2019-10-22] MEDS: CHOLECALCIFEROL 1,000 UNIT TABLET 2000 UNITS PO (10:12)
[2019-10-22] MEDS: AMIODARONE HCL 100 MG TABLET PO (10:13)
[2019-10-22] MEDS: CYANOCOBALAMIN 1,000 MCG TABLET 1000 MCG PO (10:13)
[2019-10-22] MEDS: DONEPEZIL HCL 10 MG TABLET PO (10:14)
--- NOTE | 2019-10-22 10:41 | WPDNEURORHBP ---
Subjective Date/time seen: 10/22/19 10:41 Interval history: patient is encephalopathic and picking on test of and has myoclonic jerks she does have evidence of again a urinary tract infection on the initial urinalysis and would most likely need antibiotic which I have discussed or in fact left a message for the hospitalist look into it if she is quite busy I will start her on a ceftriaxone [address] I shared this with the daughter and she is pretty much agreeable with that The patient is alert enough to tell me that she does not have any headache chest pain or shortness of breath Review of Systems Constitutional: Constitutional: Reports no additional constitutional complaints Eyes: Eyes: Reports no additional eye complaints ENT: Reports system reviewed and no additional complaints, except as documented Cardiovascular: Cardiovascular: Reports no additional cardiovascular complaints Respiratory: Respiratory: Reports no additional respiratory complaints Gastrointestinal: Gastrointestinal: Reports no additional gastrointestinal complaints Genitourinary: Genitourinary: Reports no additional female genitourinary complaints Musculoskeletal: Musculoskeletal: Reports no additional musculoskeletal complaints Integumentary/Breasts: Skin/Breast: Reports system reviewed and no additional complaints, except as docu Neurologic: Reports system reviewed and no additional complaints, except as documented Psychiatric: Psychiatric: Reports no additional psychiatric complaints Functional Status Ambulation Ability Ability to Ambulate 10 Feet: Moderate Assistance X 1 Ability to Ambulate 50 Feet With 2 Turns: Minimum Assistance X 1 Ambulation Assistive Devices: Walker, Wheeled Transfers Ability Ability to Transfer In/Out of Chair: Minimum Assistance X 1 Exam Const: General: comfortable and no acute distress HENMT: General nose exam: Normal nares present Mouth: Yes moist mucous membranes Eyes: General: appearance normal, both eyes and all related structures Neck: Neck: supple and no JVD Resp: Effort & Inspection: normal respiratory effort Auscultation: clear to auscultation bilaterally Cardio: Rate: regular rate Rhythm: regular rhythm GI: GI Palp: Yes Soft to palpation Auscultation: normal bowel sounds : External Female Exam: normal external appearance Speculum Exam - Cervix: Cervical tenderness present Skin: Other: bruising in the healing process along with the skin tear at the left leg Neuro: Other: patient is encephalopathic 1 hand alert enough to follow simple commands however has some myoclonic jerks without any lateralizing focal motor deficit her encephalopathy is most likely related to recurrent UTI for which I am going to start her antibiotic if the hospitalist is quite busy and unable to see her again look into her situation Extrem: Other: apart from bruising they unremarkable Psych: Thought content: Yes Hallucination(s) present Objective Data Vital Signs Vital Signs: Vital Signs - 24 hr 10/21/19 14:00 10/21/19 16:15 10/21/19 16:24 Temperature 36.5 C Pulse Rate 80 85 86 Respiratory Rate 17 20 20 Blood Pressure 110/63 Pulse Oximetry 97 10/21/19 21:16 10/21/19 21:25 10/21/19 22:00 Temperature 36.4 C L Pulse Rate 78 82 72 Respiratory Rate 16 18 18 Blood Pressure 111/65 Pulse Oximetry 92 90 10/22/19 02:17 10/22/19 02:26 10/22/19 06:00 Temperature 36.3 C L Pulse Rate 80 82 63 Respiratory Rate 18 18 16 Blood Pressure 101/68 Pulse Oximetry 81 L 90 10/22/19 09:59 10/22/19 10:02 10/22/19 10:07 Temperature Pulse Rate 80 84 Respiratory Rate 20 20 Blood Pressure Pulse Oximetry 95 10/22/19 10:13 Temperature Pulse Rate 84 Respiratory Rate Blood Pressure Pulse Oximetry Intake/Output Intake/Output: Intake & Output 10/19/19 10/20/19 10/21/19 10/22/19 23:59 23:59 23:59 23:59 Intake Total 530 240 665 100 Output Total 900 Balance 530 -
--- NOTE | 2019-10-22 11:54 | PC.NURSE ---
Dr. Houser and Dr. Lindsay were both notified of patient's condition this a.m.. Low blood sugars, agitation, labs, CXR. Dr. Neumann also notified of patient's condition and ordered IV rocephin daily for UTI. CARLOS IV therapist is here to try to get an IV saline lock started. Ativan 2mg IM given Per Dr. Rowan to help with agitation. Will continue to monitor.
--- NOTE | 2019-10-22 11:57 | PC.NURSE ---
At 0800 today accucheck is in the low 60s. Trigg Juice given, glucose gel given. patient did take a few bites of breakfast. accucheck did rise. see results under labs.
[2019-10-22] MEDS: LORAZEPAM INJ 2 MG/ML VIAL IM (12:04)
[2019-10-22 12:23] LABS: Glucose Point of Care 82 (65-105)
[2019-10-22] MEDS: LORAZEPAM INJ 2 MG/ML VIAL 1 MG IV PUSH (14:31)
--- NOTE | 2019-10-22 14:36 | PM.IMPN ---
Progress Note: A&P Assessment and Plan (1) Shortness of breath: Code(s): R06.02 - Shortness of breath Status: Acute (2) End stage renal disease: Code(s): N18.6 - End stage renal disease Status: Chronic Assessment and Plan: Rachelle Herbert is a 79 year old female with history of CHF COPD end-stage renal disease on hemodialysis patient was recently admitted to the hospital with shortness breath and treated patient was transferred to [facility] for rehab today in the [facility] patient had developed shortness of breath chest x-ray was done patient essentially normal does not show any sign infiltrate and her pulmonary edema has resolved, as per previous notes. Rapid response called as pt is very drowsy. vitals stable Code team in room. Drowsiness secondary to infection and ativan. Pt seen earlier today confused encephalopathic secondary to infection. Pt received 3 mg of ativan and now is very drowsy. UA is positive, Pt had ESBL before. I will start meropenem. I kevin consult ID and discharge to medical floor. I kevin start D51/2NS for hypoglycemia DR Dimitri GONG MD also present during discussion with daughter. (3) Atrial fibrillation: Qualifiers: Atrial fibrillation type: unspecified Qualified Code(s): I48.91 - Unspecified atrial fibrillation Code(s): I48.91 - Unspecified atrial fibrillation Status: Acute Assessment and Plan: Rate is controlled (4) Hypertension: Qualifiers: Hypertension type: essential hypertension Qualified Code(s): I10 - Essential (primary) hypertension Code(s): I10 - Essential (primary) hypertension Status: Chronic Assessment and Plan: Will continue home regimen and monitor Subjective Date/time seen: 10/22/19 14:36 Interval history: Rachelle Herbert is a 79 year old female with history of CHF COPD end-stage renal disease on hemodialysis patient was recently admitted to the hospital with shortness breath and treated patient was transferred to [facility] for rehab today in the [facility] patient had developed shortness of breath chest x-ray was done patient essentially normal does not show any sign infiltrate and her pulmonary edema has resolved. As per previous note. Since yesterday pt has becoming increasingly confused, agitated, restless all night, Wcc is up , UA is positive. Review of Systems Review of Systems: All systems reviewed & are unremarkable except as noted in HPI and below Exam Narrative: Exam Narrative: Patient is elderly frail Const: General: comfortable and no acute distress HENMT: General nose exam: Normal nares present Mouth: Yes moist mucous membranes Eyes: General: appearance normal, both eyes and all related structures Sclera: sclerae normal Neck: Neck: supple Resp: Other: Bilateral fair air entry with minimal rhonchi Cardio: Rate: regular rate Rhythm: regular rhythm GI: Auscultation: normal bowel sounds Skin: Other: Patient has some bruising on her upper arm, left lower extremity patient had a skin tear it was dressed and covered Neuro: Speech: normal speech Sensory Exam: normal sensation Extrem: General: normal to inspection Psych: Affect: Anxious affect present Objective Data Vital Signs Vital Signs: Vital Signs - 24 hr 10/21/19 16:15 10/21/19 16:24 10/21/19 21:16 Temperature Pulse Rate 85 86 78 Respiratory Rate 20 20 16 Blood Pressure Pulse Oximetry 92 10/21/19 21:25 10/21/19 22:00 10/22/19 02:17 Temperature 36.4 C L Pulse Rate 82 72 80 Respiratory Rate 18 18 18 Blood Pressure 111/65 Pulse Oximetry 90 81 L 10/22/19 02:26 10/22/19 06:00 10/22/19 08:00 Temperature 36.3 C L Pulse Rate 82 63 84 Respiratory Rate 18 16 20 Blood Pressure 101/68 Pulse Oximetry 90 95 10/22/19 09:59 10/22/19 10:02 10/22/19 10:07 Temperature Pulse Rate 80 84 Respiratory Rate 20 20 Blood Pressure Pulse Oximetry 95 10/22/19 10:13 Temperature Puls
[2019-10-22 14:38] LABS: Glucose Point of Care 78 (65-105)
--- NOTE | 2019-10-22 14:51 | PCPTNOTE ---
Per nursing: advised PT not to see patient for therapy due to change in medical status. Total missed minutes this session: 30 minutes.
[2019-10-22 14:57] LABS: Alveolar/Arterial O2 Gradient 152.6 mmHg; Base Excess ABG -0.2 mEq/l (+/-2.0); Carboxyhemoglobin 0.2 % THb (0-2.0); Fractional Inspired Oxygen 32 %; HCO3 ABG 24.3 mEq/l (22.0-26.0); Methemoglobin ABG 0.4 %THb (0-1.5); Oxygen Content ABG 8.3 %vol (16.0-22.0); Oxyhemoglobin 51.1 % THb (90.0-100.0); PCO2 ABG 39.1 mmHg (35.0-45.0); PO2 FiO2 Ratio Arterial Blood 0.93 %; Reduced Hemoglobin 48.3 %THb (0-5.0); Total Hemoglobin 11.5 g/dL (12.0-18.0); pH ABG 7.411 (7.350-7.450)
[2019-10-22 15:42] LABS: Glucose Point of Care 80 (65-105)
[2019-10-22] MEDS: SODIUM CHLORIDE 0.9% IV 500 ML 999 ML IV CONT (15:43)
--- NOTE | 2019-10-22 15:45 | PC.NURSE ---
1415 Patient's daughter stating that her mother cannot relax. patient grabbing at things in the air. yelling out. daughter upset bc ativan IM given earlier doesnt seem to be helping. daughter wants called for something else to help mother rest. Call was placed to Dr. Neumann advising him of daughter concerns and how patient cannot relax, wont eat or drink. Dr. Neumann ativan 1mg IV to help patient calm down. will continue to monitor.
--- NOTE | 2019-10-22 15:48 | PC.NURSE ---
1440 Patient had Ativan IV. Noticed a difference in her breathing. accucheck was 79. patient not answering daughter. call placed to my hotel service supervisor and she came to see and assess patient and was advised to call rapid response. rapid response called and DR. Lindsay was here and ICU was here to see patient and talk to daughter. Patient transferred to ICU as an IMU overflow because IMU did not have a bed available. transferred patient via bed and gave report to nurse taking care of patient in IMU.
--- NOTE | 2019-10-22 16:35 | PCOTNOTE ---
Pt. unable to be seen this afternoon. Pt. having a declined in medical condition and a rapid response called.
[2019-10-22 16:44] LABS: Oxygen Saturation ABG 57.6 % (95.0-100.0); PO2 ABG 29.8 mmHg (80.0-100.0); Site Drawn RIGHT BRACHIAL
[2019-10-22 16:45] LABS: Device NASAL CANNULA
--- NOTE | 2019-10-23 07:57 | PCPTNOTE ---
late entry for 10/22/19- patient did not received physical therapy both am and pm this date due to medical condition. several attempts were made to see patient this date both am and pm.
--- NOTE | 2019-10-29 12:00 | PM.DS ---
DS: Diagnosis Admitting Diagnosis Admitting Diagnosis: Unspecified atrial fibrillation Discharge Diagnosis (1) Bruising tendency: Code(s): D69.9 - Hemorrhagic condition, unspecified Status: Acute (2) Metabolic encephalopathy: Code(s): G93.41 - Metabolic encephalopathy Status: Resolved (3) Shortness of breath: Code(s): R06.02 - Shortness of breath Status: Resolved (4) Thrombocytopenia: Code(s): D69.6 - Thrombocytopenia, unspecified Status: Acute (5) Pyuria: Code(s): R82.81 - Pyuria Status: Acute (6) Weakness: Code(s): R53.1 - Weakness Status: Acute (7) Asymptomatic bacteriuria: Code(s): R82.71 - Bacteriuria Status: Acute (8) CHF (congestive heart failure): Code(s): I50.9 - Heart failure, unspecified Status: Acute (9) End stage renal disease: Code(s): N18.6 - End stage renal disease Status: Resolved (10) DVT prophylaxis: Code(s): Z29.9 - Encounter for prophylactic measures, unspecified Status: Acute (11) Atrial fibrillation: Qualifiers: Atrial fibrillation type: unspecified Qualified Code(s): I48.91 - Unspecified atrial fibrillation Code(s): I48.91 - Unspecified atrial fibrillation Status: Acute (12) Hypertension: Qualifiers: Hypertension type: essential hypertension Qualified Code(s): I10 - Essential (primary) hypertension Code(s): I10 - Essential (primary) hypertension Status: Chronic (13) Anxiety: Code(s): F41.9 - Anxiety disorder, unspecified Status: Chronic (14) Anemia due to chronic kidney disease, on chronic dialysis: Code(s): N18.6 - End stage renal disease; D63.1 - Anemia in chronic kidney disease; Z99.2 - Dependence on renal dialysis Status: Acute (15) Hypothyroidism: Qualifiers: Hypothyroidism type: unspecified Qualified Code(s): E03.9 - Hypothyroidism, unspecified Code(s): E03.9 - Hypothyroidism, unspecified Status: Chronic (16) Valvular heart disease: Code(s): I38 - Endocarditis, valve unspecified Status: Chronic (17) Gout: Code(s): M10.9 - Gout, unspecified Status: Acute (18) End stage renal disease on dialysis: Code(s): N18.6 - End stage renal disease; Z99.2 - Dependence on renal dialysis Status: Chronic (19) Urinary tract infection due to ESBL Klebsiella: Code(s): N39.0 - Urinary tract infection, site not specified; B96.89 - Other specified bacterial agents as the cause of diseases classified elsewhere Status: Acute (20) Acute UTI: Code(s): N39.0 - Urinary tract infection, site not specified Status: Acute (21) Falls frequently: Code(s): R29.6 - Repeated falls Status: Acute DS: Summary Hospital Course Reason for hospitalization: This 79-year-old woman was admitted because of debility and weakness after initially being hospitalized with hypoxia and fatigue she is a dialysis patient has multiple comorbidities mentioned as in the problem section of the discharge orders the patient has developed respiratory difficulties after finding out that she had ESBL Klebsiella in her urine and had to be moved to the intensive care unit as per recommendation of the hospitalist who have been following the patient Status at Discharge Cognitive/behavioral status at discharge: patient was encephalopathic The admitting functional independent measures have already been mentioned in the initial history and physical examination likewise the goals are however the goals for unable to be achieved as the patient had to be moved to the intensive care unit because of multiple medical issues Time Spent with Patient Time attestation: Total time spent providing and/or coordinating discharge services: Exam Const: General: uncomfortable Limitations: altered mental status HENMT: General nose exam: Normal nares pres
== END 2019-10-22 15:15 | disposition short-term general hospital (02) | DRG 308 ==
PROVIDERS: Family Medicine; Internal Medicine Nephrology; Psychiatry & Neurology Neurology; Admitting Provider Psychiatry & Neurology Neurology; PCP Internal Medicine; Visit Provider Psychiatry & Neurology Neurology
DX: I48.91 Unspecified atrial fibrillation (principal); N18.6 End stage renal disease; N39.0 Urinary tract infection, site not specified; E87.1 Hypo-osmolality and hyponatremia; I13.2 Hypertensive heart and chronic kidney disease with heart failure and with stage 5 chronic kidney disease, or end stage renal disease; I38 Endocarditis, valve unspecified; Z16.12 Extended spectrum beta lactamase (ESBL) resistance; G93.40 Encephalopathy, unspecified; J90 Pleural effusion, not elsewhere classified; R09.02 Hypoxemia; R53.83 Other fatigue; B96.1 Klebsiella pneumoniae [K. pneumoniae] as the cause of diseases classified elsewhere; D63.1 Anemia in chronic kidney disease; D69.9 Hemorrhagic condition, unspecified; D69.6 Thrombocytopenia, unspecified; E78.5 Hyperlipidemia, unspecified; E03.9 Hypothyroidism, unspecified; E16.2 Hypoglycemia, unspecified; E83.51 Hypocalcemia; F41.9 Anxiety disorder, unspecified; G25.3 Myoclonus; G20 Parkinson's disease; I25.10 Atherosclerotic heart disease of native coronary artery without angina pectoris; I95.9 Hypotension, unspecified; I50.9 Heart failure, unspecified; J44.9 Chronic obstructive pulmonary disease, unspecified; K59.00 Constipation, unspecified; M10.9 Gout, unspecified; R29.6 Repeated falls; S81.812D Laceration without foreign body, left lower leg, subsequent encounter; S51.811D Laceration without foreign body of right forearm, subsequent encounter; Z99.2 Dependence on renal dialysis; Z96.652 Presence of left artificial knee joint; Z95.4 Presence of other heart-valve replacement; Z95.1 Presence of aortocoronary bypass graft; Z79.82 Long term (current) use of aspirin
CPT/HCPCS: 36415; 36600; 71045; 71046; 80048; 80053; 80069; 81001; 82375; 82607; 82746; 82805; 83036; 83050; 85025; 85027; 85055; 87077; 87086; 87088; 87186; 87804; 92610; 94640; 97110; 97116; 97150; 97162; 97166; 97530; 97535; 97542; A9270; G0257; J0696; J1644; J2060; J2310; J7030; J7040; Q4081

== ENCOUNTER 2019-10-23 07:47 | Inpatient (IN) | payer MEDICARE, OTHER, SELFPAY ==
[2019-10-22] VITALS (16 sets, daily range): BP systolic 89–115; BP diastolic 52–84; PULSE 67–80; RESP 12–22; TEMP 35.6–37.2; O2SAT 96–98
--- NOTE | 2019-10-22 16:05 | ADMGEN ---
This patient, February, was admitted to Intensive Care Unit-5. Patient/family oriented to hospital policies and general routines including ID bracelet, bed and alarms, visiting hours, pain management, procedures, bathroom and other care routines, personal items, smoking policy, room service/diet, and visiting hours. Valuables list has been completed. Information on how to activate the Rapid Response Team has been discussed. Patient/Family are encouraged to report perceived risks to care and to ask questions if they do not understand what they are told or what they should do.
--- NOTE | 2019-10-22 16:24 | PC.NURSE ---
Pt to ICU as IMU overflow from [employer] called on [facility]. Pt arrives somnolent, snoring respirations, does not arouse. Sats 99% on 3L NC, 100% AV paced on monitor 80bpm. Per staff, pt had been agitated and hallucinating (??from UTI) and was given total of 3mg Ativan IVP over the last few hours and then patient became less responsive. She has been hypoglycemic today as well and not able to stay awake to tolerate PO. BS 80 on arrival to ICU, D51/2NS at 50cc/hr initiated. NS bolus at 300ml/hr (total 500cc) infusing prior to arrival. Stage 2 skin breakdown to sacrum/coccyx prior to arrival to ICU, mepilex placed. Wounds to extremities cleansed with sterile NS and dressed with Telfa. Pt with ESRD, scheduled for HD tonight. Skin appears jaundice,. multiple skin tears bleeding to all extremities, dried blood to lips, tongue and teeth on arrival. Mucous membranes dry, radial pulses weak. NIBP 80/52 on arrival to ICU, MD Lindsay called to bedside as family wishes for pt to be a full code including intubation. No new orders received from MD Lindsay. RN remains at bedside, will continue to monitor.
[2019-10-22] MEDS: DEXTROSE 5%/0.45% SOD CHL 1,000 ML 50 ML IV CONT (17:47)
[2019-10-22 17:50] LABS: Glucose Point of Care 89 (65-105)
--- NOTE | 2019-10-22 19:21 | P.PNNP_ITS ---
Progress Note: A&P Assessment and Plan (1) End stage renal disease: Code(s): N18.6 - End stage renal disease Status: Chronic Assessment and Plan: * Given K+ and AMS, HD yesterday evening * plan next HD Sunday and continue M/W/F schedule * follow electrolytes, volume status, and clearance (2) Metabolic encephalopathy: Code(s): G93.41 - Metabolic encephalopathy Status: Acute Assessment and Plan: * suspect multifactorial: - use of ativan - insomnia x 3 days - hypoxia? - infection? * follow mentation (3) Weakness: Code(s): R53.1 - Weakness Status: Acute Assessment and Plan: * was in rehab for strengthening * resume PT/OT when more stable Subjective Date/time seen: 10/22/19 19:21 Transferred from [facility] to hospital after rapid response called -- found to be hypoxic, hypotensive, hypoglycemic and confused. Empirically started IV antibiotics Exam Narrative: Exam Narrative: General: WD/WN female in NAD Heart: normal S1 and S2; no rub Lungs: coarse breath sounds Abdomen: soft, nontender, nondistended, positive bowel sounds Extremities: no cyanosis or clubbing; no edema Skin: warm and dry Objective Data Vital Signs Vital Signs: Vital Signs Temp Pulse Resp BP Pulse Ox 10/22/19 16:43 37.2 C 80 12 89/52 L 98 10/22/19 16:30 80 12 98 10/22/19 16:08 67 22 H 92/54 L 96 Meds/Results Medications: Active Medications Generic Name Dose Route Start Last Admin Trade Name Freq PRN Reason Stop Dose Admin Epoetin Trevon 10,000 units 10/22/19 23:55 Epogen IV PUSH 10/22/19 23:56 ONCE ONE Albumin Human 50 mls @ 999 mls/hr 10/22/19 18:09 Albutein IVPB 11/21/19 18:10 Q10M PRN HYPOTENSION Dextrose/Sodium Chloride 1,000 mls @ 100 mls/hr 10/22/19 18:45 Dextrose 5% Sodium Chloride 0.45% IV CONT .Q10H KATIE Imipenem/Cilastatin Sodium 500 mg in 100 mls @ 300 mls/hr 10/22/19 18:00 Primaxin 500 Mg/D5w 100 Ml IVPB Q6H KATIE Midodrine 10 mg 10/22/19 18:15 Midodrine Hcl PO TID KATIE
[2019-10-22] MEDS: DEXTROSE 5%/0.45% SOD CHL 1,000 ML 100 ML IV CONT (20:14)
--- NOTE | 2019-10-22 23:56 | HP_ITS ---
DATE OF SERVICE: CHIEF COMPLAINT: Confusion and encephalopathy. HISTORY OF PRESENT ILLNESS: The patient is an 79-year-old female, who was transferred to the Rehab Unit for weakness. The patient had previously been on the Medical Floor. The patient is known to have end-stage renal disease. The patient has a drug-resistant UTI. The patient also had some problems with hypoglycemia while on the Medical Floor. The patient had a urine culture, which was positive for ESBL on 09/01/2019. The patient gets dialysis on Sunday, Sunday, and Sunday. The patient had a CT of her head, which showed some scalp contusion on day of admission, 09/13/2019, on the Medical Floor. The patient earlier today had a rapid response in the Rehab Unit. The patient had got increasingly confused and drowsy. Daughter states she has been up for 3 nights hallucinating. The patient was given some Ativan to calm her down. The patient got increasingly confused and rapid response was called. The patient earlier in the day also had a hypoglycemic attack. Given the fact that the patient had ESBL in the past and her urine was positive, they have started her on imipenem. ID has also been informed of the patient and D5 half normal saline has been started for hypoglycemia. Given her condition, the patient is transferred to the IMU for closer observation. The patient has a history of congestive heart failure, COPD, end-stage renal disease, atrial fibrillation, treatment resistant UTI. Daughter at the bedside discussed that her labs show that the white cell is elevated and that she may have a possible UTI again. The patient's creatinine is 3.9, potassium 5.8. Unfortunately, due to the patient's condition, we have to postpone her dialysis till tomorrow. The patient's blood pressure is also low at 89/52. PAST MEDICAL HISTORY: Angina, anxiety, coronary artery disease, depression, and Parkinson's. SURGICAL HISTORY: Aortic valve replacement, bilateral cataract extraction, cardiac catheterization, hysterectomy, left knee replacement, CABG, tonsillectomy, aneurysm repair, and dialysis catheter. SYSTEMS REVIEW: Positive for confusion. Sweaty, drowsiness, agitation in the night. All other 12 systems reviewed and negative apart from those documented in HPI. MEDICATIONS ON ADMISSION: 1. Bumetanide 2 mg p.o. daily. 2. Diltiazem 180 p.o. at bedtime. 3. Allopurinol 100 p.o. t.i.d. 4. Amiodarone 100 p.o. daily. 5. Aspirin 81 p.o. daily. 6. Vitamin D3 of 2000 p.o. daily. 7. B12 of 1000 mcg p.o. daily. 8. Docusate 100 p.o. daily. 9. Aricept 10 p.o. daily. 10. Folic acid 1 mg p.o. daily. 11. Levothyroxine 150 mcg p.o. daily. 12. Midodrine 10 p.o. b.i.d. 13. Paxil 40 p.o. daily. 14. MiraLAX 17 g p.o. daily. 15. Pravastatin 40 p.o. at bedtime. 16. Quetiapine 50 p.o. at bedtime. 17. Velphoro 500 p.o. daily. 18. Venlafaxine 75 p.o. daily. FAMILY HISTORY: Positive for cardiovascular accident. SOCIAL HISTORY: She has 5 children. She is a full code. PHYSICAL EXAMINATION: VITAL SIGNS: Blood pressure 89/52, pulse 80, respirations 12, temperature 37.2, and oxygen saturation 98%. GENERAL: The patient appears drowsy, but is arousable with pain stimuli. The patient is quite drowsy at the moment, but does move her limbs on pain stimuli. HEENT: Eyes are reactive. Head normocephalic. NECK: Supple. CHEST: Sounds are normal. The patient has a PermCath to the right upper chest. HEART: Sounds are normal rate and rhythm. CHEST: Decreased BS bilaterally ABDOMEN: Soft, nontender. EXTREMITIES: No edema NEURO: Responding to verbal commands, but very drowsy. Able to move all 4 limbs PSYCHIATRIC: The patient hard to assess at the moment. LABORATORY DATA: Hemoglobin and hematocrit 10.9 and 34.6, white ce
[2019-10-23] VITALS (19 sets, daily range): BP systolic 94–112; BP diastolic 52–86; PULSE 80; RESP 14–26; TEMP 36.4–37; O2SAT 94–100
--- NOTE | ~2019-10-23 | XR_ITS ---
EXAMINATION: XR Abdomen PICC EXAM DATE: 10/29/2019 12:42 INDICATION: Second attempt PICC line adjustment after femoral kink. TECHNIQUE: Frontal projection(s) of the abdomen for interpretation. Additional projection of the rig ht upper leg. Comparison is made to prior examination from earlier same date. FINDINGS: There is a right-sided femoral venous line identified. On previous examination there was s ome redundancy or bending of the line at mid thigh level, uncertain whether or not this is external t o the patient. There is less catheter tortuosity, redundancy on this examination. The tip overlies th e IVC at the L4 level. Nonobstructive bowel gas pattern. There is moderate to severe right hip, moderate left hip primary os teoarthritis. There is lumbar levoscoliosis. IMPRESSION: 1. PICC line as above. Reviewed, dictated and finalized at location A. MENT STITCHER IMPRESSION: 1. PICC line as above.
--- NOTE | ~2019-10-23 | XR_ITS ---
EXAMINATION: XR Abdomen PICC DATE: 10/29/2019 12:18 INDICATION: Femoral PICC line placement TECHNIQUE: Portable AP supine view of the abdomen and pelvis was obtained. COMPARISON: None. FINDINGS: Right lower extremity peripherally inserted central venous catheter (PICC) tip at the caudal inferio r vena cava. Normal bowel gas pattern with small to moderate amount of stool scattered throughout the colon and no dilated loops of gas-filled bowel to suggest obstruction. Phlebolith in the left hemipe lvis. Mild lumbar levoscoliosis with severe spondylosis. Moderate bilateral hip osteoarthritis. IMPRESSION: 1. Right lower extremity PICC line tip at the caudal inferior vena cava. Reviewed, dictated and finalized at location A. ND GENERATOR MANAGER
--- NOTE | ~2019-10-23 | XR_ITS ---
EXAMINATION: XR Abdomen PICC INDICATION: Femoral PICC insertion TECHNIQUE: Portable AP chest at 1636 hours COMPARISON: 04/06/2004 FINDINGS: A right femoral PICC ends with its tip projecting to the right of the spine at the level of the right L2 transverse process, consistent with positioning in the inferior vena cava. Small bowel loops of the mid abdomen are upper normal limits in size. There is moderate bilateral hip osteoarthri tis. IMPRESSION: 1. Right femoral PICC projecting with its tip in the inferior vena cava. Reviewed, dictated and finalized at location A. ER GOODS ASSEMBLER
--- NOTE | ~2019-10-23 | US_ITS ---
US right upper quadrant DATE: 10/27/2019 08:11 INDICATION: Elevated liver enzymes TECHNIQUE: Real-time imaging and Doppler analysis of the right upper quadrant COMPARISON: 05/02/2019 right upper quadrant ultrasound examination 05/29/2018 CT abdomen pelvis FINDINGS: There is surface nodularity of the liver. There is to and fro flow in the portal vein consi stent with portal vein hypertension. Findings are consistent with cirrhosis. There is minimal free fl uid adjacent to the liver. The gallbladder wall is thickened, with echogenic debris and sludge. No shadowing stones are evident; this sign is limited given the patient is reportedly on pain medication. The common bile duct measures 4.3 mm, normal.. Negative sonographic Castaneda's sign. No pancreatic mass lesion is evident. IMPRESSION: Diffuse gallbladder wall thickening; differential diagnosis includes acute cholecystitis, chronic cholecystitis, gallbladder empyema, xanthogranulomatous cholecystitis, acalculous cholecysti tis, hepatic cirrhosis, hepatitis, congestive heart failure, hypoalbuminemia Cirrhosis and portal hypertension Minimal ascites Reviewed, dictated and finalized at Location A. Reviewed, dictated and finalized at location B. GER ENGLISH IMPRESSION: Diffuse gallbladder wall thickening; differential diagnosis include s acute cholecystitis, chronic cholecystitis, gallbladder empyema, xanthogranul omatous cholecystitis, acalculous cholecystitis, hepatic cirrhosis, hepatitis, congestive heart failure, hypoalbuminemia Cirrhosis and portal hypertension Minimal ascites
--- NOTE | ~2019-10-23 | CT_ITS ---
EXAMINATION: CT brain wo con EXAM DATE: 10/23/2019 12:20 INDICATION: Acute encephalopathy. TECHNIQUE: Spiral CT of the head was performed without contrast. Axial, coronal and sagittal images were reviewed. The dose-length product (DLP) for this examination was 605.33 mGy-cm. The exposure w as tailored according to patient size, and iterative reconstruction (ASIR) was used as additional dos e reduction technique. Comparison is made to prior examination from 10/03/2019. FINDINGS: There is no acute intraparenchymal hemorrhage. No evidence of intraparenchymal brain mass lesion. No evidence of acute infarction. Please note that initial head CT has limited sensitivity f or small or acute infarctions. There is moderate periventricular and subcortical hypodensity, nonspec ific but probably related to small vessel ischemic disease. There is moderate prominence of the sul ci and ventricles related to cerebral atrophy. There is intracranial carotid arteriosclerosis. The re are no extra-axial collections. There is no mass effect or midline shift. Patient has had bilate ral ocular lens surgery. Soft tissue is unremarkable. The visualized sinuses and mastoid air cells are well aerated. There is no interval change. IMPRESSION: 1. No acute intracranial findings. 2. Chronic age related findings. Reviewed, dictated and finalized at location B. EAD SEWER
--- NOTE | ~2019-10-23 | XR_ITS ---
EXAMINATION: XR chest 1V portable DATE: 10/24/2019 05:40 INDICATION: Pulmonary edema. TECHNIQUE: A single frontal view of the chest was obtained. COMPARISON: Chest 2 views 10/22/2019, chest CT 04/27/2019 FINDINGS: There is a diffuse interstitial pattern, consistent with mild pulmonary edema. There is a s mall right pleural effusion. No pneumothorax. Cardiomegaly is noted. Median sternotomy wires and medi astinal surgical clips are seen, likely from prior coronary artery bypass grafting. There is a left c hest wall pacer with leads in the right atrium and right ventricle. A right internal jugular central venous catheter is seen with tip in the right atrium. IMPRESSION: 1. Mild pulmonary edema. 2. Small right pleural effusion. 3. Cardiomegaly. Reviewed, dictated and finalized at location A. N RESOURCE INTERN
[2019-10-23] MEDS: EPOETIN ALFA 10,000 UNITS/ML VIAL 10000 UNITS IV PUSH (00:08)
[2019-10-23 04:50] LABS: Basophils Percent Auto 0.3 % (0.2-1.2); Eosinophils Absolute Auto 0.1 K/mm3 (0-0.3); Eosinophils Percent Auto 0.6 % (0-4.4); Hematocrit 31.4 % (37.0-47.0); Hemoglobin 10.3 g/dL (12.0-15.0); Immature Granulocyte Absolute 0.26 K/mm3 (0.00-0.031); Immature Granulocyte Percent A 1.8 % (0-0.5); Lymphocytes Absolute Auto 0.56 K/mm3 (0.9-3.2); Lymphocytes Percent Auto 3.9 % (18.3-44.2); Mean Corpuscular HGB Conc 32.8 g/dl (32-36); Mean Corpuscular Hemoglobin 32.8 pg (26-34); Mean Platelet Volume 12.8 fl (7.4-10.4); Monocytes Absolute Auto 0.9 K/mm3 (0.1-0.6); Monocytes Percent Auto 6.2 % (2.6-8.5); Neutrophils Absolute Auto 12.6 K/mm3 (1.3-6.7); Neutrophils Percent Auto 87.2 % (45.5-73.1); Nucleated Red Blood Cells Absolute Auto 0.1 K/mm3 (0.0-0.012); Nucleated Red Blood Cells Perc 0.6 % (0.0-0.2); Platelet Count Result 86 k/mm3 (150-375); Red Blood Count 3.14 M/mm3 (4.2-5.4); Red Cell Distribution Width 17.4 % (11.5-14.5); White Blood Count 14.4 K/mm3 (4.5-10.0)
[2019-10-23] MEDS: DEXTROSE 5%/0.45% SOD CHL 1,000 ML 100 ML IV CONT (04:56)
[2019-10-23 05:08] LABS: Glucose Point of Care 105 (65-105)
[2019-10-23 05:21] LABS: Blood Urea Nitrogen 16 mg/dL (7-17); Calcium 8.5 mg/dL (8.4-10.2); Carbon Dioxide 22 mmol/L (22-30); Chloride 99 mmol/L (98-107); Estimated Glomerular Filt Rate 19; Glucose 92 mg/dL (65-105); Potassium 4.9 mmol/L (3.4-5.0); Sodium 136 mmol/L (137-145)
[2019-10-23] MEDS: MIDODRINE HCL 10 MG TABLET PO ×3 (09:18→15:54)
--- NOTE | 2019-10-23 11:18 | PM.IMPN ---
Progress Note: A&P Assessment and Plan (1) Metabolic encephalopathy: Code(s): G93.41 - Metabolic encephalopathy Status: Acute Assessment and Plan: patient was transferred from rehab for with weakness, altered mental status, drug-resistant UTI. could be related to UTI, Ativan that was given to the patient in [facility] - Will have Infectious Disease evaluate the patient - check CT head - will consult Neurology - patient to get dialyzed today (2) Acute UTI: Code(s): N39.0 - Urinary tract infection, site not specified Status: Acute Assessment and Plan: acute UTI, patient has ESBL Klebsiella, - currently on imipenem - will have Infectious Disease follow the patient (3) End stage renal disease: Code(s): N18.6 - End stage renal disease Status: Chronic Assessment and Plan: patient was dialyzed on 10/22/2019 with removal of 1 L fluid. - Nephrology following, - dialysis per Nephrology (4) CHF (congestive heart failure): Code(s): I50.9 - Heart failure, unspecified Status: Acute Assessment and Plan: chest x-ray showed diffuse lung disease likely pulmonary edema versus atelectasis - patient to get dialyzed today (5) Hypertension: Qualifiers: Hypertension type: essential hypertension Qualified Code(s): I10 - Essential (primary) hypertension Code(s): I10 - Essential (primary) hypertension Status: Chronic Assessment and Plan: blood pressures have been stable, continue to monitor (6) Hypothyroidism: Qualifiers: Hypothyroidism type: unspecified Qualified Code(s): E03.9 - Hypothyroidism, unspecified Code(s): E03.9 - Hypothyroidism, unspecified Status: Chronic Assessment and Plan: will start IV levothyroxine (7) DVT prophylaxis: Code(s): Z29.9 - Encounter for prophylactic measures, unspecified Status: Acute Assessment and Plan: SCDs Additional Plan discussed with daughter and updated her with patient's condition plan of care. Daughter states that patient is awake, alert normally takes care of her . Due to a high probability of clinically significant, life threatening deterioration, the patient required my highest level of preparedness to intervene emergently and I personally spent this critical care time directly and personally managing the patient. This critical care time included obtaining a history; examining the patient; pulse oximetry; ordering and review of studies; arranging urgent treatment with development of a management plan; evaluation of patient's response to treatment; frequent reassessment; and discussions with other providers. It was exclusive of separately billable procedures and treating other patients and teaching time. Please see Assessment and Plan section and the rest of the note for further information on patient assessment and treatment Subjective Date/time seen: 10/23/19 11:18 79-year-old female who was transferred to rehab floor to intermediate unit for weakness. Patient had been on the regular medical floor for drug-resistant UTI, ESBL Klebsiella pneumonia. . Urine cultures from 10/20/2019 growing gram-negative bacilli. Patient on imipenem. Patient seen and examined this morning, answers to questions was is not open her eyes to name of follows simple commands. Patient remains confused, somnolent. Patient with good O2 sats on 1 L nasal cannula. Patient got dialyzed yesterday with removal of 1 L fluid. Patient to have dialysis today Review of Systems Review of Systems: ROS unobtainable: unobtainable due to mental condition and unobtainable due to mental status Exam Const: General: comfortable and no acute distress HENMT: Mouth: Yes moist mucous membranes Eyes: Sclera: sclerae normal Pupils: Equal, round and reactive pupils present Neck: Neck: supple and no JVD Resp: Effort & Inspection: normal respiratory effort
[2019-10-23] MEDS: LEVOTHYROXINE SODIUM INJ 100 MCG/5 ML VIAL 75 MCG IV PUSH (12:24)
[2019-10-23 12:28] LABS: Ammonia < 9 umol/L (9-30)
--- NOTE | 2019-10-23 12:31 | PCDIET ---
Addendum entered by Kaila Hicks, SANDRA, LDN 10/23/19 12:38: Updated labs 10/23 @ Na 136, Cr 2.4, BUN 16 Original Note: ICU Rounding Note: Pt current nutrition is NPO. Nutrition recommendation: Advance diet as medically appropriate / safe swallow r/t altered mentation Last recorded weight is 69.7 kg. Bowel Motility:BM+ Labs Reviewed: Na 147, BUN 60, Cr 3.7 Meds Noted:no pertinent Additional Notes: Pt condition has been discussed with family, pt does not wish to be on mechanical ventilation. Will monitor closely for needs / next steps. Following daily in ICU rounds. Assessing/reassessing every 5 days.
--- NOTE | 2019-10-23 17:52 | PM.PNNEP ---
Progress Note: A&P Assessment and Plan (1) End stage renal disease: Code(s): N18.6 - End stage renal disease Status: Chronic Assessment and Plan: Given K+ and AMS, HD yesterday evening plan next HD tomorrow and continue M/W/F schedule follow electrolytes, volume status, and clearance (2) Metabolic encephalopathy: Code(s): G93.41 - Metabolic encephalopathy Status: Acute Assessment and Plan: suspect multifactorial: - use of ativan - insomnia x 3 days - hypoxia? - infection? follow mentation (3) Weakness: Code(s): R53.1 - Weakness Status: Acute Assessment and Plan: was in rehab for strengthening resume PT/OT when more stable Long and extensive discussion with daughter (> 20 minutes) regariding all of the above issues and plan of care. Subjective Date/time seen: 10/23/19 17:52 Mentation is a bit better but still not back to baseline; tolerated dialysis yesterday evening with acute problems; no apparent distress voiced at time; daughter at bedside and we discussed the situation. Exam Narrative: Exam Narrative: General: WD/WN female in NAD Heart: normal S1 and S2; no rub Lungs: coarse breath sounds Abdomen: soft, nontender, nondistended, positive bowel sounds Extremities: no cyanosis or clubbing; no edema Skin: warm and dry Objective Data Vital Signs Vital Signs: Vital Signs Temp Pulse Resp BP Pulse Ox 10/23/19 16:00 80 10/23/19 15:58 37.0 C 80 17 94/52 L 94 10/23/19 13:56 80 10/23/19 12:00 80 25 H 99/70 L 96 10/23/19 11:59 97 10/23/19 10:10 97 10/23/19 10:00 80 10/23/19 09:32 98 10/23/19 08:00 36.8 C 80 26 H 106/76 94 10/23/19 06:00 80 10/23/19 04:00 36.8 C 80 14 106/86 99 10/23/19 02:00 80 10/23/19 00:40 36.4 C L 80 16 112/70 10/23/19 00:15 80 94/53 L 10/23/19 00:00 36.8 C 80 14 110/64 97 10/22/19 23:45 80 108/64 10/22/19 23:30 80 115/84 10/22/19 23:15 80 113/58 L 10/22/19 23:00 80 109/70 10/22/19 22:45 80 114/72 10/22/19 22:30 80 110/63 10/22/19 22:15 80 109/74 10/22/19 22:00 80 110/78 10/22/19 21:53 36.4 C L 80 14 105/59 L 10/22/19 21:45 80 110/66 10/22/19 21:30 80 103/65 10/22/19 21:20 80 99/61 L 10/22/19 20:00 36.9 C 80 14 98/57 L 97 Intake/Output Intake/Output: Intake & Output 10/20/19 10/21/19 10/22/19 10/23/19 23:59 23:59 23:59 23:59 Intake Total 250 1900 Output Total 1000 Balance 250 900 Meds/Results Medications: Active Medications Generic Name Dose Route Start Last Admin Trade Name Freq PRN Reason Stop Dose Admin Albumin Human 50 mls @ 999 mls/hr 10/22/19 18:09 Albutein IVPB 11/21/19 18:10 Q10M PRN HYPOTENSION Imipenem/Cilastatin Sodium 500 mg in 100 mls @ 300 mls/hr 10/22/19 18:00 10/23/19 17:16 Primaxin 500 Mg/D5w 100 Ml IVPB Infused Q6H KATIE Infusion Levothyroxine Sodium 75 mcg 10/23/19 06:30 10/23/19 12:24 Levothyroxine Sodium Inj IV PUSH 75 mcg DAILY@0630 KATIE Administration Midodrine 10 mg 10/22/19 18:15 10/23/19 15:54 Midodrine Hcl PO 10 mg TID KATIE Administration Radiology Results: ITS Impressions Head CT 10/23/19 12:21 IMPRESSION: 1. No acute intracranial findings. 2. Chronic age related findings.
[2019-10-24] VITALS (14 sets, daily range): BP systolic 90–134; BP diastolic 65–93; PULSE 79–85; RESP 14–24; TEMP 36.2–36.7; O2SAT 92–98
[2019-10-24 04:48] LABS: Basophils Percent Auto 0.3 % (0.2-1.2); Eosinophils Absolute Auto 0.2 K/mm3 (0-0.3); Eosinophils Percent Auto 1.5 % (0-4.4); Hemoglobin 10.6 g/dL (12.0-15.0); Immature Granulocyte Absolute 0.27 K/mm3 (0.00-0.031); Immature Granulocyte Percent A 2.3 % (0-0.5); Immature Platelet Fraction Pct 10.2 % (0.9-11.2); Lymphocytes Absolute Auto 0.77 K/mm3 (0.9-3.2); Lymphocytes Percent Auto 6.6 % (18.3-44.2); Mean Corpuscular HGB Conc 33.1 g/dl (32-36); Mean Corpuscular Hemoglobin 32.9 pg (26-34); Mean Corpuscular Volume 99.4 fl (80-100); Mean Platelet Volume 12.9 fl (7.4-10.4); Monocytes Absolute Auto 0.9 K/mm3 (0.1-0.6); Monocytes Percent Auto 7.4 % (2.6-8.5); Neutrophils Absolute Auto 9.6 K/mm3 (1.3-6.7); Neutrophils Percent Auto 81.9 % (45.5-73.1); Nucleated Red Blood Cells Absolute Auto 0.1 K/mm3 (0.0-0.012); Platelet Count Result 64 k/mm3 (150-375); Red Blood Count 3.22 M/mm3 (4.2-5.4); Red Cell Distribution Width 17.5 % (11.5-14.5); White Blood Count 11.7 K/mm3 (4.5-10.0)
[2019-10-24 05:12] LABS: Alanine Aminotransferase 64 U/L (4-35); Albumin Level 2.9 g/dL (3.5-5.1); Alkaline Phosphatase 191 U/L (38-126); Aspartate Amino Transferase 106 U/L (14-36); Bilirubin,Total 1.9 mg/dL (0.2-1.3); Blood Urea Nitrogen 26 mg/dL (7-17); Calcium 9.1 mg/dL (8.4-10.2); Carbon Dioxide 21 mmol/L (22-30); Chloride 97 mmol/L (98-107); Estimated Glomerular Filt Rate 13; Glucose 57 mg/dL (65-105); Magnesium 2.1 mg/dL (1.6-2.3); Potassium 4.6 mmol/L (3.4-5.0); Sodium 134 mmol/L (137-145)
[2019-10-24] MEDS: GLUCAGON FOR INJ 1 MG VIAL IM (05:30)
[2019-10-24] MEDS: LEVOTHYROXINE SODIUM INJ 100 MCG/5 ML VIAL 75 MCG IV PUSH (05:36)
[2019-10-24 05:49] LABS: Hypochromasia 1+ (NORMAL); Macrocytosis 1+ (NORMAL); Ovalocytes 1+ (NORMAL); Platelet Estimate Decreased (Adequate)
[2019-10-24 05:59] LABS: Glucose Point of Care 55 (65-105)
[2019-10-24 05:59] LABS: Glucose Point of Care 80 (65-105)
[2019-10-24] MEDS: MIDODRINE HCL 10 MG TABLET PO ×3 (09:15→17:09)
--- NOTE | 2019-10-24 09:39 | PM.PNNEP ---
Progress Note: A&P Assessment and Plan (1) End stage renal disease: Code(s): N18.6 - End stage renal disease Status: Chronic Assessment and Plan: Scheduled for dialysis this afternoon. Volume status looks okay. (2) Metabolic encephalopathy: Code(s): G93.41 - Metabolic encephalopathy Status: Acute Assessment and Plan: suspect multifactorial: - use of ativan this has worn off by now. - insomnia x 3 days - hypoxia? - infection: The patient has positive urine culture but negative blood cultures. The patient has underlying dementia. However doubt if that alone has caused all of this. Dr. Levy is seeing as well. She is considering a neurology consult follow mentation (3) Weakness: Code(s): R53.1 - Weakness Status: Acute Assessment and Plan: was in rehab for strengthening resume PT/OT when more stable Long and extensive discussion with daughter (> 20 minutes) regariding all of the above issues and plan of care. (4) Hypoglycemia: Code(s): E16.2 - Hypoglycemia, unspecified Status: Resolved Assessment and Plan: Sugars have been low. Will check a cortisol level.\ Sometimes infection can do this Subjective Date/time seen: 10/24/19 09:39 Interval history: Patient is sleepy. She is confused when she was awake. Daughter is in the room in we discussed the case. Review of Systems Review of Systems: ROS unobtainable: unobtainable due to mental condition Exam Narrative: Exam Narrative: General: WD/WN female in NAD Heart: normal S1 and S2; no rub Lungs: coarse breath sounds Abdomen: soft, nontender, nondistended, positive bowel sounds Extremities: no edema Skin: warm and dry without rash Objective Data Vital Signs Vital Signs: Vital Signs - 24 hr 10/23/19 10:00 10/23/19 10:10 10/23/19 11:59 Temperature Pulse Rate 80 Respiratory Rate Blood Pressure Pulse Oximetry 97 97 10/23/19 12:00 10/23/19 13:56 10/23/19 15:58 Temperature 37.0 C Pulse Rate 80 80 80 Respiratory Rate 25 H 17 Blood Pressure 99/70 L 94/52 L Pulse Oximetry 96 94 10/23/19 16:00 10/23/19 18:00 10/23/19 20:00 Temperature Pulse Rate 80 80 80 Respiratory Rate Blood Pressure Pulse Oximetry 10/23/19 21:15 10/23/19 22:00 10/24/19 00:00 Temperature 36.5 C 36.7 C Pulse Rate 80 80 80 Respiratory Rate 17 17 Blood Pressure 112/86 90/65 L Pulse Oximetry 94 96 10/24/19 02:00 10/24/19 04:00 10/24/19 06:00 Temperature 36.2 C L Pulse Rate 80 80 85 Respiratory Rate 14 Blood Pressure 121/73 Pulse Oximetry 94 10/24/19 08:00 Temperature 36.2 C L Pulse Rate 79 Respiratory Rate 24 H Blood Pressure 106/80 Pulse Oximetry 94 Intake/Output Intake/Output: Intake & Output 10/21/19 10/22/19 10/23/19 10/24/19 23:59 23:59 23:59 23:59 Intake Total 250 1900 210 Output Total 1000 0 Balance 250 900 210 Meds/Results Medications: Active Medications Generic Name Dose Route Start Last Admin Trade Name Freq PRN Reason Stop Dose Admin Dextrose 12.5 gm 10/24/19 05:21 Dextrose 50% Syringe IV PUSH PRN PRN Hypoglycemia Protocol Glucagon 1 mg 10/24/19 05:21 10/24/19 05:30 Glucagon For Inj IM 1 mg PRN PRN Administration Hypoglycemia Protocol Glucose 15 gm 10/24/19 05:21 Glutose 15 PO PRN PRN Hypoglycemia Protocol Albumin Human 50 mls @ 999 mls/hr 10/22/19 18:09 Albutein IVPB 11/21/19 18:10 Q10M PRN HYPOTENSION Imipenem/Cilastatin Sodium 500 mg in 100 mls @ 300 mls/hr 10/22/19 18:00 10/24/19 07:00 Primaxin 500 Mg/D5w 100 Ml IVPB Infused Q6H KATIE Infusion Levothyroxine Sodium 75 mcg 10/23/19 06:30 10/24/19 05:36 Levothyroxine Sodium Inj IV PUSH 75 mcg DAILY@0630 KATIE Administration Midodrine 10 mg 10/22/19 18:15 10/24/19 09:15 Midodrine Hcl PO 10 mg
--- NOTE | 2019-10-24 12:34 | WPDINFPN2 ---
Progress Note: A&P Assessment and Plan (1) Metabolic encephalopathy: Code(s): G93.41 - Metabolic encephalopathy Status: Acute Assessment and Plan: 1. Agitation, I suspect non infectious, in particular due to cerebral hypoxia 2. Abnormal UA, prior asymptomatic bacteriuria. I cannot fully exclude cystitis as a cause of #1. Her organism is highly resistant. 3. CRF REC Imipenem # 3 / 7 days, adjust dosing for her renal failure. Empiric antibiotics should be used very cautiously in the future, as even now she has very limited options for a true urine infection. Subjective Date/time seen: 10/24/19 12:34 Objective Data Vital Signs Vital Signs: Vital Signs - 24 hr 10/23/19 13:56 10/23/19 15:58 10/23/19 16:00 Temperature 37.0 C Pulse Rate 80 80 80 Respiratory Rate 17 Blood Pressure 94/52 L Pulse Oximetry 94 10/23/19 18:00 10/23/19 20:00 10/23/19 21:15 Temperature 36.5 C Pulse Rate 80 80 80 Respiratory Rate 17 Blood Pressure 112/86 Pulse Oximetry 94 10/23/19 22:00 10/24/19 00:00 10/24/19 02:00 Temperature 36.7 C Pulse Rate 80 80 80 Respiratory Rate 17 Blood Pressure 90/65 L Pulse Oximetry 96 10/24/19 04:00 10/24/19 06:00 10/24/19 08:00 Temperature 36.2 C L 36.2 C L Pulse Rate 80 85 80 Respiratory Rate 14 24 H Blood Pressure 121/73 106/80 Pulse Oximetry 94 94 Intake/Output Intake/Output: Intake & Output 10/21/19 10/22/19 10/23/19 10/24/19 23:59 23:59 23:59 23:59 Intake Total 250 1900 210 Output Total 1000 0 Balance 250 900 210 Meds/Results Medications: Active Medications Generic Name Dose Route Start Last Admin Trade Name Freq PRN Reason Stop Dose Admin Dextrose 12.5 gm 10/24/19 05:21 Dextrose 50% Syringe IV PUSH PRN PRN Hypoglycemia Protocol Glucagon 1 mg 10/24/19 05:21 10/24/19 05:30 Glucagon For Inj IM 1 mg PRN PRN Administration Hypoglycemia Protocol Glucose 15 gm 10/24/19 05:21 Glutose 15 PO PRN PRN Hypoglycemia Protocol Albumin Human 50 mls @ 999 mls/hr 10/22/19 18:09 Albutein IVPB 11/21/19 18:10 Q10M PRN HYPOTENSION Imipenem/Cilastatin Sodium 500 mg in 100 mls @ 300 mls/hr 10/22/19 18:00 10/24/19 12:30 Primaxin 500 Mg/D5w 100 Ml IVPB 0 mls/hr Q6H KATIE Infusion Levothyroxine Sodium 75 mcg 10/23/19 06:30 10/24/19 05:36 Levothyroxine Sodium Inj IV PUSH 75 mcg DAILY@0630 KATIE Administration Midodrine 10 mg 10/22/19 18:15 10/24/19 12:26 Midodrine Hcl PO 10 mg TID KATIE Administration Radiology Results: ITS Impressions Head CT 10/23/19 12:21 IMPRESSION: 1. No acute intracranial findings. 2. Chronic age related findings. Chest X-Ray 10/24/19 06:31 IMPRESSION: 1. Mild pulmonary edema. 2. Small right pleural effusion. 3. Cardiomegaly. Labs Labs: Laboratory Results - last 24 hr 10/23/19 10/24/19 10/24/19 12:07 04:36 04:36 WBC 11.7 H RBC 3.22 L Hgb 10.6 L Hct 32.0 L MCV 99.4 MCH 32.9 MCHC 33.1 RDW 17.5 H Plt Count 64 L MPV 12.9 H Immature Gran % (Auto) 2.3 H Neut % (Auto) 81.9 H Lymph % (Auto) 6.6 L [place] % (Auto) 7.4 Eos % (Auto) 1.5 Baso % (Auto) 0.3 Lymph # (Auto) 0.77 L [place] # (Auto) 0.9 H Eos # (Auto) 0.2 Baso # (Auto) 0.0 Abs Immat Gran (auto) 0.27 H Absolute Neuts (auto) 9.6 H Absolute Nucleated RBC 0.1 H Nucleated RBC % 1.0 H Platelet Estimate Decreased % Immature Plt Fraction 10.2 Hypochromasia 1+ Macrocytosis 1+ Ovalocytes 1+ Sodium 134 L Potassium 4.6 Chloride 97 L Carbon Dioxide 21 L BUN 26 H D Creatinine 3.40 H Estim Creat Clear Calc Not Reportable Estimated GFR 13 L Glucose 57 L* POC Capillary Glucose Calcium 9.1 Phosphorus 4.0 Magnesium 2.1 Total Bilirubin 1.9 H AST 106 H ALT 64 H Alkaline Phosphatase 191 H
[2019-10-24] MEDS: LIDOCAINE HCL 1% PF INJ 5 ML VIAL INFILTRATE (16:00)
--- NOTE | 2019-10-24 16:52 | WPDNEURCNPN ---
Assessment and Plan Assessment and plan (1) Metabolic encephalopathy: Code(s): G93.41 - Metabolic encephalopathy Status: Acute (2) Weakness: Code(s): R53.1 - Weakness Status: Acute (3) End stage renal disease: Code(s): N18.6 - End stage renal disease Status: Chronic (4) Anxiety: Code(s): F41.9 - Anxiety disorder, unspecified Status: Chronic (5) Anemia due to chronic kidney disease, on chronic dialysis: Code(s): N18.6 - End stage renal disease; D63.1 - Anemia in chronic kidney disease; Z99.2 - Dependence on renal dialysis Status: Acute (6) Valvular heart disease: Code(s): I38 - Endocarditis, valve unspecified Status: Chronic (7) Gout: Code(s): M10.9 - Gout, unspecified Status: Acute (8) Urinary tract infection due to ESBL Klebsiella: Code(s): N39.0 - Urinary tract infection, site not specified; B96.89 - Other specified bacterial agents as the cause of diseases classified elsewhere Status: Acute (9) Falls frequently: Code(s): R29.6 - Repeated falls Status: Acute Additional Plan discussed with the patient's daughter in detail and she is pretty much in agreement with me that the patient's issue is multifactorial in origin I also discussed with her the pros and cons of intubation and code status daughter tells me that the patient's wish was that he goes if she goes into cardiac arrest she should be resuscitated however prolonged intubation or mechanical support she will not want it Based on the above we should continue the present medical management I have nothing further to offer as for as her neurological status is concerned which to my eyes is back to her baseline Consult date: 10/24/19 Time Seen: 16:00 HPI: Rachelle Herbert is a 79 year old female with whom I am pretty much familiar with was recuperating on acute rehab when she became encephalopathic in the background of having had recurrent UTI with Klebsiella and pneumoniae ESBL for which Dr. esquivel again had seen her patient was hallucinating and quite agitated and received Ativan on the acute rehab side several days ago followed by the change in the mental status however her mental status is back to her usual self she remains fatigue and tired due to multiple medical issues which have already been documented by the multiple physicians she has been seeing She is a dialysis patient and her medications have been reviewed by this examiner and discuss the with the patient's daughter quite detailed Review of Systems Constitutional: Constitutional: Reports no additional constitutional complaints Eyes: Eyes: Reports no additional eye complaints ENT: Reports system reviewed and no additional complaints, except as documented Cardiovascular: Cardiovascular: Reports no additional cardiovascular complaints Respiratory: Respiratory: Reports no additional respiratory complaints Gastrointestinal: Gastrointestinal: Reports no additional gastrointestinal complaints Genitourinary: Genitourinary: Reports no additional female genitourinary complaints Musculoskeletal: Musculoskeletal: Reports no additional musculoskeletal complaints Integumentary/Breasts: Skin/Breast: Reports system reviewed and no additional complaints, except as docu Neurologic: Reports system reviewed and no additional complaints, except as documented Psychiatric: Psychiatric: Reports no additional psychiatric complaints PMFSH Past Medical History Medical History AA (aortic aneurysm) Anemia due to chronic kidney disease, on chronic dialysis Angina at rest Anxiety Arthritis AV fistula CAD (coronary artery disease) of artery bypass graft Cataract CHF (congestive heart failure) Compression fracture of L1 lumbar vertebra COPD (chronic obstructive pulmonary disease) Depression End stage renal disease on dialysis Gout Hypercholesterolemia Hypertension Hypothyr
--- NOTE | 2019-10-24 17:28 | PM.IMPN ---
Progress Note: A&P Assessment and Plan (1) Metabolic encephalopathy: Code(s): G93.41 - Metabolic encephalopathy Status: Acute Assessment and Plan: improving (2) Shortness of breath: Code(s): R06.02 - Shortness of breath Status: Resolved (3) Thrombocytopenia: Code(s): D69.6 - Thrombocytopenia, unspecified Status: Acute (4) Hypoglycemia: Code(s): E16.2 - Hypoglycemia, unspecified Status: Resolved (5) End stage renal disease: Code(s): N18.6 - End stage renal disease Status: Chronic Assessment and Plan: Pt having dialysis in the hospital (6) Atrial fibrillation: Qualifiers: Atrial fibrillation type: unspecified Qualified Code(s): I48.91 - Unspecified atrial fibrillation Code(s): I48.91 - Unspecified atrial fibrillation Status: Acute Assessment and Plan: Rate is controlled (7) Urinary tract infection due to ESBL Klebsiella: Code(s): N39.0 - Urinary tract infection, site not specified; B96.89 - Other specified bacterial agents as the cause of diseases classified elsewhere Status: Acute Assessment and Plan: See above Subjective Date/time seen: 10/24/19 17:28 Interval history: 79-year-old female, who was transferred to the Rehab Unit for weakness. The patient had previously been on the Medical Floor. The patient is known to have end-stage renal disease. The patient has a drug-resistant UTI. The patient also had some problems with hypoglycemia while on the Medical Floor. The patient had a urine culture,which was positive for ESBL on 09/01/2019. UC is positive again, ID, neurology and nephrology rounding. Pt still appears tired will be having line placed in thigh due to poor iv access. Review of Systems Review of Systems: All systems reviewed & are unremarkable except as noted in HPI and below Constitutional: Constitutional: Reports fatigue, Reports lethargy and Reports weakness Exam Narrative: Exam Narrative: Const: General: tired, drowsy HENMT: General nose exam: Normal nares present Mouth: Yes moist mucous membranes Eyes: General: appearance normal, both eyes and all related structures Sclera: sclerae normal Neck: Neck: supple Resp: Other: Clear Cardio: Rate: regular rate Rhythm: regular rhythm GI: Auscultation: normal bowel sounds Skin: Other: Patient has some bruising on her upper arm, left lower extremity patient had a skin tear it was dressed and covered Neuro: Speech: normal speech Sensory Exam: normal sensation Extrem: General: normal to inspection Psych: Affect: Anxious affect present Objective Data Vital Signs Vital Signs: Vital Signs - 24 hr 10/23/19 18:00 10/23/19 20:00 10/23/19 21:15 Temperature 36.5 C Pulse Rate 80 80 80 Respiratory Rate 17 Blood Pressure 112/86 Pulse Oximetry 94 10/23/19 22:00 10/24/19 00:00 10/24/19 02:00 Temperature 36.7 C Pulse Rate 80 80 80 Respiratory Rate 17 Blood Pressure 90/65 L Pulse Oximetry 96 10/24/19 04:00 10/24/19 06:00 10/24/19 08:00 Temperature 36.2 C L 36.2 C L Pulse Rate 80 85 80 Respiratory Rate 14 24 H Blood Pressure 121/73 106/80 Pulse Oximetry 94 94 10/24/19 10:00 10/24/19 12:00 10/24/19 14:00 Temperature 36.6 C Pulse Rate 80 80 80 Respiratory Rate 17 Blood Pressure 99/68 L Pulse Oximetry 92 10/24/19 17:02 Temperature 36.6 C Pulse Rate 80 Respiratory Rate 16 Blood Pressure 123/69 Pulse Oximetry 98 Intake/Output Intake/Output: Intake & Output 10/21/19 10/22/19 10/23/19 10/24/19 23:59 23:59 23:59 23:59 Intake Total 250 1900 380 Output Total 1000 0 Balance 250 900 380 Meds/Results Medications: Active Medications Generic Name Dose Route Start Last Admin Trade Name Freq PRN Reason Stop Dose Admin Dextrose 12.5 gm 10/24/19 05:21 Dextrose 50% Syringe IV PUSH PRN PRN Hypoglycemia Protocol
--- NOTE | 2019-10-24 17:55 | CONS_ITS ---
DATE OF CONSULTATION: 10/24/2019 REASON FOR CONSULTATION: Abnormal UA. HISTORY OF PRESENT ILLNESS: The patient is an 79-year-old female who can provide a limited history. She has a known diagnosis of asymptomatic bacteriuria. I saw her last approximately 2 weeks ago and concluded the same. She was transferred to acute rehab. 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 She received 3 mg of Ativan and then developed decreased level of consciousness. She was transferred to acute care as a result later on the . Due to an abnormal UA once again, she was started on imipenem now day 3, consultation requested. The patient still does make urine. She has a right subclavian PermCath in place as well as a fistula that is not yet available for use. She has had no new surgical procedures. She does not have a Meaz catheter. She has had no previous urologic surgery. She is not on systemic immunosuppressants. She has not received any new psychoactive medications except as above. CURRENT MEDICATIONS: List reviewed in full. ALLERGIES: LISINOPRIL. HABITS: No tobacco. No alcohol. PAST MEDICAL HISTORY: In addition to the above, aortic aneurysm, anemia of chronic inflammation, coronary artery disease with CABG, cataracts, heart failure, L1 compression fracture, COPD, depression, gout, hyperlipidemia, hypertension, hypothyroidism, Parkinson's, aortic valve replacement, bilateral cataract extractions, hysterectomy, left total knee arthroplasty, and tonsillectomy. REVIEW OF SYSTEMS: Some shortness of breath on October 21. A 14-point review is otherwise negative though compromised by her mental status. FAMILY HISTORY: [place], hypertension, and stroke. SOCIAL HISTORY: Has family at the bedside. , her has a hemiparesis after stroke. She is retired and 5 children. PHYSICAL EXAMINATION: GENERAL: This is a chronically ill-appearing female, older than her actual age. No respiratory distress. VITAL SIGNS: Consistently afebrile, 106/80, 80, 24, 94%. SKIN: Multiple ecchymoses. Skin tears. No penetrating ulcers, erythema, skin tenderness. NODES: She has no axillary or cervical adenopathy. EENT: The conjunctivae are clear. The pupils equal and round. The oral mucosa is dry; otherwise, normal. Teeth in fair repair. NECK: No meningismus, mass, thyromegaly, or tenderness. LUNGS: Clear to auscultation with good air entry. Clear to percussion. CHEST: Right subclavian PermCath in place. There is no drainage, and no erythema, tenderness, or warmth over the tunneled course. CARDIAC: Distant S1, S2. Regular rate and rhythm. Pulses are 1+. ABDOMEN: Distended. Hypoactive bowel sounds. No tenderness is elicited. No masses. No organomegaly. EXTREMITIES: She has bilateral arm and hand edema, 2+, not pitting. Fistula with thrill in place left antecubital fossa area. Surgical incision is well healed. No wound breakdown and no warmth. She has muscle wasting in the lower extremities. NEUROLOGIC: She is awake and oriented to self. Responds to questions and requests. LABORATORY DATA: Blood cultures multiple over time, although no growth. Urine on October 20, with ESBL producing E coli, imipenem BERENICE equal 1. Trimethoprim sulfa BERENICE equal 80. All others are poorly resistant. Her MRSA screen from the , negative. White count was 14.4 yesterday, 11.7 today, hemoglobin 10.6, platelets are 64 down from 86. Her differential is normal. Blood gas is reviewed. She has hyponatremia. BUN 26, creatinine 3.4 up from 2.4. Accu-Cheks variable down as low as 57 today. Liver function tests show transaminases 2 to 3 times normal, bilirubin 1.9, alkaline phosphatase 191,
[2019-10-24 20:18] LABS: Glucose Point of Care 85 (65-105)
[2019-10-25] VITALS (30 sets, daily range): BP systolic 98–135; BP diastolic 55–75; PULSE 74–85; RESP 16–22; TEMP 35.5–36.7; O2SAT 95–98
[2019-10-25] MEDS: LEVOTHYROXINE SODIUM INJ 100 MCG/5 ML VIAL 75 MCG IV PUSH (05:32)
[2019-10-25 06:06] LABS: Hematocrit 33.5 % (37.0-47.0); Immature Platelet Fraction Pct 10.5 % (0.9-11.2); Mean Corpuscular HGB Conc 32.8 g/dl (32-36); Mean Corpuscular Hemoglobin 32.2 pg (26-34); Mean Platelet Volume 12.8 fl (7.4-10.4); Platelet Count Result 68 k/mm3 (150-375); Red Blood Count 3.42 M/mm3 (4.2-5.4); White Blood Count 10.4 K/mm3 (4.5-10.0)
[2019-10-25 06:22] LABS: Albumin Level 3.1 g/dL (3.5-5.1); Blood Urea Nitrogen 37 mg/dL (7-17); Calcium 8.7 mg/dL (8.4-10.2); Carbon Dioxide 23 mmol/L (22-30); Chloride 96 mmol/L (98-107); Estimated Glomerular Filt Rate 10; Glucose 55 mg/dL (65-105); Phosphorus 4.6 mg/dL (2.5-4.5); Potassium 6.2 mmol/L (3.4-5.0); Sodium 132 mmol/L (137-145)
[2019-10-25 06:27] LABS: Glucose Point of Care 57 (65-105)
--- NOTE | 2019-10-25 06:52 | ECG_ITS ---
Measurements Intervals [place] Rate: 82 P: 171 RI: 240 QRS: 180 QRSD: 166 T: 91 QT: 471 QTc: 552 Interpretive Statements ELECTRONIC ATRIAL PACEMAKER ELECTRONIC VENTRICULAR PACEMAKER BASELINE WANDER- V4, V6 NO FURTHER INTERPRETATION IS POSSIBLE ATYPICAL ECG Electronically Signed On 10-25-2019 8:27:37 PODODERMATOLOGIST by Tacho Moeller D.O.
[2019-10-25] MEDS: DEXTROSE 50% 25 GM/50 ML SYRINGE IV PUSH (06:53)
[2019-10-25 07:05] LABS: Glucose Point of Care 95 (65-105)
[2019-10-25] MEDS: MIDODRINE HCL 10 MG TABLET PO ×3 (08:05→20:45)
--- NOTE | 2019-10-25 10:18 | PM.PNNEP ---
Progress Note: A&P Assessment and Plan (1) End stage renal disease: Code(s): N18.6 - End stage renal disease Status: Chronic Assessment and Plan: Hemodialysis getting done now. It was not done yesterday after all because of some transportation issues and other tests/procedures. (2) Metabolic encephalopathy: Code(s): G93.41 - Metabolic encephalopathy Status: Acute Assessment and Plan: suspect multifactorial: - use of ativan this has worn off by now. - insomnia x 3 days - hypoxia? - infection: The patient has positive urine culture but negative blood cultures. The patient has underlying dementia. However doubt if that alone has caused all of this. Dr. Levy is seeing as well. She is considering a neurology consult This is improved (3) Weakness: Code(s): R53.1 - Weakness Status: Acute Assessment and Plan: was in rehab for strengthening resume PT/OT when more stable Long and extensive discussion with daughter (> 20 minutes) regariding all of the above issues and plan of care. (4) Hypoglycemia: Code(s): E16.2 - Hypoglycemia, unspecified Status: Resolved Assessment and Plan: Sugars have been low. Cortisol level is fine. Sometimes infection can do this Subjective Date/time seen: 10/25/19 10:18 Interval history: Patient is alert. She feels better. She is in good humor She is on dialysis and tolerating it well. We are removing a little bit of fluid. Her blood pressure is fine She was seen at 9 35 a.m. Exam Narrative: Exam Narrative: General: WD/WN female in NAD Heart: normal S1 and S2; no rub or gallop Lungs: coarse breath sounds Abdomen: soft, nontender, nondistended, positive bowel sounds Extremities: no edema Skin: No rash Objective Data Vital Signs Vital Signs: Vital Signs - 24 hr 10/24/19 12:00 10/24/19 14:00 10/24/19 16:00 Temperature 36.6 C Pulse Rate 80 80 80 Respiratory Rate 17 Blood Pressure 99/68 L Pulse Oximetry 92 10/24/19 17:02 10/24/19 18:00 10/24/19 20:00 Temperature 36.6 C 36.6 C Pulse Rate 80 80 80 Respiratory Rate 16 17 Blood Pressure 123/69 112/93 H Pulse Oximetry 98 96 10/24/19 21:47 10/24/19 23:44 10/25/19 00:00 Temperature 36.6 C Pulse Rate 80 80 80 Respiratory Rate 14 Blood Pressure 134/85 Pulse Oximetry 94 10/25/19 03:51 10/25/19 04:00 10/25/19 05:45 Temperature 36.2 C L 36.2 C L Pulse Rate 80 80 80 Respiratory Rate 17 19 Blood Pressure 104/70 Pulse Oximetry 96 98 10/25/19 05:46 10/25/19 08:00 10/25/19 08:35 Temperature 36.7 C Pulse Rate 80 80 81 Respiratory Rate 20 Blood Pressure 104/70 98/66 L Pulse Oximetry 97 10/25/19 08:45 10/25/19 09:00 10/25/19 09:15 Temperature Pulse Rate 78 80 80 Respiratory Rate Blood Pressure 125/70 108/75 126/68 Pulse Oximetry 10/25/19 09:20 10/25/19 09:30 10/25/19 09:45 Temperature 36.4 C L Pulse Rate 80 85 80 Respiratory Rate 22 H Blood Pressure 109/58 L 121/61 112/55 L Pulse Oximetry 10/25/19 10:00 Temperature Pulse Rate 74 Respiratory Rate Blood Pressure 135/59 L Pulse Oximetry Intake/Output Intake/Output: Intake & Output 10/22/19 10/23/19 10/24/19 10/25/19 23:59 23:59 23:59 23:59 Intake Total 250 1900 670 120 Output Total 1000 0 Balance 250 900 670 120 Meds/Results Medications: Active Medications Generic Name Dose Route Start Last Admin Trade Name Freq PRN Reason Stop Dose Admin Dextrose 12.5 gm 10/24/19 05:21 10/25/19 06:53 Dextrose 50% Syringe IV PUSH 12.5 gm PRN PRN Administration Hypoglycemia Protocol Glucagon 1 mg 10/24/19 05:21 10/24/19 05:30 Glucagon For Inj IM 1 mg PRN PRN Administration Hypoglycemia Protocol Glucose 15 gm 10/24/19 05:21 Glutose 15 PO PRN PRN Hypoglycemia Protocol Albumin Human 50 mls @ 999 mls/
[2019-10-25 11:31] LABS: Glucose Point of Care 71 (65-105)
[2019-10-25 15:12] LABS: Glucose Point of Care 106 (65-105)
--- NOTE | 2019-10-25 17:33 | PM.IMPN ---
Progress Note: A&P Assessment and Plan (1) Metabolic encephalopathy: Code(s): G93.41 - Metabolic encephalopathy Status: Resolved Assessment and Plan: improving (2) Shortness of breath: Code(s): R06.02 - Shortness of breath Status: Resolved (3) Thrombocytopenia: Code(s): D69.6 - Thrombocytopenia, unspecified Status: Acute (4) Hypoglycemia: Code(s): E16.2 - Hypoglycemia, unspecified Status: Resolved (5) End stage renal disease: Code(s): N18.6 - End stage renal disease Status: Chronic Assessment and Plan: Pt having dialysis in the hospital, potassium slightly up can give kayexalate (6) Atrial fibrillation: Qualifiers: Atrial fibrillation type: unspecified Qualified Code(s): I48.91 - Unspecified atrial fibrillation Code(s): I48.91 - Unspecified atrial fibrillation Status: Acute Assessment and Plan: Rate is controlled restart home medications. perDR Eric (7) Urinary tract infection due to ESBL Klebsiella: Code(s): N39.0 - Urinary tract infection, site not specified; B96.89 - Other specified bacterial agents as the cause of diseases classified elsewhere Status: Acute Assessment and Plan: See above The patient had a urine culture,which was positive for ESBL on 09/01/2019. UC is positive again, ID, neurology and nephrology rounding. Subjective Date/time seen: 10/25/19 17:33 Interval history: 79-year-old female, who was transferred to the Rehab Unit for weakness. The patient had previously been on the Medical Floor. The patient is known to have end-stage renal disease. The patient has a drug-resistant UTI. The patient also had some problems with hypoglycemia while on the Medical Floor. The patient had a urine culture,which was positive for ESBL on 09/01/2019. UC is positive again, ID, neurology and nephrology rounding. Pt has line in thigh due to poor iv access. Pt feels much better, more alert not confused at all Review of Systems Review of Systems: All systems reviewed & are unremarkable except as noted in HPI and below Exam Narrative: Exam Narrative: Const: General: alert HENMT: General nose exam: Normal nares present Mouth: Yes moist mucous membranes Eyes: General: appearance normal, both eyes and all related structures Sclera: sclerae normal Neck: Neck: supple Resp: Other: Clear Cardio: Rate: regular rate Rhythm: regular rhythm GI: Auscultation: normal bowel sounds Skin: Other: Patient has some bruising on her upper arm, right upper extremity patient had a skin tear it was dressed and covered Neuro: Speech: normal speech Sensory Exam: normal sensation Extrem: General: normal to inspection Psych: Affect: Anxious affect present Objective Data Vital Signs Vital Signs: Vital Signs - 24 hr 10/24/19 18:00 10/24/19 20:00 10/24/19 21:47 Temperature 36.6 C Pulse Rate 80 80 80 Respiratory Rate 17 Blood Pressure 112/93 H Pulse Oximetry 96 10/24/19 23:44 10/25/19 00:00 10/25/19 03:51 Temperature 36.6 C 36.2 C L Pulse Rate 80 80 80 Respiratory Rate 14 17 Blood Pressure 134/85 Pulse Oximetry 94 96 10/25/19 04:00 10/25/19 05:45 10/25/19 05:46 Temperature 36.2 C L Pulse Rate 80 80 80 Respiratory Rate 19 Blood Pressure 104/70 Pulse Oximetry 98 10/25/19 08:00 10/25/19 08:35 10/25/19 08:45 Temperature 36.7 C Pulse Rate 80 81 78 Respiratory Rate 20 Blood Pressure 104/70 98/66 L 125/70 Pulse Oximetry 97 10/25/19 09:00 10/25/19 09:15 10/25/19 09:20 Temperature 36.4 C L Pulse Rate 80 80 80 Respiratory Rate 22 H Blood Pressure 108/75 126/68 109/58 L Pulse Oximetry 10/25/19 09:30 10/25/19 09:45 10/25/19 10:00 Temperature Pulse Rate 85 80 74 Respiratory Rate Blood Pressure 121/61 112/55 L 135/59 L Pulse Oximetry 10/25/19 10:15 10/25/19 10:30 10/25/19 10:45 Temperature
--- NOTE | 2019-10-25 19:57 | PC.NURSE ---
Pt transferred to room 202 on tele, bedside report given to Izzy GUZMAN. Belongings sent with pt.
[2019-10-25] MEDS: PRAVASTATIN SODIUM 20 MG TABLET 40 MG PO (20:45)
[2019-10-26] VITALS (13 sets, daily range): BP systolic 106–133; BP diastolic 63–75; PULSE 79–81; RESP 16–78; TEMP 36–37; O2SAT 94–99
[2019-10-26 05:37] LABS: Hematocrit 34.2 % (37.0-47.0); Hemoglobin 11.1 g/dL (12.0-15.0); Immature Platelet Fraction Pct 9.3 % (0.9-11.2); Mean Corpuscular HGB Conc 32.5 g/dl (32-36); Mean Corpuscular Hemoglobin 32.4 pg (26-34); Mean Corpuscular Volume 99.7 fl (80-100); Platelet Count Result 57 k/mm3 (150-375); Red Blood Count 3.43 M/mm3 (4.2-5.4); Red Cell Distribution Width 18.3 % (11.5-14.5); White Blood Count 9.6 K/mm3 (4.5-10.0)
[2019-10-26 06:24] LABS: Blood Urea Nitrogen 21 mg/dL (7-17); Calcium 8.6 mg/dL (8.4-10.2); Carbon Dioxide 28 mmol/L (22-30); Chloride 96 mmol/L (98-107); Estimated Glomerular Filt Rate 16; Glucose 63 mg/dL (65-105); Potassium 4.7 mmol/L (3.4-5.0); Sodium 137 mmol/L (137-145)
[2019-10-26] MEDS: LEVOTHYROXINE SODIUM 150 MCG TABLET PO (06:34)
--- NOTE | 2019-10-26 07:43 | PM.PNNEP ---
Progress Note: A&P Assessment and Plan (1) End stage renal disease: Code(s): N18.6 - End stage renal disease Status: Chronic Assessment and Plan: (2) Metabolic encephalopathy: Code(s): G93.41 - Metabolic encephalopathy Status: Resolved Assessment and Plan: suspect multifactorial: -this is doing much better. (3) Weakness: Code(s): R53.1 - Weakness Status: Acute Assessment and Plan: was in rehab for strengthening resume PT/OT when more stable Long and extensive discussion with daughter (> 20 minutes) regariding all of the above issues and plan of care. (4) Hypoglycemia: Code(s): E16.2 - Hypoglycemia, unspecified Status: Resolved Assessment and Plan: Sugars have been low still.. Cortisol level is fine. With end-stage renal disease, gluconeogenesis is solely performed in the liver. Is okay but her bilirubin level is high as are her liver enzymes. Possibly her low sugars are from liver dysfunction. Will check hepatitis studies. Consider CT abdomen.. Will start with an ultrasound Sometimes infection can do this Subjective Date/time seen: 10/26/19 07:43 Interval history: Patient is alert. She feels better. Up in a chair. Breathing okay. She has swelling in her arms. Her daughter is in the room. Review of Systems Review of Systems: ROS unobtainable: unobtainable due to mental condition Exam Narrative: Exam Narrative: General: WD/WN female in NAD Heart: normal S1 and S2; no rub or gallop Lungs: coarse breath sounds Abdomen: soft, nontender, nondistended, positive bowel sounds Extremities: 1+ edema Skin: No rash or subcu nodules. Objective Data Vital Signs Vital Signs: Vital Signs - 24 hr 10/25/19 08:00 10/25/19 08:35 10/25/19 08:45 Temperature 36.7 C Pulse Rate 80 81 78 Respiratory Rate 20 Blood Pressure 104/70 98/66 L 125/70 Pulse Oximetry 97 10/25/19 09:00 10/25/19 09:15 10/25/19 09:20 Temperature 36.4 C L Pulse Rate 80 80 80 Respiratory Rate 22 H Blood Pressure 108/75 126/68 109/58 L Pulse Oximetry 10/25/19 09:30 10/25/19 09:45 10/25/19 10:00 Temperature Pulse Rate 85 80 74 Respiratory Rate Blood Pressure 121/61 112/55 L 135/59 L Pulse Oximetry 10/25/19 10:15 10/25/19 10:30 10/25/19 10:45 Temperature Pulse Rate 80 80 80 Respiratory Rate Blood Pressure 113/69 118/57 L 122/69 Pulse Oximetry 10/25/19 11:00 10/25/19 11:15 10/25/19 11:30 Temperature Pulse Rate 79 80 80 Respiratory Rate Blood Pressure 116/72 125/65 114/63 Pulse Oximetry 10/25/19 11:45 10/25/19 12:00 10/25/19 12:05 Temperature 36.6 C Pulse Rate 81 80 80 Respiratory Rate 17 Blood Pressure 122/70 116/67 124/70 Pulse Oximetry 98 10/25/19 12:10 10/25/19 14:00 10/25/19 16:00 Temperature 36.5 C 36.5 C Pulse Rate 79 80 80 Respiratory Rate 16 18 Blood Pressure 119/55 L 112/68 Pulse Oximetry 98 10/25/19 18:00 10/25/19 19:19 10/25/19 20:00 Temperature 36.2 C L Pulse Rate 80 80 80 Respiratory Rate 20 Blood Pressure 120/66 Pulse Oximetry 95 97 10/25/19 22:00 10/26/19 00:00 10/26/19 00:36 Temperature 37.0 C Pulse Rate 80 80 79 Respiratory Rate 78 H Blood Pressure 106/63 Pulse Oximetry 96 94 10/26/19 02:00 10/26/19 04:00 10/26/19 04:48 Temperature 36.0 C L Pulse Rate 80 80 80 Respiratory Rate 18 Blood Pressure 122/66 Pulse Oximetry 96 94 10/26/19 06:00 Temperature Pulse Rate 80 Respiratory Rate Blood Pressure Pulse Oximetry Intake/Output Intake/Output: Intake & Output 10/23/19 10/24/19 10/25/19 10/26/19 23:59 23:59 23:59 23:59 Intake Total 1900 670 560 240 Output Total 1000 0 2500 Balance 900 670 -1940 240 Meds/Results Medications: Active Medications Generic Name Dose Route Start Last Admin Trade Name Freq PRN Reason Stop Dose Admin Amiodarone HCl 100 mg
[2019-10-26] MEDS: VENLAFAXINE HCL XR 75 MG CAP.ER.24H 225 MG PO (08:45)
[2019-10-26] MEDS: FOLIC ACID 1 MG TABLET PO (08:46)
[2019-10-26] MEDS: CHOLECALCIFEROL 1,000 UNIT TABLET 2000 UNITS PO (08:46)
[2019-10-26] MEDS: PAROXETINE 20 MG TABLET 40 MG PO (08:46)
[2019-10-26] MEDS: AMIODARONE HCL 100 MG TABLET PO (08:46)
[2019-10-26] MEDS: ASPIRIN 81 MG ENTERIC TABLET PO (08:47)
[2019-10-26] MEDS: DONEPEZIL HCL 10 MG TABLET PO (08:47)
[2019-10-26] MEDS: CYANOCOBALAMIN 1,000 MCG TABLET 1000 MCG PO (08:47)
[2019-10-26] MEDS: MIDODRINE HCL 10 MG TABLET PO ×3 (08:48→17:22)
--- NOTE | 2019-10-26 12:57 | PM.IMPN ---
Progress Note: A&P Assessment and Plan (1) Metabolic encephalopathy: Code(s): G93.41 - Metabolic encephalopathy Status: Resolved Assessment and Plan: improving (2) Shortness of breath: Code(s): R06.02 - Shortness of breath Status: Resolved (3) Thrombocytopenia: Code(s): D69.6 - Thrombocytopenia, unspecified Status: Acute (4) Hypoglycemia: Code(s): E16.2 - Hypoglycemia, unspecified Status: Resolved (5) End stage renal disease: Code(s): N18.6 - End stage renal disease Status: Resolved Assessment and Plan: Pt having dialysis in the hospital, potassium corrected with kayexalate (6) Atrial fibrillation: Qualifiers: Atrial fibrillation type: unspecified Qualified Code(s): I48.91 - Unspecified atrial fibrillation Code(s): I48.91 - Unspecified atrial fibrillation Status: Acute Assessment and Plan: Rate is controlled restart home medications. perDR Eric (7) Urinary tract infection due to ESBL Klebsiella: Code(s): N39.0 - Urinary tract infection, site not specified; B96.89 - Other specified bacterial agents as the cause of diseases classified elsewhere Status: Acute Assessment and Plan: See above The patient had a urine culture,which was positive for ESBL on 09/01/2019. UC is positive again, ID, neurology and nephrology rounding.Pt is on imepenem and is doing well. Wcc is nl, no confusion no hypoglycemic attacks. if hypoglycemia continues have pt go to see endocrinolology as OPD for recurrent hypoglycemia. Subjective Date/time seen: 10/26/19 12:57 Interval history: 79-year-old female, who was transferred to the Rehab Unit for weakness. The patient had previously been on the Medical Floor. The patient is known to have end-stage renal disease. The patient has a drug-resistant UTI. The patient also had some problems with hypoglycemia while on the Medical Floor. The patient had a urine culture,which was positive for ESBL on 09/01/2019. UC is positive again, ID, neurology and nephrology rounding. Pt has line in thigh due to poor iv access. Pt feels much better, more alert not confused at all, can be transfered to medical floor. Review of Systems Review of Systems: All systems reviewed & are unremarkable except as noted in HPI and below Cardiovascular: Cardiovascular: Denies no additional cardiovascular complaints Respiratory: Respiratory: Denies no additional respiratory complaints Neurologic: Denies confusion Psychiatric: Psychiatric: Reports anxiety Exam Narrative: Exam Narrative: Const: General: alert HENMT: General nose exam: Normal nares present Mouth: Yes moist mucous membranes Eyes: General: appearance normal, both eyes and all related structures Sclera: sclerae normal Neck: Neck: supple Resp: Other: Clear Cardio: Rate: regular rate Rhythm: regular rhythm GI: Auscultation: normal bowel sounds Skin: Other: Patient has some bruising on her upper arm, right upper extremity patient had a skin tear it was dressed and covered Neuro: Speech: normal speech Sensory Exam: normal sensation Extrem: General: normal to inspection Psych: Affect: Anxious affect present Objective Data Vital Signs Vital Signs: Vital Signs - 24 hr 10/25/19 14:00 10/25/19 16:00 10/25/19 18:00 Temperature 36.5 C Pulse Rate 80 80 80 Respiratory Rate 18 Blood Pressure 112/68 Pulse Oximetry 98 10/25/19 19:19 10/25/19 20:00 10/25/19 22:00 Temperature 36.2 C L Pulse Rate 80 80 80 Respiratory Rate 20 Blood Pressure 120/66 Pulse Oximetry 95 97 10/26/19 00:00 10/26/19 00:36 10/26/19 02:00 Temperature 37.0 C Pulse Rate 80 79 80 Respiratory Rate 78 H Blood Pressure 106/63 Pulse Oximetry 96 94 10/26/19 04:00 10/26/19 04:48 10/26/19 06:00 Temperature 36.0 C L Pulse Rate 80 80 80 Respiratory Rate 18 Blood Pressure 122/66 Pulse
[2019-10-26 13:02] LABS: Hepatitis B Surface Antigen Negative (Negative)
[2019-10-26 13:07] LABS: HAV RESULT Negative (Negative); Hepatitis B Core IgM Result Negative (Negative)
[2019-10-26 13:19] LABS: Hepatitis C Virus Antibody Negative (Negative)
[2019-10-26 20:24] LABS: Glucose Point of Care 102 (65-105)
[2019-10-26] MEDS: PRAVASTATIN SODIUM 20 MG TABLET 40 MG PO (21:20)
[2019-10-27] VITALS (22 sets, daily range): BP systolic 99–137; BP diastolic 51–81; PULSE 71–113; RESP 14–22; TEMP 35.6–37; O2SAT 94–95
[2019-10-27] MEDS: MELATONIN 3 MG TABLET PO ×2 (03:24→22:07)
[2019-10-27] MEDS: LEVOTHYROXINE SODIUM 150 MCG TABLET PO (06:20)
[2019-10-27 06:26] LABS: Basophils Percent Auto 0.3 % (0.2-1.2); Eosinophils Absolute Auto 0.1 K/mm3 (0-0.3); Eosinophils Percent Auto 1.5 % (0-4.4); Hematocrit 34.3 % (37.0-47.0); Hemoglobin 11.5 g/dL (12.0-15.0); Immature Granulocyte Absolute 0.07 K/mm3 (0.00-0.031); Immature Granulocyte Percent A 0.8 % (0-0.5); Lymphocytes Absolute Auto 0.78 K/mm3 (0.9-3.2); Mean Corpuscular HGB Conc 33.5 g/dl (32-36); Mean Corpuscular Volume 98.6 fl (80-100); Mean Platelet Volume 12.9 fl (7.4-10.4); Neutrophils Absolute Auto 6.7 K/mm3 (1.3-6.7); Neutrophils Percent Auto 77.4 % (45.5-73.1); Nucleated Red Blood Cells Absolute Auto 0.1 K/mm3 (0.0-0.012); Nucleated Red Blood Cells Perc 1.1 % (0.0-0.2); Platelet Count Result 67 k/mm3 (150-375); Red Blood Count 3.48 M/mm3 (4.2-5.4); Red Cell Distribution Width 18.6 % (11.5-14.5); White Blood Count 8.7 K/mm3 (4.5-10.0)
[2019-10-27 06:43] LABS: Alanine Aminotransferase 20 U/L (4-35); Albumin Level 2.9 g/dL (3.5-5.1); Alkaline Phosphatase 218 U/L (38-126); Aspartate Amino Transferase 52 U/L (14-36); Bilirubin,Total 2.2 mg/dL (0.2-1.3); Blood Urea Nitrogen 32 mg/dL (7-17); Calcium 8.6 mg/dL (8.4-10.2); Carbon Dioxide 26 mmol/L (22-30); Chloride 97 mmol/L (98-107); Estimated Glomerular Filt Rate 11; Glucose 56 mg/dL (65-105); Phosphorus 3.8 mg/dL (2.5-4.5); Potassium 4.8 mmol/L (3.4-5.0); Sodium 137 mmol/L (137-145)
[2019-10-27] MEDS: DEXTROSE 50% 25 GM/50 ML SYRINGE IV PUSH (06:49)
--- NOTE | 2019-10-27 06:55 | PC.NURSE ---
Addendum entered by Edwina Lee RN 10/27/19 08:14: DOSE GIVEN WAS 12.5 GM NOT 25GM. Original Note: 0642 LAB CALLED WITH 56 GLUCOSE. PT NPO DEXTROSE 50% 25 GM GIVEN IVP.
[2019-10-27 07:10] LABS: Glucose Point of Care 139 (65-105)
--- NOTE | 2019-10-27 07:29 | PC.NURSE ---
0710 ACCUCHECK 139 POST RX.
--- NOTE | 2019-10-27 07:31 | PC.NURSE ---
REPORT GIVEN TO NICHELLE GUZMAN FOR TRANSFER TO RM. 346 AT 0613.
--- NOTE | 2019-10-27 07:32 | PC.NURSE ---
0774 DAVE GUZMAN NOTIFIED OF ACCUCHECK OF 139.
--- NOTE | 2019-10-27 07:59 | PC.NURSE ---
Pt.taken to ultrasuond by bed and per office systems technology instructor will be transferred to 346 by bed post exam. Plan of care clarified with third floor RN and office systems technology instructor.
--- NOTE | 2019-10-27 08:51 | PCOTNOTE ---
OT Evaluation attempted today, however, pt has femoral line in. OT evaluation deferred until femoral line is out.
--- NOTE | 2019-10-27 08:53 | PCPTNOTE ---
Attempted PT eval. Therapy on hold due to femoral line. Will try again when line is removed.
[2019-10-27] MEDS: ASPIRIN 81 MG ENTERIC TABLET PO (09:58)
[2019-10-27] MEDS: CYANOCOBALAMIN 1,000 MCG TABLET 1000 MCG PO (09:58)
[2019-10-27] MEDS: CHOLECALCIFEROL 1,000 UNIT TABLET 2000 UNITS PO (09:58)
[2019-10-27] MEDS: MIDODRINE HCL 10 MG TABLET PO ×3 (09:58→18:20)
[2019-10-27] MEDS: PAROXETINE 20 MG TABLET 40 MG PO (09:58)
[2019-10-27] MEDS: DONEPEZIL HCL 10 MG TABLET PO (09:59)
[2019-10-27] MEDS: VENLAFAXINE HCL XR 75 MG CAP.ER.24H 225 MG PO (09:59)
[2019-10-27] MEDS: DOCUSATE SODIUM 100 MG CAPSULE PO (09:59)
[2019-10-27] MEDS: AMIODARONE HCL 100 MG TABLET PO (10:00)
--- NOTE | 2019-10-27 11:01 | PM.PNNEP ---
Progress Note: A&P Assessment and Plan (1) End stage renal disease: Code(s): N18.6 - End stage renal disease Status: Resolved Assessment and Plan: gets dialysis today some edema. will remove fluid (2) Metabolic encephalopathy: Code(s): G93.41 - Metabolic encephalopathy Status: Resolved Assessment and Plan: suspect multifactorial improved with decreasing meds. (3) Weakness: Code(s): R53.1 - Weakness Status: Acute Assessment and Plan: was in rehab for strengthening resume PT/OT when more stable (4) Hypoglycemia: Code(s): E16.2 - Hypoglycemia, unspecified Status: Resolved Assessment and Plan: Sugars have been low still.. Cortisol level is fine. liver u/s ordered Subjective Date/time seen: 10/27/19 11:01 Interval history: Patient is alert. She feels better. just waking up. daughter in the room Exam Narrative: Exam Narrative: General: WD/WN female in NAD Heart: normal S1 and S2; no rub or gallop Lungs: coarse breath sounds Abdomen: soft, nontender, nondistended, positive bowel sounds Extremities: 1+ edema and no cyanosis. Skin: No rash Objective Data Vital Signs Vital Signs: Vital Signs - 24 hr 10/26/19 12:00 10/26/19 14:00 10/26/19 16:00 Temperature 36.2 C L 36.6 C Pulse Rate 80 80 81 Respiratory Rate 16 20 Blood Pressure 127/74 116/67 Pulse Oximetry 97 96 10/26/19 20:00 10/27/19 00:00 10/27/19 04:29 Temperature 36.2 C L 36.2 C L 36.6 C Pulse Rate 80 80 81 Respiratory Rate 22 H 20 22 H Blood Pressure 133/75 124/69 137/81 Pulse Oximetry 98 94 95 10/27/19 10:00 Temperature Pulse Rate 81 Respiratory Rate Blood Pressure Pulse Oximetry Intake/Output Intake/Output: Intake & Output 10/24/19 10/25/19 10/26/19 10/27/19 23:59 23:59 23:59 23:59 Intake Total 635 791 6090 20 Output Total 0 2500 Balance 670 -1940 1070 20 Meds/Results Medications: Active Medications Generic Name Dose Route Start Last Admin Trade Name Freq PRN Reason Stop Dose Admin Amiodarone HCl 100 mg 10/26/19 09:00 10/27/19 10:00 Pacerone PO 100 mg DAILY KATIE Administration Aspirin 81 mg 10/26/19 09:00 10/27/19 09:58 Aspirin Ec PO 81 mg DAILY KATIE Administration Bumetanide 2 mg 10/28/19 09:00 Bumex Po PO TuThSa@0900 KATIE Cyanocobalamin 1,000 mcg 10/26/19 09:00 10/27/19 09:58 Vitamin B-12 Tab PO 1,000 mcg DAILY KATIE Administration Dextrose 12.5 gm 10/24/19 05:21 10/27/19 06:49 Dextrose 50% Syringe IV PUSH 12.5 gm PRN PRN Administration Hypoglycemia Protocol Diltiazem HCl 180 mg 10/26/19 09:00 10/27/19 10:03 Cardizem Cd PO Not Given DAILY KATIE Docusate Sodium 100 mg 10/26/19 09:00 10/27/19 09:59 Colace Capsule PO 100 mg DAILY KATIE Administration Donepezil HCl 10 mg 10/26/19 09:00 10/27/19 09:59 Aricept PO 10 mg DAILY KATIE Administration Glucagon 1 mg 10/24/19 05:21 10/24/19 05:30 Glucagon For Inj IM 1 mg PRN PRN Administration Hypoglycemia Protocol Glucose 15 gm 10/24/19 05:21 Glutose 15 PO PRN PRN Hypoglycemia Protocol Albumin Human 50 mls @ 999 mls/hr 10/22/19 18:09 Albutein IVPB 11/21/19 18:10 Q10M PRN HYPOTENSION Imipenem/Cilastatin Sodium 500 mg in 100 mls @ 300 mls/hr 10/24/19 21:00 10/27/19 10:05 Primaxin 500 Mg/D5w 100 Ml IVPB 300 mls/hr Q12HR KATIE Administration Levothyroxine Sodium 150 mcg 10/26/19 06:30 10/27/19 06:20 Synthroid PO 150 mcg DAILY@0630 KATIE Administration Midodrine 10 mg 10/22/19 18:15 10/27/19 09:58 Midodrine Hcl PO 10 mg TID KATIE Administration Paroxetine HCl 40 mg 10/26/19 09:00 10/27/19 09:58 Paxil PO 40 mg DAILY KATIE Administration Polyethylene Glycol 17 gm 10/26/19 09:00 10/27/19 09:58 Miralax PO Not Given QAM [facility] Pravastatin Sodium 40 mg 10/25/19
[2019-10-27] MEDS: ONDANSETRON INJ 4 MG/2 ML VIAL IV PUSH (11:41)
[2019-10-27 12:24] LABS: Glucose Point of Care 73 (65-105)
--- NOTE | 2019-10-27 16:47 | PM.EVENT ---
Event Note Event Note Event Note: On dialysis and tolerating well. Shooting for 2-4 L. Seen at 4:35 p.m.
--- NOTE | 2019-10-27 17:03 | WPDINFPN2 ---
Progress Note: A&P Assessment and Plan (1) Metabolic encephalopathy: Code(s): G93.41 - Metabolic encephalopathy Status: Resolved Assessment and Plan: 1. Agitation, I suspect non infectious, in particular due to cerebral hypoxia 2. Abnormal UA, prior asymptomatic bacteriuria. I cannot fully exclude cystitis as a cause of #1. Her organism is highly resistant. 3. CRF REC Imipenem # 6 / 7 days, adjust dosing for her renal failure. No new dose adjustments. Empiric antibiotics should be used very cautiously in the future, as even now she has very limited options for a true urine infection. Subjective Date/time seen: 10/27/19 17:03 Interval history: on HD. No complaints, lethargic Exam Narrative: Exam Narrative: afebrile Const: General: no acute distress Neck: Neck: no JVD Resp: Effort & Inspection: normal respiratory effort Auscultation: clear to auscultation bilaterally Cardio: Rate: regular rate Rhythm: regular rhythm Heart sounds: no gallops and no murmurs GI: Inspection: non-distended GI Palp: Yes Soft to palpation and No Tenderness to palpation present (GI) Objective Data Vital Signs Vital Signs: Vital Signs - 24 hr 10/26/19 20:00 10/27/19 00:00 10/27/19 04:29 Temperature 36.2 C L 36.2 C L 36.6 C Pulse Rate 80 80 81 Respiratory Rate 22 H 20 22 H Blood Pressure 133/75 124/69 137/81 Pulse Oximetry 98 94 95 10/27/19 10:00 10/27/19 14:18 10/27/19 14:25 Temperature 36.2 C L Pulse Rate 81 81 81 Respiratory Rate 14 Blood Pressure 100/67 100/68 Pulse Oximetry 10/27/19 14:30 10/27/19 14:45 10/27/19 15:00 Temperature Pulse Rate 80 113 H 81 Respiratory Rate Blood Pressure 106/58 L 104/65 111/68 Pulse Oximetry 10/27/19 15:15 10/27/19 15:30 10/27/19 15:45 Temperature Pulse Rate 80 81 92 Respiratory Rate Blood Pressure 118/51 L 109/66 104/67 Pulse Oximetry 10/27/19 16:00 10/27/19 16:15 10/27/19 16:30 Temperature Pulse Rate 81 80 71 Respiratory Rate Blood Pressure 106/69 114/70 106/67 Pulse Oximetry 10/27/19 16:45 Temperature Pulse Rate 77 Respiratory Rate Blood Pressure 117/54 L Pulse Oximetry Intake/Output Intake/Output: Intake & Output 10/24/19 10/25/19 10/26/19 10/27/19 23:59 23:59 23:59 23:59 Intake Total 621 483 4343 140 Output Total 0 2500 Balance 670 -1940 1070 140 Meds/Results Medications: Active Medications Generic Name Dose Route Start Last Admin Trade Name Freq PRN Reason Stop Dose Admin Amiodarone HCl 100 mg 10/26/19 09:00 10/27/19 10:00 Pacerone PO 100 mg DAILY KATIE Administration Aspirin 81 mg 10/26/19 09:00 10/27/19 09:58 Aspirin Ec PO 81 mg DAILY KATIE Administration Bumetanide 2 mg 10/28/19 09:00 Bumex Po PO TuThSa@0900 KATIE Cyanocobalamin 1,000 mcg 10/26/19 09:00 10/27/19 09:58 Vitamin B-12 Tab PO 1,000 mcg DAILY KATIE Administration Dextrose 12.5 gm 10/24/19 05:21 10/27/19 06:49 Dextrose 50% Syringe IV PUSH 12.5 gm PRN PRN Administration Hypoglycemia Protocol Diltiazem HCl 180 mg 10/27/19 21:00 Cardizem Cd PO HS KATIE Docusate Sodium 100 mg 10/26/19 09:00 10/27/19 09:59 Colace Capsule PO 100 mg DAILY KATIE Administration Donepezil HCl 10 mg 10/26/19 09:00 10/27/19 09:59 Aricept PO 10 mg DAILY KATIE Administration Glucagon 1 mg 10/24/19 05:21 10/24/19 05:30 Glucagon For Inj IM 1 mg PRN PRN Administration Hypoglycemia Protocol Glucose 15 gm 10/24/19 05:21 Glutose 15 PO PRN PRN Hypoglycemia Protocol Albumin Human 50 mls @ 999 mls/hr 10/22/19 18:09 Albutein IVPB 11/21/19 18:10 Q10M PRN HYPOTENSION Imipenem/Cilastatin Sodium 500 mg in 100 mls @ 300 mls/hr 10/24/19 21:00 10/27/19 10:25 Primaxin 500 Mg/D5w 100 Ml IVPB Infused Q12HR KATIE Infusion Levothyroxine Sodium 150 mcg 10/26/19 06:30 10/27/19 06:20 Synthroid PO
--- NOTE | 2019-10-27 17:03 | PM.IMPN ---
Progress Note: A&P Assessment and Plan (1) Metabolic encephalopathy: Code(s): G93.41 - Metabolic encephalopathy Status: Resolved Assessment and Plan: improving (2) Shortness of breath: Code(s): R06.02 - Shortness of breath Status: Resolved Assessment and Plan: Patient clinically stable (3) Thrombocytopenia: Code(s): D69.6 - Thrombocytopenia, unspecified Status: Acute Assessment and Plan: Stable (4) Hypoglycemia: Code(s): E16.2 - Hypoglycemia, unspecified Status: Resolved Assessment and Plan: Etiology uncertain C-peptide is ordered, most likely secondary to poor p.o. intake with poor appetite (5) End stage renal disease: Code(s): N18.6 - End stage renal disease Status: Resolved Assessment and Plan: Pt having dialysis in the hospital, potassium corrected with kayexalate (6) Atrial fibrillation: Qualifiers: Atrial fibrillation type: unspecified Qualified Code(s): I48.91 - Unspecified atrial fibrillation Code(s): I48.91 - Unspecified atrial fibrillation Status: Acute Assessment and Plan: Rate is controlled (7) Urinary tract infection due to ESBL Klebsiella: Code(s): N39.0 - Urinary tract infection, site not specified; B96.89 - Other specified bacterial agents as the cause of diseases classified elsewhere Status: Acute Assessment and Plan: See above The patient had a urine culture,which was positive for ESBL on 09/01/2019. UC is positive again, ID, neurology and nephrology rounding.Pt is on imepenem and is doing well. Wcc is nl, no confusion no hypoglycemic attacks. if hypoglycemia continues have pt go to see endocrinolology as OPD for recurrent hypoglycemia. Subjective Date/time seen: 10/27/19 17:03 79-year-old female, who was transferred to the Rehab Unit for weakness. The patient had previously been on the Medical Floor. The patient is known to have end-stage renal disease. The patient has a drug-resistant UTI. The patient also had some problems with hypoglycemia while on the Medical Floor. The patient had a urine culture,which was positive for ESBL on 09/01/2019. UC is positive again, and highly resistant seen by Dr. esquivel recommending cefepime 6/7 days, cautioned about starting empiric treatment for UTI in the future Pt has line in thigh due to poor iv access. Pt feels much better, more alert not confused at all, currently on the medical floor, patient blood sugar is low etiology uncertain most likely patient poor food intake is see has hardly eaten her breakfast this morning, patient states and no appetite Review of Systems Review of Systems: All systems reviewed & are unremarkable except as noted in HPI and below Exam Narrative: Exam Narrative: Elderly frail Const: General: comfortable and no acute distress HENMT: General nose exam: Normal nares present Mouth: Yes moist mucous membranes Eyes: General: appearance normal, both eyes and all related structures Sclera: sclerae normal Neck: Neck: supple Resp: Effort & Inspection: normal respiratory effort Auscultation: clear to auscultation bilaterally Cardio: Rate: regular rate Rhythm: regular rhythm GI: Auscultation: normal bowel sounds Skin: General skin exam: normal color and no rashes or lesions noted Neuro: Speech: normal speech Sensory Exam: normal sensation Extrem: General: normal to inspection Psych: Affect: Anxious affect present Objective Data Vital Signs Vital Signs: Vital Signs - 24 hr 10/26/19 20:00 10/27/19 00:00 10/27/19 04:29 Temperature 97.1 F L 97.1 F L 97.8 F Pulse Rate 80 80 81 Respiratory Rate 22 H 20 22 H Blood Pressure 133/75 124/69 137/81 Pulse Oximetry 98 94 95 10/27/19 10:00 10/27/19 14:18 10/27/19 14:25 Temperature 97.2 F L Pulse Rate 81 81 81 Respiratory Rate 14 Blood Pressure 100/67 100/68 Pulse Oximetry 10/27/19 14:30 10/27/19
[2019-10-27 18:18] LABS: Glucose Point of Care 64 (65-105)
--- NOTE | 2019-10-27 18:18 | PC.NURSE ---
Pt refusing oral glucose gel, juice provided.
[2019-10-27 18:40] LABS: Glucose Point of Care 94 (65-105)
[2019-10-27] MEDS: PRAVASTATIN SODIUM 20 MG TABLET 40 MG PO (21:29)
[2019-10-27 22:19] LABS: Glucose Point of Care 130 (65-105)
[2019-10-28] VITALS: BP 110/92; PULSE 80; RESP 16; TEMP 36.3; O2SAT 98
[2019-10-28 01:48] LABS: Glucose Point of Care 59 (65-105)
[2019-10-28 02:17] LABS: Glucose Point of Care 70 (65-105)
[2019-10-28] MEDS: LEVOTHYROXINE SODIUM 150 MCG TABLET PO (05:55)
[2019-10-28 06:00] VITALS: BP 101/66; PULSE 80; RESP 16; TEMP 36.4; O2SAT 94
[2019-10-28 07:23] LABS: Glucose Point of Care 58 (65-105)
[2019-10-28 07:48] LABS: Glucose Point of Care 83 (65-105)
[2019-10-28 08:00] VITALS: BP 96/65; PULSE 80; RESP 19; TEMP 36.3; O2SAT 93
--- NOTE | 2019-10-28 08:34 | PM.PNNEP ---
Progress Note: A&P Assessment and Plan (1) End stage renal disease: Code(s): N18.6 - End stage renal disease Status: Resolved Assessment and Plan: Had dialysis yesterday. Some fluid removed. Arm swelling is a little better. (2) Metabolic encephalopathy: Code(s): G93.41 - Metabolic encephalopathy Status: Resolved Assessment and Plan: suspect multifactorial improved with decreasing meds. (3) Weakness: Code(s): R53.1 - Weakness Status: Acute Assessment and Plan: was in rehab for strengthening resume PT/OT when more stable Aim is to get [facility] to [facility] strong enough. (4) Hypoglycemia: Code(s): E16.2 - Hypoglycemia, unspecified Status: Resolved Assessment and Plan: Sugars have been low still. Cortisol level is fine. She has several manifestations of liver issues such as high liver enzymes, high bilirubin, and the hypoglycemia. Ultrasound does show cirrhosis and portal hypertension. This probably explains the hypoglycemia. She has always been a nondrinker. Consider GI consult? (5) Bruising tendency: Code(s): D69.9 - Hemorrhagic condition, unspecified Status: Acute Assessment and Plan: PT and PTT are okay, but the platelet count is low. Is this reticuloendothelial uptake? Subjective Date/time seen: 10/28/19 08:34 Interval history: Patient is alert. She feels better. sitting up at the side of the bed. She is very weak. Eating some breakfast. daughter in the room Exam Narrative: Exam Narrative: General: WD/WN female in NAD Heart: normal S1 and S2; no rub or gallop Lungs: coarse breath sounds Abdomen: soft, nontender, nondistended, positive bowel sounds Extremities: 1+ edema especially in the arms. Skin: No rash . She has lots of ecchymoses. Objective Data Vital Signs Vital Signs: Vital Signs - 24 hr 10/27/19 10:00 10/27/19 14:18 10/27/19 14:25 Temperature 36.2 C L Pulse Rate 81 81 81 Respiratory Rate 14 Blood Pressure 100/67 100/68 Pulse Oximetry 10/27/19 14:30 10/27/19 14:45 10/27/19 15:00 Temperature Pulse Rate 80 113 H 81 Respiratory Rate Blood Pressure 106/58 L 104/65 111/68 Pulse Oximetry 10/27/19 15:15 10/27/19 15:30 10/27/19 15:45 Temperature Pulse Rate 80 81 92 Respiratory Rate Blood Pressure 118/51 L 109/66 104/67 Pulse Oximetry 10/27/19 16:00 10/27/19 16:15 10/27/19 16:30 Temperature Pulse Rate 81 80 71 Respiratory Rate Blood Pressure 106/69 114/70 106/67 Pulse Oximetry 10/27/19 16:45 10/27/19 17:00 10/27/19 17:15 Temperature Pulse Rate 77 81 77 Respiratory Rate Blood Pressure 117/54 L 109/61 111/64 Pulse Oximetry 10/27/19 17:30 10/27/19 17:45 10/27/19 17:55 Temperature Pulse Rate 81 81 81 Respiratory Rate Blood Pressure 104/66 104/60 99/55 L Pulse Oximetry 10/27/19 18:00 10/28/19 00:00 10/28/19 06:00 Temperature 36.4 C 36.3 C L 36.4 C L Pulse Rate 81 80 80 Respiratory Rate 14 16 16 Blood Pressure 107/58 L 110/92 H 101/66 Pulse Oximetry 98 94 Intake/Output Intake/Output: Intake & Output 10/25/19 10/26/19 10/27/19 10/28/19 23:59 23:59 23:59 23:59 Intake Total 560 1070 460 150 Output Total 2500 3300 Balance -1940 1070 -2840 150 Meds/Results Medications: Active Medications Generic Name Dose Route Start Last Admin Trade Name Geroge PRN Reason Stop Dose Admin Amiodarone HCl 100 mg 10/26/19 09:00 10/27/19 10:00 Pacerone PO 100 mg DAILY KATIE Administration Aspirin 81 mg 10/26/19 09:00 10/27/19 09:58 Aspirin Ec PO 81 mg DAILY KATIE Administration Bumetanide 2 mg 10/28/19 09:00 Bumex Po PO TuThSa@0900 KATIE Cyanocobalamin 1,000 mcg 10/26/19 09:00 10/27/19 09:58 Vitamin B-12 Tab PO 1,000 mcg DAILY KATIE Administration Dextrose 12.5 gm 10/24/19 05:21 10/27
[2019-10-28] MEDS: MIDODRINE HCL 10 MG TABLET PO ×3 (08:35→17:59)
[2019-10-28] MEDS: VENLAFAXINE HCL XR 75 MG CAP.ER.24H 225 MG PO (08:35)
[2019-10-28 08:36] VITALS: PULSE 79
[2019-10-28] MEDS: AMIODARONE HCL 100 MG TABLET PO (08:36)
[2019-10-28] MEDS: PAROXETINE 20 MG TABLET 40 MG PO (08:36)
[2019-10-28] MEDS: DOCUSATE SODIUM 100 MG CAPSULE PO (08:38)
[2019-10-28] MEDS: ASPIRIN 81 MG ENTERIC TABLET PO (08:38)
[2019-10-28] MEDS: DONEPEZIL HCL 10 MG TABLET PO (08:38)
[2019-10-28] MEDS: CYANOCOBALAMIN 1,000 MCG TABLET 1000 MCG PO (08:38)
[2019-10-28] MEDS: CHOLECALCIFEROL 1,000 UNIT TABLET 2000 UNITS PO (08:38)
[2019-10-28 11:35] LABS: Blood Urea Nitrogen 21 mg/dL (7-17); Calcium 8.4 mg/dL (8.4-10.2); Carbon Dioxide 32 mmol/L (22-30); Chloride 94 mmol/L (98-107); Estimated Glomerular Filt Rate 16; Glucose 83 mg/dL (65-105); Phosphorus 3.4 mg/dL (2.5-4.5); Potassium 4.3 mmol/L (3.4-5.0); Sodium 139 mmol/L (137-145)
[2019-10-28 12:25] LABS: Glucose Point of Care 79 (65-105)
--- NOTE | 2019-10-28 13:20 | WPDINFPN2 ---
Progress Note: A&P Assessment and Plan (1) Metabolic encephalopathy: Code(s): G93.41 - Metabolic encephalopathy Status: Resolved Assessment and Plan: 1. Agitation, I suspect non infectious, in particular due to cerebral hypoxia 2. Abnormal UA, prior asymptomatic bacteriuria. I cannot fully exclude cystitis as a cause of #1. Her organism is highly resistant. 3. CRF REC Imipenem # 7 / 7 days, stop today. i do not think that her fog is due to infection. Subjective Date/time seen: 10/28/19 13:20 Interval history: sleeps poorly due to accuchecks etc. and confused at night. Lucid during day though daughter reports in a fog No diarrhea Exam Narrative: Exam Narrative: afebrile Const: General: no acute distress Eyes: General: appearance normal, both eyes and all related structures Resp: Effort & Inspection: normal respiratory effort Auscultation: clear to auscultation bilaterally Cardio: Rate: regular rate Rhythm: regular rhythm Heart sounds: no gallops and no murmurs GI: Inspection: distended GI Palp: Yes Soft to palpation, No Tenderness to palpation present (GI) and No Guarding due to palpation present (GI) Objective Data Vital Signs Vital Signs: Vital Signs - 24 hr 10/27/19 14:18 10/27/19 14:25 10/27/19 14:30 Temperature 36.2 C L Pulse Rate 81 81 80 Respiratory Rate 14 Blood Pressure 100/67 100/68 106/58 L Pulse Oximetry 10/27/19 14:45 10/27/19 15:00 10/27/19 15:15 Temperature Pulse Rate 113 H 81 80 Respiratory Rate Blood Pressure 104/65 111/68 118/51 L Pulse Oximetry 10/27/19 15:30 10/27/19 15:45 10/27/19 16:00 Temperature Pulse Rate 81 92 81 Respiratory Rate Blood Pressure 109/66 104/67 106/69 Pulse Oximetry 10/27/19 16:15 10/27/19 16:30 10/27/19 16:45 Temperature Pulse Rate 80 71 77 Respiratory Rate Blood Pressure 114/70 106/67 117/54 L Pulse Oximetry 10/27/19 17:00 10/27/19 17:15 10/27/19 17:30 Temperature Pulse Rate 81 77 81 Respiratory Rate Blood Pressure 109/61 111/64 104/66 Pulse Oximetry 10/27/19 17:45 10/27/19 17:55 10/27/19 18:00 Temperature 36.4 C Pulse Rate 81 81 81 Respiratory Rate 14 Blood Pressure 104/60 99/55 L 107/58 L Pulse Oximetry 10/28/19 00:00 10/28/19 06:00 10/28/19 08:00 Temperature 36.3 C L 36.4 C L 36.3 C L Pulse Rate 80 80 80 Respiratory Rate 16 16 19 Blood Pressure 110/92 H 101/66 96/65 L Pulse Oximetry 98 94 93 10/28/19 08:36 Temperature Pulse Rate 79 Respiratory Rate Blood Pressure Pulse Oximetry Intake/Output Intake/Output: Intake & Output 10/25/19 10/26/19 10/27/19 10/28/19 23:59 23:59 23:59 23:59 Intake Total 560 1070 460 720 Output Total 2500 3300 Balance -1940 1070 -2840 720 Meds/Results Medications: Active Medications Generic Name Dose Route Start Last Admin Trade Name Freq PRN Reason Stop Dose Admin Amiodarone HCl 100 mg 10/26/19 09:00 10/28/19 08:36 Pacerone PO 100 mg DAILY KATIE Administration Aspirin 81 mg 10/26/19 09:00 10/28/19 08:38 Aspirin Ec PO 81 mg DAILY KATIE Administration Bumetanide 2 mg 10/28/19 09:00 10/28/19 08:34 Bumex Po PO Not Given TuThSa@0900 KATIE Cyanocobalamin 1,000 mcg 10/26/19 09:00 10/28/19 08:38 Vitamin B-12 Tab PO 1,000 mcg DAILY KATIE Administration Dextrose 12.5 gm 10/24/19 05:21 10/27/19 06:49 Dextrose 50% Syringe IV PUSH 12.5 gm PRN PRN Administration Hypoglycemia Protocol Diltiazem HCl 180 mg 10/27/19 21:00 10/27/19 21:29 Cardizem Cd PO 180 mg HS KATIE Administration Docusate Sodium 100 mg 10/26/19 09:00 10/28/19 08:38 Colace Capsule PO 100 mg DAILY KATIE Administration Donepezil HCl 10 mg 10/26/19 09:00 10/28/19 08:38 Aricept PO 10 mg DAILY KATIE Administration Glucagon 1 mg 10/24/19 05:21 10/24/19 05:30 Glucagon For Inj IM 1 mg PRN PRN Administration Hypoglycemia Protocol
[2019-10-28 14:00] VITALS: BP 128/69; PULSE 79; RESP 19; TEMP 36; O2SAT 99
--- NOTE | 2019-10-28 14:54 | WPDGICN ---
Assessment and Plan Additional Plan This is an 79-year-old white female patient mass to see because of elevated liver function test. Patient seen at the request of Dr. Cheng. Patient initially admitted to the hospital on 09/13/2019 with a urinary tract infection. Was seen by myself on 10/20/2019. At that time she was confused felt to be secondary to uremia. Her serum ammonia level has remained normal. It is been noticed since her admission that starting on approximately September 29 her liver function test began to become somewhat elevated. An ultrasound of the abdomen performed 10/27/2019 reveals changes consistent with cirrhosis. There are no gallstones identified. Though surface of the liver is felt to be nodule and changes in the portal vein suggest portal hypertension. Patient a response appropriately but gives a very poor history. The history is obtained with the assistance of her daughter. Patient and daughter deny any prior history of alcohol intake. She has never known to have hepatitis previous to this is never known to have liver disease. Recent past history is significant for urinary tract infection currently being followed by the infectious disease service, Dr. esquivel. Patient has end-stage renal disease for which she is on chronic dialysis. She is felt to have chronic anemia on the basis of her chronic kidney disease. She is also known to have coronary artery disease. Congestive heart failure. COPD. Gout. Hypercholesterolemia. Depression. Parkinson's disease. Previous surgery includes aortic valve replacement. History of heart catheterization, history of hysterectomy. She has a history of a knee replacement. Previously was on Xarelto for atrial fibrillation. Medications are noted in her medication list. Anticoagulation is currently hold. Physical exam reveals her to be arousable but somnolent. She appears oriented x3. HEENT exam she is anicteric. Lungs are clear to auscultation and percussion. Heart is without murmur or extra sounds. Abdominal exam is soft nontender with no organomegaly evident. Extremities are without clubbing cyanosis. She has stasis changes in the lower extremity. Some wounds are on her lower extremities as well. Ultrasound of the right upper quadrant dated 10/27/2019 is suggestive of cirrhosis. WBC 8.7, hemoglobin 11.5, hematocrit 34.3, MCV 98.6. Platelets are 67 K. Total bilirubin 2.2, AST 52, ALT 20, alk-phos 218, ammonia less than 9. Impression 1. Elevated liver function test. Appear to be related to cirrhosis. Possibly related to congestive liver from CHF. No known exposure history is obtained. Hepatitis serologies are negative. Will obtain additional lab work searching for other possible etiologies of cirrhosis. At the present time supportive care is advised. Monitor laboratory work including low platelets. Normal ammonia level suggest confusion is on the basis of azotemia rather than liver disease. 2. Cirrhosis of the liver. Suggested by ultrasound of the abdomen. Likely from congestive liver. Lab work will be obtained. 3. UTI. Followed by ID service. 4. End-stage renal disease. On dialysis. 5. Confusion. [place] to be related to azotemia. Current we improved. 6. Parkinson's disease. Plan is to obtain lab workup searching for other possible etiologies for her cirrhosis. Continue supportive care. Thrombocytopenia peers noon should be monitored closely. GI Consult Note Consult date/time: 10/28/19 14:54 HPI: Rachelle Mayi Herbert is a 79 year old female REPLACED BY [facility] Past Medical History Medical History (Updated 10/28/19 @ 08:38 by Davian Arceo MD) AA (aortic aneurysm) Anemia due to chronic kidney disease, on chronic dialysis Angina at rest Anxiety Arthritis AV fistula Bruising tendency CAD (coronary artery disease) of artery bypass graft Cataract CHF (congestive heart failure) Compression fracture of L1 lumbar vertebra COPD (chronic obstructive pulmonary disea
[2019-10-28 16:02] LABS: Bilirubin Direct 0.3 mg/dL (0-0.3); Bilirubin Indirect 0.8 mg/dL (0-1.1); Bilirubin,Total 2.2 mg/dL (0.2-1.3)
[2019-10-28 16:55] LABS: Iron 70 ug/dL (37-170)
[2019-10-28 17:06] LABS: Percent Iron Saturation 36 % (20-50)
--- NOTE | 2019-10-28 17:53 | PM.IMPN ---
Progress Note: A&P Assessment and Plan (1) Metabolic encephalopathy: Code(s): G93.41 - Metabolic encephalopathy Status: Resolved Assessment and Plan: 10/28/19 17:53 79-year-old female, who was transferred to the Rehab Unit for weakness. The patient had previously been on the Medical Floor. The patient is known to have end-stage renal disease. The patient has a drug-resistant UTI. The patient also had some problems with hypoglycemia while on the Medical Floor. The patient had a urine culture,which was positive for ESBL on 09/01/2019. UC is positive again, and highly resistant seen by Dr. esquivel recommending cefepime 6/7 days, cautioned about starting empiric treatment for UTI in the future Pt has line in thigh due to poor iv access. Pt feels much better, more alert not confused at all, currently on the medical floor, patient blood sugar is low etiology uncertain most likely patient poor food intake, patient has a elevated LFT to further evaluate abdominal ultrasound was done patient suspected patient and possible liver cirrhosis etiology uncertain as patient has no history of alcohol abuse and infectious cause of her proctitis is ruled out patient is seen by GI and further workup is in progress, patient is a dementia daughter is present in the room (2) Shortness of breath: Code(s): R06.02 - Shortness of breath Status: Resolved Assessment and Plan: Patient clinically stable (3) Thrombocytopenia: Code(s): D69.6 - Thrombocytopenia, unspecified Status: Acute Assessment and Plan: Stable (4) Hypoglycemia: Code(s): E16.2 - Hypoglycemia, unspecified Status: Resolved Assessment and Plan: Etiology uncertain C-peptide is ordered, most likely secondary to poor p.o. intake with poor appetite (5) End stage renal disease: Code(s): N18.6 - End stage renal disease Status: Resolved Assessment and Plan: Pt having dialysis in the hospital, potassium corrected with kayexalate (6) Atrial fibrillation: Qualifiers: Atrial fibrillation type: unspecified Qualified Code(s): I48.91 - Unspecified atrial fibrillation Code(s): I48.91 - Unspecified atrial fibrillation Status: Acute Assessment and Plan: Rate is controlled (7) Urinary tract infection due to ESBL Klebsiella: Code(s): N39.0 - Urinary tract infection, site not specified; B96.89 - Other specified bacterial agents as the cause of diseases classified elsewhere Status: Acute Assessment and Plan: See above The patient had a urine culture,which was positive for ESBL on 09/01/2019. UC is positive again, ID, neurology and nephrology rounding.Pt is on imepenem and is doing well. Wcc is nl, no confusion no hypoglycemic attacks. if hypoglycemia continues have pt go to see endocrinolology as OPD for recurrent hypoglycemia. Subjective Date/time seen: 10/28/19 17:53 79-year-old female, who was transferred to the Rehab Unit for weakness. The patient had previously been on the Medical Floor. The patient is known to have end-stage renal disease. The patient has a drug-resistant UTI. The patient also had some problems with hypoglycemia while on the Medical Floor. The patient had a urine culture,which was positive for ESBL on 09/01/2019. UC is positive again, and highly resistant seen by Dr. esquivel recommending cefepime 6/7 days, cautioned about starting empiric treatment for UTI in the future Pt has line in thigh due to poor iv access. Pt feels much better, more alert not confused at all, currently on the medical floor, patient blood sugar is low etiology uncertain most likely patient poor food intake, patient has a elevated LFT to further evaluate abdominal ultrasound was done patient suspected patient and possible liver cirrhosis etiology uncertain as patient has no history of alcohol abuse and infectious cause of her proctitis is ruled out patient is seen by GI
--- NOTE | 2019-10-28 18:01 | PC.NURSE ---
pt refusing oral glucose gel, providing 2 juices
[2019-10-28 18:48] LABS: Glucose Point of Care 60 (65-105)
[2019-10-28 18:48] LABS: Glucose Point of Care 94 (65-105)
[2019-10-28 20:59] VITALS: BP 104/67; PULSE 81; RESP 16; TEMP 36.5; O2SAT 100
[2019-10-28] MEDS: PRAVASTATIN SODIUM 20 MG TABLET 40 MG PO (21:05)
[2019-10-28] MEDS: MELATONIN 3 MG TABLET PO (21:05)
[2019-10-28 21:22] LABS: Glucose Point of Care 108 (65-105)
[2019-10-29] VITALS (25 sets, daily range): BP systolic 100–129; BP diastolic 47–73; PULSE 74–90; RESP 12–20; TEMP 36.1–37; O2SAT 92–97
[2019-10-29 00:58] LABS: Glucose Point of Care 71 (65-105)
[2019-10-29] MEDS: GUAIFENESIN/DEXTROMETHORPHAN 10 ML UDC 5 ML PO (02:49)
[2019-10-29 04:32] LABS: Glucose Point of Care 63 (65-105)
[2019-10-29 05:52] LABS: Glucose Point of Care 68 (65-105)
[2019-10-29] MEDS: LEVOTHYROXINE SODIUM 150 MCG TABLET PO (05:58)
[2019-10-29 06:02] LABS: Glucose Point of Care 104 (65-105)
[2019-10-29] MEDS: ALTEPLASE 2 MG VIAL (CATHFLO) IV PUSH ×2 (06:52→09:46)
[2019-10-29] MEDS: MIDODRINE HCL 10 MG TABLET PO ×3 (09:06→17:52)
[2019-10-29] MEDS: CYANOCOBALAMIN 1,000 MCG TABLET 1000 MCG PO (09:06)
[2019-10-29] MEDS: PAROXETINE 20 MG TABLET 40 MG PO (09:07)
[2019-10-29] MEDS: DONEPEZIL HCL 10 MG TABLET PO (09:07)
[2019-10-29] MEDS: ASPIRIN 81 MG ENTERIC TABLET PO (09:07)
[2019-10-29] MEDS: CHOLECALCIFEROL 1,000 UNIT TABLET 2000 UNITS PO (09:08)
[2019-10-29] MEDS: VENLAFAXINE HCL XR 75 MG CAP.ER.24H 225 MG PO (09:08)
[2019-10-29] MEDS: AMIODARONE HCL 100 MG TABLET PO (09:08)
[2019-10-29] MEDS: DOCUSATE SODIUM 100 MG CAPSULE PO (09:08)
--- NOTE | 2019-10-29 09:38 | WPDGIPROGNO ---
Progress Note: A&P Additional Plan Patient alert this morning. She does have some slow mentation however. Physical exam reveals her to be is alert. Lungs are clear. Abdomen is soft and nontender with no organomegaly evident. Labs reveal low platelet count. Follow-up CBC pending. Iron studies consistent with anemia of chronic disease. LFTs slightly elevated. Impression 1. Cirrhosis of the liver. Appears to be cryptogenic in etiology. Additional lab work is in progress. At present her ammonia level is normal. Making this unlikely contributing cause for her confusion. 2. End-stage liver disease. Azotemia felt to contribute to her mental status changes. 3. UTI. Infectious disease service, Dr. esquivel monitoring in treating with antibiotics. 4. Atrial fibrillation. Plan is for supportive care for the cirrhosis. No additional therapy warranted at this time. Additional labs are pending for review. Subjective Date/time seen: 10/29/19 09:38 Objective Data Vital Signs Vital Signs: Vital Signs - 24 hr 10/28/19 14:00 10/28/19 20:59 10/29/19 02:39 Temperature 36.0 C L 36.5 C 36.6 C Pulse Rate 79 81 83 Respiratory Rate 19 16 16 Blood Pressure 128/69 104/67 107/62 Pulse Oximetry 99 100 95 10/29/19 05:08 10/29/19 09:08 10/29/19 09:19 Temperature 36.1 C L Pulse Rate 83 83 83 Respiratory Rate 16 16 Blood Pressure 109/52 L Pulse Oximetry 95 92 Intake/Output Intake/Output: Intake & Output 10/26/19 10/27/19 10/28/19 10/29/19 23:59 23:59 23:59 23:59 Intake Total 3477 329 6685 600 Output Total 3300 Balance 1070 -2840 1360 600 Meds/Results Medications: Active Medications Generic Name Dose Route Start Last Admin Trade Name Freq PRN Reason Stop Dose Admin Alteplase, Recombinant 2 mg 10/29/19 06:32 10/29/19 06:52 Cathflo Activase IV PUSH 2 mg ONCE PRN Administration Line Occlusion Amiodarone HCl 100 mg 10/26/19 09:00 10/29/19 09:08 Pacerone PO 100 mg DAILY KATIE Administration Aspirin 81 mg 10/26/19 09:00 10/29/19 09:07 Aspirin Ec PO 81 mg DAILY KATIE Administration Bumetanide 2 mg 10/28/19 09:00 10/28/19 08:34 Bumex Po PO Not Given TuThSa@0900 KATIE Cyanocobalamin 1,000 mcg 10/26/19 09:00 10/29/19 09:06 Vitamin B-12 Tab PO 1,000 mcg DAILY KATIE Administration Dextrose 12.5 gm 10/24/19 05:21 10/27/19 06:49 Dextrose 50% Syringe IV PUSH 12.5 gm PRN PRN Administration Hypoglycemia Protocol Diltiazem HCl 180 mg 10/27/19 21:00 10/28/19 21:05 Cardizem Cd PO 180 mg HS KATIE Administration Docusate Sodium 100 mg 10/26/19 09:00 10/29/19 09:08 Colace Capsule PO 100 mg DAILY KATIE Administration Donepezil HCl 10 mg 10/26/19 09:00 10/29/19 09:07 Aricept PO 10 mg DAILY KATIE Administration Glucagon 1 mg 10/24/19 05:21 10/24/19 05:30 Glucagon For Inj IM 1 mg PRN PRN Administration Hypoglycemia Protocol Glucose 15 gm 10/24/19 05:21 Glutose 15 PO PRN PRN Hypoglycemia Protocol Albumin Human 50 mls @ 999 mls/hr 10/22/19 18:09 Albutein IVPB 11/21/19 18:10 Q10M PRN HYPOTENSION Levothyroxine Sodium 150 mcg 10/26/19 06:30 10/29/19 05:58 Synthroid PO 150 mcg DAILY@0630 KATIE Administration Melatonin 3 mg 10/27/19 21:55 10/28/19 21:05 Melatonin PO 3 mg HS PRN Administration Insomnia Midodrine 10 mg 10/22/19 18:15 10/29/19 09:06 Midodrine Hcl PO 10 mg TID KATIE Administration Ondansetron HCl 4 mg 10/27/19 11:11 10/27/19 11:41 Zofran Inj IV PUSH 4 mg Q6H PRN Administration Nausea And Vomiting Paroxetine HCl 40 mg 10/26/19 09:00 10/29/19 09:07 Paxil PO 40 mg DAILY KATIE Administration Polyethylene Glycol 17 gm 10/26/19 09:00 10/29/19 09:05 Miralax PO Not Given QAM KATIE Pravastatin Sodium 40 mg 10/25/19 21:00 10/28/19 21:05 Pravastatin Sodium PO 40 mg HS KATIE
--- NOTE | 2019-10-29 11:49 | PCOTNOTE ---
Attempted to see patient htis am, however patient was with vein specialist at this time then going to dialysis at 13:00. Pt not seen for this reason.
--- NOTE | 2019-10-29 12:02 | WPDINFPN2 ---
Progress Note: A&P Assessment and Plan (1) Metabolic encephalopathy: Code(s): G93.41 - Metabolic encephalopathy Status: Resolved Assessment and Plan: 1. Agitation, resolved, non infectious, in particular due to cerebral hypoxia 2. Abnormal UA, prior asymptomatic bacteriuria. I cannot fully exclude cystitis as a cause of #1. Her organism is highly resistant. 3. CRF REC Off Imipenem after 7 days. Multiple co-morbidities being addressed by her other MDs. Will sign off. I would be happy to provide informal advice anytime in the future prior to initiation of antibiotics (in effort to avoid promotion of further drug resistance) Subjective Date/time seen: 10/29/19 12:02 Interval history: no new complaints, + insomnia due to multiple sleep interruptions Exam Narrative: Exam Narrative: afebrile Const: General: no acute distress Other: appears depressed and chronically ill Eyes: General: appearance normal, both eyes and all related structures Resp: Effort & Inspection: normal respiratory effort Auscultation: clear to auscultation bilaterally Cardio: Rate: regular rate Rhythm: regular rhythm Heart sounds: no gallops and no murmurs GI: Inspection: non-distended GI Palp: Yes Soft to palpation and No Tenderness to palpation present (GI) Objective Data Vital Signs Vital Signs: Vital Signs - 24 hr 10/28/19 14:00 10/28/19 20:59 10/29/19 02:39 Temperature 36.0 C L 36.5 C 36.6 C Pulse Rate 79 81 83 Respiratory Rate 19 16 16 Blood Pressure 128/69 104/67 107/62 Pulse Oximetry 99 100 95 10/29/19 05:08 10/29/19 09:08 10/29/19 09:19 Temperature 36.1 C L Pulse Rate 83 83 83 Respiratory Rate 16 16 Blood Pressure 109/52 L Pulse Oximetry 95 92 Intake/Output Intake/Output: Intake & Output 10/26/19 10/27/19 10/28/19 10/29/19 23:59 23:59 23:59 23:59 Intake Total 2668 716 4175 600 Output Total 3300 Balance 1070 -2840 1360 600 Meds/Results Medications: Active Medications Generic Name Dose Route Start Last Admin Trade Name Freq PRN Reason Stop Dose Admin Alteplase, Recombinant 2 mg 10/29/19 06:32 10/29/19 09:46 Cathflo Activase IV PUSH 2 mg ONCE PRN Administration Line Occlusion Amiodarone HCl 100 mg 10/26/19 09:00 10/29/19 09:08 Pacerone PO 100 mg DAILY KATIE Administration Aspirin 81 mg 10/26/19 09:00 10/29/19 09:07 Aspirin Ec PO 81 mg DAILY KATIE Administration Bumetanide 2 mg 10/28/19 09:00 10/28/19 08:34 Bumex Po PO Not Given TuThSa@0900 KATIE Cyanocobalamin 1,000 mcg 10/26/19 09:00 10/29/19 09:06 Vitamin B-12 Tab PO 1,000 mcg DAILY KATIE Administration Dextrose 12.5 gm 10/24/19 05:21 10/27/19 06:49 Dextrose 50% Syringe IV PUSH 12.5 gm PRN PRN Administration Hypoglycemia Protocol Diltiazem HCl 180 mg 10/27/19 21:00 10/28/19 21:05 Cardizem Cd PO 180 mg HS KATIE Administration Docusate Sodium 100 mg 10/26/19 09:00 10/29/19 09:08 Colace Capsule PO 100 mg DAILY KATIE Administration Donepezil HCl 10 mg 10/26/19 09:00 10/29/19 09:07 Aricept PO 10 mg DAILY KATIE Administration Glucagon 1 mg 10/24/19 05:21 10/24/19 05:30 Glucagon For Inj IM 1 mg PRN PRN Administration Hypoglycemia Protocol Glucose 15 gm 10/24/19 05:21 Glutose 15 PO PRN PRN Hypoglycemia Protocol Albumin Human 50 mls @ 999 mls/hr 10/22/19 18:09 Albutein IVPB 11/21/19 18:10 Q10M PRN HYPOTENSION Levothyroxine Sodium 150 mcg 10/26/19 06:30 10/29/19 05:58 Synthroid PO 150 mcg DAILY@0630 KATIE Administration Melatonin 3 mg 10/27/19 21:55 10/28/19 21:05 Melatonin PO 3 mg HS PRN Administration Insomnia Midodrine 10 mg 10/22/19 18:15 10/29/19 09:06 Midodrine Hcl PO 10 mg TID KATIE Administration Ondansetron HCl 4 mg 10/27/19 11:11 10/27/19 11:41 Zofran Inj IV PUSH 4 mg Q6H PRN Administration Nausea And Vomiti
[2019-10-29 12:56] LABS: Glucose Point of Care 75 (65-105)
[2019-10-29 13:59] LABS: Basophils Percent Auto 0.5 % (0.2-1.2); Eosinophils Absolute Auto 0.1 K/mm3 (0-0.3); Eosinophils Percent Auto 0.9 % (0-4.4); Hematocrit 37.5 % (37.0-47.0); Hemoglobin 11.8 g/dL (12.0-15.0); Immature Granulocyte Absolute 0.15 K/mm3 (0.00-0.031); Immature Granulocyte Percent A 1.7 % (0-0.5); Immature Platelet Fraction Pct 9.1 % (0.9-11.2); Lymphocytes Absolute Auto 0.79 K/mm3 (0.9-3.2); Lymphocytes Percent Auto 9.1 % (18.3-44.2); Mean Corpuscular HGB Conc 31.5 g/dl (32-36); Mean Corpuscular Hemoglobin 32.3 pg (26-34); Mean Corpuscular Volume 102.7 fl (80-100); Mean Platelet Volume 13.7 fl (7.4-10.4); Monocytes Absolute Auto 1.2 K/mm3 (0.1-0.6); Monocytes Percent Auto 13.3 % (2.6-8.5); Neutrophils Absolute Auto 6.4 K/mm3 (1.3-6.7); Neutrophils Percent Auto 74.5 % (45.5-73.1); Nucleated Red Blood Cells Absolute Auto 0.1 K/mm3 (0.0-0.012); Nucleated Red Blood Cells Perc 1.2 % (0.0-0.2); Platelet Count Result 61 k/mm3 (150-375); Red Blood Count 3.65 M/mm3 (4.2-5.4); Red Cell Distribution Width 18.9 % (11.5-14.5); White Blood Count 8.7 K/mm3 (4.5-10.0)
[2019-10-29 14:16] LABS: Albumin Level 3.1 g/dL (3.5-5.1); Blood Urea Nitrogen 32 mg/dL (7-17); Calcium 8.6 mg/dL (8.4-10.2); Carbon Dioxide 27 mmol/L (22-30); Chloride 94 mmol/L (98-107); Estimated Glomerular Filt Rate 11; Glucose 86 mg/dL (65-105); Phosphorus 5.1 mg/dL (2.5-4.5); Potassium 8.5 mmol/L (3.4-5.0); Potassium 8.9 mmol/L (3.4-5.0); Sodium 135 mmol/L (137-145)
[2019-10-29 14:16] LABS: Alanine Aminotransferase 16 U/L (4-35); Albumin Level 3.2 g/dL (3.5-5.1); Alkaline Phosphatase 233 U/L (38-126); Aspartate Amino Transferase 55 U/L (14-36); Bilirubin Direct 0.3 mg/dL (0-0.3); Bilirubin,Total 2.4 mg/dL (0.2-1.3)
[2019-10-29 14:17] LABS: Alanine Aminotransferase 16 U/L (4-35); Albumin Level 3.2 g/dL (3.5-5.1); Alkaline Phosphatase 237 U/L (38-126); Aspartate Amino Transferase 56 U/L (14-36); Bilirubin,Total 2.4 mg/dL (0.2-1.3); Blood Urea Nitrogen 32 mg/dL (7-17); Calcium 8.6 mg/dL (8.4-10.2); Carbon Dioxide 28 mmol/L (22-30); Chloride 93 mmol/L (98-107); Estimated Glomerular Filt Rate 11; Glucose 86 mg/dL (65-105); Magnesium 2.3 mg/dL (1.6-2.3); Sodium 135 mmol/L (137-145)
[2019-10-29 15:22] LABS: Folic Acid > 20.0 ng/mL (2.76->20)
--- NOTE | 2019-10-29 15:23 | PM.IMPN ---
Progress Note: A&P Assessment and Plan (1) Metabolic encephalopathy: Code(s): G93.41 - Metabolic encephalopathy Status: Resolved Assessment and Plan: 79-year-old female, who was transferred to the Rehab Unit for weakness. The patient had previously been on the Medical Floor. The patient is known to have end-stage renal disease. The patient has a drug-resistant UTI. The patient also had some problems with hypoglycemia while on the Medical Floor. The patient had a urine culture,which was positive for ESBL on 09/01/2019. UC is positive again, and highly resistant seen by Dr. esquivel recommending cefepime 6/7 days, cautioned about starting empiric treatment for UTI in the future Pt has line in thigh due to poor iv access. Pt feels much better, more alert not confused at all, currently on the medical floor, patient blood sugar is low etiology uncertain most likely patient poor food intake, patient has a elevated LFT to further evaluate abdominal ultrasound was done patient suspected patient and possible liver cirrhosis etiology uncertain as patient has no history of alcohol abuse and infectious cause of her is ruled out patient is seen by GI and further workup is in progress, recommending conservative management with supportive care, patient has dementia daughter is present in the room (2) Shortness of breath: Code(s): R06.02 - Shortness of breath Status: Resolved Assessment and Plan: Patient clinically stable (3) Thrombocytopenia: Code(s): D69.6 - Thrombocytopenia, unspecified Status: Acute Assessment and Plan: Stable (4) Hypoglycemia: Code(s): E16.2 - Hypoglycemia, unspecified Status: Resolved Assessment and Plan: Etiology uncertain C-peptide is ordered, most likely secondary to poor p.o. intake with poor appetite (5) End stage renal disease: Code(s): N18.6 - End stage renal disease Status: Resolved Assessment and Plan: Pt having dialysis in the hospital, potassium corrected with kayexalate (6) Atrial fibrillation: Qualifiers: Atrial fibrillation type: unspecified Qualified Code(s): I48.91 - Unspecified atrial fibrillation Code(s): I48.91 - Unspecified atrial fibrillation Status: Acute Assessment and Plan: Rate is controlled (7) Urinary tract infection due to ESBL Klebsiella: Code(s): N39.0 - Urinary tract infection, site not specified; B96.89 - Other specified bacterial agents as the cause of diseases classified elsewhere Status: Acute Assessment and Plan: See above The patient had a urine culture,which was positive for ESBL on 09/01/2019. UC is positive again, ID, neurology and nephrology rounding.Pt is on imepenem and is doing well. Wcc is nl, no confusion no hypoglycemic attacks. if hypoglycemia continues have pt go to see endocrinolology as OPD for recurrent hypoglycemia. Subjective Date/time seen: 10/29/19 15:23 79-year-old female, who was transferred to the Rehab Unit for weakness. The patient had previously been on the Medical Floor. The patient is known to have end-stage renal disease. The patient has a drug-resistant UTI. The patient also had some problems with hypoglycemia while on the Medical Floor. The patient had a urine culture,which was positive for ESBL on 09/01/2019. UC is positive again, and highly resistant seen by Dr. esquivel recommending cefepime 6/7 days, cautioned about starting empiric treatment for UTI in the future Pt has line in thigh due to poor iv access. Pt feels much better, more alert not confused at all, currently on the medical floor, patient blood sugar is low etiology uncertain most likely patient poor food intake, patient has a elevated LFT to further evaluate abdominal ultrasound was done patient suspected patient and possible liver cirrhosis etiology uncertain as patient has no history of alcohol abuse and infectious cause of her is ruled
--- NOTE | 2019-10-29 17:07 | PM.PNNEP ---
Progress Note: A&P Assessment and Plan (1) End stage renal disease: Code(s): N18.6 - End stage renal disease Status: Resolved Assessment and Plan: due for dialysis today. will try to remove max fluid. (2) Metabolic encephalopathy: Code(s): G93.41 - Metabolic encephalopathy Status: Resolved Assessment and Plan: suspect multifactorial improved with decreasing meds. (3) Weakness: Code(s): R53.1 - Weakness Status: Acute Assessment and Plan: was in rehab for strengthening resume PT/OT when more stable (4) Hypoglycemia: Code(s): E16.2 - Hypoglycemia, unspecified Status: Resolved Assessment and Plan: Sugars have been low still. most likely due to cirrhosis. discussed with Dr Burks. her lfts rise and fall. perhaps she has a component of congestive hepatopathy. will remove fluid as much as tolerated. (5) Bruising tendency: Code(s): D69.9 - Hemorrhagic condition, unspecified Status: Acute Assessment and Plan: PT and PTT are okay, but the platelet count is low. Is this reticuloendothelial uptake? Subjective Date/time seen: 10/29/19 17:07 Interval history: Patient is alert. tired. eating some. to get dialysis today Exam Narrative: Exam Narrative: General: WD/WN female in NAD Heart: normal S1 and S2; no rub or gallop Lungs: coarse breath sounds Abdomen: soft, nontender, nondistended, positive bowel sounds Extremities: 1+ edema especially in the arms. Skin: No rash . She has lots of ecchymoses. Objective Data Vital Signs Vital Signs: Vital Signs - 24 hr 10/28/19 20:59 10/29/19 02:39 10/29/19 05:08 Temperature 36.5 C 36.6 C 36.1 C L Pulse Rate 81 83 83 Respiratory Rate 16 16 16 Blood Pressure 104/67 107/62 109/52 L Pulse Oximetry 100 95 95 10/29/19 09:08 10/29/19 09:19 10/29/19 14:41 Temperature 36.6 C Pulse Rate 83 83 80 Respiratory Rate 16 20 Blood Pressure 110/73 Pulse Oximetry 92 97 Intake/Output Intake/Output: Intake & Output 10/26/19 10/27/19 10/28/19 10/29/19 23:59 23:59 23:59 23:59 Intake Total 5065 912 1764 680 Output Total 3300 Balance 1070 -2840 1360 680 Meds/Results Medications: Active Medications Generic Name Dose Route Start Last Admin Trade Name George PRN Reason Stop Dose Admin Alteplase, Recombinant 2 mg 10/29/19 06:32 10/29/19 09:46 Cathflo Activase IV PUSH 2 mg ONCE PRN Administration Line Occlusion Amiodarone HCl 100 mg 10/26/19 09:00 10/29/19 09:08 Pacerone PO 100 mg DAILY KTAIE Administration Aspirin 81 mg 10/26/19 09:00 10/29/19 09:07 Aspirin Ec PO 81 mg DAILY KATIE Administration Bumetanide 2 mg 10/28/19 09:00 10/28/19 08:34 Bumex Po PO Not Given TuThSa@0900 KATIE Cyanocobalamin 1,000 mcg 10/26/19 09:00 10/29/19 09:06 Vitamin B-12 Tab PO 1,000 mcg DAILY KATIE Administration Dextrose 12.5 gm 10/24/19 05:21 10/27/19 06:49 Dextrose 50% Syringe IV PUSH 12.5 gm PRN PRN Administration Hypoglycemia Protocol Diltiazem HCl 180 mg 10/27/19 21:00 10/28/19 21:05 Cardizem Cd PO 180 mg HS KATIE Administration Docusate Sodium 100 mg 10/26/19 09:00 10/29/19 09:08 Colace Capsule PO 100 mg DAILY KATIE Administration Donepezil HCl 10 mg 10/26/19 09:00 10/29/19 09:07 Aricept PO 10 mg DAILY KATIE Administration Glucagon 1 mg 10/24/19 05:21 10/24/19 05:30 Glucagon For Inj IM 1 mg PRN PRN Administration Hypoglycemia Protocol Glucose 15 gm 10/24/19 05:21 Glutose 15 PO PRN PRN Hypoglycemia Protocol Albumin Human 50 mls @ 999 mls/hr 10/22/19 18:09 Albutein IVPB 11/21/19 18:10 Q10M PRN HYPOTENSION Levothyroxine Sodium 150 mcg 10/26/19 06:30 10/29/19 05:58 Synthroid PO 150 mcg DAILY@0630 KATIE Administration Melatonin 3 mg 10/27/19 21:55 10/28/19 21:05 Dottie
[2019-10-29 17:43] LABS: Glucose Point of Care 54 (65-105)
[2019-10-29 18:25] LABS: Glucose Point of Care 80 (65-105)
--- NOTE | 2019-10-29 18:50 | PCDIET ---
To dialysis via bed. Family at bedside.
[2019-10-29 19:28] LABS: Albumin Level 2.7 g/dL (3.5-5.1); Blood Urea Nitrogen 30 mg/dL (7-17); Calcium 8.3 mg/dL (8.4-10.2); Carbon Dioxide 29 mmol/L (22-30); Chloride 95 mmol/L (98-107); Estimated Glomerular Filt Rate 11; Glucose 127 mg/dL (65-105); Phosphorus 4.5 mg/dL (2.5-4.5); Potassium 4.4 mmol/L (3.4-5.0); Sodium 138 mmol/L (137-145)
--- NOTE | 2019-10-29 23:06 | PC.NURSE ---
Pt returned to floor from dialysis at 2305
[2019-10-29] MEDS: HEPARIN SODIUM 1,000 UNITS/ML VIAL 6000 UNITS (23:07)
[2019-10-29] MEDS: PRAVASTATIN SODIUM 20 MG TABLET 40 MG PO (23:10)
[2019-10-29 23:30] LABS: Glucose Point of Care 79 (65-105)
[2019-10-30 06:06] VITALS: BP 100/62; PULSE 80; RESP 15; TEMP 36.3; O2SAT 100
[2019-10-30] MEDS: LEVOTHYROXINE SODIUM 150 MCG TABLET PO (06:10)
[2019-10-30 06:23] LABS: Hematocrit 38.2 % (37.0-47.0); Mean Corpuscular HGB Conc 31.4 g/dl (32-36); Mean Corpuscular Hemoglobin 32.2 pg (26-34); Mean Corpuscular Volume 102.4 fl (80-100); Mean Platelet Volume 12.8 fl (7.4-10.4); Platelet Count Result 72 k/mm3 (150-375); Red Blood Count 3.73 M/mm3 (4.2-5.4); Red Cell Distribution Width 18.6 % (11.5-14.5); White Blood Count 10.1 K/mm3 (4.5-10.0)
[2019-10-30 06:51] LABS: Alanine Aminotransferase 15 U/L (4-35); Albumin Level 3.1 g/dL (3.5-5.1); Alkaline Phosphatase 249 U/L (38-126); Aspartate Amino Transferase 45 U/L (14-36); Bilirubin,Total 2.3 mg/dL (0.2-1.3); Blood Urea Nitrogen 17 mg/dL (7-17); Calcium 8.6 mg/dL (8.4-10.2); Carbon Dioxide 29 mmol/L (22-30); Chloride 94 mmol/L (98-107); Estimated Glomerular Filt Rate 17; Glucose 61 mg/dL (65-105); Potassium 6.6 mmol/L (3.4-5.0); Sodium 137 mmol/L (137-145)
--- NOTE | 2019-10-30 07:51 | PC.NURSE ---
Dr Arceo asked to see if the driller and reamer could redraw from the fistula, java web developer not arrived let, Passed along to day MEGAN Mosuqeda.
[2019-10-30] MEDS: VENLAFAXINE HCL XR 75 MG CAP.ER.24H 225 MG PO (08:55)
[2019-10-30] MEDS: BUMETANIDE 1 MG TABLET 2 MG PO (08:55)
[2019-10-30] MEDS: polyethylene glycoL 3350 17 GM POWD.PACK PO (08:55)
[2019-10-30] MEDS: DOCUSATE SODIUM 100 MG CAPSULE PO (08:55)
[2019-10-30] MEDS: DONEPEZIL HCL 10 MG TABLET PO (08:55)
[2019-10-30 08:56] VITALS: PULSE 72
[2019-10-30] MEDS: PAROXETINE 20 MG TABLET 40 MG PO (08:56)
[2019-10-30] MEDS: ASPIRIN 81 MG ENTERIC TABLET PO (08:56)
[2019-10-30] MEDS: AMIODARONE HCL 100 MG TABLET PO (08:56)
[2019-10-30] MEDS: CYANOCOBALAMIN 1,000 MCG TABLET 1000 MCG PO (08:56)
[2019-10-30] MEDS: MIDODRINE HCL 10 MG TABLET PO ×3 (08:56→16:28)
[2019-10-30] MEDS: CHOLECALCIFEROL 1,000 UNIT TABLET 2000 UNITS PO (08:56)
[2019-10-30 09:09] LABS: Glucose Point of Care 102 (65-105)
[2019-10-30 09:42] LABS: Potassium 4.6 mmol/L (3.4-5.0)
--- NOTE | 2019-10-30 09:46 | WPDGIPROGNO ---
Progress Note: A&P Time Spent With Patient Time: Patient more alert this morning. Sitting in a chair. Still with poor appetite however. Physical exam reveals her to be anicteric. Lungs are clear. Heart without murmur. Abdomen soft and nontender. CBC WBC 10.1, hemoglobin 12, hematocrit 38, MCV 102. Total bilirubin 2.3, direct bilirubin 0.3, AST 45, ALT 15, alkaline phosphatase 249, ammonia less than 9. BUN 17, creatinine 2.7, Impression 1. Cirrhosis of the liver. Cryptogenic etiology. May be related to congestive liver. Not clinically evident. Supportive care at this time. It does not appear to impact current therapy. Normal ammonia level suggests that this is not contributing to her confusion. Case discussed with Dr. Cheng. 2. End-stage renal disease. Dialysis. Patient appears to improve clinically after dialysis. Subjective Date/time seen: 10/30/19 09:46 Objective Data Vital Signs Vital Signs: Vital Signs - 24 hr 10/29/19 14:41 10/29/19 19:00 10/29/19 19:10 Temperature 36.6 C 36.2 C L Pulse Rate 80 80 80 Respiratory Rate 20 12 Blood Pressure 110/73 100/66 129/67 Pulse Oximetry 97 10/29/19 19:15 10/29/19 19:30 10/29/19 19:45 Temperature Pulse Rate 90 80 86 Respiratory Rate Blood Pressure 118/66 118/64 120/66 Pulse Oximetry 10/29/19 20:00 10/29/19 20:15 10/29/19 20:30 Temperature Pulse Rate 81 74 80 Respiratory Rate Blood Pressure 118/47 L 117/66 116/52 L Pulse Oximetry 10/29/19 20:45 10/29/19 21:00 10/29/19 21:15 Temperature Pulse Rate 80 76 80 Respiratory Rate Blood Pressure 112/67 103/56 L 114/50 L Pulse Oximetry 10/29/19 21:30 10/29/19 21:45 10/29/19 22:00 Temperature Pulse Rate 80 81 80 Respiratory Rate Blood Pressure 110/67 110/57 L 109/64 Pulse Oximetry 10/29/19 22:15 10/29/19 22:30 10/29/19 22:40 Temperature Pulse Rate 80 80 80 Respiratory Rate Blood Pressure 113/52 L 112/63 107/65 Pulse Oximetry 10/29/19 22:50 10/29/19 23:32 10/30/19 06:06 Temperature 36.2 C L 36.3 C L Pulse Rate 80 80 80 Respiratory Rate 12 12 15 Blood Pressure 116/67 100/62 Pulse Oximetry 97 100 10/30/19 08:56 Temperature Pulse Rate 72 Respiratory Rate Blood Pressure Pulse Oximetry Intake/Output Intake/Output: Intake & Output 10/27/19 10/28/19 10/29/19 10/30/19 23:59 23:59 23:59 23:59 Intake Total 460 1360 1160 720 Output Total 3300 4400 Balance -2840 1360 -3240 720 Meds/Results Medications: Active Medications Generic Name Dose Route Start Last Admin Trade Name Freq PRN Reason Stop Dose Admin Alteplase, Recombinant 2 mg 10/29/19 06:32 10/29/19 09:46 Cathflo Activase IV PUSH 2 mg ONCE PRN Administration Line Occlusion Amiodarone HCl 100 mg 10/26/19 09:00 10/30/19 08:56 Pacerone PO 100 mg DAILY KATIE Administration Aspirin 81 mg 10/26/19 09:00 10/30/19 08:56 Aspirin Ec PO 81 mg DAILY KATIE Administration Bumetanide 2 mg 10/28/19 09:00 10/30/19 08:55 Bumex Po PO 2 mg TuThSa@0900 KATIE Administration Cyanocobalamin 1,000 mcg 10/26/19 09:00 10/30/19 08:56 Vitamin B-12 Tab PO 1,000 mcg DAILY KATIE Administration Dextrose 12.5 gm 10/24/19 05:21 10/27/19 06:49 Dextrose 50% Syringe IV PUSH 12.5 gm PRN PRN Administration Hypoglycemia Protocol Diltiazem HCl 180 mg 10/27/19 21:00 10/29/19 23:11 Cardizem Cd PO 180 mg HS KATIE Administration Docusate Sodium 100 mg 10/26/19 09:00 10/30/19 08:55 Colace Capsule PO 100 mg DAILY KATIE Administration Donepezil HCl 10 mg 10/26/19 09:00 10/30/19 08:55 Aricept PO 10 mg DAILY KATIE Administration Glucagon 1 mg 10/24/19 05:21 10/24/19 05:30 Glucagon For Inj IM 1 mg PRN PRN Administration Hypoglycemia Protocol Glucose 15 gm 10/24/19 05:21 Glutose 15 PO PRN PRN Hypoglycemia Protocol Albumin Human 50 mls @ 999 mls/
--- NOTE | 2019-10-30 10:45 | PC.NURSE ---
vocational rehabilitation counselor consult: Dr. Arceo called and requested a lab draw via the patient's immature avf to verify AM lab result. Total time spent approximately 20 minutes.
[2019-10-30 11:42] LABS: Glucose Point of Care 116 (65-105)
--- NOTE | 2019-10-30 12:15 | PM.PNNEP ---
Progress Note: A&P Assessment and Plan (1) End stage renal disease: Code(s): N18.6 - End stage renal disease Status: Resolved Assessment and Plan: Had dialysis yesterday. 4L were removed and she tolerated that well. (2) Metabolic encephalopathy: Code(s): G93.41 - Metabolic encephalopathy Status: Resolved Assessment and Plan: This is improved (3) Weakness: Code(s): R53.1 - Weakness Status: Acute Assessment and Plan: was in rehab for strengthening resume PT/OT when more stable (4) Hypoglycemia: Code(s): E16.2 - Hypoglycemia, unspecified Status: Resolved Assessment and Plan: Sugars have been low still. [age] this morning. (5) Bruising tendency: Code(s): D69.9 - Hemorrhagic condition, unspecified Status: Acute Assessment and Plan: PT and PTT are okay, but the platelet count is low. Is this reticuloendothelial uptake? (6) Cirrhosis: Code(s): K74.60 - Unspecified cirrhosis of liver Status: Acute Assessment and Plan: Etiology unclear. Possibly due to chronic hepatic congestion. Cryptogenic? Hepatitis studies negative and she never drank alcohol Lots of test pending from Dr. wilson. Subjective Date/time seen: 10/30/19 12:15 Interval history: Patient is alert. tired. Sitting up in a chair. She feels better today peer Review of Systems Cardiovascular: Cardiovascular: Reports no additional cardiovascular complaints Respiratory: Respiratory: Reports no additional respiratory complaints Gastrointestinal: Gastrointestinal: Reports no additional gastrointestinal complaints Genitourinary: Genitourinary: Reports no additional female genitourinary complaints Exam Narrative: Exam Narrative: General: WD/WN female in NAD Heart: normal S1 and S2; no rub or gallop Lungs: Decreased breath sounds at the bases Abdomen: soft, nontender, nondistended, positive bowel sounds Extremities: 1+ edema especially in the arms. Skin: No rash She has lots of ecchymoses. Objective Data Vital Signs Vital Signs: Vital Signs - 24 hr 10/29/19 14:41 10/29/19 19:00 10/29/19 19:10 Temperature 36.6 C 36.2 C L Pulse Rate 80 80 80 Respiratory Rate 20 12 Blood Pressure 110/73 100/66 129/67 Pulse Oximetry 97 10/29/19 19:15 10/29/19 19:30 10/29/19 19:45 Temperature Pulse Rate 90 80 86 Respiratory Rate Blood Pressure 118/66 118/64 120/66 Pulse Oximetry 10/29/19 20:00 10/29/19 20:15 10/29/19 20:30 Temperature Pulse Rate 81 74 80 Respiratory Rate Blood Pressure 118/47 L 117/66 116/52 L Pulse Oximetry 10/29/19 20:45 10/29/19 21:00 10/29/19 21:15 Temperature Pulse Rate 80 76 80 Respiratory Rate Blood Pressure 112/67 103/56 L 114/50 L Pulse Oximetry 10/29/19 21:30 10/29/19 21:45 10/29/19 22:00 Temperature Pulse Rate 80 81 80 Respiratory Rate Blood Pressure 110/67 110/57 L 109/64 Pulse Oximetry 10/29/19 22:15 10/29/19 22:30 10/29/19 22:40 Temperature Pulse Rate 80 80 80 Respiratory Rate Blood Pressure 113/52 L 112/63 107/65 Pulse Oximetry 10/29/19 22:50 10/29/19 23:32 10/30/19 06:06 Temperature 36.2 C L 36.3 C L Pulse Rate 80 80 80 Respiratory Rate 12 12 15 Blood Pressure 116/67 100/62 Pulse Oximetry 97 100 10/30/19 08:56 Temperature Pulse Rate 72 Respiratory Rate Blood Pressure Pulse Oximetry Intake/Output Intake/Output: Intake & Output 10/27/19 10/28/19 10/29/19 10/30/19 23:59 23:59 23:59 23:59 Intake Total 460 1360 1160 720 Output Total 3300 4400 Balance -2840 1360 -3240 720 Meds/Results Medications: Active Medications Generic Name Dose Route Start Last Admin Trade Name Freq PRN Reason Stop Dose Admin Alteplase, Recombinant 2 mg 10/29/19 06:32 10/29/19 09:46 Cathflo Activase IV PUSH 2 mg ONCE PRN Administration Line Occlusion Amiodarone
--- NOTE | 2019-10-30 13:34 | PCDIET ---
Nutrition Follow-Up Complete: Inadequate oral intake r/t decreased appetite as evidence by pt and daughter's diet recall and intake documented per RN and MD Intake of nutritional supplements Goal:Goal partially met. Continue with current goal. Pt current nutrition is Thrive and Ensure Pudding BID with a heart healthy diet. Nutrition recommendation: agree Last recorded weight is 63.5 kg. Bowel Motility: 10/28 Labs Reviewed:Albumin 3.1, Protein 6.0, K 6.6, GFR 17, Glucose 62, bilirubin 2.3 Meds Noted: synthyroid, zofran, b12, albumin, colace, vit d, melatonin Additional Notes: Recommend new wt. Pt eating 50% of meals. She does not like ensure pudding so we will remove, but is taking the thrive. Thrive provides 9 grams of protein, 24 vitamins and minerals, 6grams of fiber, and 270 kcal per serving. Heart healthy diet appropriate at this time. K trending down. If K remains high, pt may benefit from a potassium restriction. We will continue to monitor wt, labs, and intake every five days.
--- NOTE | 2019-10-30 15:52 | PM.IMPN ---
Progress Note: A&P Assessment and Plan (1) Metabolic encephalopathy: Code(s): G93.41 - Metabolic encephalopathy Status: Resolved Assessment and Plan: 10/30/19 15:52 79-year-old female, who was transferred to the Rehab Unit for weakness. The patient had previously been on the Medical Floor. The patient is known to have end-stage renal disease. The patient has a drug-resistant UTI. The patient also had some problems with hypoglycemia while on the Medical Floor. The patient had a urine culture,which was positive for ESBL on 09/01/2019. UC is positive again, and highly resistant seen by Dr. esquivel recommending cefepime 6/7 days, cautioned about starting empiric treatment for UTI in the future Pt has line in thigh due to poor iv access. Pt feels much better, more alert not confused at all, currently on the medical floor, patient blood sugar is low etiology uncertain most likely patient poor food intake, patient has a elevated LFT to further evaluate abdominal ultrasound was done patient suspected patient and possible liver cirrhosis etiology uncertain as patient has no history of alcohol abuse and infectious cause is ruled out patient is seen by GI and further workup is in progress, most likely patient's liver get congested with volume overload and improves after dialysis this also helps her mentation as there decrease in uremia with HD, GI is recommending conservative management with supportive care, patient has dementia, today patient is more alert and similing, daughter is present in the room (2) Shortness of breath: Code(s): R06.02 - Shortness of breath Status: Resolved Assessment and Plan: Patient clinically stable (3) Thrombocytopenia: Code(s): D69.6 - Thrombocytopenia, unspecified Status: Acute Assessment and Plan: Stable (4) Hypoglycemia: Code(s): E16.2 - Hypoglycemia, unspecified Status: Resolved Assessment and Plan: Etiology uncertain C-peptide is ordered, most likely secondary to poor p.o. intake with poor appetite (5) End stage renal disease: Code(s): N18.6 - End stage renal disease Status: Resolved Assessment and Plan: Pt having dialysis in the hospital, potassium corrected with kayexalate (6) Atrial fibrillation: Qualifiers: Atrial fibrillation type: unspecified Qualified Code(s): I48.91 - Unspecified atrial fibrillation Code(s): I48.91 - Unspecified atrial fibrillation Status: Acute Assessment and Plan: Rate is controlled (7) Urinary tract infection due to ESBL Klebsiella: Code(s): N39.0 - Urinary tract infection, site not specified; B96.89 - Other specified bacterial agents as the cause of diseases classified elsewhere Status: Acute Assessment and Plan: See above The patient had a urine culture,which was positive for ESBL on 09/01/2019. UC is positive again, ID, neurology and nephrology rounding.Pt is on imepenem and is doing well. Wcc is nl, no confusion no hypoglycemic attacks. if hypoglycemia continues have pt go to see endocrinolology as OPD for recurrent hypoglycemia. Subjective Date/time seen: 10/30/19 15:52 79-year-old female, who was transferred to the Rehab Unit for weakness. The patient had previously been on the Medical Floor. The patient is known to have end-stage renal disease. The patient has a drug-resistant UTI. The patient also had some problems with hypoglycemia while on the Medical Floor. The patient had a urine culture,which was positive for ESBL on 09/01/2019. UC is positive again, and highly resistant seen by Dr. esquivel recommending cefepime 6/7 days, cautioned about starting empiric treatment for UTI in the future Pt has line in thigh due to poor iv access. Pt feels much better, more alert not confused at all, currently on the medical floor, patient blood sugar is low etiology uncertain most likely patient poor food intake, patient has a eleva
[2019-10-30 16:00] VITALS: BP 113/62; PULSE 78; RESP 16; TEMP 36.2; O2SAT 99
[2019-10-30 20:00] VITALS: PULSE 77; RESP 16; O2SAT 100
[2019-10-30 20:03] VITALS: BP 109/62; PULSE 77; RESP 16; TEMP 36.3; O2SAT 100
[2019-10-30] MEDS: MELATONIN 3 MG TABLET PO (22:31)
[2019-10-30] MEDS: PRAVASTATIN SODIUM 20 MG TABLET 40 MG PO (22:34)
[2019-10-31] VITALS (22 sets, daily range): BP systolic 68–170; BP diastolic 22–88; PULSE 57–119; RESP 16–20; TEMP 36–37.1; O2SAT 93–99
[2019-10-31 03:40] LABS: Ceruloplasmin 40 mg/dL (18-53)
[2019-10-31 05:59] LABS: Hematocrit 35.5 % (37.0-47.0); Hemoglobin 11.6 g/dL (12.0-15.0); Mean Corpuscular HGB Conc 32.7 g/dl (32-36); Mean Corpuscular Hemoglobin 32.1 pg (26-34); Mean Corpuscular Volume 98.3 fl (80-100); Mean Platelet Volume 12.4 fl (7.4-10.4); Platelet Count Result 79 k/mm3 (150-375); Red Blood Count 3.61 M/mm3 (4.2-5.4); Red Cell Distribution Width 18.4 % (11.5-14.5); White Blood Count 10.4 K/mm3 (4.5-10.0)
[2019-10-31 06:08] LABS: Alanine Aminotransferase 14 U/L (4-35); Alkaline Phosphatase 255 U/L (38-126); Aspartate Amino Transferase 34 U/L (14-36); Bilirubin,Total 2.2 mg/dL (0.2-1.3); Blood Urea Nitrogen 27 mg/dL (7-17); Carbon Dioxide 29 mmol/L (22-30); Chloride 95 mmol/L (98-107); Estimated Glomerular Filt Rate 11; Glucose 68 mg/dL (65-105); Phosphorus 3.9 mg/dL (2.5-4.5); Potassium 4.8 mmol/L (3.4-5.0); Sodium 139 mmol/L (137-145)
[2019-10-31 06:46] LABS: Glucose Point of Care 82 (65-105)
[2019-10-31] MEDS: LEVOTHYROXINE SODIUM 150 MCG TABLET PO (07:15)
[2019-10-31] MEDS: polyethylene glycoL 3350 17 GM POWD.PACK PO (09:59)
[2019-10-31] MEDS: MIDODRINE HCL 10 MG TABLET PO ×3 (09:59→19:23)
[2019-10-31] MEDS: DOCUSATE SODIUM 100 MG CAPSULE PO (09:59)
[2019-10-31] MEDS: DONEPEZIL HCL 10 MG TABLET PO (10:00)
[2019-10-31] MEDS: CYANOCOBALAMIN 1,000 MCG TABLET 1000 MCG PO (10:00)
[2019-10-31] MEDS: CHOLECALCIFEROL 1,000 UNIT TABLET 2000 UNITS PO (10:00)
[2019-10-31] MEDS: ASPIRIN 81 MG ENTERIC TABLET PO (10:00)
[2019-10-31] MEDS: PAROXETINE 20 MG TABLET 40 MG PO (10:01)
[2019-10-31] MEDS: AMIODARONE HCL 100 MG TABLET PO (10:02)
[2019-10-31] MEDS: VENLAFAXINE HCL XR 75 MG CAP.ER.24H 225 MG PO (10:04)
--- NOTE | 2019-10-31 11:10 | WPDGIPROGNO ---
Progress Note: A&P Additional Plan Patient somnolent this morning. She denies abdominal pain. Tolerating diet. Physical exam reveals her to be alert. She is anicteric. Lungs are clear. Heart without murmur. Abdomen is soft nontender with no organomegaly. Labs reveal CBC WBC 10.4, hemoglobin 11.6, hematocrit 35.5, BUN 27, creatinine 4.0, LFTs have normalized, AST 34, ALT 14, total bilirubin 2.2. Impression 1. Cryptogenic cirrhosis. Clinically not affecting her at this point. Ammonia level is remain normal. No evidence for kill Garcia the the except trip. Plan is for for observation at this time and supportive care if necessary. 2. Chronic kidney disease. Followed by Dr. Arceo. Dialysis under his direction. Azotemia may contribute to her mental status changes. Subjective Date/time seen: 10/31/19 11:10 Objective Data Vital Signs Vital Signs: Vital Signs - 24 hr 10/30/19 16:00 10/30/19 20:00 10/30/19 20:03 Temperature 36.2 C L 36.3 C L Pulse Rate 78 77 77 Respiratory Rate 16 16 16 Blood Pressure 113/62 109/62 Pulse Oximetry 99 100 100 10/31/19 06:02 10/31/19 10:02 Temperature 36.8 C Pulse Rate 80 80 Respiratory Rate 16 Blood Pressure 142/77 H Pulse Oximetry 93 Intake/Output Intake/Output: Intake & Output 10/28/19 10/29/19 10/30/19 10/31/19 23:59 23:59 23:59 23:59 Intake Total 1360 1160 960 360 Output Total 4400 Balance 1360 -3240 960 360 Meds/Results Medications: Active Medications Generic Name Dose Route Start Last Admin Trade Name Freq PRN Reason Stop Dose Admin Alteplase, Recombinant 2 mg 10/29/19 06:32 10/29/19 09:46 Cathflo Activase IV PUSH 2 mg ONCE PRN Administration Line Occlusion Amiodarone HCl 100 mg 10/26/19 09:00 10/31/19 10:02 Pacerone PO 100 mg DAILY KATIE Administration Aspirin 81 mg 10/26/19 09:00 10/31/19 10:00 Aspirin Ec PO 81 mg DAILY KATIE Administration Bumetanide 2 mg 10/28/19 09:00 10/30/19 08:55 Bumex Po PO 2 mg TuThSa@0900 KATIE Administration Cyanocobalamin 1,000 mcg 10/26/19 09:00 10/31/19 10:00 Vitamin B-12 Tab PO 1,000 mcg DAILY KATIE Administration Dextrose 12.5 gm 10/24/19 05:21 10/27/19 06:49 Dextrose 50% Syringe IV PUSH 12.5 gm PRN PRN Administration Hypoglycemia Protocol Diltiazem HCl 180 mg 10/27/19 21:00 10/30/19 22:35 Cardizem Cd PO 180 mg HS KATIE Administration Docusate Sodium 100 mg 10/26/19 09:00 10/31/19 09:59 Colace Capsule PO 100 mg DAILY KATIE Administration Donepezil HCl 10 mg 10/26/19 09:00 10/31/19 10:00 Aricept PO 10 mg DAILY KATIE Administration Glucagon 1 mg 10/24/19 05:21 10/24/19 05:30 Glucagon For Inj IM 1 mg PRN PRN Administration Hypoglycemia Protocol Glucose 15 gm 10/24/19 05:21 Glutose 15 PO PRN PRN Hypoglycemia Protocol Albumin Human 50 mls @ 999 mls/hr 10/22/19 18:09 Albutein IVPB 11/21/19 18:10 Q10M PRN HYPOTENSION Levothyroxine Sodium 150 mcg 10/26/19 06:30 10/31/19 07:15 Synthroid PO 150 mcg DAILY@0630 KATIE Administration Melatonin 3 mg 10/27/19 21:55 10/30/19 22:31 Melatonin PO 3 mg HS PRN Administration Insomnia Midodrine 10 mg 10/22/19 18:15 10/31/19 09:59 Midodrine Hcl PO 10 mg TID KATIE Administration Ondansetron HCl 4 mg 10/27/19 11:11 10/27/19 11:41 Zofran Inj IV PUSH 4 mg Q6H PRN Administration Nausea And Vomiting Paroxetine HCl 40 mg 10/26/19 09:00 10/31/19 10:01 Paxil PO 40 mg DAILY KATIE Administration Polyethylene Glycol 17 gm 10/26/19 09:00 10/31/19 09:59 Miralax PO 17 gm QAM KATIE Administration Pravastatin Sodium 40 mg 10/25/19 21:00 10/30/19 22:34 Pravastatin Sodium PO 40 mg HS KATIE Administration Venlafaxine HCl 225 mg 10/26/19 09:00 10/31/19 10:04 Effexor Xr PO 225 mg DAILY KATIE Administration Vitamin D 2,000 unit
--- NOTE | 2019-10-31 11:30 | PC.NURSE ---
To dialysis via bed.
--- NOTE | 2019-10-31 12:05 | PM.PNNEP ---
Progress Note: A&P Assessment and Plan (1) End stage renal disease: Code(s): N18.6 - End stage renal disease Status: Resolved Assessment and Plan: HD today and continue M/W/ schedule electrolytes, volume status, and clearance acceptable (2) Metabolic encephalopathy: Code(s): G93.41 - Metabolic encephalopathy Status: Resolved Assessment and Plan: significant improvement noted follow trend continue supportive therapy (3) Weakness: Code(s): R53.1 - Weakness Status: Acute Assessment and Plan: was in rehab for strengthening resuming PT/OT as tolerated (4) Hypoglycemia: Code(s): E16.2 - Hypoglycemia, unspecified Status: Resolved Assessment and Plan: sugars have still been intermittently low follow trend (5) Cirrhosis: Code(s): K74.60 - Unspecified cirrhosis of liver Status: Acute Assessment and Plan: etiology? due to chronic hepatic congestion cryptogenic? hepatitis studies negative and she never drank alcohol GI following Will continue to follow Subjective Date/time seen: 10/31/19 12:05 Chart/interim reviewed since last seen -- tolerating dialysis at the time of my visit (seen on HD at ~ 12:00PM); mentation and breathing have significantly improved; no apparent distress at this time. Exam Narrative: Exam Narrative: General: WD/WN female in NAD Heart: normal S1 and S2; no rub Lungs: decreased breath sounds at the bases Abdomen: soft, nontender, nondistended, positive bowel sounds Extremities: no cyanosis or clubbing; 1+ edema in UEs Skin:significant ecchymoses present Objective Data Vital Signs Vital Signs: Vital Signs Temp Pulse Resp BP Pulse Ox 10/31/19 10:02 80 10/31/19 06:02 36.8 C 80 16 142/77 H 93 10/30/19 20:03 36.3 C L 77 16 109/62 100 10/30/19 20:00 77 16 100 10/30/19 16:00 36.2 C L 78 16 113/62 99 Intake/Output Intake/Output: Intake & Output 10/28/19 10/29/19 10/30/19 10/31/19 23:59 23:59 23:59 23:59 Intake Total 1360 1160 960 360 Output Total 4400 Balance 1360 -3240 960 360 Meds/Results Medications: Active Medications Generic Name Dose Route Start Last Admin Trade Name Freq PRN Reason Stop Dose Admin Alteplase, Recombinant 2 mg 10/29/19 06:32 10/29/19 09:46 Cathflo Activase IV PUSH 2 mg ONCE PRN Administration Line Occlusion Amiodarone HCl 100 mg 10/26/19 09:00 10/31/19 10:02 Pacerone PO 100 mg DAILY KATIE Administration Aspirin 81 mg 10/26/19 09:00 10/31/19 10:00 Aspirin Ec PO 81 mg DAILY KATIE Administration Bumetanide 2 mg 10/28/19 09:00 10/30/19 08:55 Bumex Po PO 2 mg TuThSa@0900 KATIE Administration Cyanocobalamin 1,000 mcg 10/26/19 09:00 10/31/19 10:00 Vitamin B-12 Tab PO 1,000 mcg DAILY KATIE Administration Dextrose 12.5 gm 10/24/19 05:21 10/27/19 06:49 Dextrose 50% Syringe IV PUSH 12.5 gm PRN PRN Administration Hypoglycemia Protocol Diltiazem HCl 180 mg 10/27/19 21:00 10/30/19 22:35 Cardizem Cd PO 180 mg HS KATIE Administration Docusate Sodium 100 mg 10/26/19 09:00 10/31/19 09:59 Colace Capsule PO 100 mg DAILY KATIE Administration Donepezil HCl 10 mg 10/26/19 09:00 10/31/19 10:00 Aricept PO 10 mg DAILY KATIE Administration Glucagon 1 mg 10/24/19 05:21 10/24/19 05:30 Glucagon For Inj IM 1 mg PRN PRN Administration Hypoglycemia Protocol Glucose 15 gm 10/24/19 05:21 Glutose 15 PO PRN PRN Hypoglycemia Protocol Albumin Human 50 mls @ 999 mls/hr 10/22/19 18:09 Albutein IVPB 11/21/19 18:10 Q10M PRN HYPOTENSION Levothyroxine Sodium 150 mcg 10/26/19 06:30 10/31/19 07:15 Synthroid PO 150 mcg DAILY@0630 KATIE Administration Melatonin 3 mg 10/27/19 21:55 10/30/19 22:31 Melatonin PO 3 mg HS PRN Administration Insomnia Mido
--- NOTE | 2019-10-31 12:53 | PM.IMPN ---
Progress Note: A&P Assessment and Plan (1) Metabolic encephalopathy: Code(s): G93.41 - Metabolic encephalopathy Status: Resolved Assessment and Plan: 79-year-old female, who was transferred to the Rehab Unit for weakness. The patient had previously been on the Medical Floor. The patient is known to have end-stage renal disease. The patient has a drug-resistant UTI. The patient also had some problems with hypoglycemia while on the Medical Floor. The patient had a urine culture,which was positive for ESBL on 09/01/2019. UC is positive again, and highly resistant seen by Dr. esquivel recommending cefepime 6/7 days, cautioned about starting empiric treatment for UTI in the future Pt has line in thigh due to poor iv access. Pt feels much better, more alert not confused at all, currently on the medical floor, patient blood sugar is low etiology uncertain most likely patient poor food intake, patient has a elevated LFT to further evaluate abdominal ultrasound was done patient suspected patient and possible liver cirrhosis etiology uncertain as patient has no history of alcohol abuse and infectious cause is ruled out patient is seen by GI and further workup is in progress, most likely patient's liver get congested with volume overload and improves after dialysis this also helps her mentation as there decrease in uremia with HD, GI is recommending conservative management with supportive care, patient has dementia, today patient is more alert and similing, daughter is present in the room, patient is clinically stable and can be transferred back to [facility] (2) Shortness of breath: Code(s): R06.02 - Shortness of breath Status: Resolved Assessment and Plan: Patient clinically stable (3) Thrombocytopenia: Code(s): D69.6 - Thrombocytopenia, unspecified Status: Acute Assessment and Plan: Stable (4) Hypoglycemia: Code(s): E16.2 - Hypoglycemia, unspecified Status: Resolved Assessment and Plan: Etiology uncertain C-peptide is ordered, most likely secondary to poor p.o. intake with poor appetite (5) End stage renal disease: Code(s): N18.6 - End stage renal disease Status: Resolved Assessment and Plan: Pt having dialysis in the hospital, potassium corrected with kayexalate (6) Atrial fibrillation: Qualifiers: Atrial fibrillation type: unspecified Qualified Code(s): I48.91 - Unspecified atrial fibrillation Code(s): I48.91 - Unspecified atrial fibrillation Status: Acute Assessment and Plan: Rate is controlled (7) Urinary tract infection due to ESBL Klebsiella: Code(s): N39.0 - Urinary tract infection, site not specified; B96.89 - Other specified bacterial agents as the cause of diseases classified elsewhere Status: Acute Assessment and Plan: See above The patient had a urine culture,which was positive for ESBL on 09/01/2019. UC is positive again, ID, neurology and nephrology rounding.Pt is on imepenem and is doing well. Wcc is nl, no confusion no hypoglycemic attacks. if hypoglycemia continues have pt go to see endocrinolology as OPD for recurrent hypoglycemia. Subjective Date/time seen: 10/31/19 12:53 79-year-old female, who was transferred to the Rehab Unit for weakness. The patient had previously been on the Medical Floor. The patient is known to have end-stage renal disease. The patient has a drug-resistant UTI. The patient also had some problems with hypoglycemia while on the Medical Floor. The patient had a urine culture,which was positive for ESBL on 09/01/2019. UC is positive again, and highly resistant seen by Dr. esquivel recommending cefepime 6/7 days, cautioned about starting empiric treatment for UTI in the future Pt has line in thigh due to poor iv access. Pt feels much better, more alert not confused at all, currently on the medical floor, patient blood sugar is low etiology uncertain most li
[2019-10-31 16:05] LABS: Glucose Point of Care 93 (65-105)
--- NOTE | 2019-10-31 16:19 | PCOTNOTE ---
The patient treatment was not able to be completed on 10/31/2019. Will plan to continue treatment per plan of care.
[2019-10-31] MEDS: MELATONIN 3 MG TABLET PO (22:23)
[2019-10-31] MEDS: PRAVASTATIN SODIUM 20 MG TABLET 40 MG PO (22:23)
[2019-10-31 23:23] LABS: Glucose Point of Care 91 (65-105)
--- NOTE | 2019-11-01 05:40 | PC.NURSE ---
NOTIFIED OF DIFFICULT FLUSH AND NO BLOOD RETURN FROM FEMORAL PICC LINE. NOTED KINKS IN LINE ON 10/29 & 10/31 READJUSMENTS PERFORMED BY CARLOS. AWAITING CATHFLO FROM PHARMACY.
[2019-11-01 06:50] LABS: Hematocrit 36.5 % (37.0-47.0); Hemoglobin 11.4 g/dL (12.0-15.0); Immature Platelet Fraction Pct 9.2 % (0.9-11.2); Mean Corpuscular HGB Conc 31.2 g/dl (32-36); Mean Corpuscular Hemoglobin 32.3 pg (26-34); Mean Corpuscular Volume 103.4 fl (80-100); Platelet Count Result 48 k/mm3 (150-375); Red Blood Count 3.53 M/mm3 (4.2-5.4); Red Cell Distribution Width 18.8 % (11.5-14.5); White Blood Count 8.9 K/mm3 (4.5-10.0)
[2019-11-01] MEDS: LEVOTHYROXINE SODIUM 150 MCG TABLET PO (06:56)
[2019-11-01 07:01] LABS: Albumin Level 3.3 g/dL (3.5-5.1); Blood Urea Nitrogen 17 mg/dL (7-17); Carbon Dioxide 30 mmol/L (22-30); Chloride 98 mmol/L (98-107); Estimated Glomerular Filt Rate 19; Glucose 64 mg/dL (65-105); Sodium 141 mmol/L (137-145)
[2019-11-01 07:05] LABS: Alanine Aminotransferase 12 U/L (4-35); Albumin Level 3.4 g/dL (3.5-5.1); Alkaline Phosphatase 264 U/L (38-126); Aspartate Amino Transferase 33 U/L (14-36); Bilirubin,Total 2.5 mg/dL (0.2-1.3); Blood Urea Nitrogen 17 mg/dL (7-17); Carbon Dioxide 30 mmol/L (22-30); Chloride 98 mmol/L (98-107); Estimated Glomerular Filt Rate 19; Glucose 63 mg/dL (65-105); Potassium 3.9 mmol/L (3.4-5.0); Sodium 142 mmol/L (137-145)
[2019-11-01 08:00] VITALS: BP 119/91; PULSE 76; RESP 18; TEMP 36.4; O2SAT 95
[2019-11-01] MEDS: ASPIRIN 81 MG ENTERIC TABLET PO (09:36)
[2019-11-01] MEDS: CHOLECALCIFEROL 1,000 UNIT TABLET 2000 UNITS PO (09:36)
[2019-11-01] MEDS: BUMETANIDE 1 MG TABLET 2 MG PO (09:36)
[2019-11-01] MEDS: polyethylene glycoL 3350 17 GM POWD.PACK PO (09:36)
[2019-11-01] MEDS: MIDODRINE HCL 10 MG TABLET PO ×3 (09:37→18:19)
[2019-11-01] MEDS: DOCUSATE SODIUM 100 MG CAPSULE PO (09:37)
[2019-11-01] MEDS: CYANOCOBALAMIN 1,000 MCG TABLET 1000 MCG PO (09:37)
[2019-11-01] MEDS: DONEPEZIL HCL 10 MG TABLET PO (09:37)
[2019-11-01] MEDS: VENLAFAXINE HCL XR 75 MG CAP.ER.24H 225 MG PO (09:37)
[2019-11-01] MEDS: PAROXETINE 20 MG TABLET 40 MG PO (09:37)
[2019-11-01 09:43] VITALS: PULSE 76
[2019-11-01] MEDS: AMIODARONE HCL 100 MG TABLET PO (09:43)
[2019-11-01 10:12] LABS: Glucose Point of Care 89 (65-105)
[2019-11-01 11:41] LABS: Anti Nuclear Antibody Pattern Nuclear, Speckled; Anti Nuclear Antibody Titer 1:40 (Negative)
[2019-11-01 14:11] LABS: Glucose Point of Care 89 (65-105)
--- NOTE | 2019-11-01 14:12 | P.PNNP_ITS ---
Progress Note: A&P Assessment and Plan (1) End stage renal disease: Code(s): N18.6 - End stage renal disease Status: Resolved Assessment and Plan: * HD yesterday and continue M/W/F schedule * electrolytes, volume status, and clearance acceptable (2) Metabolic encephalopathy: Code(s): G93.41 - Metabolic encephalopathy Status: Resolved Assessment and Plan: * significant improvement noted * follow trend * continue supportive therapy (3) Weakness: Code(s): R53.1 - Weakness Status: Acute Assessment and Plan: * was in rehab for strengthening * resuming PT/OT as tolerated (4) Hypoglycemia: Code(s): E16.2 - Hypoglycemia, unspecified Status: Resolved Assessment and Plan: * sugars have still been intermittently low * follow trend (5) Cirrhosis: Code(s): K74.60 - Unspecified cirrhosis of liver Status: Acute Assessment and Plan: * etiology? * due to chronic hepatic congestion * cryptogenic? * hepatitis studies negative and she never drank alcohol * GI following Will continue to follow Subjective Date/time seen: 11/01/19 14:12 Resting comfortably at the time of my visit; tolerated dialysis yesterday without any problems or issues; no events overnight or earlier this AM. Exam 2 Narrative: Exam Narrative: General: WD/WN female in NAD Heart: normal S1 and S2; no rub Lungs: decreased breath sounds at the bases Abdomen: soft, nontender, nondistended, positive bowel sounds Extremities: no cyanosis or clubbing; 1+ edema in UEs Skin:several ecchymoses present Objective Data Vital Signs Vital Signs: Vital Signs Temp Pulse Resp BP Pulse Ox 11/01/19 09:43 76 11/01/19 08:00 36.4 C 76 18 119/91 H 95 10/31/19 22:07 36.6 C 80 16 91/57 L 99 10/31/19 16:00 109/30 L 10/31/19 15:30 36.7 C 88 18 107/46 L 10/31/19 15:18 87 109/22 L 10/31/19 15:00 80 95/36 L 10/31/19 14:45 80 71/22 L 10/31/19 14:30 67 68/37 L 10/31/19 14:15 85 84/31 L Intake/Output Intake/Output: Intake & Output 10/29/19 10/30/19 10/31/19 11/01/19 23:59 23:59 23:59 23:59 Intake Total 1160 960 680 270 Output Total 4400 0 Balance -3240 960 680 270 Meds/Results Medications: Active Medications Generic Name Dose Route Start Last Admin Trade Name Freq PRN Reason Stop Dose Admin Alteplase, Recombinant 2 mg 10/29/19 06:32 10/29/19 09:46 Cathflo Activase IV PUSH 2 mg ONCE PRN Administration Line Occlusion Amiodarone HCl 100 mg 10/26/19 09:00 11/01/19 09:43 Pacerone PO 100 mg DAILY KATIE Administration Aspirin 81 mg 10/26/19 09:00 11/01/19 09:36 Aspirin Ec PO 81 mg DAILY KATIE Administration Bumetanide 2 mg 10/28/19 09:00 11/01/19 09:36 Bumex Po PO 2 mg TuThSa@0900 KATIE Administration Cyanocobalamin 1,000 mcg 10/26/19 09:00 11/01/19 09:37 Vitamin B-12 Tab PO 1,000 mcg DAILY KATIE Administration Dextrose 12.5 gm 10/24/19 05:21 10/27/19 06:49 Dextrose 50% Syringe IV PUSH 12.5 gm PRN PRN Administration Hypoglycemia
--- NOTE | 2019-11-01 14:12 | PM.PNNEP ---
Progress Note: A&P Assessment and Plan (1) End stage renal disease: Code(s): N18.6 - End stage renal disease Status: Resolved Assessment and Plan: HD yesterday and continue M/W/ schedule electrolytes, volume status, and clearance acceptable (2) Metabolic encephalopathy: Code(s): G93.41 - Metabolic encephalopathy Status: Resolved Assessment and Plan: significant improvement noted follow trend continue supportive therapy (3) Weakness: Code(s): R53.1 - Weakness Status: Acute Assessment and Plan: was in rehab for strengthening resuming PT/OT as tolerated (4) Hypoglycemia: Code(s): E16.2 - Hypoglycemia, unspecified Status: Resolved Assessment and Plan: sugars have still been intermittently low follow trend (5) Cirrhosis: Code(s): K74.60 - Unspecified cirrhosis of liver Status: Acute Assessment and Plan: etiology? due to chronic hepatic congestion cryptogenic? hepatitis studies negative and she never drank alcohol GI following Will continue to follow Subjective Date/time seen: 11/01/19 14:12 Resting comfortably at the time of my visit; tolerated dialysis yesterday without any problems or issues; no events overnight or earlier this AM. Exam Narrative: Exam Narrative: General: WD/WN female in NAD Heart: normal S1 and S2; no rub Lungs: decreased breath sounds at the bases Abdomen: soft, nontender, nondistended, positive bowel sounds Extremities: no cyanosis or clubbing; 1+ edema in UEs Skin:several ecchymoses present Objective Data Vital Signs Vital Signs: Vital Signs Temp Pulse Resp BP Pulse Ox 11/01/19 09:43 76 11/01/19 08:00 36.4 C 76 18 119/91 H 95 10/31/19 22:07 36.6 C 80 16 91/57 L 99 10/31/19 16:00 109/30 L 10/31/19 15:30 36.7 C 88 18 107/46 L 10/31/19 15:18 87 109/22 L 10/31/19 15:00 80 95/36 L 10/31/19 14:45 80 71/22 L 10/31/19 14:30 67 68/37 L 10/31/19 14:15 85 84/31 L Intake/Output Intake/Output: Intake & Output 10/29/19 10/30/19 10/31/1922/20 23:59 23:59 23:59 23:59 Intake Total 1160 960 680 270 Output Total 4400 0 Balance -3240 960 680 270 Meds/Results Medications: Active Medications Generic Name Dose Route Start Last Admin Trade Name Freq PRN Reason Stop Dose Admin Alteplase, Recombinant 2 mg 10/29/19 06:32 10/29/19 09:46 Cathflo Activase IV PUSH 2 mg ONCE PRN Administration Line Occlusion Amiodarone HCl 100 mg 10/26/19 09:00 11/01/19 09:43 Pacerone PO 100 mg DAILY KATIE Administration Aspirin 81 mg 10/26/19 09:00 11/01/19 09:36 Aspirin Ec PO 81 mg DAILY KATIE Administration Bumetanide 2 mg 10/28/19 09:00 11/01/19 09:36 Bumex Po PO 2 mg TuThSa@0900 KAITE Administration Cyanocobalamin 1,000 mcg 10/26/19 09:00 11/01/19 09:37 Vitamin B-12 Tab PO 1,000 mcg DAILY KATIE Administration Dextrose 12.5 gm 10/24/19 05:21 10/27/19 06:49 Dextrose 50% Syringe IV PUSH 12.5 gm PRN PRN Administration Hypoglycemia Protocol Diltiazem HCl 180 mg 10/27/19 21:00 10/31/19 22:23 Cardizem Cd PO 180 mg HS KATIE Administration Docusate Sodium 100 mg 10/26/19 09:00 11/01/19 09:37 Colace Capsule PO 100 mg DAILY KATIE Administration Donepezil HCl 10 mg 10/26/19 09:00 11/01/19 09:37 Aricept PO 10 mg DAILY KATIE Administration Glucagon 1 mg 10/24/19 05:21 10/24/19 05:30 Glucagon For Inj IM 1 mg PRN PRN Administration Hypoglycemia Protocol Glucose 15 gm 10/24/19 05:21 Glutose 15 PO PRN PRN Hypoglycemia Protocol Albumin Human 50 mls @ 999 mls/hr 10/22/19 18:09 Albutein IVPB 11/21/19 18:10 Q10M PRN HYPOTENSION Levothyroxine Sodium 150 mcg 10/26/19 06:30 11/01/19 06:56 Synthroid PO 150 mcg DAILY@0630 KATIE Administration Melatonin 3 m
--- NOTE | 2019-11-01 15:05 | PM.IMPN ---
Progress Note: A&P Assessment and Plan (1) Metabolic encephalopathy: Code(s): G93.41 - Metabolic encephalopathy Status: Resolved Assessment and Plan: 11/01/19 15:05 79-year-old female, who was transferred to the Rehab Unit for weakness. The patient had previously been on the Medical Floor. The patient is known to have end-stage renal disease. The patient has a drug-resistant UTI. The patient also had some problems with hypoglycemia while on the Medical Floor. The patient had a urine culture,which was positive for ESBL on 09/01/2019. UC is positive again, and highly resistant seen by Dr. esquivel recommending cefepime 6/7 days, cautioned about starting empiric treatment for UTI in the future Pt has line in thigh due to poor iv access. Pt feels much better, more alert not confused at all, currently on the medical floor, patient blood sugar is low etiology uncertain most likely patient poor food intake, patient has a elevated LFT to further evaluate abdominal ultrasound was done patient suspected patient and possible liver cirrhosis etiology uncertain as patient has no history of alcohol abuse and infectious cause is ruled out patient is seen by GI and further workup is in progress, most likely patient's liver get congested with volume overload and improves after dialysis this also helps her mentation as there decrease in uremia with HD, GI is recommending conservative management with supportive care, patient has dementia, today patient is more alert and similing, daughter is present in the room, patient is clinically stable and can be transferred back to , waiting repeat evaluation from [facility] (2) Shortness of breath: Code(s): R06.02 - Shortness of breath Status: Resolved Assessment and Plan: Patient clinically stable (3) Thrombocytopenia: Code(s): D69.6 - Thrombocytopenia, unspecified Status: Acute Assessment and Plan: Stable (4) Hypoglycemia: Code(s): E16.2 - Hypoglycemia, unspecified Status: Resolved Assessment and Plan: Etiology uncertain C-peptide is ordered, most likely secondary to poor p.o. intake with poor appetite (5) End stage renal disease: Code(s): N18.6 - End stage renal disease Status: Resolved Assessment and Plan: Pt having dialysis in the hospital, potassium corrected with kayexalate (6) Atrial fibrillation: Qualifiers: Atrial fibrillation type: unspecified Qualified Code(s): I48.91 - Unspecified atrial fibrillation Code(s): I48.91 - Unspecified atrial fibrillation Status: Acute Assessment and Plan: Rate is controlled (7) Urinary tract infection due to ESBL Klebsiella: Code(s): N39.0 - Urinary tract infection, site not specified; B96.89 - Other specified bacterial agents as the cause of diseases classified elsewhere Status: Acute Assessment and Plan: See above The patient had a urine culture,which was positive for ESBL on 09/01/2019. UC is positive again, ID, neurology and nephrology rounding.Pt is on imepenem and is doing well. Wcc is nl, no confusion no hypoglycemic attacks. if hypoglycemia continues have pt go to see endocrinolology as OPD for recurrent hypoglycemia. Subjective Date/time seen: 11/01/19 15:05 79-year-old female, who was transferred to the Rehab Unit for weakness. The patient had previously been on the Medical Floor. The patient is known to have end-stage renal disease. The patient has a drug-resistant UTI. The patient also had some problems with hypoglycemia while on the Medical Floor. The patient had a urine culture,which was positive for ESBL on 09/01/2019. UC is positive again, and highly resistant seen by Dr. esquivel recommending cefepime 6/7 days, cautioned about starting empiric treatment for UTI in the future Pt has line in thigh due to poor iv access. Pt feels much better, more alert not confused at all, currently on the medical floor,
[2019-11-01 16:00] VITALS: BP 96/78; PULSE 80; RESP 18; TEMP 36.4; O2SAT 100
--- NOTE | 2019-11-01 16:44 | PCOTNOTE ---
The patient treatment was not able to be completed on [11/01/19] due to [short of staff]. Will plan to continue treatment per plan of care.
[2019-11-01 18:29] LABS: Glucose Point of Care 85 (65-105)
[2019-11-01 21:09] VITALS: BP 107/63; PULSE 81; RESP 18; TEMP 36.9; O2SAT 100
[2019-11-01] MEDS: MELATONIN 3 MG TABLET PO (21:11)
[2019-11-01] MEDS: PRAVASTATIN SODIUM 20 MG TABLET 40 MG PO (21:11)
[2019-11-01] MEDS: GLUCOSE ORAL GEL 15 GM OF GLUCSE IN 37.5 GM TUBE PO (21:18)
[2019-11-01 22:56] LABS: Glucose Point of Care 72 (65-105)
[2019-11-02] MEDS: ACETAMINOPHEN 325 MG TABLET 650 MG PO ×4 (03:34→22:17)
--- NOTE | 2019-11-02 03:39 | PC.NURSE ---
blood sugar previously 67 patient refused glucose gel. given apple juice and pudding per request. rechecked of blood sugar currently at 103.
[2019-11-02 03:41] LABS: Glucose Point of Care 67 (65-105)
[2019-11-02 03:41] LABS: Glucose Point of Care 103 (65-105)
[2019-11-02] MEDS: LEVOTHYROXINE SODIUM 150 MCG TABLET PO (05:43)
[2019-11-02] MEDS: ALTEPLASE 2 MG VIAL (CATHFLO) IV PUSH (06:12)
[2019-11-02 08:00] VITALS: BP 99/65; PULSE 80; RESP 20; TEMP 36.5; O2SAT 98
[2019-11-02 08:16] VITALS: O2SAT 98
[2019-11-02 09:09] LABS: Glucose Point of Care 83 (65-105)
[2019-11-02] MEDS: CHOLECALCIFEROL 1,000 UNIT TABLET 2000 UNITS PO (09:19)
[2019-11-02] MEDS: ASPIRIN 81 MG ENTERIC TABLET PO (09:19)
[2019-11-02] MEDS: CYANOCOBALAMIN 1,000 MCG TABLET 1000 MCG PO (09:20)
[2019-11-02] MEDS: PAROXETINE 20 MG TABLET 40 MG PO (09:20)
[2019-11-02] MEDS: VENLAFAXINE HCL XR 75 MG CAP.ER.24H 225 MG PO (09:20)
[2019-11-02] MEDS: DONEPEZIL HCL 10 MG TABLET PO (09:20)
[2019-11-02] MEDS: MIDODRINE HCL 10 MG TABLET PO ×3 (09:20→16:22)
[2019-11-02] MEDS: polyethylene glycoL 3350 17 GM POWD.PACK PO (09:20)
[2019-11-02] MEDS: DOCUSATE SODIUM 100 MG CAPSULE PO (09:20)
[2019-11-02 09:23] VITALS: PULSE 80
[2019-11-02] MEDS: AMIODARONE HCL 100 MG TABLET PO (09:23)
[2019-11-02 12:36] LABS: Glucose Point of Care 98 (65-105)
[2019-11-02 16:00] VITALS: BP 99/59; PULSE 116; RESP 20; TEMP 36.2; O2SAT 95
[2019-11-02] MEDS: LIDOCAINE 5% PATCH 2 PATCH TRANSDERM (16:22)
--- NOTE | 2019-11-02 16:29 | PM.IMPN ---
Progress Note: A&P Assessment and Plan (1) Metabolic encephalopathy: Code(s): G93.41 - Metabolic encephalopathy Status: Resolved Assessment and Plan: 11/02/19 16:29 79-year-old female, who was transferred to the Rehab Unit for weakness. The patient had previously been on the Medical Floor. The patient is known to have end-stage renal disease. The patient has a drug-resistant UTI. The patient also had some problems with hypoglycemia while on the Medical Floor. The patient had a urine culture,which was positive for ESBL on 09/01/2019. UC is positive again, and highly resistant seen by Dr. esquivel recommending cefepime 6/7 days, cautioned about starting empiric treatment for UTI in the future Pt has line in thigh due to poor iv access. Pt feels much better, more alert not confused at all, currently on the medical floor, patient blood sugar is low etiology uncertain most likely patient poor food intake, patient has a elevated LFT to further evaluate abdominal ultrasound was done patient suspected patient and possible liver cirrhosis etiology uncertain as patient has no history of alcohol abuse and infectious cause is ruled out patient is seen by GI and further workup is in progress, most likely patient's liver get congested with volume overload and improves after dialysis this also helps her mentation as there decrease in uremia with HD, GI is recommending conservative management with supportive care, patient has dementia, today patient is more alert and similing, daughter is present in the room, patient is clinically stable and can be transferred back to [facility], waiting repeat evaluation from [facility] or may be discharged to SNF. (2) Shortness of breath: Code(s): R06.02 - Shortness of breath Status: Resolved Assessment and Plan: Patient clinically stable (3) Thrombocytopenia: Code(s): D69.6 - Thrombocytopenia, unspecified Status: Acute Assessment and Plan: Stable (4) Hypoglycemia: Code(s): E16.2 - Hypoglycemia, unspecified Status: Resolved Assessment and Plan: Etiology uncertain C-peptide is ordered, most likely secondary to poor p.o. intake with poor appetite (5) End stage renal disease: Code(s): N18.6 - End stage renal disease Status: Resolved Assessment and Plan: Pt having dialysis in the hospital, potassium corrected with kayexalate (6) Atrial fibrillation: Qualifiers: Atrial fibrillation type: unspecified Qualified Code(s): I48.91 - Unspecified atrial fibrillation Code(s): I48.91 - Unspecified atrial fibrillation Status: Acute Assessment and Plan: Rate is controlled (7) Urinary tract infection due to ESBL Klebsiella: Code(s): N39.0 - Urinary tract infection, site not specified; B96.89 - Other specified bacterial agents as the cause of diseases classified elsewhere Status: Acute Assessment and Plan: See above The patient had a urine culture,which was positive for ESBL on 09/01/2019. UC is positive again, ID, neurology and nephrology rounding.Pt is on imepenem and is doing well. Wcc is nl, no confusion no hypoglycemic attacks. if hypoglycemia continues have pt go to see endocrinolology as OPD for recurrent hypoglycemia. Subjective Date/time seen: 11/02/19 16:29 79-year-old female, who was transferred to the Rehab Unit for weakness. The patient had previously been on the Medical Floor. The patient is known to have end-stage renal disease. The patient has a drug-resistant UTI. The patient also had some problems with hypoglycemia while on the Medical Floor. The patient had a urine culture,which was positive for ESBL on 09/01/2019. UC is positive again, and highly resistant seen by Dr. esquivel recommending cefepime 6/7 days, cautioned about starting empiric treatment for UTI in the future Pt has line in thigh due to poor iv access. Pt feels much better, more alert not confused at all, cur
--- NOTE | 2019-11-02 16:35 | PC.NURSE ---
Patient does not want me to change her dressings on her right arm. Other dressings changed.
--- NOTE | 2019-11-02 16:45 | PM.PNNEP ---
Progress Note: A&P Assessment and Plan (1) End stage renal disease: Code(s): N18.6 - End stage renal disease Status: Resolved Assessment and Plan: HD tomorrow and continue M/W/F schedule electrolytes, volume status, and clearance acceptable (2) Metabolic encephalopathy: Code(s): G93.41 - Metabolic encephalopathy Status: Resolved Assessment and Plan: significant improvement noted follow trend continue supportive therapy (3) Weakness: Code(s): R53.1 - Weakness Status: Acute Assessment and Plan: was in rehab for strengthening resuming PT/OT as tolerated (4) Hypoglycemia: Code(s): E16.2 - Hypoglycemia, unspecified Status: Resolved Assessment and Plan: sugars have still been intermittently low follow trend (5) Cirrhosis: Code(s): K74.60 - Unspecified cirrhosis of liver Status: Acute Assessment and Plan: etiology? due to chronic hepatic congestion cryptogenic? hepatitis studies negative and she never drank alcohol GI following Will continue to follow Subjective Date/time seen: 11/02/19 16:45 Overall, seems to be doing reasonably well; mentation appears back to baseline (has some underlying dementia); no other issues or problems voiced at this time; no apparent distress to report. Exam Narrative: Exam Narrative: General: WD/WN female in NAD Heart: normal S1 and S2; no rub Lungs: decreased breath sounds at the bases Abdomen: soft, nontender, nondistended, positive bowel sounds Extremities: no cyanosis or clubbing; 1+ edema in UEs Skin:several ecchymoses present Objective Data Vital Signs Vital Signs: Vital Signs Temp Pulse Resp BP Pulse Ox 11/02/19 09:23 80 11/02/19 08:16 98 11/02/19 08:00 36.5 C 80 20 99/65 L 98 11/01/19 21:09 36.9 C 81 18 107/63 100 Intake/Output Intake/Output: Intake & Output 10/30/19 10/31/19 11/01/19 11/02/19 23:59 23:59 23:59 23:59 Intake Total 960 680 870 340 Output Total 0 Balance 960 680 870 340 Meds/Results Medications: Active Medications Generic Name Dose Route Start Last Admin Trade Name Freq PRN Reason Stop Dose Admin Acetaminophen 650 mg 11/02/19 03:11 11/02/19 13:43 Tylenol Tablet PO 650 mg Q4H PRN Administration Headache Alteplase, Recombinant 2 mg 10/29/19 06:32 11/02/19 06:12 Cathflo Activase IV PUSH 2 mg ONCE PRN Administration Line Occlusion Amiodarone HCl 100 mg 10/26/19 09:00 11/02/19 09:23 Pacerone PO 100 mg DAILY KATIE Administration Aspirin 81 mg 10/26/19 09:00 11/02/19 09:19 Aspirin Ec PO 81 mg DAILY KATIE Administration Bumetanide 2 mg 10/28/19 09:00 11/01/19 09:36 Bumex Po PO 2 mg TuThSa@0900 KATIE Administration Cyanocobalamin 1,000 mcg 10/26/19 09:00 11/02/19 09:20 Vitamin B-12 Tab PO 1,000 mcg DAILY KATIE Administration Dextrose 12.5 gm 10/24/19 05:21 10/27/19 06:49 Dextrose 50% Syringe IV PUSH 12.5 gm PRN PRN Administration Hypoglycemia Protocol Diltiazem HCl 180 mg 10/27/19 21:00 11/01/19 21:11 Cardizem Cd PO 180 mg HS KATIE Administration Docusate Sodium 100 mg 10/26/19 09:00 11/02/19 09:20 Colace Capsule PO 100 mg DAILY KATIE Administration Donepezil HCl 10 mg 10/26/19 09:00 11/02/19 09:20 Aricept PO 10 mg DAILY KATIE Administration Glucagon 1 mg 10/24/19 05:21 10/24/19 05:30 Glucagon For Inj IM 1 mg PRN PRN Administration Hypoglycemia Protocol Glucose 15 gm 10/24/19 05:21 11/01/19 21:18 Glutose 15 PO 15 gm PRN PRN Administration Hypoglycemia Protocol Albumin Human 50 mls @ 999 mls/hr 10/22/19 18:09 Albutein IVPB 11/21/19 18:10 Q10M PRN HYPOTENSION Levothyroxine Sodium 150 mcg 10/26/19 06:30 11/02/19 05:43 Synthroid PO 150 mcg DAILY@0630 KATIE Administration Lidocaine 2 patch 11/02/19
--- NOTE | 2019-11-02 16:45 | PCOTNOTE ---
The patient treatment was not able to be completed on [11/02/2019]. Will plan to continue treatment per plan of care.
[2019-11-02 17:28] LABS: Glucose Point of Care 116 (65-105)
[2019-11-02 20:06] VITALS: BP 96/63; PULSE 80; RESP 16; TEMP 36.1; O2SAT 100
[2019-11-02] MEDS: MELATONIN 3 MG TABLET PO (22:12)
[2019-11-02] MEDS: PRAVASTATIN SODIUM 20 MG TABLET 40 MG PO (22:13)
[2019-11-03] VITALS (24 sets, daily range): BP systolic 94–109; BP diastolic 50–68; PULSE 78–82; RESP 16–18; TEMP 36.2–37; O2SAT 98–99
[2019-11-03 00:21] LABS: Glucose Point of Care 93 (65-105)
[2019-11-03] MEDS: ACETAMINOPHEN 325 MG TABLET 650 MG PO ×4 (05:09→23:02)
[2019-11-03] MEDS: LEVOTHYROXINE SODIUM 150 MCG TABLET PO (06:32)
[2019-11-03] MEDS: LIDOCAINE HCL 2% VISC SOLN 15 ML UDC PO (06:35)
--- NOTE | 2019-11-03 07:17 | WPDGIPROGNO ---
Progress Note: A&P Additional Plan Patient arousable. Difficult to get a good history from her. She complains of diffuse pain. Skin abdomen except trip. Physical exam reveals her to be anicteric. Lungs are clear. Abdomen is soft nontender with no organomegaly. Now with lidocaine patches on her arms. Impression 1. Cryptogenic cirrhosis. This does not appear to be contributing to her current complaints. Clinically stable. 2. Chronic kidney disease. She requires dialysis frequently. 3. Encephalopathy. Probably metabolic. Could be related to azotemia intermittently. Plan agree with plans for rehab no specific GI recommendations at this time. Continue to monitor liver function test electively as an outpatient. Subjective Date/time seen: 11/03/19 07:17 Objective Data Vital Signs Vital Signs: Vital Signs - 24 hr 11/02/19 08:00 11/02/19 08:16 11/02/19 09:23 Temperature 36.5 C Pulse Rate 80 80 Respiratory Rate 20 Blood Pressure 99/65 L Pulse Oximetry 98 98 11/02/19 16:00 11/02/19 20:06 11/03/19 06:14 Temperature 36.2 C L 36.1 C L 36.6 C Pulse Rate 116 H 80 82 Respiratory Rate 20 16 16 Blood Pressure 99/59 L 96/63 L 107/64 Pulse Oximetry 95 100 99 Intake/Output Intake/Output: Intake & Output 10/31/19 11/01/19 11/02/19 11/03/19 23:59 23:59 23:59 23:59 Intake Total 680 870 460 100 Output Total 0 50 Balance 680 870 460 50 Meds/Results Medications: Active Medications Generic Name Dose Route Start Last Admin Trade Name Santiagoq PRN Reason Stop Dose Admin Acetaminophen 650 mg 11/02/19 03:11 11/03/19 05:09 Tylenol Tablet PO 650 mg Q4H PRN Administration Headache Alteplase, Recombinant 2 mg 10/29/19 06:32 11/02/19 06:12 Cathflo Activase IV PUSH 2 mg ONCE PRN Administration Line Occlusion Amiodarone HCl 100 mg 10/26/19 09:00 11/02/19 09:23 Pacerone PO 100 mg DAILY KATIE Administration Aspirin 81 mg 10/26/19 09:00 11/02/19 09:19 Aspirin Ec PO 81 mg DAILY KATIE Administration Bumetanide 2 mg 10/28/19 09:00 11/01/19 09:36 Bumex Po PO 2 mg TuThSa@0900 KATIE Administration Cyanocobalamin 1,000 mcg 10/26/19 09:00 11/02/19 09:20 Vitamin B-12 Tab PO 1,000 mcg DAILY KATIE Administration Dextrose 12.5 gm 10/24/19 05:21 10/27/19 06:49 Dextrose 50% Syringe IV PUSH 12.5 gm PRN PRN Administration Hypoglycemia Protocol Diltiazem HCl 180 mg 10/27/19 21:00 11/02/19 22:13 Cardizem Cd PO 180 mg HS KATIE Administration Docusate Sodium 100 mg 10/26/19 09:00 11/02/19 09:20 Colace Capsule PO 100 mg DAILY KATIE Administration Donepezil HCl 10 mg 10/26/19 09:00 11/02/19 09:20 Aricept PO 10 mg DAILY KATIE Administration Glucagon 1 mg 10/24/19 05:21 10/24/19 05:30 Glucagon For Inj IM 1 mg PRN PRN Administration Hypoglycemia Protocol Glucose 15 gm 10/24/19 05:21 11/01/19 21:18 Glutose 15 PO 15 gm PRN PRN Administration Hypoglycemia Protocol Albumin Human 50 mls @ 999 mls/hr 10/22/19 18:09 Albutein IVPB 11/21/19 18:10 Q10M PRN HYPOTENSION Levothyroxine Sodium 150 mcg 10/26/19 06:30 11/03/19 06:32 Synthroid PO 150 mcg DAILY@0630 KATIE Administration Lidocaine 2 patch 11/02/19 09:00 11/02/19 16:22 Lidoderm TRANSDERM 2 patch DAILY KATIE Administration Lidocaine HCl 15 ml 11/02/19 13:24 11/03/19 06:35 Lidocaine Hcl Viscous 2% PO 15 ml PRN PRN Administration Mouth Sore Pain Melatonin 3 mg 10/27/19 21:55 11/02/19 22:12 Melatonin PO 3 mg HS PRN Administration Insomnia Midodrine 10 mg 10/22/19 18:15 11/02/19 16:22 Midodrine Hcl PO 10 mg TID KATIE Administration Ondansetron HCl 4 mg 10/27/19 11:11 10/27/19 11:41 Zofran Inj IV PUSH 4 mg Q6H PRN Administration Nausea And Vomiting Paroxetine HCl 40 mg 10/26/19 09:00 11/02/19 09:20 Paxil PO 40 mg DAILY KATIE
[2019-11-03 08:15] LABS: Glucose Point of Care 44 (65-105)
[2019-11-03 08:36] LABS: Glucose Point of Care 74 (65-105)
[2019-11-03] MEDS: MIDODRINE HCL 10 MG TABLET PO ×3 (08:53→17:59)
[2019-11-03] MEDS: LIDOCAINE 5% PATCH 2 PATCH TRANSDERM ×2 (08:54→23:03)
[2019-11-03] MEDS: polyethylene glycoL 3350 17 GM POWD.PACK PO (08:55)
[2019-11-03] MEDS: DOCUSATE SODIUM 100 MG CAPSULE PO (08:55)
[2019-11-03] MEDS: VENLAFAXINE HCL XR 75 MG CAP.ER.24H 225 MG PO (08:55)
[2019-11-03] MEDS: CHOLECALCIFEROL 1,000 UNIT TABLET 2000 UNITS PO (08:56)
[2019-11-03] MEDS: AMIODARONE HCL 100 MG TABLET PO (08:56)
[2019-11-03] MEDS: ASPIRIN 81 MG ENTERIC TABLET PO (08:56)
[2019-11-03] MEDS: PAROXETINE 20 MG TABLET 40 MG PO (08:56)
[2019-11-03] MEDS: CYANOCOBALAMIN 1,000 MCG TABLET 1000 MCG PO (08:57)
[2019-11-03] MEDS: DONEPEZIL HCL 10 MG TABLET PO (08:57)
--- NOTE | 2019-11-03 09:10 | PC.NURSE ---
To Dialysis via bed.
--- NOTE | 2019-11-03 09:32 | PCOTNOTE ---
Attempted to see pt for skilled OT, pt out of room for dialysis.
[2019-11-03 10:13] LABS: Hematocrit 34.2 % (37.0-47.0); Hemoglobin 10.6 g/dL (12.0-15.0); Mean Corpuscular Hemoglobin 31.5 pg (26-34); Mean Corpuscular Volume 101.8 fl (80-100); Mean Platelet Volume 14.1 fl (7.4-10.4); Platelet Count Result 66 k/mm3 (150-375); Red Blood Count 3.36 M/mm3 (4.2-5.4); Red Cell Distribution Width 18.6 % (11.5-14.5); White Blood Count 11.7 K/mm3 (4.5-10.0)
[2019-11-03 10:31] LABS: Alanine Aminotransferase 15 U/L (4-35); Albumin Level 2.8 g/dL (3.5-5.1); Alkaline Phosphatase 216 U/L (38-126); Aspartate Amino Transferase 32 U/L (14-36); Bilirubin,Total 1.9 mg/dL (0.2-1.3); Blood Urea Nitrogen 32 mg/dL (7-17); Calcium 8.1 mg/dL (8.4-10.2); Carbon Dioxide 26 mmol/L (22-30); Chloride 98 mmol/L (98-107); Estimated Glomerular Filt Rate 11; Glucose 106 mg/dL (65-105); Sodium 140 mmol/L (137-145)
[2019-11-03 10:32] LABS: Complement C3 65 mg/dL (88-165)
[2019-11-03 11:08] LABS: Mitochondrial (M2) Ab (IgG) <=20.0 U (<=20.0)
--- NOTE | 2019-11-03 13:06 | PM.PNNEP ---
Progress Note: A&P Assessment and Plan (1) End stage renal disease: Code(s): N18.6 - End stage renal disease Status: Resolved Assessment and Plan: HD today and continue M/W/F schedule electrolytes, volume status, and clearance acceptable (2) Metabolic encephalopathy: Code(s): G93.41 - Metabolic encephalopathy Status: Resolved Assessment and Plan: continue to was and wane as noted follow trend continue supportive therapy (3) Weakness: Code(s): R53.1 - Weakness Status: Acute Assessment and Plan: was in rehab for strengthening resuming PT/OT as tolerated (4) Hypoglycemia: Code(s): E16.2 - Hypoglycemia, unspecified Status: Resolved Assessment and Plan: sugars have still been intermittently low follow trend (5) Cirrhosis: Code(s): K74.60 - Unspecified cirrhosis of liver Status: Acute Assessment and Plan: etiology? due to chronic hepatic congestion cryptogenic? hepatitis studies negative and she never drank alcohol GI following Will continue to follow Subjective Date/time seen: 11/03/19 13:06 Tolerating dialysis at the time of my visit (seen on HD at ~ 12:30PM); episode of hypoglycemia again resulting decreased mentation again; no apparent distress voiced currently. Exam Narrative: Exam Narrative: General: WD/WN female in NAD Heart: normal S1 and S2; no rub Lungs: decreased breath sounds at the bases Abdomen: soft, nontender, nondistended, positive bowel sounds Extremities: no cyanosis or clubbing; trace edema in UEs Skin:ecchymoses present Objective Data Vital Signs Vital Signs: Vital Signs Temp Pulse Resp BP Pulse Ox 11/03/19 12:45 80 106/62 11/03/19 12:30 78 102/64 11/03/19 12:15 80 97/61 L 11/03/19 12:00 80 106/63 11/03/19 11:45 80 103/64 11/03/19 11:30 80 105/64 11/03/19 11:15 80 97/50 L 11/03/19 11:00 80 103/64 11/03/19 10:45 80 104/68 11/03/19 10:30 78 108/63 11/03/19 10:15 81 109/50 L 11/03/19 10:00 80 102/63 11/03/19 09:45 79 100/58 L 11/03/19 09:30 81 99/59 L 11/03/19 09:27 80 102/63 11/03/19 09:16 36.3 C L 80 18 99/60 L 11/03/19 08:59 80 18 99 11/03/19 08:56 80 11/03/19 06:14 36.6 C 82 16 107/64 99 11/02/19 20:06 36.1 C L 80 16 96/63 L 100 11/02/19 16:00 36.2 C L 116 H 20 99/59 L 95 Intake/Output Intake/Output: Intake & Output 10/31/19 11/01/19 11/02/19 11/03/19 23:59 23:59 23:59 23:59 Intake Total 680 870 460 340 Output Total 0 50 Balance 680 870 460 290 Meds/Results Medications: Active Medications Generic Name Dose Route Start Last Admin Trade Name Freq PRN Reason Stop Dose Admin Acetaminophen 650 mg 11/02/19 03:11 11/03/19 09:03 Tylenol Tablet PO 650 mg Q4H PRN Administration Headache Alteplase, Recombinant 2 mg 10/29/19 06:32 11/02/19 06:12 Cathflo Activase IV PUSH 2 mg ONCE PRN Administration Line Occlusion Amiodarone HCl 100 mg 10/26/19 09:00 11/03/19 08:56 Pacerone PO 100 mg DAILY KATIE Administration Aspirin 81 mg 10/26/19 09:00 11/03/19 08:56 Aspirin Ec PO 81 mg DAILY KATIE Administration Bumetanide 2 mg 10/28/19 09:00 11/01/19 09:36 Bumex Po PO 2 mg TuThSa@0900 KATIE Administration Cyanocobalamin 1,000 mcg 10/26/19 09:00 11/03/19 08:57 Vitamin B-12 Tab PO 1,000 mcg DAILY KATIE Administration Dextrose 12.5 gm 10/24/19 05:21 10/27/19 06:49 Dextrose 50% Syringe IV PUSH 12.5 gm PRN PRN Administration Hypoglycemia Protocol Diltiazem HCl 180 mg 10/27/19 21:00 11/02/19 22:13 Cardizem Cd PO 180 mg HS KATIE Administration Docusate Sodium 100 mg 10/26/19 09:00 11/03/19 08:55 Colace Capsule PO 100 mg DAILY KATIE Administration Donepezil HCl 10 mg 10/26/19 09:00 11/03/19 08:57 Aricept PO 10 mg
[2019-11-03] MEDS: HEPARIN SODIUM 1,000 UNITS/ML VIAL 1000 UNITS IV PUSH (13:11)
--- NOTE | 2019-11-03 13:30 | PC.NURSE ---
Return from dialysis via bed.
--- NOTE | 2019-11-03 15:53 | PM.IMPN ---
Progress Note: A&P Assessment and Plan (1) Metabolic encephalopathy: Code(s): G93.41 - Metabolic encephalopathy Status: Resolved Assessment and Plan: 11/03/19 15:53 79-year-old female, who was transferred to the Rehab Unit for weakness. The patient had previously been on the Medical Floor. The patient is known to have end-stage renal disease. The patient has a drug-resistant UTI. The patient also had some problems with hypoglycemia while on the Medical Floor. The patient had a urine culture,which was positive for ESBL on 09/01/2019. UC is positive again, and highly resistant seen by Dr. esquivel recommending cefepime 6/7 days, cautioned about starting empiric treatment for UTI in the future Pt has line in thigh due to poor iv access. Pt feels much better, more alert not confused at all, currently on the medical floor, patient blood sugar is low etiology uncertain most likely patient poor food intake, patient has a elevated LFT to further evaluate abdominal ultrasound was done patient suspected patient and possible liver cirrhosis etiology uncertain as patient has no history of alcohol abuse and infectious cause is ruled out patient is seen by GI and further workup is in progress, most likely patient's liver get congested with volume overload and improves after dialysis this also helps her mentation as there decrease in uremia with HD, GI is recommending conservative management with supportive care, patient has dementia, today patient is more alert and similing, daughter is present in the room, patient is clinically stable and can be transferred back to [facility], today patient seen in dialysis patient did not qualify to return to [facility], will remove the PICC line from her femoral line, will have PT OT evaluate the patient and and discharge the patient home tomorrow with home health (2) Shortness of breath: Code(s): R06.02 - Shortness of breath Status: Resolved Assessment and Plan: Patient clinically stable (3) Thrombocytopenia: Code(s): D69.6 - Thrombocytopenia, unspecified Status: Acute Assessment and Plan: Stable (4) Hypoglycemia: Code(s): E16.2 - Hypoglycemia, unspecified Status: Resolved Assessment and Plan: Etiology uncertain C-peptide is ordered, most likely secondary to poor p.o. intake with poor appetite (5) End stage renal disease: Code(s): N18.6 - End stage renal disease Status: Resolved Assessment and Plan: Pt having dialysis in the hospital, potassium corrected with kayexalate (6) Atrial fibrillation: Qualifiers: Atrial fibrillation type: unspecified Qualified Code(s): I48.91 - Unspecified atrial fibrillation Code(s): I48.91 - Unspecified atrial fibrillation Status: Acute Assessment and Plan: Rate is controlled (7) Urinary tract infection due to ESBL Klebsiella: Code(s): N39.0 - Urinary tract infection, site not specified; B96.89 - Other specified bacterial agents as the cause of diseases classified elsewhere Status: Acute Assessment and Plan: See above The patient had a urine culture,which was positive for ESBL on 09/01/2019. UC is positive again, ID, neurology and nephrology rounding.Pt is on imepenem and is doing well. Wcc is nl, no confusion no hypoglycemic attacks. if hypoglycemia continues have pt go to see endocrinolology as OPD for recurrent hypoglycemia. Subjective Date/time seen: 11/03/19 15:53 79-year-old female, who was transferred to the Rehab Unit for weakness. The patient had previously been on the Medical Floor. The patient is known to have end-stage renal disease. The patient has a drug-resistant UTI. The patient also had some problems with hypoglycemia while on the Medical Floor. The patient had a urine culture,which was positive for ESBL on 09/01/2019. UC is positive again, and highly resistant seen by Dr. esquivel recommending cefepime 6/7 days, cautioned
[2019-11-03] MEDS: NEOMYCIN/POLYMYXIN/BACITRACIN OINTMENT PACKET 1 PACKET (16:00)
[2019-11-03 17:12] LABS: Glucose Point of Care 65 (65-105)
[2019-11-03 18:06] LABS: Glucose Point of Care 78 (65-105)
[2019-11-03] MEDS: MELATONIN 3 MG TABLET PO (22:59)
[2019-11-03] MEDS: PRAVASTATIN SODIUM 20 MG TABLET 40 MG PO (23:00)
[2019-11-03 23:07] LABS: Glucose Point of Care 92 (65-105)
[2019-11-04] VITALS: BP 100/66; PULSE 80; RESP 16; TEMP 36.3; O2SAT 98
[2019-11-04] MEDS: LEVOTHYROXINE SODIUM 150 MCG TABLET PO (06:26)
[2019-11-04 06:43] VITALS: BP 116/74; PULSE 80; RESP 16; TEMP 36.2; O2SAT 100
--- NOTE | 2019-11-04 06:46 | PC.NURSE ---
PT has no IV access, PICC removed 11/[address] Cheng. He is aware pt has no IV access currently. D/C planned for 11/04
--- NOTE | 2019-11-04 06:49 | PC.NURSE ---
Pt has PICC line removed 11/[address] Sweeney recommendations. Pt currently has no IV access, MD aware. D/C is planned for today, 11/04.
[2019-11-04 08:00] VITALS: O2SAT 100
[2019-11-04 08:23] LABS: Glucose Point of Care 52 (65-105)
[2019-11-04] MEDS: VENLAFAXINE HCL XR 75 MG CAP.ER.24H 225 MG PO (08:36)
[2019-11-04] MEDS: PAROXETINE 20 MG TABLET 40 MG PO (08:36)
[2019-11-04] MEDS: BUMETANIDE 1 MG TABLET 2 MG PO (08:36)
[2019-11-04] MEDS: MIDODRINE HCL 10 MG TABLET PO ×2 (08:36→12:17)
[2019-11-04] MEDS: CYANOCOBALAMIN 1,000 MCG TABLET 1000 MCG PO (08:36)
[2019-11-04] MEDS: DONEPEZIL HCL 10 MG TABLET PO (08:36)
[2019-11-04] MEDS: DOCUSATE SODIUM 100 MG CAPSULE PO (08:37)
[2019-11-04] MEDS: polyethylene glycoL 3350 17 GM POWD.PACK PO (08:37)
[2019-11-04] MEDS: ASPIRIN 81 MG ENTERIC TABLET PO (08:37)
[2019-11-04] MEDS: CHOLECALCIFEROL 1,000 UNIT TABLET 2000 UNITS PO (08:37)
[2019-11-04] MEDS: LIDOCAINE HCL 2% VISC SOLN 15 ML UDC PO (08:40)
[2019-11-04 08:41] VITALS: PULSE 81
[2019-11-04] MEDS: AMIODARONE HCL 100 MG TABLET PO (08:41)
[2019-11-04 09:37] LABS: Glucose Point of Care 82 (65-105)
--- NOTE | 2019-11-04 10:45 | WPDGIPROGNO ---
Progress Note: A&P Additional Plan Patient more alert today. He is sitting upright in bed. Very conversant. Little shaky perhaps Physical exam reveals Vital Signs to be stable. She is anicteric. Abdomen is soft and nontender. No organomegaly appreciated. Impression 1. Cryptogenic cirrhosis. Currently appears to be subclinical. No specific treatment warranted at this time. Ammonia level is remain normal. Low platelet count may be on the basis of cirrhosis. Would suggest following CBC conservatively at this time. 2. Chronic kidney disease. Her confusion may fluctuate with azotemia. 3. Atrial fibrillation. Subjective Date/time seen: 11/04/19 10:45 Objective Data Vital Signs Vital Signs: Vital Signs - 24 hr 11/03/19 11:00 11/03/19 11:15 11/03/19 11:30 Temperature Pulse Rate 80 80 80 Respiratory Rate Blood Pressure 103/64 97/50 L 105/64 Pulse Oximetry 11/03/19 11:45 11/03/19 12:00 11/03/19 12:15 Temperature Pulse Rate 80 80 80 Respiratory Rate Blood Pressure 103/64 106/63 97/61 L Pulse Oximetry 11/03/19 12:30 11/03/19 12:45 11/03/19 12:59 Temperature Pulse Rate 78 80 79 Respiratory Rate Blood Pressure 102/64 106/62 101/50 L Pulse Oximetry 11/03/19 13:05 11/03/19 14:41 11/03/19 20:00 Temperature 36.2 C L 36.6 C Pulse Rate 80 80 80 Respiratory Rate 18 16 16 Blood Pressure 99/62 L 94/59 L Pulse Oximetry 99 98 11/04/19 00:00 11/04/19 06:43 11/04/19 08:00 Temperature 36.3 C L 36.2 C L Pulse Rate 80 80 Respiratory Rate 16 16 Blood Pressure 100/66 116/74 Pulse Oximetry 98 100 100 11/04/19 08:41 Temperature Pulse Rate 81 Respiratory Rate Blood Pressure Pulse Oximetry Intake/Output Intake/Output: Intake & Output 11/01/19 11/02/19 11/03/19 11/04/19 23:59 23:59 23:59 23:59 Intake Total 870 460 700 240 Output Total 2049 Balance 870 460 -1350 240 Meds/Results Medications: Active Medications Generic Name Dose Route Start Last Admin Trade Name Freq PRN Reason Stop Dose Admin Acetaminophen 650 mg 11/02/19 03:11 11/03/19 23:02 Tylenol Tablet PO 650 mg Q4H PRN Administration Headache Alteplase, Recombinant 2 mg 10/29/19 06:32 11/02/19 06:12 Cathflo Activase IV PUSH 2 mg ONCE PRN Administration Line Occlusion Amiodarone HCl 100 mg 10/26/19 09:00 11/04/19 08:41 Pacerone PO 100 mg DAILY KATIE Administration Aspirin 81 mg 10/26/19 09:00 11/04/19 08:37 Aspirin Ec PO 81 mg DAILY KATIE Administration Bumetanide 2 mg 10/28/19 09:00 11/04/19 08:36 Bumex Po PO 2 mg TuThSa@0900 KATIE Administration Cyanocobalamin 1,000 mcg 10/26/19 09:00 11/04/19 08:36 Vitamin B-12 Tab PO 1,000 mcg DAILY KATIE Administration Dextrose 12.5 gm 10/24/19 05:21 10/27/19 06:49 Dextrose 50% Syringe IV PUSH 12.5 gm PRN PRN Administration Hypoglycemia Protocol Diltiazem HCl 180 mg 10/27/19 21:00 11/03/19 22:59 Cardizem Cd PO 180 mg HS KATIE Administration Docusate Sodium 100 mg 10/26/19 09:00 11/04/19 08:37 Colace Capsule PO 100 mg DAILY KATIE Administration Donepezil HCl 10 mg 10/26/19 09:00 11/04/19 08:36 Aricept PO 10 mg DAILY KATIE Administration Glucagon 1 mg 10/24/19 05:21 10/24/19 05:30 Glucagon For Inj IM 1 mg PRN PRN Administration Hypoglycemia Protocol Glucose 15 gm 10/24/19 05:21 11/01/19 21:18 Glutose 15 PO 15 gm PRN PRN Administration Hypoglycemia Protocol Albumin Human 50 mls @ 999 mls/hr 10/22/19 18:09 Albutein IVPB 11/21/19 18:10 Q10M PRN HYPOTENSION Levothyroxine Sodium 150 mcg 10/26/19 06:30 11/04/19 06:26 Synthroid PO 150 mcg DAILY@0630 KATIE Administration Lidocaine 2 patch 11/03/19 21:00 11/03/19 23:03 Lidoderm TRANSDERM 2 patch HS KATIE Administration Lidocaine HCl 15 ml 11/02/19 13:24 11/04/19 08:40 Lidocaine Hcl Viscous 2% PO
--- NOTE | 2019-11-04 11:27 | PM.PNNEP ---
Progress Note: A&P Assessment and Plan (1) End stage renal disease: Code(s): N18.6 - End stage renal disease Status: Resolved Assessment and Plan: HD tomorrow and continue M/W/F schedule electrolytes, volume status, and clearance acceptable (2) Metabolic encephalopathy: Code(s): G93.41 - Metabolic encephalopathy Status: Resolved Assessment and Plan: continues to was and wane as noted -- better today follow trend continue supportive therapy (3) Weakness: Code(s): R53.1 - Weakness Status: Acute Assessment and Plan: was in rehab for strengthening resuming PT/OT as tolerated (4) Hypoglycemia: Code(s): E16.2 - Hypoglycemia, unspecified Status: Resolved Assessment and Plan: sugars have still been intermittently low follow trend (5) Cirrhosis: Code(s): K74.60 - Unspecified cirrhosis of liver Status: Acute Assessment and Plan: GI evaluation noted appears crytogenic in nature Will continue to follow Subjective Date/time seen: 11/04/19 11:27 Tolerated dialysis yesterday without any issues or problems; mentation seems better today in comparison to yesterday; no apparent distress voiced. Exam Narrative: Exam Narrative: General: WD/WN female in NAD Heart: normal S1 and S2; no rub Lungs: decreased breath sounds at the bases Abdomen: soft, nontender, nondistended, positive bowel sounds Extremities: no cyanosis or clubbing; trace edema in UEs Skin:ecchymoses noted Objective Data Vital Signs Vital Signs: Vital Signs Temp Pulse Resp BP Pulse Ox 11/04/19 08:41 81 11/04/19 08:00 100 11/04/19 06:43 36.2 C L 80 16 116/74 100 11/04/19 00:00 36.3 C L 80 16 100/66 98 11/03/19 20:00 80 16 98 11/03/19 14:41 36.6 C 80 16 94/59 L 99 11/03/19 13:05 36.2 C L 80 18 99/62 L 11/03/19 12:59 79 101/50 L 11/03/19 12:45 80 106/62 11/03/19 12:30 78 102/64 11/03/19 12:15 80 97/61 L 11/03/19 12:00 80 106/63 11/03/19 11:45 80 103/64 11/03/19 11:30 80 105/64 Intake/Output Intake/Output: Intake & Output 11/01/19 11/02/19 11/03/19 11/04/19 23:59 23:59 23:59 23:59 Intake Total 870 460 700 240 Output Total 2049 Balance 870 460 -1350 240 Meds/Results Medications: Active Medications Generic Name Dose Route Start Last Admin Trade Name Freq PRN Reason Stop Dose Admin Acetaminophen 650 mg 11/02/19 03:11 11/03/19 23:02 Tylenol Tablet PO 650 mg Q4H PRN Administration Headache Alteplase, Recombinant 2 mg 10/29/19 06:32 11/02/19 06:12 Cathflo Activase IV PUSH 2 mg ONCE PRN Administration Line Occlusion Amiodarone HCl 100 mg 10/26/19 09:00 11/04/19 08:41 Pacerone PO 100 mg DAILY KATIE Administration Aspirin 81 mg 10/26/19 09:00 11/04/19 08:37 Aspirin Ec PO 81 mg DAILY KATIE Administration Bumetanide 2 mg 10/28/19 09:00 11/04/19 08:36 Bumex Po PO 2 mg TuThSa@0900 KATIE Administration Cyanocobalamin 1,000 mcg 10/26/19 09:00 11/04/19 08:36 Vitamin B-12 Tab PO 1,000 mcg DAILY KATIE Administration Dextrose 12.5 gm 10/24/19 05:21 10/27/19 06:49 Dextrose 50% Syringe IV PUSH 12.5 gm PRN PRN Administration Hypoglycemia Protocol Diltiazem HCl 180 mg 10/27/19 21:00 11/03/19 22:59 Cardizem Cd PO 180 mg HS KATIE Administration Docusate Sodium 100 mg 10/26/19 09:00 11/04/19 08:37 Colace Capsule PO 100 mg DAILY KATIE Administration Donepezil HCl 10 mg 10/26/19 09:00 11/04/19 08:36 Aricept PO 10 mg DAILY KATIE Administration Glucagon 1 mg 10/24/19 05:21 10/24/19 05:30 Glucagon For Inj IM 1 mg PRN PRN Administration Hypoglycemia Protocol Glucose 15 gm 10/24/19 05:21 11/01/19 21:18 Glutose 15 PO 15 gm PRN PRN Administration Hypoglycemia Protocol Albumin Human 50 mls @ 999 ml
--- NOTE | 2019-11-04 11:39 | PM.DS ---
DS: Diagnosis Admitting Diagnosis Admitting Diagnosis: Metabolic encephalopathy Discharge Diagnosis (1) Metabolic encephalopathy: Code(s): G93.41 - Metabolic encephalopathy Status: Resolved Assessment and Plan: 11/03/19 15:53 79-year-old female, who was transferred to the Rehab Unit for weakness. The patient had previously been on the Medical Floor. The patient is known to have end-stage renal disease. The patient has a drug-resistant UTI. The patient also had some problems with hypoglycemia while on the Medical Floor. The patient had a urine culture,which was positive for ESBL on 09/01/2019. UC is positive again, and highly resistant seen by Dr. esquivel recommending cefepime 6/7 days, cautioned about starting empiric treatment for UTI in the future Pt has line in thigh due to poor iv access. Pt feels much better, more alert not confused at all, currently on the medical floor, patient blood sugar is low etiology uncertain most likely patient poor food intake, patient has a elevated LFT to further evaluate abdominal ultrasound was done patient suspected patient and possible liver cirrhosis etiology uncertain as patient has no history of alcohol abuse and infectious cause is ruled out patient is seen by GI and further workup is in progress, most likely patient's liver get congested with volume overload and improves after dialysis this also helps her mentation as there decrease in uremia with HD, GI is recommending conservative management with supportive care, patient has dementia, today patient is more alert and similing, daughter is present in the room, patient is clinically stable and can be transferred back to [facility], today patient seen in dialysis patient did not qualify to return to [facility], will remove the PICC line from her femoral line, will have PT OT evaluate the patient and and discharge the patient home tomorrow with home health (2) Shortness of breath: Code(s): R06.02 - Shortness of breath Status: Resolved Assessment and Plan: Patient clinically stable (3) Thrombocytopenia: Code(s): D69.6 - Thrombocytopenia, unspecified Status: Acute Assessment and Plan: Stable (4) Hypoglycemia: Code(s): E16.2 - Hypoglycemia, unspecified Status: Resolved Assessment and Plan: Etiology uncertain C-peptide is ordered, most likely secondary to poor p.o. intake with poor appetite (5) End stage renal disease: Code(s): N18.6 - End stage renal disease Status: Resolved Assessment and Plan: Pt having dialysis in the hospital, potassium corrected with kayexalate (6) Atrial fibrillation: Qualifiers: Atrial fibrillation type: unspecified Qualified Code(s): I48.91 - Unspecified atrial fibrillation Code(s): I48.91 - Unspecified atrial fibrillation Status: Acute Assessment and Plan: Rate is controlled (7) Urinary tract infection due to ESBL Klebsiella: Code(s): N39.0 - Urinary tract infection, site not specified; B96.89 - Other specified bacterial agents as the cause of diseases classified elsewhere Status: Acute Assessment and Plan: See above The patient had a urine culture,which was positive for ESBL on 09/01/2019. UC is positive again, ID, neurology and nephrology rounding.Pt is on imepenem and is doing well. Wcc is nl, no confusion no hypoglycemic attacks. if hypoglycemia continues have pt go to see endocrinolology as OPD for recurrent hypoglycemia. DS: Summary Hospital Course Reason for hospitalization: Rachelle Herbert is a 79 year old female who resides at [place]. The patient was just discharged from here approximately 3 days ago. Patient had been treated for ESBL Klebsiella pneumoniae in her urine. Patient has excessive bruising to both of her arms due to multiple sticks and IV antibiotics. It looks like every culture that the patient has was ESBL Klebsiella. Infectious disease has seen the
[2019-11-04 13:14] LABS: Glucose Point of Care 167 (65-105)
[2019-11-04 14:14] VITALS: BP 97/50; PULSE 80; RESP 16; TEMP 36.2; O2SAT 100
--- NOTE | 2019-11-04 16:36 | PC.NURSE ---
Report given to Linda at [facility]. Made that nurse aware of patient needing evening blood sugar checks and a snack. Pt did not want me changing all of her dressings before she left.
== END 2019-11-04 15:00 | DRG 689 ==
LOC: ANHICU 10-24 20:19 → ANHIMU 10-27 01:03 → ANH3MED 10-27 12:11 → ANHICU 11-07 07:30 → ANHIMU 11-07 07:30
PROVIDERS: Internal Medicine; Internal Medicine Gastroenterology; Internal Medicine Nephrology; Admitting Provider Family Medicine; PCP Internal Medicine; Visit Provider Family Medicine
DX: N39.0 Urinary tract infection, site not specified (principal); G93.41 Metabolic encephalopathy; N18.6 End stage renal disease; I13.2 Hypertensive heart and chronic kidney disease with heart failure and with stage 5 chronic kidney disease, or end stage renal disease; Z16.12 Extended spectrum beta lactamase (ESBL) resistance; I50.9 Heart failure, unspecified; Z99.2 Dependence on renal dialysis; J44.9 Chronic obstructive pulmonary disease, unspecified; F41.8 Other specified anxiety disorders; I48.91 Unspecified atrial fibrillation; I25.10 Atherosclerotic heart disease of native coronary artery without angina pectoris; G20 Parkinson's disease; Z95.2 Presence of prosthetic heart valve; E03.9 Hypothyroidism, unspecified; D63.1 Anemia in chronic kidney disease; R29.6 Repeated falls; M10.9 Gout, unspecified; E78.00 Pure hypercholesterolemia, unspecified; Z96.652 Presence of left artificial knee joint; D69.6 Thrombocytopenia, unspecified; Z98.41 Cataract extraction status, right eye; Z98.42 Cataract extraction status, left eye; Z90.710 Acquired absence of both cervix and uterus; Z95.1 Presence of aortocoronary bypass graft; E16.2 Hypoglycemia, unspecified; K74.60 Unspecified cirrhosis of liver; R09.02 Hypoxemia
CPT/HCPCS: 36415; 36569; 70450; 71045; 76705; 80048; 80053; 80069; 80074; 80076; 82103; 82140; 82247; 82248; 82390; 82533; 82607; 82728; 82746; 83520; 83540; 83550; 83735; 84100; 84132; 85025; 85027; 85055; 86038; 86039; 86160; 86225; 87040; 87081; 93005; 97110; 97116; 97161; 97166; 97530; A9270; C1751; G0257; J0743; J1610; J1644; J2405; J2997; J7030; P9047; Q4081

== ENCOUNTER 2019-11-07 15:36 | Inpatient (IN) | payer MEDICARE, OTHER, SELFPAY ==
[2019-11-07] VITALS (11 sets, daily range): BP systolic 77–113; BP diastolic 56–88; PULSE 79–88; RESP 20–22; TEMP 36.4–37.1; O2SAT 92–100; BMI 22.4
--- NOTE | ~2019-11-07 | XR_ITS ---
EXAMINATION: XR chest port-a-cath/central DATE: 11/07/2019 20:30 INDICATION: Central line placement TECHNIQUE: frontal view of the chest was obtained. COMPARISON: Chest radiograph dated 11/07/2019 at 4:16 PM FINDINGS: Interval placement of a left internal jugular central venous catheter with distal tip at the high rig ht atrium. Large-bore right internal jugular central venous catheter with tip also at the high right atrium. Dual lead pacemaker seen with leads projecting over the expected locations of the right atriu m and right ventricle. Severe bilateral glenohumeral osteoarthritis. Bilateral perihilar increased interstitial pattern. Mild patchy airspace opacities in the left mid an d bilateral lower lung zones and more discrete nodular opacity lateral right upper lung zone. No pleu ral effusion or pneumothorax. Cardiomegaly. Median sternotomy wires and mediastinal surgical clips ar e seen, likely from prior coronary artery bypass grafting. IMPRESSION: 1. Bilateral internal jugular central venous catheters with distal tips at the high right atrium. No pneumothorax. 2. Slight increase in bilateral perihilar interstitial opacities and a few scattered airspace opaciti es likely combination of mild pulmonary edema and atelectasis although differential includes pneumoni a. 2. Cardiomegaly. Reviewed, dictated and finalized at location A. DRY EQUIPMENT MECHANIC IMPRESSION: 1. Bilateral internal jugular central venous catheters with distal tips at the high right atrium. No pneumothorax. 2. Slight increase in bilateral perihilar interstitial opacities and a few scat tered airspace opacities likely combination of mild pulmonary edema and atelect asis although differential includes pneumonia. 2. Cardiomegaly.
--- NOTE | ~2019-11-07 | XR_ITS ---
EXAMINATION: XR chest 1V portable EXAM DATE: 11/07/2019 16:18 INDICATION: Transient alteration of awareness. TECHNIQUE: Portable AP frontal chest x-ray was obtained. Comparison is made to prior examination from 10/24/2019. FINDINGS: Sternotomy wires are present without findings to suggest sternal dehiscence. There is a bari l lead pacemaker/AICD seen with leads projecting over the expected locations of the right atrial appe ndage and right ventricle. Right-sided dialysis catheter. Cardiac silhouette is enlarged but stable i n size compared to prior exam. There is pulmonary vascular congestion. Improvement in previously seen pulmonary edema. No confluent consolidation, pneumothorax or pleural effusion suspected. The bones a re osteopenic. There are bony degenerative changes. There is aortic arterial sclerosis. IMPRESSION: Cardiomegaly, pulmonary vascular congestion. Reviewed, dictated and finalized at location B. ENT FINANCE ADVISOR
--- NOTE | ~2019-11-07 | CT_ITS ---
EXAMINATION: CT brain wo con EXAM DATE: 11/07/2019 16:15 INDICATION: Temporary change in awareness. TECHNIQUE: Spiral CT of the head was performed without contrast. Axial, coronal and sagittal images were reviewed. The dose-length product (DLP) for this examination was 605.33 mGy-cm. The exposure w as tailored according to patient size, and iterative reconstruction (ASIR) was used as additional dos e reduction technique. Comparison is made to prior examination from 10/23/2019. FINDINGS: There is no acute intraparenchymal hemorrhage. No evidence of intraparenchymal brain mass lesion. No evidence of acute infarction. Please note that initial head CT has limited sensitivity f or small or acute infarctions. There is mild to moderate periventricular and subcortical hypodensity, nonspecific but probably related to small vessel ischemic disease. There is moderate prominence of the sulci and ventricles related to cerebral atrophy. There is intracranial carotid arterioscleros is. There are no extra-axial collections. There is no mass effect or midline shift. Patient has squires d bilateral ocular lens surgery. Soft tissue is unremarkable. The visualized sinuses and mastoid ai r cells are well aerated. There is no interval change. IMPRESSION: 1. No acute intracranial findings. 2. Chronic age related findings. Reviewed, dictated and finalized at location B. NETWORK ADMINISTRATOR
--- NOTE | 2019-11-07 15:48 | ED.AMS ---
HPI - Altered Mental Status General Chief Complaint: Altered Mental Status Stated Complaint: AMS Time Seen by Provider: 11/07/19 15:43 Source: family, EMS and RN notes reviewed Mode of arrival: ambulatory Limitations: altered mental status History of Present Illness HPI narrative: An 79 y/o female presents to the ED, via EMS from [facility], with c/o AMS. Per EMS, the patient has had similar symptoms before when she has a UTI. Her sugar was 56 in route to the ED according to EMS. According to the patient's daughter, the patient was at baseline yesterday and was told by intermediate staff today that the patient was agitated and confused. A complete HPI is limited due to the patient's AMS. MD complaint: altered mental status Onset (ago): unknown Consistency of symptoms: unknown Associated symptoms: other (Unobtainable) Related Data Home Medications Medication Instructions Recorded Confirmed bumetanide 2 mg PO TUTHSA@0800 11/07/19 11/07/19 levothyroxine [Synthroid] 150 mcg PO DAILY@0600 11/07/19 11/07/19 melatonin 3 mg PO HS 11/07/19 11/07/19 Allergies Allergy/AdvReac Type Severity Reaction Status Date / Time lisinopril AdvReac Cough Verified 10/03/19 19:04 Review of Systems Review of Systems: ROS unobtainable: unobtainable due to mental status PMFSH Past Medical History Medical History AA (aortic aneurysm) Anemia due to chronic kidney disease, on chronic dialysis Angina at rest Anxiety Arthritis AV fistula Bruising tendency CAD (coronary artery disease) of artery bypass graft Cataract CHF (congestive heart failure) Compression fracture of L1 lumbar vertebra COPD (chronic obstructive pulmonary disease) Depression End stage renal disease on dialysis Gout Hypercholesterolemia Hypertension Hypothyroidism Parkinson's disease Pneumonia Pyuria Renal disease Urinary tract infection due to ESBL Klebsiella UTI (urinary tract infection) Valvular heart disease Surgical History Surgical History H/O aortic valve replacement She thinks is mechanical. 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 She has had 5 children.She desires to be a full code. Smoking status: Never smoker Second hand tobacco smoke exposure: Yes Alcohol intake: never Substance use: never Substance use type: does not use Additional living arrangements comments: who is hemiparesis Gender identity (if verbalized by the patient): Female Spiritual care concerns: No Agree to blood products: Yes Exam Narrative: Exam Narrative: A complete physical exam is limited due to the patient's AMS. Const: General: ill appearing Orientation/consciousness: confusion and Other orientation findings (Oriented x0) HENMT: Head: normocephalic Ears: external ears normal General nose exam: Normal external nose present Eyes: General: appearance normal, both eyes and all related structures Conjunctivae: conjunctivae normal Neck: Neck: normal visual inspection and full ROM Chest: Chest palpation & inspection: normal inspection of the chest and no tenderness Resp: Effort & Inspection: normal respiratory effort
--- NOTE | 2019-11-07 15:50 | ECG_ITS ---
Measurements Intervals [place] Rate: 80 P: 208 NE: 272 QRS: 170 QRSD: 162 T: 185 QT: 491 QTc: 567 Interpretive Statements ELECTRONIC ATRIAL PACEMAKER ELECTRONIC VENTRICULAR PACEMAKER BASELINE ARTIFACT- I, II, III, AVR, AVL, AVF, V1-V6 NO FURTHER INTERPRETATION IS POSSIBLE ATYPICAL ECG Electronically Signed On 11-07-2019 15:57:05 SUPERVISOR COMPOSING ROOM by Tacho Moeller D.O.
[2019-11-07] MEDS: SODIUM CHLORIDE 0.9% IV 1,000 ML 999 ML IV CONT (16:04)
[2019-11-07 16:09] LABS: Basophils Percent Auto 0.2 % (0.2-1.2); Hematocrit 36.4 % (37.0-47.0); Hemoglobin 11.8 g/dL (12.0-15.0); Immature Granulocyte Absolute 0.19 K/mm3 (0.00-0.031); Immature Granulocyte Percent A 1.5 % (0-0.5); Immature Platelet Fraction Pct 12.2 % (0.9-11.2); Lymphocytes Absolute Auto 0.53 K/mm3 (0.9-3.2); Lymphocytes Percent Auto 4.2 % (18.3-44.2); Mean Corpuscular HGB Conc 32.4 g/dl (32-36); Mean Corpuscular Hemoglobin 31.7 pg (26-34); Mean Corpuscular Volume 97.8 fl (80-100); Monocytes Absolute Auto 0.3 K/mm3 (0.1-0.6); Monocytes Percent Auto 2.4 % (2.6-8.5); Neutrophils Absolute Auto 11.7 K/mm3 (1.3-6.7); Neutrophils Percent Auto 91.7 % (45.5-73.1); Nucleated Red Blood Cells Perc 0.3 % (0.0-0.2); Platelet Count Result 71 k/mm3 (150-375); Red Blood Count 3.72 M/mm3 (4.2-5.4); White Blood Count 12.8 K/mm3 (4.5-10.0)
[2019-11-07 16:28] LABS: Alanine Aminotransferase 30 U/L (4-35); Albumin Level 3.1 g/dL (3.5-5.1); Alkaline Phosphatase 292 U/L (38-126); Aspartate Amino Transferase 148 U/L (14-36); Bilirubin,Total 2.2 mg/dL (0.2-1.3); Blood Urea Nitrogen 38 mg/dL (7-17); Calcium 8.3 mg/dL (8.4-10.2); Carbon Dioxide 25 mmol/L (22-30); Chloride 95 mmol/L (98-107); Estimated Glomerular Filt Rate 10; Glucose 43 mg/dL (65-105); Potassium 6.1 mmol/L (3.4-5.0); Sodium 141 mmol/L (137-145)
[2019-11-07 16:35] LABS: Troponin I 0.117 ng/mL (0.000-0.034)
[2019-11-07] MEDS: DEXTROSE 50% 25 GM/50 ML SYRINGE (16:39)
[2019-11-07] MEDS: LORAZEPAM INJ 2 MG/ML VIAL 0.5 MG IV PUSH ×2 (16:39→19:53)
[2019-11-07] MEDS: SODIUM BICARBONATE 8.4% 50 MEQ/50 ML VIAL IV PUSH (17:04)
[2019-11-07] MEDS: CALCIUM GLUC 1,000 MG/NS 50 ML 1,000 MG/50 ML BAG 100 MG IVPB (17:04)
[2019-11-07] MEDS: SODIUM POLYSTYRENE SULFONONATE 15 GM/60 ML BTL 30 GM PO (17:05)
[2019-11-07 17:18] LABS: Add Urine Microscopic? YES; Amorphous Sediment Urine Few; Appearance Urine Turbid (Clear); Bacteria Urine 4+ /hpf; Bilirubin Urine 1+ (Negative); Blood Urine 3+ (Negative); Color Urine Red (Yellow); Glucose Urine UA Negative (Negative); Ketones Urine Negative (Negative); Leukocyte Esterase Ur 2+ LEU/UL (Negative); Mucus Urine Heavy /lpf; Nitrate Urine Negative (Negative); Protein Urine 2+ mg/dL (Negative); RBC Urine >75 /hpf (0-2); Squamous Epithelial Cell Urine Moderate /hpf (Few); WBC Urine >75 /hpf
[2019-11-07 17:55] LABS: Glucose Point of Care 56 (65-105)
[2019-11-07] MEDS: DEXTROSE 5%/0.45% SOD CHL 1,000 ML 100 ML IV CONT (18:52)
--- NOTE | 2019-11-07 19:40 | PC.NURSE ---
Unable to obtain 3hr Trop. RN notified
--- NOTE | 2019-11-07 20:27 | PC.NURSE ---
Pt had IV placed to L arm on arrival to treat hypoglycemia and hypotension. upon family arrival, staff was informed that pt had L arm fistula. There was no obvious sign of fistula to arm. EDp was consulted and was decided to place central line at this time. Iv removed from L arm. laborer high density press and firer powerhouse aware.
[2019-11-07 20:47] LABS: Glucose Point of Care 128 (65-105)
[2019-11-07 21:34] LABS: Troponin I 0.125 ng/mL (0.000-0.034)
[2019-11-07] MEDS: IMIPENEM/CILASTATIN SODIUM 250 MG in DEXTROSE 5% 100 ML 300 MG IVPB (21:45)
[2019-11-07] MEDS: GENTAMICIN 60 MG/50 ML NS 60 MG/50 ML BAG 100 MG IVPB (22:00)
[2019-11-07 22:13] LABS: Lactic Acid Reflex 2.6 mmol/L (0.7-2.1)
[2019-11-07 23:23] LABS: Glucose Point of Care 86 (65-105)
--- NOTE | 2019-11-07 23:38 | PM.IMHP ---
H&P: HPI History of Present Illness Chief complaint: hyperkalemia, hypoglycemia, altered mental status Narrative: Rachelle Herbert is a 79 year old female who resides at [place]. The patient was just discharged from here approximately 3 days ago. Patient had been treated for ESBL Klebsiella pneumoniae in her urine. Patient has excessive bruising to both of her arms due to multiple sticks and IV antibiotics. It looks like every culture that the patient has was ESBL Klebsiella. Infectious disease has seen the patient in the past at [facility] she had cefepime for 6 or 7 days her last admission. It also looks like she would wax and wane throughout the past month while she was admitted here. It also looks like she has been going back and forth between [facility] in medical floor. Dr. wilson has seen the patient and diagnosed her with cryptogenic cirrhosis. The patient was more confused today than normal. She does have a history of dementia but according to the daughter the patient had a conversation with her last night but today she cannot have any conversation. The patient which is yelling and moaning out laterally. The patient also has an abrasion to her lower legs were she rubs her legs together. The patient appears to be jaundiced. Patient appears to be very dry. She is a dialysis patient into was supposed to have dialysis today. She has dialysis Sunday and Sunday. However she was too sick to go today. Patient initially was started on gentamicin and Primaxin per ED physician. It looks like the ED physician did speak with Infectious Disease. However it is not known if the infectious disease physician recommended those antibiotics. However I did not feel comfortable continue with his antibiotics with her end-stage renal disease. I address these concerns with my collaborative Dr. rizzo who also suggested that we go back to the cefepime. Patient had a central line that was placed in the left upper chest. Patient is moaning and not answering questions for me. The daughter is very concerned and she is answering the questions for me. Patient had been given Ativan in the emergency room. Her blood pressure is on the low side and her potassium was on the low side as well. Patient was given D50 and sodium bicarb for potassium of 6.1. Nephrology has been consulted. Date of service is 07/07/2016 Review of Systems Review of Systems: All systems reviewed & are unremarkable except as noted in HPI and below ROS unobtainable: unobtainable due to mental status Constitutional: Constitutional: Reports as per HPI and Reports no additional constitutional complaints Eyes: Eyes: Reports as per HPI and Reports no additional eye complaints ENT: Reports system reviewed and no additional complaints, except as documented and Reports Normal hearing present Cardiovascular: Cardiovascular: Reports no additional cardiovascular complaints Respiratory: Respiratory: Reports no additional respiratory complaints and Reports no additional respiratory complaints Gastrointestinal: Gastrointestinal: Reports as per HPI and Reports no additional gastrointestinal complaints Musculoskeletal: Musculoskeletal: Reports no additional musculoskeletal complaints Integumentary/Breasts: Skin/Breast: Reports system reviewed and no additional complaints, except as docu and Reports as per HPI Neurologic: Reports system reviewed and no additional complaints, except as documented, Reports as per HPI and Reports Normal hearing present Psychiatric: Psychiatric: Reports no additional psychiatric complaints and Reports as per HPI Endocrine: Endocrine: Reports no additional endocrine complaints Hematologic/Lymphatic: Hematologic/Lymphatic: Reports no additional hematologic/lymphatic complaints Allergic/Immunologic: Allergic/Immunologic: Reports no additional allergic/immunologic complaints [facility] Past Medical History Medical History
[2019-11-07 23:59] LABS: Troponin I 0.128 ng/mL (0.000-0.034)
[2019-11-08] VITALS (31 sets, daily range): BP systolic 71–120; BP diastolic 31–88; PULSE 70–110; RESP 16–20; TEMP 35.8–37; O2SAT 20–99
[2019-11-08 00:45] LABS: Ammonia 14 umol/L (9-30)
[2019-11-08 01:00] LABS: Reflex Lactic Acid Yes or No Add Lactic
--- NOTE | 2019-11-08 01:01 | ADMIMU ---
This patient, Rachelle Herbert, was admitted to IMU status, and placed in IMU Room 205-01 at 2115 on 11/07/19. Patient/family oriented to hospital policies and general routines including ID bracelet, bed and alarms, visiting hours, pain management, procedures, bathroom and other care routines, personal items, smoking policy, room service/diet, and visiting hours. Valuables list has been completed. Information on how to activate the Rapid Response Team has been discussed. Patient/Family are encouraged to report perceived risks to care and to ask questions if they do not understand what they are told or what they should do.
[2019-11-08 01:36] LABS: Blood Urea Nitrogen 39 mg/dL (7-17); Calcium 7.6 mg/dL (8.4-10.2); Carbon Dioxide 26 mmol/L (22-30); Chloride 97 mmol/L (98-107); Estimated CRCL calculation 8 ml/min; Estimated Glomerular Filt Rate 9; Glucose 85 mg/dL (65-105); Potassium 5.3 mmol/L (3.4-5.0); Sodium 140 mmol/L (137-145)
[2019-11-08 01:56] LABS: Lactic Acid 2.7 mmol/L (0.7-2.1)
[2019-11-08 02:44] LABS: Glucose Point of Care 95 (65-105)
[2019-11-08] MEDS: SODIUM CHLORIDE 0.9% IV 500 ML 999 ML IV CONT ×2 (04:30→05:44)
[2019-11-08 05:25] LABS: Glucose Point of Care 94 (65-105)
[2019-11-08 05:56] LABS: Basophils Percent Auto 0.1 % (0.2-1.2); Hematocrit 31.4 % (37.0-47.0); Hemoglobin 10.2 g/dL (12.0-15.0); Immature Granulocyte Absolute 0.09 K/mm3 (0.00-0.031); Immature Granulocyte Percent A 0.8 % (0-0.5); Immature Platelet Fraction Pct 11.2 % (0.9-11.2); Lymphocytes Absolute Auto 0.39 K/mm3 (0.9-3.2); Lymphocytes Percent Auto 3.6 % (18.3-44.2); Mean Corpuscular HGB Conc 32.5 g/dl (32-36); Mean Corpuscular Hemoglobin 31.7 pg (26-34); Mean Corpuscular Volume 97.5 fl (80-100); Mean Platelet Volume 14.2 fl (7.4-10.4); Monocytes Absolute Auto 0.2 K/mm3 (0.1-0.6); Monocytes Percent Auto 2.2 % (2.6-8.5); Neutrophils Absolute Auto 10.1 K/mm3 (1.3-6.7); Neutrophils Percent Auto 93.3 % (45.5-73.1); Nucleated Red Blood Cells Perc 0.3 % (0.0-0.2); Platelet Count Result 48 k/mm3 (150-375); Red Blood Count 3.22 M/mm3 (4.2-5.4); Red Cell Distribution Width 17.9 % (11.5-14.5); White Blood Count 10.8 K/mm3 (4.5-10.0)
[2019-11-08 06:06] LABS: Alanine Aminotransferase 38 U/L (4-35); Albumin Level 2.4 g/dL (3.5-5.1); Alkaline Phosphatase 232 U/L (38-126); Aspartate Amino Transferase 223 U/L (14-36); Blood Urea Nitrogen 42 mg/dL (7-17); Calcium 7.1 mg/dL (8.4-10.2); Carbon Dioxide 27 mmol/L (22-30); Chloride 98 mmol/L (98-107); Estimated CRCL calculation 8 ml/min; Estimated Glomerular Filt Rate 9; Glucose 80 mg/dL (65-105); Potassium 5.2 mmol/L (3.4-5.0); Sodium 140 mmol/L (137-145)
[2019-11-08 07:03] LABS: Thyroid Stimulating Hormone Reflex 0.776 uIU/mL (0.465-4.68)
[2019-11-08 08:02] LABS: Glucose Point of Care 87 (65-105)
[2019-11-08] MEDS: DEXTROSE 5%/0.45% SOD CHL 1,000 ML 75 ML IV CONT (08:19)
--- NOTE | 2019-11-08 08:20 | PC.NURSE ---
Pt to dialysis
[2019-11-08 08:29] LABS: Ovalocytes 1+ (NORMAL); Platelet Estimate Decreased (Adequate); Target Cells 1+ (NORMAL)
[2019-11-08] MEDS: HEPARIN SODIUM 1,000 UNITS/ML VIAL 6000 UNITS (12:45)
--- NOTE | 2019-11-08 13:20 | PC.NURSE ---
Pt returned from dialysis
--- NOTE | 2019-11-08 13:36 | P.PNNP_ITS ---
Progress Note: A&P Assessment and Plan (1) End stage renal disease: Code(s): N18.6 - End stage renal disease Status: Resolved Assessment and Plan: * missed HD yesterday due to acute illness * HD today to optimize electrolytes, volume status, and clearance * plan next HD on Sunday (outpatient schedule is //) (2) Altered mental status: Qualifiers: Altered mental status type: unspecified Qualified Code(s): R41.82 - Altered mental status, unspecified Code(s): R41.82 - Altered mental status, unspecified Status: Acute Assessment and Plan: * this has been an ongoing issue since last hospitalization * extensive evaluation at that time was negative with potential causes being: - Klebsiella UTI (Infectious Disease believe this was just colonization - liver cirrhosis (ammonia level was normal) - hypoglycemic episodes (several episodes noted) - CVA/TIA (CT and MRI of brain negative) - progressive of dementia (?) * unclear what other testing/intervention to be done at this time (3) Hyperkalemia: Code(s): E87.5 - Hyperkalemia Status: Acute Assessment and Plan: * due missed treatment yesterday * s/p medical management * HD today should further stabilize/correct (4) Hypoglycemia: Code(s): E16.2 - Hypoglycemia, unspecified Status: Acute Assessment and Plan: * due to poor oral intake? * consider imaging of abdomen to reassess liver and pancreas (but would this meter changes records clerk?) * follow accuchecks (5) Cirrhosis: Code(s): K74.60 - Unspecified cirrhosis of liver Status: Acute Assessment and Plan: * felt to crytogenic from Dr. Burks's evaluation on last hospitalization * LFTs elevated but about the same during last hospital staty * ammonia normal (6) Hypotension: Code(s): I95.9 - Hypotension, unspecified Status: Chronic Assessment and Plan: * chronic issues at baseline (but seems worse recently) * on midodrine (but unable to take po medications at this time) FULL CONSULT TO FOLLOW Subjective Date/time seen: 11/08/19 13:36 Seen on dialysis today (seen on HD at ~ 12:30PM); confused and non-communicative at the time of my visit; using albumin and lowering dialysate temperature to try to maintain her BP with dialysis; on/off moaning noted. Exam Narrative: Exam Narrative: General: Elderly female in bed; non-communicative Heart: normal S1 and S2; no rub Lungs: coarse with decrease breath sounds at bases Abdomen: soft, nontender, nondistended, positive bowel sounds Extremities: no cyanosis or clubbing; trace edema Skin: warm and dry Objective Data Vital Signs Vital Signs: Vital Signs Temp Pulse Resp BP Pulse Ox 11/08/19 13:20 98 11/08/19 12:45 35.8 C L 80 16 101/45 L 11/08/19 12:39 78 120/54 L 11/08/19 12:30 94 117/65 11/08/19 12:15 80 108/66 11/08/19 12:00 79 105/68 11/08/19 11:45 88 115/88 11/08/19 11:30 86 118/65 11/08/19 11:15 81 115/68 11/08/19 11:00 80 97/63 L 11/08/19 10:45 73 88/40 L 11/08/19 10:30 75 108/49 L 11/08/19 10:15 80 104/59 L 11/08/19 10:00 90 94/62 L 11/08/19 09:45 80 100/64 11/08/19 09:30 78 102/61 11/08/19 09:15 80 91/31
--- NOTE | 2019-11-08 13:36 | PM.PNNEP ---
Progress Note: A&P Assessment and Plan (1) End stage renal disease: Code(s): N18.6 - End stage renal disease Status: Resolved Assessment and Plan: missed HD yesterday due to acute illness HD today to optimize electrolytes, volume status, and clearance plan next HD on Sunday (outpatient schedule is //) (2) Altered mental status: Qualifiers: Altered mental status type: unspecified Qualified Code(s): R41.82 - Altered mental status, unspecified Code(s): R41.82 - Altered mental status, unspecified Status: Acute Assessment and Plan: this has been an ongoing issue since last hospitalization extensive evaluation at that time was negative with potential causes being: - Klebsiella UTI (Infectious Disease believe this was just colonization - liver cirrhosis (ammonia level was normal) - hypoglycemic episodes (several episodes noted) - CVA/TIA (CT and MRI of brain negative) - progressive of dementia (?) unclear what other testing/intervention to be done at this time (3) Hyperkalemia: Code(s): E87.5 - Hyperkalemia Status: Acute Assessment and Plan: due missed treatment yesterday s/p medical management HD today should further stabilize/correct (4) Hypoglycemia: Code(s): E16.2 - Hypoglycemia, unspecified Status: Acute Assessment and Plan: due to poor oral intake? consider imaging of abdomen to reassess liver and pancreas (but would this tire changer?) follow accuchecks (5) Cirrhosis: Code(s): K74.60 - Unspecified cirrhosis of liver Status: Acute Assessment and Plan: felt to crytogenic from Dr. Burks's evaluation on last hospitalization LFTs elevated but about the same during last hospital staty ammonia normal (6) Hypotension: Code(s): I95.9 - Hypotension, unspecified Status: Chronic Assessment and Plan: chronic issues at baseline (but seems worse recently) on midodrine (but unable to take po medications at this time) FULL CONSULT TO FOLLOW Subjective Date/time seen: 11/08/19 13:36 Seen on dialysis today (seen on HD at ~ 12:30PM); confused and non-communicative at the time of my visit; using albumin and lowering dialysate temperature to try to maintain her BP with dialysis; on/off moaning noted. Exam Narrative: Exam Narrative: General: Elderly female in bed; non-communicative Heart: normal S1 and S2; no rub Lungs: coarse with decrease breath sounds at bases Abdomen: soft, nontender, nondistended, positive bowel sounds Extremities: no cyanosis or clubbing; trace edema Skin: warm and dry Objective Data Vital Signs Vital Signs: Vital Signs Temp Pulse Resp BP Pulse Ox 11/08/19 13:20 98 11/08/19 12:45 35.8 C L 80 16 101/45 L 11/08/19 12:39 78 120/54 L 11/08/19 12:30 94 117/65 11/08/19 12:15 80 108/66 11/08/19 12:00 79 105/68 11/08/19 11:45 88 115/88 11/08/19 11:30 86 118/65 11/08/19 11:15 81 115/68 11/08/19 11:00 80 97/63 L 11/08/19 10:45 73 88/40 L 11/08/19 10:30 75 108/49 L 11/08/19 10:15 80 104/59 L 11/08/19 10:00 90 94/62 L 11/08/19 09:45 80 100/64 11/08/19 09:30 78 102/61 11/08/19 09:15 80 91/31 L 11/08/19 09:09 80 85/51 L 11/08/19 08:56 36.8 C 80 20 89/49 L 11/08/19 08:24 37.0 C 70 18 102/73 92 11/08/19 08:00 80 11/08/19 06:44 92/64 L 11/08/19 05:58 80 11/08/19 05:16 82/48 L 11/08/19 04:28 36.5 C 80 20 71/54 L 96 11/08/19 04:00 80 11/08/19 02:00 80 11/08/19 00:00 80 11/07/19 23:37 37.1 C 80 20 113/84 100 11/07/19 22:18 103/82 11/07/19 22:00 80 11/07/19 21:20 36.6 C 86 20 88/56 L 96 11/07/19 21:19 80 11/07/19 21:08 36.6 C 80 20 100/60 98 11/07/19 20:26 79 20 110/80 98 11/07/19 19:55 36.6 C 80
[2019-11-08 16:49] LABS: Glucose Point of Care 67 (65-105)
[2019-11-08] MEDS: DEXTROSE 50% 25 GM/50 ML SYRINGE IV PUSH (16:50)
[2019-11-08 17:20] LABS: Glucose Point of Care 116 (65-105)
--- NOTE | 2019-11-08 18:15 | PC.NURSE ---
This patient, Rachelle Herbert, was received from IMU on 11/08/19 at 1815. Personal belongings list checked and signed. Patient/family oriented to unit policies and routines
--- NOTE | 2019-11-08 18:22 | PC.NURSE ---
This patient, Rachelle Herbert, was transferred to [[id number] ] on 11/08/19 at 1822. Personal belongings sent with patient. Belongings list checked and signed with receiving [ ]. Report given to [MEGAN Kraus]. Appropriate documentation sent with patient.
--- NOTE | 2019-11-08 18:52 | PM.IMPN ---
Progress Note: A&P Assessment and Plan (1) Altered mental status: Qualifiers: Altered mental status type: unspecified Qualified Code(s): R41.82 - Altered mental status, unspecified Code(s): R41.82 - Altered mental status, unspecified Status: Acute Assessment and Plan: Patient appears to be dry. Perhaps she is dehydrated. Going to gently hydrate her for now. She had 2 L of fluid. Also her sugars strep frequently and I did want to take the IV fluids off as of yet. I discussed the case with my collaborative Dr. rizzo to suggested that we give her limited amount of fluids or just do IV fluids at [facility] overnight. Re-evaluate in the morning. Could be bacterial encephalopathy. Patient has drug resistant UTI. However her cultures over the last couple months have shown ESBL Klebsiella. Could be possibly be colonized? Patient initially was started on antibiotics and I discussed the case with Dr. rizzo. Also I did order a ammonia level as she does have cirrhosis. 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 (2) Urinary tract infection due to ESBL Klebsiella: Code(s): N39.0 - Urinary tract infection, site not specified; B96.89 - Other specified bacterial agents as the cause of diseases classified elsewhere Status: Acute Assessment and Plan: Patient does have end-stage renal disease I did not feel comfortable Primaxin and gentamicin. After reading the notes from Infectious Disease it was recommended that Infectious Disease doctor prefer to be notified prior to any further antibiotics. Patient has poor veins and has both arms and nerves extensively bruise. She did have a central line placed in the emergency room. It was felt that it was best that the patient be placed back on cefepime for now. Further recommendations per Infectious Disease. They have been consulted. (3) Hypoglycemia: Code(s): E16.2 - Hypoglycemia, unspecified Status: Acute Assessment and Plan: Patient's blood sugars have been dropping frequently. So I did keep the IV fluids with dextrose in it at [facility] so that she does get a little bit of sugar. Please re-evaluate in the morning to decide on whether fluids should continue or not. (4) ESRD (end stage renal disease) on dialysis: Code(s): N18.6 - End stage renal disease; Z99.2 - Dependence on renal dialysis Status: Acute Assessment and Plan: She has dialysis Sunday. Nephrology has been consulted. Patient appears to be dry at this time. Her potassium was high at 6.1 I ordered another BM P. Patient will need dialysis soon as possible. (5) Cirrhosis: Code(s): K74.60 - Unspecified cirrhosis of liver Status: Acute Assessment and Plan: I will check her ammonia level. Dr. wilson saw the patient last admission. Her AST was found to be 148 today total bilirubin was noted to be 2.2 which is about her baseline. (6) Thrombocytopenia: Code(s): D69.6 - Thrombocytopenia, unspecified Status: Acute Assessment and Plan: Chronic and she is at her baseline. (7) CHF (congestive heart failure): Code(s): I50.9 - Heart failure, unspecified Status: Acute Assessment and Plan: No diuretics at this time. IV fluids are going at O and she is on dialysis. Please re-evaluate in the morning. (8) Hypertension: Qualifiers: Hypertension type: essential hy
[2019-11-08] MEDS: LORAZEPAM INJ 2 MG/ML VIAL 0.5 MG IV PUSH (20:44)
--- NOTE | 2019-11-08 20:45 | PM.EVENT ---
Event Note Event Note Event Note: The family called me into the room tonight. I am familiar with this family and have been talking to them over the last couple days. The patient and the family decided that they would go with [facility]. I called hospice for them and hospice will be calling the family members back to see if things will move along tonight or if it would be tomorrow. They will let the family know. The family will want the patient to be moved back to home on hospice. I am not sure if they want to wait for a hospice bed before she goes home. The family agreed on a DNR and comfort measures tonight. We decided to leave the fluids in the antibiotics for tonight. The patient is very restless and if touch she started screaming. The patient is getting a dose of Ativan now she is very restless. The family feels that the patient is scared at this point.
[2019-11-08] MEDS: SCOPOLAMINE 1.5 MG PATCH TRANSDERM (22:05)
[2019-11-08 22:48] LABS: Glucose Point of Care 65 (65-105)
[2019-11-08] MEDS: MORPHINE SULFATE 2 MG/ML INJ IV PUSH (23:41)
[2019-11-09] MEDS: LORAZEPAM INJ 2 MG/ML VIAL 0.5 MG IV PUSH ×3 (01:11→11:52)
[2019-11-09] MEDS: MORPHINE SULFATE 2 MG/ML INJ IV PUSH ×3 (05:05→11:51)
--- NOTE | 2019-11-09 11:12 | PM.IMPN ---
Progress Note: A&P Assessment and Plan (1) Altered mental status: Qualifiers: Altered mental status type: unspecified Qualified Code(s): R41.82 - Altered mental status, unspecified Code(s): R41.82 - Altered mental status, unspecified Status: Acute Assessment and Plan: Probably multi factorial. Family has now decided on hospice care. Family met with [facility] last night. Arrangements have been completed to discharge home with hospice. Will discharge today. Discontinue central line prior to discharge. Will continue IV morphine and Ativan while still here. (2) Urinary tract infection due to ESBL Klebsiella: Code(s): N39.0 - Urinary tract infection, site not specified; B96.89 - Other specified bacterial agents as the cause of diseases classified elsewhere Status: Acute Assessment and Plan: Recent hospitalization for UTI due to ESBL Klebsiella. Discontinuing IV antibiotics with plan for hospice. (3) Hypoglycemia: Code(s): E16.2 - Hypoglycemia, unspecified Status: Acute Assessment and Plan: Glucose presently stable. Plan for hospice as noted. (4) ESRD (end stage renal disease) on dialysis: Code(s): N18.6 - End stage renal disease; Z99.2 - Dependence on renal dialysis Status: Acute Assessment and Plan: Was receiving hemodialysis Sunday, Sunday and Fridays. Now plan for hospice as noted. (5) Cirrhosis: Qualifiers: Hepatic cirrhosis type: unspecified hepatic cirrhosis Ascites presence: without ascites Qualified Code(s): K74.60 - Unspecified cirrhosis of liver Code(s): K74.60 - Unspecified cirrhosis of liver Status: Acute Assessment and Plan: Plan for hospice as noted. (6) Thrombocytopenia: Code(s): D69.6 - Thrombocytopenia, unspecified Status: Acute Assessment and Plan: Chronic. Platelets 48,000 yesterday. Now plan for hospice as noted. (7) CHF (congestive heart failure): Qualifiers: Heart failure type: diastolic Heart failure chronicity: chronic Qualified Code(s): I50.32 - Chronic diastolic (congestive) heart failure Code(s): I50.9 - Heart failure, unspecified Status: Chronic Assessment and Plan: Plan for hospice as noted. (8) Hypertension: Qualifiers: Hypertension type: essential hypertension Qualified Code(s): I10 - Essential (primary) hypertension Code(s): I10 - Essential (primary) hypertension Status: Chronic Assessment and Plan: Plan now for hospice as noted above. (9) Anxiety: Code(s): F41.9 - Anxiety disorder, unspecified Status: Chronic Assessment and Plan: Continue comfort care with plan for hospice. (10) Anemia due to chronic kidney disease, on chronic dialysis: Code(s): N18.6 - End stage renal disease; D63.1 - Anemia in chronic kidney disease; Z99.2 - Dependence on renal dialysis Status: Acute Assessment and Plan: Stable. Plan for hospice as noted above. Time Spent With Patient Time with patient: 15 - 25 minutes Subjective Date/time seen: 11/09/19 11:12 Interval history: Date of Service: 11/09/2019. Admitted with altered mental status. Known multiple medical issues. Has been declining quite some time. Family has now made decision for hospice care. Arrangements have been made for patient to go home with hospice. Patient will open eyes when touched or spoken to but does not answer questions. Daughter in room. Review of Systems Review of Systems: ROS unobtainable: unobtainable due to mental status Exam Const: General: no acute distress HENMT: Other: unable Neck: Neck: supple Lymphatic: lymphadenopathy not noted Resp: Auscultation: clear to auscultation bilaterally, no rales and no wheezes Cardio: Rate: regular rate Rhythm: regular rhythm GI: Inspection: non-distended GI Palp: Yes Soft to palpation Skin: Other: wounds l
--- NOTE | 2019-11-09 11:30 | PM.CNNEP ---
Assessment and Plan Assessment and plan (1) End stage renal disease: Code(s): N18.6 - End stage renal disease Status: Resolved (2) Altered mental status: Qualifiers: Altered mental status type: unspecified Qualified Code(s): R41.82 - Altered mental status, unspecified Code(s): R41.82 - Altered mental status, unspecified Status: Acute (3) Hyperkalemia: Code(s): E87.5 - Hyperkalemia Status: Acute (4) Hypoglycemia: Code(s): E16.2 - Hypoglycemia, unspecified Status: Acute (5) Cirrhosis: Qualifiers: Ascites presence: without ascites Hepatic cirrhosis type: unspecified hepatic cirrhosis Qualified Code(s): K74.60 - Unspecified cirrhosis of liver Code(s): K74.60 - Unspecified cirrhosis of liver Status: Acute (6) Hypotension: Code(s): I95.9 - Hypotension, unspecified Status: Chronic Assessment and Plan: . Additional Plan Rachelle has end-stage renal disease. As noted below, the patient's family has decided to transition her care to comfort care/hospice as her overall health continues to decline despite all aggressive measures abdomen instituted to date. Hospice has or has already been contacted and the tentative plan is for the patient be discharged today on hospice care. Given this change in her status, I will no longer pursue renal replacement therapy/dialysis as it will not likely change her long-term prognosis and as already demonstrated to date, does not appear to actually make the patient feel any better or provide comfort. Comfort care measures have been instituted since she is still hospitalized but as mentioned, the plan is for her to be discharged home on hospice care if everything is arranged for the patient in terms of supplies/medications/equipment. Thank you for allowing me to participate in the care of this patient. History of Present Illness Reason for Consult Consult date: 11/09/19 Reason for consult: end stage renal disease Chief Complaint Chief complaint: hyperkalemia, hypoglycemia, altered mental status History of Present Illness Narrative: The patient is an unfortunate 79 year old female with multiple medical problems as outlined below who presented to [facility] ER with altered mental status. The patient does have a history of dementia but usually at baseline she is still awake and alert to have conversations with her family which apparently was the case the night before admission. However, on the day of admission, her her daughter noted more of a change to the point where she is unable to converse at all. She would moan and yell out at random and apparently screaming in pain if she was touched. For all these reasons, she was brought to the emergency room for further evaluation. It should be noted the patient was just discharged from [facility] about 4 days ago. In fact, in the last couple of months, she has been transferred back and forth from [facility] and [facility] to the rehab center at [facility] due to fluctuations in her mental status and hypoxia. On her last hospitalization, her mental status continued to wax and wane despite a an exact exhaustive evaluation with regard to blood test urine tests, and imaging studies. She was noted to have a multidrug resistant Klebsiella by urine culture but Infectious Disease believed that this was a colonization rather than a true infection given it was the same organism on repeat urine cultures in the last few months. She also had ongoing issues with hypoglycemia, particularly in the morning, necessitating medical management to get her blood pressure more stable although this was felt to possibly related to her poor oral intake. Workup and evaluation in the emergency room on presentation this time demonstrated a CT scan of the head which was negative, blood tests that were consistent with her known history of end-stage renal di
[2019-11-09] MEDS: NEOMYCIN/POLYMYXIN/BACITRACIN OINTMENT PACKET 1 PACKET (11:55)
--- NOTE | 2019-11-09 18:58 | PM.DS ---
DS: Diagnosis Admitting Diagnosis Admitting Diagnosis: Altered mental status, unspecified Discharge Diagnosis (1) Altered mental status: Qualifiers: Altered mental status type: unspecified Qualified Code(s): R41.82 - Altered mental status, unspecified Code(s): R41.82 - Altered mental status, unspecified Status: Acute (2) Urinary tract infection due to ESBL Klebsiella: Code(s): N39.0 - Urinary tract infection, site not specified; B96.89 - Other specified bacterial agents as the cause of diseases classified elsewhere Status: Acute (3) Hypoglycemia: Code(s): E16.2 - Hypoglycemia, unspecified Status: Acute (4) ESRD (end stage renal disease) on dialysis: Code(s): N18.6 - End stage renal disease; Z99.2 - Dependence on renal dialysis Status: Acute (5) Cirrhosis: Qualifiers: Hepatic cirrhosis type: unspecified hepatic cirrhosis Ascites presence: without ascites Qualified Code(s): K74.60 - Unspecified cirrhosis of liver Code(s): K74.60 - Unspecified cirrhosis of liver Status: Acute (6) Thrombocytopenia: Code(s): D69.6 - Thrombocytopenia, unspecified Status: Acute (7) CHF (congestive heart failure): Qualifiers: Heart failure type: diastolic Heart failure chronicity: chronic Qualified Code(s): I50.32 - Chronic diastolic (congestive) heart failure Code(s): I50.9 - Heart failure, unspecified Status: Chronic (8) Hypertension: Qualifiers: Hypertension type: essential hypertension Qualified Code(s): I10 - Essential (primary) hypertension Code(s): I10 - Essential (primary) hypertension Status: Chronic (9) Anxiety: Code(s): F41.9 - Anxiety disorder, unspecified Status: Chronic (10) Anemia due to chronic kidney disease, on chronic dialysis: Code(s): N18.6 - End stage renal disease; D63.1 - Anemia in chronic kidney disease; Z99.2 - Dependence on renal dialysis Status: Acute DS: Summary Hospital Course Reason for hospitalization: Altered mental status. Hospital Course: Date of Service of Discharge: November 09, 2019. History of Present Illness: Patient is an 79-year-old woman with multiple medical problems with recent hospital stay between [facility] and [facility] had just been discharged to [facility] on 11/04/2019. On her most recent stay, she had been treated for ESBL Klebsiella pneumoniae in her urine. Patient initially appeared to be doing well at the nursing facility but was noted to be confused when seen by the daughter on day of presentation back to the emergency room. Patient is on hemodialysis due to end-stage renal disease amongst her many health issues. In the emergency room, she was noted to have altered mental status. She additionally had hypoglycemia and hyperkalemia. She was admitted for further evaluation and treatment. Course in Hospital: Patient was admitted to the medical floor she was initially started on gentamicin and imipenem per the emergency room physician. ED physician did speak with Infectious Disease. Switched to cefepime based on her recent cultures. IV fluids work kept at KVO rate with dextrose due to the noted hypoglycemia. Nephrology was consulted due to known end-stage renal disease on hemodialysis. By the evening of 11/08/2019, family did ask about possibility of hospice. This was discussed with nurse practitioner for the hospitalist group. Patient has been known to have decline over past year. Family did not wish for patient to continue suffering at this point. Hospice consult was obtained. Family was able to speak with [facility] and made decision to move forward with hospice care. Arrangements were made for patient to go home with hospice. On home medications for chronic illnesses. She was given IV lorazepam and IV morphine as needed with decision for hospice care. Patient would open her eyes and react to being touched b
== END 2019-11-09 12:35 | disposition hospice, home (50) | DRG 689 ==
LOC: ANHED 18:41 → ANHIMU 18:55 → ANH3MEDSUR 11-08 18:13
PROVIDERS: Nurse Practitioner; Admitting Provider Hospitalist; Emergency Provider Emergency Medicine; PCP Internal Medicine; Visit Provider Hospitalist
DX: N39.0 Urinary tract infection, site not specified (principal); N18.6 End stage renal disease; I13.2 Hypertensive heart and chronic kidney disease with heart failure and with stage 5 chronic kidney disease, or end stage renal disease; E87.5 Hyperkalemia; K74.69 Other cirrhosis of liver; Z99.2 Dependence on renal dialysis; D63.1 Anemia in chronic kidney disease; F41.8 Other specified anxiety disorders; Z98.41 Cataract extraction status, right eye; Z98.42 Cataract extraction status, left eye; J44.9 Chronic obstructive pulmonary disease, unspecified; E78.00 Pure hypercholesterolemia, unspecified; I50.9 Heart failure, unspecified; G20 Parkinson's disease; F02.80 Dementia in other diseases classified elsewhere, unspecified severity, without behavioral disturbance, psychotic disturbance, mood disturbance, and anxiety; Z87.440 Personal history of urinary (tract) infections; Z90.710 Acquired absence of both cervix and uterus; Z96.652 Presence of left artificial knee joint; Z95.1 Presence of aortocoronary bypass graft; E86.0 Dehydration; E16.2 Hypoglycemia, unspecified; D69.6 Thrombocytopenia, unspecified; I25.10 Atherosclerotic heart disease of native coronary artery without angina pectoris; I95.9 Hypotension, unspecified; Z66 Do not resuscitate; B96.1 Klebsiella pneumoniae [K. pneumoniae] as the cause of diseases classified elsewhere
CPT/HCPCS: 36415; 36556; 70450; 71045; 80048; 80053; 81001; 82140; 82948; 83605; 84443; 84484; 85025; 85055; 87040; 87077; 87081; 87086; 87088; 87186; 93005; 96361; 96365; 96366; 96375; 96376; 99285; A9270; C1751; G0257; J0610; J0692; J0743; J1580; J1644; J2060; J2270; J7030; J7040